=== PATIENT | female | born 1935 | race Caucasian/White ===

== ENCOUNTER 2018-06-06 13:38 | Inpatient (IN) | payer MEDICARE, BC ==
[2018-06-06] MEDS ORDERED: SODIUM CHLORIDE 0.9% 1,000 ML IV ONE ×2 (14:42)
--- NOTE | 2018-06-06 14:45 | ED ---
Altered Mental Status HPI - General Chief Complaint: Altered Mental Status Stated Complaint: elevated heart rate, mental status changes Time Seen by Provider: 06/06/18 14:42 Source: patient, RN notes reviewed, old records reviewed Mode of arrival: ambulatory Limitations: no limitations - History of Present Illness Initial Comments: This is a 80-year-old female the ER for evaluation. Patient presents today for evaluation regarding the family believes is altered mental status. Patient herself states that her mental status is normal she was reassessed family states the patient thinks that she is in the. Patient's daughter who is understood noticed that the patient had an elevated heart rate which was irregular. Patient has no history of this prior. No recent change in medications no significant sick contacts no travel history. Patient without complaint currently no headache chest pain or shortness of breath MD Complaint: confusion -: hour(s) Severity: moderate Consistency of Symptoms: waxing and waning Associated Symptoms: weakness - Related Data Home Medications Medication Instructions Recorded Confirmed Ascorbic Acid [Vitamin C] 500 mg PO DAILY 11/02/13 06/06/18 Calcium Citrate/Vitamin D3 1 tab PO DAILY 11/02/13 06/06/18 [Calcium Citrate - Vit D3 Tab] Ezetimibe [Zetia] 10 mg PO DAILY 11/02/13 06/06/18 Folic Acid/Mv,Fe,Min [Centrum 1 tab PO DAILY 11/02/13 06/06/18 Multivitamin Tab Chew] Gabapentin [Neurontin] 600 mg PO TID 11/02/13 06/06/18 Levothyroxine Sodium [Synthroid] 50 mcg PO DAILY 11/02/13 06/06/18 Pantoprazole Sodium 40 mg PO DAILY 11/02/13 06/06/18 Vitamin E (Dl,Tocopheryl Acet) 1 tab PO DAILY 11/02/13 06/06/18 [Vitamin E] clonazePAM [KlonoPIN] 1 mg PO HS 11/02/13 06/06/18 traMADol HCl [Ultram] 50 mg PO QID 11/02/13 06/06/18 HYDROcodone/APAP 10-325MG [[place] 0.5 - 1 tab PO Q6H PRN 12/06/13 06/06/18 10-325] DULoxetine HCL [Cymbalta] 60 mg PO DAILY 06/06/18 06/06/18 Allergies Allergy/AdvReac Type Severity Reaction Status Date / Time Sulfa (Sulfonamide Allergy Swelling Verified 06/06/18 15:45 Antibiotics) Review of Systems ROS Statement: Those systems with pertinent positive or pertinent negative responses have been documented in the HPI. ROS Other: All systems not noted in ROS Statement are negative. Past Medical History Past Medical History: Osteoarthritis (OA) History of Any Multi-Drug Resistant Organisms: None Reported Past Surgical History: Cholecystectomy, Hysterectomy Past Anesthesia/Blood Transfusion Reactions: No Reported Reaction Past Psychological History: No Psychological Hx Reported Smoking Status: Current some day smoker Past Alcohol Use History: Rare Past Drug Use History: None Reported General Exam Limitations: no limitations General appearance: alert, in no apparent distress Head exam: Present: atraumatic, normocephalic, normal inspection Eye exam: Present: normal appearance, PERRL, EOMI. Absent: scleral icterus, conjunctival injection, periorbital swelling ENT exam: Present: normal exam, mucous membranes moist Neck exam: Present: normal inspection. Absent: tenderness, meningismus, lymphadenopathy Respiratory exam: Present: normal lung sounds bilaterally. Absent: respiratory distress, wheezes, rales, rhonchi, stridor Cardiovascular Exam: Present: tachycardia, irregular rhythm, normal heart sounds. Absent: systolic murmur, diastolic murmur, rubs, gallop, clicks GI/Abdominal exam: Present: soft, normal bowel sounds. Absent: distended, tenderness, guarding, rebound, rigid Extremities exam: Present: normal inspection, full ROM, normal capillary refill. Absent: tenderness, pedal edema, joint swelling, calf tenderness Back exam: Present: normal inspection Neurological exam: Present: alert, oriented X3, CN II-XII intact Psychiatric exam: Present: normal affect, normal mood Skin exam: Present: warm, dry, intact, normal color. Absent: rash Course Vital Signs 06/06/18 13:47 Temperature 98.2 F Pulse Rate 117 H Respiratory 16 Rate Blood Pressure 126/78 O2 Sat by Pulse 95 Oximetry - Reevaluation(s) Reevaluation #1: 06/06/18 18:02 Medical records reviewed Reevaluation #2: 06/06/18 18:02 Patient showing normal mental status currently with improvement heart rate control Medical Decision Making - Medical Decision Making 82 female the ER for evaluation presented for evaluation regarding altered mental status found to be new onset A. fib with RVR. Patient will be admitted for evaluation of H of fibrillation with RVR, patient is nonfocal neurological exam with normal lab work normal vital signs. - Lab Data Result diagrams: 06/06/18 15:00 06/06/18 15:00 Lab Results 06/06/18 06/06/18 06/06/18 Range/Units 15:00 15:00 15:00 WBC (3.8-10.6) k/uL RBC (3.80-5.40) m/uL Hgb (11.4-16.0) gm/dL Hct (34.0-46.0) % MCV (80.0-100.0) fL MCH (25.0-35.0) pg MCHC (31.0-37.0) g/dL RDW (11.5-15.5) % Plt Count (150-450) k/uL Neutrophils % % Lymphocytes % % Monocytes % % Eosinophils % % Basophils % % Neutrophils # (1.3-7.7) k/uL Lymphocytes # (1.0-4.8) k/uL Monocytes # (0-1.0) k/uL Eosinophils # (0-0.7) k/uL Basophils # (0-0.2) k/uL PT 10.0 (9.0-12.0) sec INR 0.9 (<1.2) APTT 24.9 (22.0-30.0) sec Sodium 138 (137-145) mmol/L Potassium 4.3 (3.5-5.1) mmol/L Chloride 102 (98-107) mmol/L Carbon Dioxide 29 (22-30) mmol/L Anion Gap 7 mmol/L BUN 10 (7-17) mg/dL Creatinine 0.78 (0.52-1.04) mg/dL Est GFR (CKD-EPI)AfAm 82 (>60 ml/min/1.73 sqM) Est GFR (CKD-EPI)NonAf 71 (>60 ml/min/1.73 sqM) Glucose 85 (74-99) mg/dL Calcium 10.0 (8.4-10.2) mg/dL Total Bilirubin 0.6 (0.2-1.3) mg/dL AST 29 (14-36) U/L ALT 43 (9-52) U/L Alkaline Phosphatase 87 (38-126) U/L Ammonia <9 (<30) umol/L Troponin I (0.000-0.034) ng/mL Total Protein 7.2 (6.3-8.2) g/dL Albumin 4.4 (3.5-5.0) g/dL Urine Opiates Screen (NotDetected) Ur Oxycodone Screen (NotDetected) Urine Methadone Screen (NotDetected) Ur Propoxyphene Screen (NotDetected) Ur Barbiturates Screen (NotDetected) U Tricyclic Antidepress (NotDetected) Ur Phencyclidine Scrn (NotDetected) Ur Amphetamines Screen (NotDetected) U Methamphetamines Scrn (NotDetected) U Benzodiazepines Scrn (NotDetected) Urine Cocaine Screen (NotDetected) U Marijuana (THC) Screen (NotDetected) 06/06/18 06/06/18 06/06/18 Range/Units 15:00 15:00 15:00 WBC 10.2 (3.8-10.6) k/uL RBC 5.15 (3.80-5.40) m/uL Hgb 15.6 (11.4-16.0) gm/dL Hct 45.9 (34.0-46.0) % MCV 89.1 (80.0-100.0) fL MCH 30.4 (25.0-35.0) pg MCHC 34.1 (31.0-37.0) g/dL RDW 14.1 (11.5-15.5) % Plt Count 322 (150-450) k/uL Neutrophils % 52 % Lymphocytes % 38 % Monocytes % 4 % Eosinophils % 3 % Basophils % 1 % Neutrophils # 5.3 (1.3-7.7) k/uL Lymphocytes # 3.9 (1.0-4.8) k/uL Monocytes # 0.5 (0-1.0) k/uL Eosinophils # 0.3 (0-0.7) k/uL Basophils # 0.1 (0-0.2) k/uL PT (9.0-12.0) sec INR (<1.2) APTT (22.0-30.0) sec Sodium (137-145) mmol/L Potassium (3.5-5.1) mmol/L Chloride (98-107) mmol/L Carbon Dioxide (22-30) mmol/L Anion Gap mmol/L BUN (7-17) mg/dL Creatinine (0.52-1.04) mg/dL Est GFR (CKD-EPI)AfAm (>60 ml/min/1.73 sqM) Est GFR (CKD-EPI)NonAf (>60 ml/min/1.73 sqM) Glucose (74-99) mg/dL Calcium (8.4-10.2) mg/dL Total Bilirubin (0.2-1.3) mg/dL AST (14-36) U/L ALT (9-52) U/L Alkaline Phosphatase (38-126) U/L Ammonia (<30) umol/L Troponin I <0.012 (0.000-0.034) ng/mL Total Protein (6.3-8.2) g/dL Albumin (3.5-5.0) g/dL Urine Opiates Screen Detected H (NotDetected) Ur Oxycodone Screen Not Detected (NotDetected) Urine Methadone Screen Not Detected (NotDetected) Ur Propoxyphene Screen Not Detected (NotDetected) Ur Barbiturates Screen Not Detected (NotDetected) U Tricyclic Antidepress Not Detected (NotDetected) Ur Phencyclidine Scrn Not Detected (NotDetected) Ur Amphetamines Screen Not Detected (NotDetected) U Methamphetamines Scrn Not Detected (NotDetected) U Benzodiazepines Scrn Not Detected (NotDetected) Urine Cocaine Screen Not Detected (NotDetected) U Marijuana (THC) Screen Not Detected (NotDetected) - EKG Data -: EKG Interpreted by Me (EKG shows A. fib rate of 90, QRS 70, QTc 452) - Radiology Data Radiology results: report reviewed (CT brain chest x-rays negative for acute disease), image reviewed Disposition Clinical Impression: Altered mental status, Atrial fibrillation with RVR, Dehydration Disposition: ADMITTED IP TO THIS HOSP Is patient prescribed a controlled substance at d/c from ED?: No Referrals: Rachel Gallardo MD [Primary Care Provider] - 1-2 days
[2018-06-06 15:29] LABS: Basophils # (A) 0.1 k/uL (0-0.2); Basophils % (A) 1 %; Eosinophils # (A) 0.3 k/uL (0-0.7); Eosinophils % (A) 3 %; HCT 45.9 % (34.0-46.0); HGB 15.6 gm/dL (11.4-16.0); Lymphocytes # (A) 3.9 k/uL (1.0-4.8); Lymphocytes % (A) 38 %; MCH 30.4 pg (25.0-35.0); MCHC 34.1 g/dL (31.0-37.0); MCV 89.1 fL (80.0-100.0); Mean Platelet Volume 7.1; Monocytes # (A) 0.5 k/uL (0-1.0); Monocytes % (A) 4 %; Neutrophils # (A) 5.3 k/uL (1.3-7.7); Neutrophils % (A) 52 %; Platelet Count 322 k/uL (150-450); RBC 5.15 m/uL (3.80-5.40); RDW 14.1 % (11.5-15.5); WBC 10.2 k/uL (3.8-10.6)
[2018-06-06 15:31] LABS: INR 0.9 (<1.2); Partial Thromboplastin Time 24.9 sec (22.0-30.0)
[2018-06-06 15:34] LABS: Albumin 4.4 g/dL (3.5-5.0); Potassium 4.3 mmol/L (3.5-5.1); Total Bilirubin 0.6 mg/dL (0.2-1.3); Total Protein 7.2 g/dL (6.3-8.2)
[2018-06-06 15:50] LABS: Amphetamine Screen,Urine Not Detected (NotDetected); Barbiturate Screen,Urine Not Detected (NotDetected); Benzodiazepines Screen,Urine Not Detected (NotDetected); Cocaine Screen,Urine Not Detected (NotDetected); Methadone Screen, Urine Not Detected (NotDetected); Opiate Screen,Urine Detected (NotDetected); Oxycodone Screen, Urine Not Detected (NotDetected); Phencyclidine Screen,Urine Not Detected (NotDetected); Tricyclic Antidepressant,Urine Not Detected (NotDetected); Urn Cannabinoid Scrn Not Detected (NotDetected)
--- NOTE | 2018-06-06 16:28 | CT ---
EXAMINATION TYPE: CT brain wo con DATE OF EXAM: 06/06/2018 COMPARISON: None HISTORY: Altered mental status CT DLP: 1021.[address] of the brain was performed. The ventricles, basal cisterns and sulci overlying the cerebral convexities demonstrate mild enlargem ent. There is no evidence for intracranial hemorrhage or sulcal effacement. There is decreased attenuation about the periventricular white matter and deep white matter of both c erebral hemispheres, compatible with chronic small vessel ischemia. Differential diagnosis does inclu de demyelination. No mass effects are seen.No midline shift. Osseous calvarium is intact. If symptoms persist consider MRI. IMPRESSION: 1. Age related atrophic and chronic small vessel ischemic change without acute intracranial process s een at this time.
--- NOTE | 2018-06-06 16:43 | XR ---
EXAMINATION TYPE: XR chest 2V DATE OF EXAM: 06/06/2018 COMPARISON: 12/19/2014 HISTORY: Altered mental status TECHNIQUE: Frontal and lateral views of the chest are obtained. FINDINGS: There is no heart failure nor confluent pneumonic infiltrate. Costophrenic angles are amadeo r. There are chest leads. Bony thorax is intact. IMPRESSION: No active cardiopulmonary disease. No change.
[2018-06-06] MEDS ORDERED: SODIUM CHLORIDE 0.9% 1,000 ML IV STA (17:10)
[2018-06-06] MEDS ORDERED: DILTIAZEM 5 MG/ML 5 ML VIAL IVP STA (17:10)
[2018-06-06] MEDS ORDERED: DILTIAZEM DRIP BOLUS FROM BAG 1 MG SOLN IV ONE (17:10)
[2018-06-06] MEDS ORDERED: DILTIAZEM 5 MG/ML 5 ML VIAL IV ONE (17:15)
[2018-06-06] MEDS ORDERED: NITROGLYCERIN SL TABS 0.4 MG TAB SUBLINGUAL PRN (17:59)
[2018-06-06] MEDS ORDERED: HEPARIN SODIUM,PORCINE 5,000 UNIT/ML 1 ML VIAL IV PRN (17:59)
[2018-06-06] MEDS ORDERED: HEPARIN SODIUM,PORCINE 5,000 UNIT/ML 1 ML VIAL IV ONE (17:59)
[2018-06-06] MEDS ORDERED: HEPARIN SOD,PORK IN 0.45% NACL 25,000 UNIT in 0.45% NACL 1 250ML.BAG IV SCH (18:00)
[2018-06-06 18:04] LABS: Appearance,Urine Clear (Clear); Bilirubin,Urine Negative (Negative); Blood,Urine Negative (Negative); Color,Urine Light Yellow; Glucose,Urine (UA) Negative (Negative); Ketones,Urine Negative (Negative); Leukocyte Esterase,Urine Negative (Negative); Nitrite,Urine Negative (Negative); PH, Urine 5.5 (5.0-8.0); Protein,Urine Negative (Negative); Specific Gravity,Urine 1.006 (1.001-1.035); Urobilinogen,Urine <2.0 mg/dL (<2.0)
[2018-06-06] MEDS: DILTIAZEM 125 MG in SODIUM CHLORIDE 0.9% 100 ML IV SCH (19:42)
[2018-06-06] MEDS: METOPROLOL TARTRATE 25 MG TAB PO SCH (23:42)
[2018-06-06] MEDS: clonazePAM 1 MG TAB PO SCH (23:43)
[2018-06-06] MEDS: HYDROcodone/APAP 10-325MG 1 EACH TAB PO PRN (23:43)
[2018-06-06] MEDS: GABAPENTIN 300 MG CAP PO SCH (23:43)
[2018-06-06] MEDS: traMADol 50 MG TAB PO SCH (23:44)
[2018-06-06] MEDS ORDERED: guaiFENesin SYRUP 100MG/5ML 200 MG/10 ML CUP PO PRN (23:57)
[2018-06-07 00:56] VITALS: BMI 23.0
[2018-06-07] MEDS: SODIUM CHLORIDE 0.9% 1,000 ML IV SCH ×3 (02:27→11:32)
[2018-06-07 06:33] LABS: Mean Platelet Volume 6.8; Platelet Count 277 k/uL (150-450)
[2018-06-07 06:42] LABS: Cholesterol 179 mg/dL (<200); HDL Cholesterol 37 mg/dL (40-60); LDL Cholesterol,Calculated 95 mg/dL (0-99); Triglycerides 235 mg/dL (<150)
[2018-06-07] MEDS: APIXABAN 5 MG TAB PO SCH ×2 (08:17→20:31)
[2018-06-07] MEDS: DULoxetine HCL 60 MG CAPSULE.DR PO SCH (08:17)
[2018-06-07] MEDS: ASPIRIN 325 MG TAB PO SCH (08:17)
[2018-06-07] MEDS: GABAPENTIN 300 MG CAP PO SCH ×3 (08:18→23:08)
[2018-06-07] MEDS: LEVOTHYROXINE 50 MCG TAB PO SCH (08:18)
[2018-06-07] MEDS: PANTOPRAZOLE 40 MG TABLET PO SCH (08:18)
[2018-06-07] MEDS: METOPROLOL TARTRATE 25 MG TAB PO SCH ×2 (08:18→20:31)
[2018-06-07] MEDS: traMADol 50 MG TAB PO SCH ×4 (08:18→23:33)
[2018-06-07] MEDS: ATORVASTATIN 80 MG TAB PO SCH (08:18)
[2018-06-07] MEDS: HYDROcodone/APAP 10-325MG 1 EACH TAB PO PRN ×2 (08:19→17:20)
[2018-06-07] MEDS ORDERED: MV FE MIN PO SCH (09:00)
[2018-06-07] MEDS ORDERED: FOLIC ACID PO SCH (09:00)
[2018-06-07] MEDS: ASCORBIC ACID 500 MG TAB PO SCH (11:41)
[2018-06-07] MEDS: VITAMIN E (DL,TOCOPHERYL ACET) 400 UNIT CAP PO SCH (11:41)
[2018-06-07] MEDS: EZETIMIBE 10 MG TAB PO SCH (11:42)
[2018-06-07] MEDS ORDERED: CALCIUM CITRATE PO SCH (12:00)
[2018-06-07] MEDS ORDERED: VITAMIN D3 PO SCH (12:00)
--- NOTE | 2018-06-07 12:01 | P.CRDCN ---
History of Present Illness History of present illness: This is Dr. Silva dictating a consult on this patient The patient was interviewed and examined by me IMPRESSION / ASSESSMENT: Patient admitted with altered mental status Found to be in atrial fibrillation PLAN: Rate controlled and anticoagulation strategy recommended for atrial fibril lation Metoprolol 25 mg twice daily and gradually maximize Check TSH 2-D echo and Doppler study to assess cardiac structure and function impression When cleared from a GI standpoint regarding GI bleeding ELIQUIS should be initiated at 5 mg twice a day or any other NOAC or Coumadin HPI patient admitted with altered mental status. Patient's daughter thought her heart rate was elevated and irregular Initial pulse rate was 117 beats a minute, blood pressure 126/78 mmHg ROS: No fever chills or rigors, no cough, phlegm or expectoration, no nausea, vomiting or diarrhea, no hematuria, dysuria, no musculoskeletal complaints, no strokes or seizures, no skin lesions. EXAMINATION: Heart rate in the 50s and 60s, afebrile 98.5F Blood pressure 131/62 mmHg Heart sounds are irregular no murmurs or gallops Breath sounds are clear no rhonchi no crackles Extremities warm no edema Patient is a poor historian She is also being worked up for GI bleed REVIEW OF LABS, ECG & MEDICAL DATA White count 10.2 thousand, hemoglobin 15.6, sodium 138 potassium 4.3, BUN 10 creatinine 0.78 3 troponins are normal TSH 2.5 LDL 95 Triglycerides 235,000 Twelve-lead ECG shows atrial fibrillation with heart rates in the 90s narrow QRS nonspecific ST-T abnormality Past Medical History Past Medical History: GERD/Reflux, Hyperlipidemia, Memory Impairment, Osteoarthritis (OA) Additional Past Medical History / Comment(s): occassional forgetfullness, degenerative disc disease, chronic pain History of Any Multi-Drug Resistant Organisms: None Reported Past Surgical History: Cholecystectomy, Hysterectomy Past Anesthesia/Blood Transfusion Reactions: No Reported Reaction Smoking Status: Current every day smoker - Past Family History Father Additional Family Medical History / Comment(s): pt. states her father was an alcoholic and at a young age Medications and Allergies Home Medications Medication Instructions Recorded Confirmed Type Ascorbic Acid [Vitamin C] 500 mg PO DAILY 11/02/13 06/06/18 History Calcium Citrate/Vitamin D3 1 tab PO DAILY 11/02/13 06/06/18 History [Calcium Citrate - Vit D3 Tab] Ezetimibe [Zetia] 10 mg PO DAILY 11/02/13 06/06/18 History Folic Acid/Mv,Fe,Min [Centrum 1 tab PO DAILY 11/02/13 06/06/18 History Multivitamin Tab Chew] Gabapentin [Neurontin] 600 mg PO TID 11/02/13 06/06/18 History Levothyroxine Sodium [Synthroid] 50 mcg PO DAILY 11/02/13 06/06/18 History Pantoprazole Sodium 40 mg PO DAILY 11/02/13 06/06/18 History Vitamin E (Dl,Tocopheryl Acet) 1 tab PO DAILY 11/02/13 06/06/18 History [Vitamin E] clonazePAM [KlonoPIN] 1 mg PO HS 11/02/13 06/06/18 History traMADol HCl [Ultram] 50 mg PO QID 11/02/13 06/06/18 History HYDROcodone/APAP 10-325MG [[place] 0.5 - 1 tab PO Q6H PRN 12/06/13 06/06/18 History 10-325] DULoxetine HCL [Cymbalta] 60 mg PO DAILY 06/06/18 06/06/18 History Allergies Allergy/AdvReac Type Severity Reaction Status Date / Time Sulfa (Sulfonamide Allergy Swelling Verified 06/06/18 15:45 Antibiotics) Physical Exam Vitals: Vital Signs Temp Pulse Pulse Resp BP BP Pulse Ox 06/07/18 09:34 97 06/07/18 06:00 98.5 F 51 L 19 131/62 95 06/07/18 02:00 98.3 F 59 L 19 122/58 95 06/07/18 00:25 73 06/06/18 22:15 73 19 06/06/18 22:00 97.5 F L 74 18 169/98 98 06/06/18 20:30 86 17 160/78 06/06/18 20:00 83 22 168/98 95 06/06/18 19:30 142/88 06/06/18 19:00 59 L 11 L 142/88 06/06/18 18:30 102 H 20 141/90 06/06/18 18:00 75 16 147/105 96 06/06/18 17:30 99 16 146/125 97 06/06/18 17:00 92 18 126/114 98 04/08/19 16:30 122/89 06/06/18 16:00 74 14 127/96 93 L 06/06/18 13:47 98.2 F 117 H 16 126/78 95 Intake and Output 06/06/18 06/07/18 06/07/18 22:59 06:59 14:59 Intake Total 51.833 240 Balance 51.833 240 Intake: Intake, IV Titration 51.833 Amount Diltiazem 125 mg In 51.833 Sodium Chloride 0.9% 100 ml @ 5 MG/HR 5 mls/hr IV .Q24H [facility] Rx#:[id number] Oral 240 Other: Voiding Method Toilet Toilet # Voids 1 5 1 # Bowel Movements 2 Weight 69.1 kg Results 06/07/18 06:02 06/06/18 15:00 Cardiac Enzymes 06/06/18 06/06/18 06/06/18 Range/Units 15:00 15:00 21:08 AST 29 (14-36) U/L Troponin I <0.012 <0.012 (0.000-0.034) ng/mL 06/07/18 Range/Units 06:02 AST (14-36) U/L Troponin I <0.012 (0.000-0.034) ng/mL Coagulation 06/06/18 06/07/18 06/07/18 Range/Units 15:00 01:53 06:02 PT 10.0 (9.0-12.0) sec APTT 24.9 29.6 31.8 H (22.0-30.0) sec Lipids 06/07/18 Range/Units 06:02 Triglycerides 235 H (<150) mg/dL Cholesterol 179 (<200) mg/dL HDL Cholesterol 37 L (40-60) mg/dL CBC 06/06/18 06/07/18 Range/Units 15:00 06:02 WBC 10.2 (3.8-10.6) k/uL RBC 5.15 (3.80-5.40) m/uL Hgb 15.6 (11.4-16.0) gm/dL Hct 45.9 (34.0-46.0) % Plt Count 322 277 (150-450) k/uL Comprehensive Metabolic Panel 06/06/18 Range/Units 15:00 Sodium 138 (137-145) mmol/L Potassium 4.3 (3.5-5.1) mmol/L Chloride 102 (98-107) mmol/L Carbon Dioxide 29 (22-30) mmol/L BUN 10 (7-17) mg/dL Creatinine 0.78 (0.52-1.04) mg/dL Glucose 85 (74-99) mg/dL Calcium 10.0 (8.4-10.2) mg/dL AST 29 (14-36) U/L ALT 43 (9-52) U/L Alkaline Phosphatase 87 (38-126) U/L Total Protein 7.2 (6.3-8.2) g/dL Albumin 4.4 (3.5-5.0) g/dL Current Medications Generic Name Dose Route Start Last Admin Trade Name Freq PRN Reason Stop Dose Admin Hydrocodone Bitart/Acetaminophen 0.5 - 1 each 06/06/18 22:22 06/07/18 08:19 [place] 10 PO 1 each Q6H PRN Administration Pain Apixaban 5 mg 06/07/18 09:00 06/07/18 08:17 Eliquis PO 5 mg BID WAY[facility] Administration Ascorbic Acid 500 mg 06/07/18 12:00 06/07/18 11:41 Vitamin C PO 500 mg DAILY WAY[facility] Administration Aspirin 325 mg 06/07/18 09:00 06/07/18 08:17 Aspirin PO 325 mg DAILY [facility] Administration Atorvastatin Calcium 80 mg 06/07/18 09:00 06/07/18 08:18 Lipitor PO 80 mg DAILY WAY[facility] Administration Clonazepam 1 mg 06/06/18 22:23 06/06/18 23:43 Klonopin PO 1 mg HS WAY[facility] Administration Duloxetine HCl 60 mg 06/07/18 09:00 06/07/18 08:17 Cymbalta PO 60 mg DAILY WAY[facility] Administration Ezetimibe 10 mg 06/07/18 12:00 06/07/18 11:42 Zetia PO 10 mg DAILY [facility] Administration Gabapentin 600 mg 06/06/18 22:30 06/07/18 08:18 Neurontin PO 600 mg TID WAY[facility] Administration Guaifenesin 200 mg 06/06/18 23:57 06/07/18 00:32 Robitussin PO 200 mg Q6H PRN Administration Cough Sodium Chloride 1,000 mls @ 100 mls/hr 06/06/18 18:00 06/07/18 11:32 Saline 0.9% IV Not Given .Q10H [facility] Diltiazem HCl 125 mg/ Sodium 125 mls @ 5 mls/hr 06/06/18 19:00 06/07/18 06:04 Chloride IV 0 mg/hr .Q24H [facility] 0 mls/hr Infusion 5 MG/HR Levothyroxine Sodium 50 mcg 06/07/18 06:30 06/07/18 08:18 Synthroid PO 50 mcg DAILY@0630 [facility] Administration Metoprolol Tartrate 25 mg 06/06/18 21:00 06/07/18 08:18 Lopressor PO 25 mg BID [facility] Administration Nitroglycerin 0.4 mg 06/06/18 17:59 Nitrostat SUBLINGUAL Q5M PRN Chest Pain Pantoprazole Sodium 40 mg 06/07/18 09:00 06/07/18 08:18 Protonix PO 40 mg DAILY [facility] Administration Tramadol HCl 50 mg 06/06/18 22:30 06/07/18 08:18 Ultram PO 50 mg QID [facility] Administration Vitamin E 400 unit 06/07/18 09:00 06/07/18 11:41 Vitamin E PO 400 unit DAILY [facility] Administration Intake and Output 06/06/18 06/07/18 06/07/18 22:59 06:59 14:59 Intake Total 51.833 240 Balance 51.833 240 Intake: Intake, IV Titration 51.833 Amount Diltiazem 125 mg In 51.833 Sodium Chloride 0.9% 100 ml @ 5 MG/HR 5 mls/hr IV .Q24H [facility] Rx#:[id number] Oral 240 Other: Voiding Method Toilet Toilet # Voids 1 5 1 # Bowel Movements 2 Weight 69.1 kg 06/07/18 06:02 06/06/18 15:00
--- NOTE | 2018-06-07 12:38 | P.HPIM ---
History of Present Illness H&P Date: 06/07/18 Chief Complaint: Confusion and elevated heart rate This is a 82-year-old female with a known past medical history of hypothyroidism, os arthritis, chronic back pain with known degenerative disc disease of the lumbar spine and spinal stenosis. Patient presents to the emergency room with complaint of mental status changes and elevated heart rate. She was found to be in atrial fibrillation with rapid ventricular response. Started on IV heparin and Cardizem drip in the ER. Patient has been seen evaluated by cardiology she is currently on metoprolol 25 mg twice a day and has been started on Eliquis for anticoagulation. She remains in A. fib heart rate is controlled. Her mentation is improving. She is alert and orientated to her name and place. She had a computed tomography scan of the brain that showed no acute intracranial process. Chest x-rays negative urinalysis negative. Troponins are negative 3 sets drug screen was positive for opiates. Thyroid levels normal. Patient denies any fever or chills or sweats. Denies any chest pain. Denies any nausea or vomiting. She did report a few episodes of diarrhea yesterday. Stool for C. diff will be ordered. Also again complaining of some cough yesterday which has improved she does have some mild wheezing noted on exam and IV fluids will be hep-locked. Review of Systems Please refer to HPI otherwise unremarkable Past Medical History Past Medical History: GERD/Reflux, Hyperlipidemia, Memory Impairment, Osteoarthritis (OA) Additional Past Medical History / Comment(s): occassional forgetfullness, degenerative disc disease, chronic pain History of Any Multi-Drug Resistant Organisms: None Reported Past Surgical History: Cholecystectomy, Hysterectomy Past Anesthesia/Blood Transfusion Reactions: No Reported Reaction Smoking Status: Current every day smoker - Past Family History Father Additional Family Medical History / Comment(s): pt. states her father was an alcoholic and at a young age Medications and Allergies Home Medications Medication Instructions Recorded Confirmed Type Ascorbic Acid [Vitamin C] 500 mg PO DAILY 11/02/13 06/06/18 History Calcium Citrate/Vitamin D3 1 tab PO DAILY 11/02/13 06/06/18 History [Calcium Citrate - Vit D3 Tab] Ezetimibe [Zetia] 10 mg PO DAILY 11/02/13 06/06/18 History Folic Acid/Mv,Fe,Min [Centrum 1 tab PO DAILY 11/02/13 06/06/18 History Multivitamin Tab Chew] Gabapentin [Neurontin] 600 mg PO TID 11/02/13 06/06/18 History Levothyroxine Sodium [Synthroid] 50 mcg PO DAILY 11/02/13 06/06/18 History Pantoprazole Sodium 40 mg PO DAILY 11/02/13 06/06/18 History Vitamin E (Dl,Tocopheryl Acet) 1 tab PO DAILY 11/02/13 06/06/18 History [Vitamin E] clonazePAM [KlonoPIN] 1 mg PO HS 11/02/13 06/06/18 History traMADol HCl [Ultram] 50 mg PO QID 11/02/13 06/06/18 History HYDROcodone/APAP 10-325MG [[place] 0.5 - 1 tab PO Q6H PRN 12/06/13 06/06/18 History 10-325] DULoxetine HCL [Cymbalta] 60 mg PO DAILY 06/06/18 06/06/18 History Allergies Allergy/AdvReac Type Severity Reaction Status Date / Time Sulfa (Sulfonamide Allergy Swelling Verified 06/06/18 15:45 Antibiotics) Physical Exam Vitals: Vital Signs Temp Pulse Pulse Resp BP BP Pulse Ox 06/07/18 09:34 97 06/07/18 06:00 98.5 F 51 L 19 131/62 95 06/07/18 02:00 98.3 F 59 L 19 122/58 95 06/07/18 00:25 73 06/06/18 22:15 73 19 06/06/18 22:00 97.5 F L 74 18 169/98 98 06/06/18 20:30 86 17 160/78 06/06/18 20:00 83 22 168/98 95 06/06/18 19:30 142/88 06/06/18 19:00 59 L 11 L 142/88 06/06/18 18:30 102 H 20 141/90 06/06/18 18:00 75 16 147/105 96 06/06/18 17:30 99 16 146/125 97 06/06/18 17:00 92 18 126/114 98 06/06/18 16:30 122/89 06/06/18 16:00 74 14 127/96 93 L 06/06/18 13:47 98.2 F 117 H 16 126/78 95 Intake and Output 06/06/18 06/07/18 06/07/18 22:59 06:59 14:59 Intake Total 51.833 240 Balance 51.833 240 Intake: Intake, IV Titration 51.833 Amount Diltiazem 125 mg In 51.833 Sodium Chloride 0.9% 100 ml @ 5 MG/HR 5 mls/hr IV .Q24H [facility] Rx#:[id number] Oral 240 Other: Voiding Method Toilet Toilet # Voids 1 5 1 # Bowel Movements 2 Weight 69.1 kg Head normocephalic Neck supple Lungs a few faint mild wheezes noted bilaterally Heart regular rate and rhythm S1-S2, no rub or gallop Abdomen is soft nontender nondistended positive bowel sounds no hepatosplenomegaly Extremities no edema Neuro alert and orientated to 2 patient new her name and place Results CBC & Chem 7: 06/07/18 06:02 06/06/18 15:00 Labs: Abnormal Lab Results - Last 24 Hours (Table) 06/06/18 06/07/18 06/07/18 Range/Units 15:00 06:02 06:02 APTT 31.8 H (22.0-30.0) sec Triglycerides 235 H (<150) mg/dL HDL Cholesterol 37 L (40-60) mg/dL Urine Opiates Screen Detected H (NotDetected) Thrombosis Risk Factor Assmnt - Choose All That Apply Any of the Below Risk Factors Present?: No Other Risk Factors: Yes Each Risk Factor Represents 3 Points: Age 75 years or older Thrombosis Risk Factor Assessment Total Risk Factor Score: 3 Thrombosis Risk Factor Assessment Level: Moderate Risk Assessment and Plan Assessment: 1. New onset of atrial fibrillation with rapid ventricular response: Heart rate is better controlled. She is currently off of the Cardizem drip and IV heparin. Cardiology is placed her on Eliquis for anticoagulation and metoprolol 25 mg twice a day for rate control. 2-D echo is pending. Thyroid level is normal. 2. Altered mental status changes: Computed tomography scan of brain shows no acute intracranial process. No evidence of infection noted on chest x-ray or urinalysis. 3. Nicotine dependence: Discussed smoking cessation for greater than 3 minutes. Add nicotine patch 4. Degenerative disc disease of the lumbar spine and spinal stenosis: On [place] as needed for pain control 5. Diarrhea check stool for C. diff. Patient reports last stool was yesterday morning Hep-Lock IV fluids DVT prophylaxis Eliquis and GI prophylaxis Pepcid Time with Patient: Greater than 30 (Greater than 50% of the total time spent in counseling and coordination of care.I performed an examination of the patient and discussed their management with the physician Parts Cataloguer. I have reviewed the Physician Parts Cataloguer's notes and agree with the documented findings and plan of care)
[2018-06-07] MEDS: DILTIAZEM 125 MG in SODIUM CHLORIDE 0.9% 100 ML IV SCH (15:10)
[2018-06-07] MEDS: clonazePAM 1 MG TAB PO SCH (20:31)
[2018-06-08] MEDS: HYDROcodone/APAP 10-325MG 1 EACH TAB PO PRN (01:42)
[2018-06-08 07:00] LABS: Basophils # (A) 0.1 k/uL (0-0.2); Basophils % (A) 1 %; Eosinophils # (A) 0.5 k/uL (0-0.7); Eosinophils % (A) 5 %; HGB 15.1 gm/dL (11.4-16.0); Lymphocytes # (A) 4.3 k/uL (1.0-4.8); Lymphocytes % (A) 36 %; MCH 30.4 pg (25.0-35.0); MCHC 32.8 g/dL (31.0-37.0); MCV 92.6 fL (80.0-100.0); Mean Platelet Volume 6.7; Monocytes # (A) 0.5 k/uL (0-1.0); Monocytes % (A) 4 %; Neutrophils # (A) 6.3 k/uL (1.3-7.7); Neutrophils % (A) 53 %; Platelet Count 270 k/uL (150-450); RBC 4.97 m/uL (3.80-5.40); RDW 13.5 % (11.5-15.5); WBC 11.8 k/uL (3.8-10.6)
[2018-06-08 07:14] LABS: ALT 56 U/L (9-52); AST 38 U/L (14-36); Albumin 4.3 g/dL (3.5-5.0); Alkaline Phosphatase 62 U/L (38-126); Anion Gap 5 mmol/L; Blood Urea Nitrogen 11 mg/dL (7-17); Calcium 9.3 mg/dL (8.4-10.2); Carbon Dioxide 28 mmol/L (22-30); Chloride 107 mmol/L (98-107); Glucose 99 mg/dL (74-99); Potassium 4.2 mmol/L (3.5-5.1); Sodium 140 mmol/L (137-145); Total Bilirubin 0.8 mg/dL (0.2-1.3); Total Protein 6.9 g/dL (6.3-8.2)
[2018-06-08] MEDS: LEVOTHYROXINE 50 MCG TAB PO SCH (09:51)
[2018-06-08] MEDS: ASCORBIC ACID 500 MG TAB PO SCH (09:51)
[2018-06-08] MEDS: EZETIMIBE 10 MG TAB PO SCH (09:51)
[2018-06-08] MEDS: PANTOPRAZOLE 40 MG TABLET PO SCH (09:51)
[2018-06-08] MEDS: VITAMIN E (DL,TOCOPHERYL ACET) 400 UNIT CAP PO SCH (09:51)
[2018-06-08] MEDS: traMADol 50 MG TAB PO SCH ×4 (09:51→23:53)
[2018-06-08] MEDS: GABAPENTIN 300 MG CAP PO SCH ×3 (09:51→20:27)
[2018-06-08] MEDS: ATORVASTATIN 80 MG TAB PO SCH (09:53)
[2018-06-08] MEDS: DULoxetine HCL 60 MG CAPSULE.DR PO SCH (09:53)
[2018-06-08] MEDS: APIXABAN 5 MG TAB PO SCH ×2 (09:53→20:27)
[2018-06-08] MEDS: METOPROLOL TARTRATE 25 MG TAB PO SCH ×2 (09:53→20:27)
[2018-06-08] MEDS: ASPIRIN 325 MG TAB PO SCH (09:53)
--- NOTE | 2018-06-08 12:11 | P.PN ---
Subjective Progress Note Date: 06/08/18 This is a 82-year-old female with a known past medical history of hypothyroidism, os arthritis, chronic back pain with known degenerative disc disease of the lumbar spine and spinal stenosis. Patient presents to the emergency room with complaint of mental status changes and elevated heart rate. She was found to be in atrial fibrillation with rapid ventricular response. Started on IV heparin and Cardizem drip in the ER. Patient has been seen evaluated by cardiology she is currently on metoprolol 25 mg twice a day and has been started on Eliquis for anticoagulation. She remains in A. fib heart rate is controlled. Her mentation is improving. She is alert and orientated to her name and place. She had a computed tomography scan of the brain that showed no acute intracranial process. Chest x-rays negative urinalysis negative. Troponins are negative 3 sets drug screen was positive for opiates. Thyroid levels normal. Patient denies any fever or chills or sweats. Denies any chest pain. Denies any nausea or vomiting. She did report a few episodes of diarrhea yesterday. Stool for C. diff will be ordered. Also again complaining of some cough yesterday which has improved she does have some mild wheezing noted on exam and IV fluids will be hep-locked. On 06/08/2018 patient is alert and oriented. Patient has been started on eliquis and Metroprolol for A. fib. At this time patient denies chest pain or shortness breath. Patient denies nausea vomiting or diarrhea. Patient denies any urinary burning or frequency. Some mild wheezing still noted on exam. White blood count slightly elevated 11.8 will order chest x-ray at this time UA negative Objective - Vital Signs Vital signs: Vital Signs Temp 97.5 F L 06/08/18 07:30 Pulse 69 06/08/18 07:30 Resp 20 06/08/18 07:30 BP 161/81 06/08/18 07:30 Pulse Ox 95 06/08/18 08:20 Intake & Output 06/07/18 06/08/18 06/08/18 18:59 06:59 18:59 Intake Total 720 400 480 Balance 720 400 480 Weight 62 kg Intake: Oral 720 400 480 Other: Voiding Method Toilet Toilet # Voids 2 1 - Exam Head normocephalic Neck supple Lungs a few faint mild wheezes noted bilaterally Heart regular rate and rhythm S1-S2, no rub or gallop Abdomen is soft nontender nondistended positive bowel sounds no hepatosplenomegaly Extremities no edema Neuro alert and orientated to 2 patient new her name and place - Labs CBC & Chem 7: 06/08/18 06:24 06/08/18 06:24 Labs: Abnormal Lab Results - Last 24 Hours (Table) 06/08/18 06/08/18 Range/Units 06:24 06:24 WBC 11.8 H (3.8-10.6) k/uL AST 38 H (14-36) U/L ALT 56 H (9-52) U/L Assessment and Plan Assessment: 1. New onset of atrial fibrillation with rapid ventricular response: Heart rate is better controlled. She is currently off of the Cardizem drip and IV heparin. Cardiology is placed her on Eliquis for anticoagulation and metoprolol 25 mg twice a day for rate control. 2-D echo is pending. Thyroid level is normal. 2. Altered mental status changes: Computed tomography scan of brain shows no acute intracranial process. No evidence of infection noted on chest x-ray or urinalysis. 3. Nicotine dependence: Discussed smoking cessation for greater than 3 minutes. Add nicotine patch 4. Degenerative disc disease of the lumbar spine and spinal stenosis: On [place] as needed for pain control 5. Diarrhea check stool for C. diff. Patient reports last stool was yesterday morning 6. Leukocytosis. White blood cell count slightly elevated at 11.8. Will order chest x-ray at this time. C. diff sample ordered. UA negative DVT prophylaxis Eliquis and GI prophylaxis Pepcid I performed an examination of the patient and discussed their management with the Nurse Practitioner. I have reviewed the Nurse Practitioner's notes and agree with the documented findings and plan of care
--- NOTE | 2018-06-08 13:59 | XR ---
EXAMINATION TYPE: XR chest 2V DATE OF EXAM: 06/08/2018 COMPARISON: Chest x-ray from 2 days ago. HISTORY: Altered mental status, atrial fibrillation, cough rule out pneumonia. TECHNIQUE: Frontal and lateral views of the chest are obtained. FINDINGS: Overlying EKG leads are redemonstrated. There is chronic parenchymal change without suspic ious new focal air space opacity, pleural effusion, or pneumothorax seen. The cardiac silhouette siz e is stable and upper limits of normal with atherosclerotic aorta. The osseous structures are intac t. IMPRESSION: Chronic emphysematous change without acute pulmonary process.
[2018-06-08] MEDS: LOSARTAN 50 MG TAB PO SCH (15:43)
[2018-06-08] MEDS: clonazePAM 1 MG TAB PO SCH (20:27)
[2018-06-08] MEDS: DILTIAZEM 125 MG in SODIUM CHLORIDE 0.9% 100 ML IV SCH (21:31)
[2018-06-09] MEDS: LEVOTHYROXINE 50 MCG TAB PO SCH (06:04)
[2018-06-09 07:36] LABS: Basophils # (A) 0.1 k/uL (0-0.2); Basophils % (A) 1 %; Eosinophils # (A) 0.3 k/uL (0-0.7); Eosinophils % (A) 2 %; HCT 51.6 % (34.0-46.0); HGB 16.2 gm/dL (11.4-16.0); Lymphocytes # (A) 4.5 k/uL (1.0-4.8); Lymphocytes % (A) 35 %; MCH 30.3 pg (25.0-35.0); MCHC 31.3 g/dL (31.0-37.0); MCV 96.6 fL (80.0-100.0); Mean Platelet Volume 6.6; Monocytes # (A) 0.6 k/uL (0-1.0); Monocytes % (A) 4 %; Neutrophils # (A) 7.2 k/uL (1.3-7.7); Neutrophils % (A) 56 %; Platelet Count 333 k/uL (150-450); RBC 5.34 m/uL (3.80-5.40); RDW 13.4 % (11.5-15.5); WBC 12.9 k/uL (3.8-10.6)
[2018-06-09 07:48] LABS: Albumin 4.5 g/dL (3.5-5.0); Calcium 9.5 mg/dL (8.4-10.2); Potassium 4.1 mmol/L (3.5-5.1); Total Bilirubin 0.8 mg/dL (0.2-1.3); Total Protein 7.1 g/dL (6.3-8.2)
[2018-06-09] MEDS: PANTOPRAZOLE 40 MG TABLET PO SCH (08:47)
[2018-06-09] MEDS: EZETIMIBE 10 MG TAB PO SCH (08:47)
[2018-06-09] MEDS: APIXABAN 5 MG TAB PO SCH (08:47)
[2018-06-09] MEDS: DULoxetine HCL 60 MG CAPSULE.DR PO SCH (08:47)
[2018-06-09] MEDS: ASCORBIC ACID 500 MG TAB PO SCH (08:47)
[2018-06-09] MEDS: GABAPENTIN 300 MG CAP PO SCH (08:47)
[2018-06-09] MEDS: ATORVASTATIN 80 MG TAB PO SCH (08:48)
[2018-06-09] MEDS: traMADol 50 MG TAB PO SCH (08:48)
[2018-06-09] MEDS: ASPIRIN 325 MG TAB PO SCH (08:48)
[2018-06-09] MEDS: LOSARTAN 50 MG TAB PO SCH (08:49)
[2018-06-09] MEDS: METOPROLOL TARTRATE 25 MG TAB PO SCH (08:49)
[2018-06-09] MEDS: VITAMIN E (DL,TOCOPHERYL ACET) 400 UNIT CAP PO SCH (08:49)
[2018-06-09 13:30] VITALS: RESP 18
[2018-06-09 13:33] VITALS: BP 141/86; PULSE 76; TEMP 97.7
--- NOTE | 2018-06-09 13:49 | P.DS ---
Providers Date of admission: 06/06/18 17:59 Expected date of discharge: 06/09/18 Attending physician: Rachel Gallardo Consults: 06/06/18 17:59 Consult Physician Urgent Consulting Provider: Quyen Griffin Consult Reason/Comments: afib Do you want consulting provider notified?: Yes Primary care physician: Rachel Paulina [facility] Course: Discharge diagnosis 1. New onset of atrial fibrillation with rapid ventricular response: Heart rate is better controlled. She is currently off of the Cardizem drip and IV heparin. Cardiology is placed her on Eliquis for anticoagulation and metoprolol 25 mg twice a day for rate control. Thyroid level is normal. 2. Altered mental status changes: Possibly secondary to a TIA from throwing a clot from the new onset of atrial fibrillation with rapid ventricular response. Mentation has improved and returned to baseline. Computed tomography scan of brain shows no acute intracranial process. No evidence of infection noted on chest x-ray or urinalysis. Will have patient continue Lipitor. And she'll be on Eliquis for blood thinner 3. Nicotine dependence: Discussed smoking cessation for greater than 3 minutes. 4. Degenerative disc disease of the lumbar spine and spinal stenosis: On [place] as needed for pain control 5. Diarrhea resolved 6. Leukocytosis likely secondary to an acute bronchitis. Urinalysis negative. Chest x-ray negative for pneumonia. Influenza screening negative. Diarrhea did resolve. 7. Acute tracheobronchitis: Continue Augmentin 500/125 twice a day for 7 days Hospital course This is a 82-year-old female with a known past medical history of hypothyroidism, os arthritis, chronic back pain with known degenerative disc disease of the lumbar spine and spinal stenosis. [facility] [place] [place] with complaint of mental status changes and elevated heart rate. She was found to be in atrial fibrillation with rapid ventricular response. Started on IV heparin and Cardizem drip in the ER. Patient has been seen evaluated by cardiology she is currently on metoprolol 25 mg twice a day and has been started on Eliquis for anticoagulation. She remains in A. fib heart rate is controlled. Her mentation is improving. She is alert and orientated to her name and place. She had a computed tomography scan of the brain that showed no acute intracranial process. Chest x-rays negative urinalysis negative. Troponins are negative 3 sets drug screen was positive for opiates. Thyroid levels normal. Patient denies any fever or chills or sweats. Denies any chest pain. Denies any nausea or vomiting. She did report a few episodes of diarrhea yesterday. Stool for C. diff will be ordered. Also again complaining of some cough yesterday which has improved she does have some mild wheezing noted on exam and IV fluids will be hep-locked. On 06/08/2018 patient is alert and oriented. Patient has been started on eliquis and Metroprolol for A. fib. At this time patient denies chest pain or shortness breath. Patient denies nausea vomiting or diarrhea. Patient denies any urinary burning or frequency. Some mild wheezing still noted on exam. White blood count slightly elevated 11.8 will order chest x-ray at this time UA negative 06/09/2018 patient is medically stable for discharge. She has been cleared by cardiology for discharge. She remains in atrial fibrillation but heart rate is controlled. She'll be on Eliquis for anticoagulation. And metoprolol for rate control. Patient's altered mental status did improve. It possibly was related to a TIA. Patient was started on Lipitor and aspirin during this admission. Since she will continue on Eliquis will discontinue the aspirin after discussing with cardiology nurse practitioner. Cozaar was also added to help with blood pressure control. Patient's mentation has improved back to baseline. She did have an elevated white count with cough likely related to bronchitis. And will continue Augmentin for 7 more days. Patient will follow-up with cardiology in 1-[address] Gallardo in 1 week. I performed an examination of the patient and discussed their management with the physician Senior Qa Analyst. I have reviewed the Physician Senior Qa Analyst's notes and agree with the documented findings and plan of care Patient Condition at Discharge: Stable Plan - Discharge Summary Discharge Rx Participant: No New Discharge Prescriptions: New Amoxicillin/Potassium Clav [Augmentin 500-125 Tablet] 1 tab PO Q12HR #14 tab Losartan [Cozaar] 50 mg PO DAILY #30 tab Apixaban [Eliquis] 5 mg PO BID #60 tab Atorvastatin [Lipitor] 80 mg PO DAILY #30 tab Metoprolol Tartrate [Lopressor] 25 mg PO BID #60 tab Continue Folic Acid/Mv,Fe,Min [Centrum Multivitamin Tab Chew] 1 tab PO DAILY Ascorbic Acid [Vitamin C] 500 mg PO DAILY Calcium Citrate/Vitamin D3 [Calcium Citrate - Vit D3 Tab] 1 tab PO DAILY Vitamin E (Dl,Tocopheryl Acet) [Vitamin E] 1 tab PO DAILY Levothyroxine Sodium [Synthroid] 50 mcg PO DAILY Ezetimibe [Zetia] 10 mg PO DAILY Gabapentin [Neurontin] 600 mg PO TID traMADol HCl [Ultram] 50 mg PO QID clonazePAM [KlonoPIN] 1 mg PO HS Pantoprazole Sodium 40 mg PO DAILY HYDROcodone/APAP 10-325MG [[place] 10-325] 0.5 - 1 tab PO Q6H PRN PRN Reason: Pain DULoxetine HCL [Cymbalta] 60 mg PO DAILY Discharge Medication List Ascorbic Acid [Vitamin C] 500 mg PO DAILY 11/02/13 [History] Calcium Citrate/Vitamin D3 [Calcium Citrate - Vit D3 Tab] 1 tab PO DAILY 11/02/13 [History] Ezetimibe [Zetia] 10 mg PO DAILY 11/02/13 [History] Folic Acid/Mv,Fe,Min [Centrum Multivitamin Tab Chew] 1 tab PO DAILY 11/02/13 [History] Gabapentin [Neurontin] 600 mg PO TID 11/02/13 [History] Levothyroxine Sodium [Synthroid] 50 mcg PO DAILY 11/02/13 [History] Pantoprazole Sodium 40 mg PO DAILY 11/02/13 [History] Vitamin E (Dl,Tocopheryl Acet) [Vitamin E] 1 tab PO DAILY 11/02/13 [History] clonazePAM [KlonoPIN] 1 mg PO HS 11/02/13 [History] traMADol HCl [Ultram] 50 mg PO QID 11/02/13 [History] HYDROcodone/APAP 10-325MG [[place] 10-325] 0.5 - 1 tab PO Q6H PRN 12/06/13 [History] DULoxetine HCL [Cymbalta] 60 mg PO DAILY 06/06/18 [History] Amoxicillin/Potassium Clav [Augmentin 500-125 Tablet] 1 tab PO Q12HR #14 tab 06/09/18 [Rx] Apixaban [Eliquis] 5 mg PO BID #60 tab 06/09/18 [Rx] Atorvastatin [Lipitor] 80 mg PO DAILY #30 tab 06/09/18 [Rx] Losartan [Cozaar] 50 mg PO DAILY #30 tab 06/09/18 [Rx] Metoprolol Tartrate [Lopressor] 25 mg PO BID #60 tab 06/09/18 [Rx] Follow up Appointment(s)/Referral(s): Irineo Silva MD [STAFF PHYSICIAN] - 07/01/18 2:15 pm Rachel Gallardo MD [Primary Care Provider] - 06/15/18 2:30 pm (Wednesday) Patient Instructions/Handouts: A-fib (Atrial Fibrillation) (DC), Fall Prevention for Older Adults (DC), Safe Use of Anticoagulants (DC) Activity/Diet/Wound Care/Special Instructions: [employer] has a $30 copay. Free month coupon given to pt's diet: cardiac Activity: as tolerated Discharge Disposition: HOME SELF-CARE
--- NOTE | 2018-06-10 13:11 | CDI ---
Documentation Clarification Form Date: 06/10/18 From: Edwige Moreno Phone: If you have a question regarding this query, please contact Lyn Parry at [phone] between 8am and 5pm. Admit Date: 06/06/2018 5:59:00 PM Patient Name: Jeannette Tran Visit Number: [id number] Discharge Date: 06/09/2018 3:01:00 PM ATTENTION: The Clinical Documentation Specialists (CDI) and [facility] Coding Staff appreciate your assistance in clarifying documentation. Please respond to the clarification below the line at the bottom and electronically sign. The CDI & [facility] Coding staff will review the response and follow-up if needed. Please note: Queries are made part of the Legal Health Record. If you have any questions, please contact the author of this message via ITS. Amber Connelly PA-C/Dr. Rachel Gallardo New onset atrial fibrillation is documented throughout the chart. Patient also had a possible TIA from throwing a clot from new onset of atrial fib. History/Risk Factors: Patient has a history of hypothyroidism, hyperlipidemia and is a smoker. Clinical Indicators: Elevated heart rate. EKG/telemetry: Shows a.fib rate of 90 QRS 70, OTc 452. Treatment: IV Cardizem, IV heparin and PO Eliquis. Consults: No diagnosis documented by cardiology. In your professional opinion, can you please clarify the type of Atrial Fibrillation, if known? Chronic/Permanent Paroxysmal Persistent Other, please specify Unable to determine unable to determine MTDD
== END 2018-06-09 15:01 | disposition home or self-care (01) | DRG 309 ==
LOC: EC 13:38 → 3SCARD 17:59
PROVIDERS: ADMIT Internal Medicine; ATTEND Internal Medicine
DX: I48.91 Unspecified atrial fibrillation (principal); G45.9 Transient cerebral ischemic attack, unspecified; E86.0 Dehydration; J20.9 Acute bronchitis, unspecified; E03.9 Hypothyroidism, unspecified; E78.5 Hyperlipidemia, unspecified; F17.200 Nicotine dependence, unspecified, uncomplicated; K21.9 Gastro-esophageal reflux disease without esophagitis; M51.36 Other intervertebral disc degeneration, lumbar region; G89.29 Other chronic pain; M19.90 Unspecified osteoarthritis, unspecified site; R19.7 Diarrhea, unspecified; M48.061 Spinal stenosis, lumbar region without neurogenic claudication; R41.3 Other amnesia; Z79.890 Hormone replacement therapy; Z79.899 Other long term (current) drug therapy; Z88.2 Allergy status to sulfonamides; Z90.49 Acquired absence of other specified parts of digestive tract; Z90.710 Acquired absence of both cervix and uterus; Z81.1 Family history of alcohol abuse and dependence
CPT/HCPCS: 36415; 70450; 71046; 80053; 80061; 80306; 81003; 82140; 84443; 84484; 85025; 85049; 85610; 85730; 87502; 93005; 94760; 96361; 96365; 96366; 99285

== ENCOUNTER 2019-01-05 12:06 | Emergency (ER) | payer MEDICARE, BC ==
[2019-01-05 12:14] VITALS: BP 123/67; PULSE 85; RESP 20; TEMP 99.4
[2019-01-05] MEDS ORDERED: DIPH,PERTUS(ACELL)TETVAC-LF 0.5 ML VIAL IM ONE (13:04)
--- NOTE | 2019-01-05 13:30 | ED ---
Fall HPI - General Chief Complaint: Fall Stated Complaint: leg pain Time Seen by Provider: 01/05/19 12:43 Source: patient Mode of arrival: ambulatory - History of Present Illness Initial Comments: 83-year-old female with history of hypertension presents emergency department for evaluation of left leg laceration and pain. Patient states that she walked into a coffee table which caused her to fall approximately 7-10 days ago. Patient states that she did not hit her head hurt injury to the neck and back right lower extremities or upper extremity. Patient states that she did not want to have sutures performed at that time. Patient is unsure of her last tetanus. Patient states the wound has been healing her she continues to have pain at the site of laceration. Patient denies any fever or flulike or surrounding redness. Remaining review systems negative. Patient felt due to the continued pain and history of osteoporosis she should have her leg evaluated presents emergency department for evaluation - Related Data Home Medications Medication Instructions Recorded Confirmed Ezetimibe [Zetia] 10 mg PO DAILY 11/02/13 01/05/19 Folic Acid/Mv,Fe,Min [Centrum 1 tab PO DAILY 11/02/13 01/05/19 Multivitamin Tab Chew] Gabapentin [Neurontin] 600 mg PO TID 11/02/13 01/05/19 Levothyroxine Sodium [Synthroid] 50 mcg PO DAILY 11/02/13 01/05/19 Pantoprazole Sodium 40 mg PO DAILY 11/02/13 01/05/19 clonazePAM [KlonoPIN] 1 mg PO HS PRN 11/02/13 01/05/19 HYDROcodone/APAP 10-325MG [[place] 1 tab PO Q6H PRN 12/06/13 01/05/19 10-325] DULoxetine HCL [Cymbalta] 60 mg PO DAILY 06/06/18 01/05/19 Ascorbic Acid [Vitamin C] 1,000 mg PO DAILY 01/05/19 01/05/19 Cholecalciferol [Vitamin D3 (25 5,000 unit PO DAILY 01/05/19 01/05/19 Mcg = 1000 Iu)] Vitamin E Acetate [Vitamin E] 200 unit PO DAILY 01/05/19 01/05/19 clonazePAM 0.5 mg PO HS PRN 01/05/19 01/05/19 Previous Rx's Medication Instructions Recorded Apixaban [Eliquis] 5 mg PO BID #60 tab 06/09/18 Atorvastatin [Lipitor] 80 mg PO DAILY #30 tab 06/09/18 Losartan [Cozaar] 50 mg PO DAILY #30 tab 06/09/18 Metoprolol Tartrate [Lopressor] 25 mg PO BID #60 tab 06/09/18 Cephalexin [Keflex] 500 mg PO Q6HR 5 Days #20 cap 01/05/19 Allergies Allergy/AdvReac Type Severity Reaction Status Date / Time codeine Allergy Unknown Verified 01/05/19 13:47 erythromycin base Allergy Unknown Verified 01/05/19 13:47 fenofibrate [From Tricor] Allergy Unknown Verified 01/05/19 13:47 niacin Allergy Unknown Verified 01/05/19 13:47 sertraline [From Zoloft] Allergy Unknown Verified 01/05/19 13:47 Sulfa (Sulfonamide Allergy Swelling Verified 01/05/19 12:14 Antibiotics) Review of Systems ROS Statement: Those systems with pertinent positive or pertinent negative responses have been documented in the HPI. ROS Other: All systems not noted in ROS Statement are negative. Past Medical History Past Medical History: GERD/Reflux, Hyperlipidemia, Memory Impairment, Osteoarthritis (OA) Additional Past Medical History / Comment(s): occassional forgetfullness, degenerative disc disease, chronic pain History of Any Multi-Drug Resistant Organisms: None Reported Past Surgical History: Cholecystectomy, Hysterectomy Past Anesthesia/Blood Transfusion Reactions: No Reported Reaction Past Psychological History: Anxiety Smoking Status: Current every day smoker Past Alcohol Use History: None Reported Past Drug Use History: None Reported - Past Family History Father Additional Family Medical History / Comment(s): pt. states her father was an alcoholic and at a young age General Exam - General Exam Comments Initial Comments: General: The patient is awake and alert, in no distress, and does not appear acutely ill. Eye: +3 mm pupils are equal, round and reactive to light, extra-ocular movements are intact. No nystagmus. There is normal conjunctiva bilaterally. No signs of icterus. Ears, nose, mouth and throat: There are moist mucous membranes and no oral lesions. No raccoon or Alfred sign no scalp hematomas. Neck: The neck is supple, there is no tenderness or JVD. Cardiovascular: There is a regular rate and rhythm. No murmur, rub or gallop is appreciated. Respiratory: Lungs are clear to auscultation, respirations are non-labored, breath sounds are equal. No wheezes, stridor, rales, or rhonchi. Musculoskeletal: Normal ROM, no tenderness. Strength 5/5. Sensation intact. Radial and DP pulses equal bilaterally 2+. Small contusions surrounding a V- shaped skin tear that appears to be healing with no surrounding redness or areas of fluctuance or abscess. No warmth to palpation. Neurological: A&O x 3. CN II-XII intact grossly, There are no obvious motor or sensory deficits. Coordination appears grossly intact. Speech is normal. Skin: Skin is warm and dry and no rashes or lesions are noted. Psychiatric: Cooperative, appropriate mood & affect, normal judgment. Limitations: no limitations Course Vital Signs 01/05/19 12:11 Temperature 99.4 F Pulse Rate 85 Respiratory 20 Rate Blood Pressure 123/67 O2 Sat by Pulse 98 Oximetry Medical Decision Making - Medical Decision Making 83-year-old female presenting to emergency for evaluation of leg pain. Imaging studies negative for osseous process. Patient neurovascularly intact. Denies pain at the ankle joint knee joint or hip joint. Ambulatory. No signs of secondary infection at this time. Obvious healing skin tear-questionable delayed healing. Tetanus updated. Area cleansed and bacitracin applied as well as bandage. Patient denies any other injuries and was agreeable to discharge with outpatient f/u. Case discussed with attending and discharged appearing well. Disposition Clinical Impression: Skin tear, Left leg pain, Fall, Contusion Disposition: HOME SELF-CARE Condition: Good Instructions (If sedation given, give patient instructions): Skin Tear (ED) Additional Instructions: Please use medication as discussed. Please follow-up with family doctor in the next 2 days. Please return to emergency room if the symptoms increase or worsen or for any other concerns. Prescriptions: Cephalexin [Keflex] 500 mg PO Q6HR 5 Days #20 cap Is patient prescribed a controlled substance at d/c from ED?: No Referrals: Rachel Gallardo MD [Primary Care Provider] - 1-2 days Time of Disposition: 13:30
--- NOTE | 2019-01-05 13:33 | XR ---
EXAMINATION TYPE: XR tibia fibula LT DATE OF EXAM: 01/05/2019 CLINICAL HISTORY: Pain after falling injury one week ago with laceration. TECHNIQUE: Two views of the left leg are obtained. COMPARISON: None. FINDINGS: There is no acute fracture or dislocation seen in the left tibia or fibula. The knee and ankle joints appear within normal limits. The overlying soft tissue appears unremarkable. IMPRESSION: There is no acute fracture or dislocation seen in the left tibia or fibula.
== END 2019-01-05 13:46 | disposition home or self-care (01) ==
LOC: EC 12:06
DX: S81.812A Laceration without foreign body, left lower leg, initial encounter (principal); I10 Essential (primary) hypertension; M81.0 Age-related osteoporosis without current pathological fracture; F41.9 Anxiety disorder, unspecified; K21.9 Gastro-esophageal reflux disease without esophagitis; E78.5 Hyperlipidemia, unspecified; M19.90 Unspecified osteoarthritis, unspecified site; R41.3 Other amnesia; G89.29 Other chronic pain; F17.200 Nicotine dependence, unspecified, uncomplicated; Z79.890 Hormone replacement therapy; Z79.899 Other long term (current) drug therapy; Z23 Encounter for immunization; Z88.5 Allergy status to narcotic agent; Z88.1 Allergy status to other antibiotic agents; Z88.8 Allergy status to other drugs, medicaments and biological substances; Z88.2 Allergy status to sulfonamides; W17.89XA Other fall from one level to another, initial encounter; W22.03XA Walked into furniture, initial encounter; Y93.01 Activity, walking, marching and hiking; Y92.009 Unspecified place in unspecified non-institutional (private) residence as the place of occurrence of the external cause
CPT/HCPCS: 90471; 90715; 99283

== ENCOUNTER → 2019-03-10 | Outpatient (CLI) | payer MEDICARE, BC ==
--- NOTE | 2019-03-10 12:25 | XR ---
EXAMINATION TYPE: XR chest 2V DATE OF EXAM: 03/10/2019 COMPARISON: Chest x-ray June 08, 2018 HISTORY: Productive cough for weeks. TECHNIQUE: Frontal and lateral views of the chest are obtained. FINDINGS: There is chronic parenchymal changes without suspicious focal air space opacity, pleural effusion, or pneumothorax seen. Diminished inspiration on current st udy. Suspect coronary stent on lateral view. The cardiac silhouette size remains enlarged. The osse ous structures remain demineralized. IMPRESSION: Cardiomegaly and chronic parenchymal changes without new suspicious acute pulmonary proc ess.
== END | disposition home or self-care (01) ==
LOC: RADXRMAIN 11:25
PROVIDERS: ATTEND Internal Medicine
DX: R91.8 Other nonspecific abnormal finding of lung field (principal); I51.7 Cardiomegaly
CPT/HCPCS: 71046

== ENCOUNTER → 2019-09-04 | Outpatient (CLI) | payer MEDICARE, BC ==
--- NOTE | 2019-09-04 12:38 | XR ---
EXAMINATION TYPE: XR chest 2V DATE OF EXAM: 09/04/2019 COMPARISON: 03/10/19 HISTORY: Shortness of breath TECHNIQUE: Frontal and lateral views of the chest are obtained. FINDINGS: Scattered senescent parenchymal changes noted. Hyperinflation compatible with COPD. No evidence for infiltrate. No evidence for atelectasis. Heart size is stable. Mediastinal structures are stable and grossly unremarkable. No evidence for hilar prominence. Degenerative changes dorsal spine. IMPRESSION: 1. No evidence for acute pulmonary disease.
== END | disposition home or self-care (01) ==
LOC: RADXRMAIN 12:19
PROVIDERS: ATTEND Internal Medicine
DX: R05 Cough (principal)
CPT/HCPCS: 71046

== ENCOUNTER 2019-10-10 16:35 | Emergency (ER) | payer MEDICARE, BC ==
[2019-10-10 16:39] VITALS: BP 115/77; PULSE 85; RESP 18; TEMP 98.7
[2019-10-10] MEDS ORDERED: KETOROLAC 15 MG/ML 1 ML VIAL IVP STA (17:02)
[2019-10-10] MEDS ORDERED: SODIUM CHLORIDE 0.9% 500 ML 500 ML IV STA (17:02)
[2019-10-10] MEDS ORDERED: MORPHINE SULFATE 4 MG/ML SYRINGE IVP STA (17:02)
--- NOTE | 2019-10-10 17:02 | ED ---
Back Pain HPI - General Chief Complaint: Back Pain/Injury Stated Complaint: back pain Time Seen by Provider: 10/10/19 16:36 Source: patient, RN notes reviewed, old records reviewed Limitations: no limitations - History of Present Illness Initial Comments: This is an 83-year-old female DF for evaluation of back pain she complains of pain in her lower back repair buttocks radiating to her left flank. No trauma no prior history of similar complaint no dysuria no diarrhea no fevers. No other complaints MD Complaint: back pain, back injury -: hour(s) Similar Symptoms Previously: Yes Severity: mild Severity scale (1-10): 3 Quality: dull Consistency: constant Improves With: none Worsens With: movement, walking Context: turning/twisting - Related Data Home Medications Medication Instructions Recorded Confirmed Ezetimibe [Zetia] 10 mg PO DAILY 11/02/13 01/05/19 Folic Acid/Mv,Fe,Min [Centrum 1 tab PO DAILY 11/02/13 01/05/19 Multivitamin Tab Chew] Gabapentin [Neurontin] 600 mg PO TID 11/02/13 01/05/19 Levothyroxine Sodium [Synthroid] 50 mcg PO DAILY 11/02/13 01/05/19 Pantoprazole Sodium 40 mg PO DAILY 11/02/13 01/05/19 clonazePAM [KlonoPIN] 1 mg PO HS PRN 11/02/13 01/05/19 HYDROcodone/APAP 10-325MG [[place] 1 tab PO Q6H PRN 12/06/13 01/05/19 10-325] DULoxetine HCL [Cymbalta] 60 mg PO DAILY 06/06/18 01/05/19 Ascorbic Acid [Vitamin C] 1,000 mg PO DAILY 01/05/19 01/05/19 Cholecalciferol [Vitamin D3 (25 5,000 unit PO DAILY 01/05/19 01/05/19 Mcg = 1000 Iu)] Vitamin E Acetate [Vitamin E] 200 unit PO DAILY 01/05/19 01/05/19 clonazePAM 0.5 mg PO HS PRN 01/05/19 01/05/19 Previous Rx's Medication Instructions Recorded Apixaban [Eliquis] 5 mg PO BID #60 tab 06/09/18 Atorvastatin [Lipitor] 80 mg PO DAILY #30 tab 04/11/19 Losartan [Cozaar] 50 mg PO DAILY #30 tab 06/09/18 Metoprolol Tartrate [Lopressor] 25 mg PO BID #60 tab 06/09/18 Cephalexin [Keflex] 500 mg PO Q6HR 5 Days #20 cap 01/05/19 Allergies Allergy/AdvReac Type Severity Reaction Status Date / Time codeine Allergy Unknown Verified 10/10/19 16:39 erythromycin base Allergy Unknown Verified 10/10/19 16:39 fenofibrate [From Tricor] Allergy Unknown Verified 10/10/19 16:39 niacin Allergy Unknown Verified 10/10/19 16:39 sertraline [From Zoloft] Allergy Unknown Verified 10/10/19 16:39 Sulfa (Sulfonamide Allergy Swelling Verified 10/10/19 16:39 Antibiotics) Review of Systems ROS Statement: Those systems with pertinent positive or pertinent negative responses have been documented in the HPI. ROS Other: All systems not noted in ROS Statement are negative. Past Medical History Past Medical History: GERD/Reflux, Hyperlipidemia, Memory Impairment, Osteoarthritis (OA) Additional Past Medical History / Comment(s): occassional forgetfullness, degenerative disc disease, chronic pain History of Any Multi-Drug Resistant Organisms: None Reported Past Surgical History: Cholecystectomy, Hysterectomy Past Anesthesia/Blood Transfusion Reactions: No Reported Reaction Past Psychological History: Anxiety Past Alcohol Use History: None Reported Past Drug Use History: None Reported - Past Family History Father Additional Family Medical History / Comment(s): pt. states her father was an alcoholic and at a young age General Exam - General Exam Comments Initial Comments: Tenderness to left flank Limitations: no limitations General appearance: alert, in no apparent distress Head exam: Present: atraumatic, normocephalic, normal inspection Eye exam: Present: normal appearance, PERRL, EOMI. Absent: scleral icterus, conjunctival injection, periorbital swelling ENT exam: Present: normal exam, mucous membranes moist Neck exam: Present: normal inspection. Absent: tenderness, meningismus, lymphadenopathy Respiratory exam: Present: normal lung sounds bilaterally. Absent: respiratory distress, wheezes, rales, rhonchi, stridor Cardiovascular Exam: Present: regular rate, normal rhythm, normal heart sounds. Absent: systolic murmur, diastolic murmur, rubs, gallop, clicks GI/Abdominal exam: Present: soft, normal bowel sounds. Absent: distended, tenderness, guarding, rebound, rigid Extremities exam: Present: normal inspection, full ROM, normal capillary refill. Absent: tenderness, pedal edema, joint swelling, calf tenderness Back exam: Present: normal inspection Neurological exam: Present: alert, oriented X3, CN II-XII intact Psychiatric exam: Present: normal affect, normal mood Skin exam: Present: warm, dry, intact, normal color. Absent: rash Course Vital Signs 10/10/19 16:36 Temperature 98.7 F Pulse Rate 85 Respiratory 18 Rate Blood Pressure 115/77 O2 Sat by Pulse 98 Oximetry - Reevaluation(s) Reevaluation #1: 10/10/19 17:02 Medical records reviewed Reevaluation #2: 10/10/19 18:58 Patient has pain control Reevaluation #3: 10/10/19 18:58 Patient informed results okay for discharge home Medical Decision Making - Medical Decision Making 83 female DF for evaluation she does have left inguinal hernia continue to pain but is nonincarcerated, patient having bowel movements pain is improved here in the ER patient can be discharged home - Lab Data Result diagrams: 10/10/19 17:05 10/10/19 17:05 Lab Results 10/10/19 10/10/19 10/10/19 Range/Units 17:05 17:05 17:05 WBC 12.5 H (3.8-10.6) k/uL RBC 4.86 (3.80-5.40) m/uL Hgb 14.9 (11.4-16.0) gm/dL Hct 45.9 (34.0-46.0) % MCV 94.3 (80.0-100.0) fL MCH 30.7 (25.0-35.0) pg MCHC 32.5 (31.0-37.0) g/dL RDW 13.0 (11.5-15.5) % Plt Count 251 (150-450) k/uL Neutrophils % 61 % Lymphocytes % 32 % Monocytes % 4 % Eosinophils % 2 % Basophils % 1 % Neutrophils # 7.7 (1.3-7.7) k/uL Lymphocytes # 4.0 (1.0-4.8) k/uL Monocytes # 0.5 (0-1.0) k/uL Eosinophils # 0.2 (0-0.7) k/uL Basophils # 0.1 (0-0.2) k/uL Sodium 128 L (137-145) mmol/L Potassium 4.5 (3.5-5.1) mmol/L Chloride 95 L (98-107) mmol/L Carbon Dioxide 24 (22-30) mmol/L Anion Gap 9 mmol/L BUN 8 (7-17) mg/dL Creatinine 0.71 (0.52-1.04) mg/dL Est GFR (CKD-EPI)AfAm >90 (>60 ml/min/1.73 sqM) Est GFR (CKD-EPI)NonAf 79 (>60 ml/min/1.73 sqM) Glucose 124 H (74-99) mg/dL Plasma Lactic Acid Vladimir (0.7-2.0) mmol/L Calcium 8.8 (8.4-10.2) mg/dL Total Bilirubin 0.8 (0.2-1.3) mg/dL AST 37 H (14-36) U/L ALT 23 (4-34) U/L Alkaline Phosphatase 59 (38-126) U/L Total Protein 6.4 (6.3-8.2) g/dL Albumin 4.2 (3.5-5.0) g/dL Amylase 50 (30-110) U/L Lipase 47 (23-300) U/L Urine Color Yellow Urine Appearance Cloudy H (Clear) Urine pH 5.5 (5.0-8.0) Ur Specific [place] 1.021 (1.001-1.035) Urine Protein Negative (Negative) Urine Glucose (UA) Negative (Negative) Urine Ketones Negative (Negative) Urine Blood Negative (Negative) Urine Nitrite Negative (Negative) Urine Bilirubin Negative (Negative) Urine Urobilinogen <2.0 (<2.0) mg/dL Ur Leukocyte Esterase Negative (Negative) Urine RBC 1 (0-5) /hpf Urine WBC <1 (0-5) /hpf Urine WBC Clumps Rare H (None) /hpf Ur Squamous Epith Cells <1 (0-4) /hpf Urine Bacteria Rare H (None) /hpf Hyaline Casts 18 H (0-2) /lpf Urine Mucus Rare H (None) /hpf 10/10/19 Range/Units 17:05 WBC (3.8-10.6) k/uL RBC (3.80-5.40) m/uL Hgb (11.4-16.0) gm/dL Hct (34.0-46.0) % MCV (80.0-100.0) fL MCH (25.0-35.0) pg MCHC (31.0-37.0) g/dL RDW (11.5-15.5) % Plt Count (150-450) k/uL Neutrophils % % Lymphocytes % % Monocytes % % Eosinophils % % Basophils % % Neutrophils # (1.3-7.7) k/uL Lymphocytes # (1.0-4.8) k/uL Monocytes # (0-1.0) k/uL Eosinophils # (0-0.7) k/uL Basophils # (0-0.2) k/uL Sodium (137-145) mmol/L Potassium (3.5-5.1) mmol/L Chloride (98-107) mmol/L Carbon Dioxide (22-30) mmol/L Anion Gap mmol/L BUN (7-17) mg/dL Creatinine (0.52-1.04) mg/dL Est GFR (CKD-EPI)AfAm (>60 ml/min/1.73 sqM) Est GFR (CKD-EPI)NonAf (>60 ml/min/1.73 sqM) Glucose (74-99) mg/dL Plasma Lactic Acid Vladimir 1.4 (0.7-2.0) mmol/L Calcium (8.4-10.2) mg/dL Total Bilirubin (0.2-1.3) mg/dL AST (14-36) U/L ALT (4-34) U/L Alkaline Phosphatase (38-126) U/L Total Protein (6.3-8.2) g/dL Albumin (3.5-5.0) g/dL Amylase (30-110) U/L Lipase (23-300) U/L Urine Color Urine Appearance (Clear) Urine pH (5.0-8.0) Ur Specific [place] (1.001-1.035) Urine Protein (Negative) Urine Glucose (UA) (Negative) Urine Ketones (Negative) Urine Blood (Negative) Urine Nitrite (Negative) Urine Bilirubin (Negative) Urine Urobilinogen (<2.0) mg/dL Ur Leukocyte Esterase (Negative) Urine RBC (0-5) /hpf Urine WBC (0-5) /hpf Urine WBC Clumps (None) /hpf Ur Squamous Epith Cells (0-4) /hpf Urine Bacteria (None) /hpf Hyaline Casts (0-2) /lpf Urine Mucus (None) /hpf - Radiology Data Radiology results: report reviewed (CT head and pelvis does show inguinal hernia), image reviewed Disposition Clinical Impression: Left inguinal hernia Disposition: HOME SELF-CARE Condition: Good Instructions (If sedation given, give patient instructions): Inguinal Hernia (ED) Is patient prescribed a controlled substance at d/c from ED?: No Referrals: Rachel Gallardo MD [Primary Care Provider] - 1-2 days Isaiah Najera MD [STAFF PHYSICIAN] - 1-2 days
[2019-10-10 17:19] LABS: Basophils # (A) 0.1 k/uL (0-0.2); Basophils % (A) 1 %; Eosinophils # (A) 0.2 k/uL (0-0.7); Eosinophils % (A) 2 %; HCT 45.9 % (34.0-46.0); HGB 14.9 gm/dL (11.4-16.0); Lymphocytes % (A) 32 %; MCH 30.7 pg (25.0-35.0); MCHC 32.5 g/dL (31.0-37.0); MCV 94.3 fL (80.0-100.0); Monocytes # (A) 0.5 k/uL (0-1.0); Monocytes % (A) 4 %; Neutrophils # (A) 7.7 k/uL (1.3-7.7); Neutrophils % (A) 61 %; Platelet Count 251 k/uL (150-450); RBC 4.86 m/uL (3.80-5.40); WBC 12.5 k/uL (3.8-10.6)
[2019-10-10 17:25] LABS: Appearance,Urine Cloudy (Clear); Bacteria,Urine Rare /hpf; Bilirubin,Urine Negative (Negative); Blood,Urine Negative (Negative); Color,Urine Yellow; Glucose,Urine (UA) Negative (Negative); Hyaline Casts,Urine 18 /lpf (0-2); Ketones,Urine Negative (Negative); Leukocyte Esterase,Urine Negative (Negative); Mucus,Urine Rare /hpf; Nitrite,Urine Negative (Negative); PH, Urine 5.5 (5.0-8.0); Protein,Urine Negative (Negative); RBC,Urine 1 /hpf (0-5); Specific Gravity,Urine 1.021 (1.001-1.035); Squamous Epithelial Cell,Urine <1 /hpf (0-4); Urobilinogen,Urine <2.0 mg/dL (<2.0); WBC,Urine <1 /hpf (0-5)
[2019-10-10 17:40] LABS: ALT 23 U/L (4-34); AST 37 U/L (14-36); African American GFR (CKD) >90 (>60 ml/min/1.73 sqM); Albumin 4.2 g/dL (3.5-5.0); Alkaline Phosphatase 59 U/L (38-126); Amylase 50 U/L (30-110); Anion Gap 9 mmol/L; Blood Urea Nitrogen 8 mg/dL (7-17); Calcium 8.8 mg/dL (8.4-10.2); Carbon Dioxide 24 mmol/L (22-30); Chloride 95 mmol/L (98-107); Glucose 124 mg/dL (74-99); Non-African American GFR(CKD) 79 (>60 ml/min/1.73 sqM); Sodium 128 mmol/L (137-145); Total Bilirubin 0.8 mg/dL (0.2-1.3); Total Protein 6.4 g/dL (6.3-8.2)
--- NOTE | 2019-10-10 17:43 | CT ---
EXAMINATION TYPE: CT abdomen pelvis wo con DATE OF EXAM: 10/10/2019 COMPARISON: None HISTORY: Left sided flank and lumbar back pain. CT DLP: 405 mGycm Automated exposure control for dose reduction was used. TECHNIQUE: Helical acquisition of images from the lung bases through the pelvis. FINDINGS: Posterior diaphragmatic hernia contains fat bilaterally. Lack of intravenous contrast could compromise sensitivity of the exam. There are coronary artery calcifications present. LUNG BASES: No significant abnormality is appreciated. AORTA: No significant abnormality is appreciataed. LIVER/GB: Gallbladder is absent, dilation of the biliary system, common bile duct likely due to postc holecystectomy change PANCREAS: No significant abnormality is seen. SPLEEN: No significant abnormality is seen. ADRENALS: No significant abnormality is seen. KIDNEYS: Probable cortical cyst present at the midpole the left kidney measuring 16 mm. At the midpol e there is also a focus of low attenuation with rim calcification which is indeterminate, possible co rtical cyst present at the mid to lower pole right kidney adjacent to the liver. No hydronephrosis or nephrolithiasis, no evident ureteral calculus. REPRODUCTIVE ORGANS: Not seen URINARY BLADDER: No significant abnormality is seen. BOWEL: Extensive diverticular change associated with the colon. Left inguinal hernia containing some small bowel loops without evident obstruction FREE AIR: No Free Air is visible. ASCITES: None visible. PELVIC ADENOPATHY: None visualized. RETROPERITONEAL ADENOPATHY: No Retroperitoneal Adenopathy visible. OSSEOUS STRUCTURES: Degenerative disc changes are present in the lumbar spine, there is anterolisthe sis grade 1 L4-5 with associated foraminal encroachment, vacuum disc as L5-S1, facet arthropathy davis ges are present. IMPRESSION: DEGENERATIVE DISC DISEASE, FACET ARTHROPATHY, SPINAL LISTHESIS AND FORAMINAL ENCROACHMENT. LEFT INGUI NAL HERNIA CONTAINS BOWEL LOOPS. THERE IS EXTENSIVE DIVERTICULOSIS. POSTOP CHANGES. NONCONTRAST EXAM. INDETERMINATE RENAL CYSTS SUSPECTED, ONE OF WHICH IS NOT SIMPLE ON THE LEFT, FOLLOW-UP RECOMMENDED.
[2019-10-10 17:48] LABS: Potassium 4.5 mmol/L (3.5-5.1)
== END 2019-10-10 19:00 | disposition home or self-care (01) ==
LOC: EC 16:35
DX: K40.90 Unilateral inguinal hernia, without obstruction or gangrene, not specified as recurrent (principal); K21.9 Gastro-esophageal reflux disease without esophagitis; E78.5 Hyperlipidemia, unspecified; F41.9 Anxiety disorder, unspecified; Z79.890 Hormone replacement therapy; Z79.899 Other long term (current) drug therapy; Z88.5 Allergy status to narcotic agent; Z88.1 Allergy status to other antibiotic agents; Z88.2 Allergy status to sulfonamides; Z88.8 Allergy status to other drugs, medicaments and biological substances
CPT/HCPCS: 36415; 74176; 80053; 81001; 82150; 83605; 83690; 85025; 99284

== ENCOUNTER → 2020-01-30 | Outpatient (CLI) | payer MEDICARE ==
--- NOTE | 2020-01-30 15:39 | CT ---
EXAMINATION TYPE: CT abdomen pelvis wo/w con DATE OF EXAM: 01/30/2020 HISTORY: Abdominal pain bloating and nausea. CT DLP: 1378mGycm Automated Exposure Control for Dose Reduction was Utilized. CONTRAST: CT scan of the abdomen and pelvis is performed with oral and without and with IV Contrast, patient in jected with 100 mL of Isovue 300. COMPARISON: CT abdomen and pelvis October 10, 2019 FINDINGS: LUNG BASES: Coronary artery calcification RCA distribution redemonstrated. LIVER/GB: Gallbladder redemonstrated is surgically absent. Mild to moderate extrahepatic biliary dila tation up to 15 mm unchanged from prior greater than expected for cholecystectomy, there is some grad ual tapering towards the ampulla. Mild central intrahepatic biliary dilatation noted. PANCREAS: Mild to moderate generalized fat replaced atrophy. SPLEEN: No significant abnormality is seen. ADRENALS: No significant abnormality is seen. KIDNEYS: No renal stones on noncontrast CT. Symmetric cortical medullary uptake and excretion with a few scattered simple-appearing thin-walled cysts throughout both kidneys. No hydronephrosis noted rigoberto aterally. BOWEL: Slightly redundant sigmoid colon. No suspicious small or large bowel dilatation. Oral contrast extends to rectum. Some scattered diverticula in the left and sigmoid colon. UTERUS/ADNEXA: Uterus surgically absent or markedly atrophic. LYMPH NODES: No greater than 1cm abdominal or pelvic lymph nodes are appreciated. OSSEOUS STRUCTURES: Moderate to severe narrowing in both hip joints. Grade 1 anterolisthesis L4 on L5 . Mild to moderate disc space narrowing at this level. [id number] disc space narrowing with v acuum disc phenomenon at L5-S1 level OTHER: Moderate to severe mixed plaque in abdominal aorta extending into branch vessels. Small fat-co ntaining left inguinal hernia current study axial image 60 does not contain small bowel loop on curre nt study. IMPRESSION: No bowel obstruction. Air-fluid level in the rectum could reflect diarrhea and/or mild un complicated acute colitis. Correlate clinically. Interval resolution of bowel containing left inguina l hernia. Mild to moderate biliary dilatation similar to prior study. Need to followed by ERCP or [facility] P evaluation should be based on clinical and lab correlation.
== END | disposition home or self-care (01) ==
LOC: RADCTMAIN 12:53
PROVIDERS: ATTEND Internal Medicine
DX: K83.8 Other specified diseases of biliary tract (principal)
CPT/HCPCS: 82565; 84520; 74178; 36415; Q9967

== ENCOUNTER → 2020-05-21 | Outpatient (CLI) | payer MEDICARE ==
--- NOTE | 2020-05-21 14:53 | XR ---
EXAMINATION TYPE: XR chest 2V DATE OF EXAM: 05/21/2020 COMPARISON: Chest x-ray 09/04/2019 HISTORY: Cough, R05 TECHNIQUE: Frontal and lateral views of the chest are obtained. FINDINGS: There is no focal air space opacity, pleural effusion, or pneumothorax seen. The cardiac silhouette size is stable accounting for rotation which may accentuate the appearance. Aorta is dens e. There are prominent lung volumes suggesting possible underlying COPD. There are coronary artery ca lcifications. The osseous structures are intact. IMPRESSION: No acute cardiopulmonary process.
== END | disposition home or self-care (01) ==
LOC: RADXRMAIN 13:56
PROVIDERS: ATTEND Internal Medicine
DX: R05 Cough (principal)
CPT/HCPCS: 71046

== ENCOUNTER 2020-12-07 14:11 | Inpatient (IN) | payer MEDICARE ==
[2020-12-07] MEDS ORDERED: OLANZapine 10 MG VIAL IM STA ×3 (15:02→19:28)
--- NOTE | 2020-12-07 15:06 | ED ---
Altered Mental Status HPI - General Chief Complaint: Altered Mental Status Stated Complaint: AMS/Fall Source: patient, EMS Mode of arrival: EMS - History of Present Illness Initial Comments: 85-year-old female past medical history of dementia, hyperlipidemia who presents to the emergency department with increased falls and altered mental status. is at bedside and helps further history however he is a poor historian himself. States the has had altered mental status for several months. States that she's had increasing falls over the past 2 weeks. She has also been agitated. Patient is on Eliquis. denies that the patient has had any head trauma or loss of consciousness. She has had a decrease in her appetite. States that she has been taking her medications as appropriate since he doses them. No fevers. states that he can no longer take care of her. The remainder of the HPI is limited as the patient cannot provide any history - Related Data Home Medications Medication Instructions Recorded Confirmed Ezetimibe [Zetia] 10 mg PO DAILY 11/02/13 12/07/20 Folic Acid/Mv,Fe,Min [Centrum 1 tab PO DAILY 11/02/13 12/07/20 Multivitamin Tab Chew] Gabapentin [Neurontin] 600 mg PO TID 11/02/13 12/07/20 Pantoprazole Sodium 40 mg PO DAILY 11/02/13 12/07/20 clonazePAM [KlonoPIN] 1 mg PO HS PRN 11/02/13 12/07/20 HYDROcodone/APAP 10-325MG [[place] 1 tab PO Q6H PRN 12/06/13 12/07/20 10-325] DULoxetine HCL [Cymbalta] 60 mg PO DAILY 06/06/18 12/07/20 Ascorbic Acid [Vitamin C] 1,000 mg PO DAILY 01/05/19 12/07/20 Vitamin E Acetate [Vitamin E] 200 unit PO DAILY 01/05/19 12/07/20 clonazePAM 0.5 mg PO HS PRN 01/05/19 12/07/20 Atorvastatin [Lipitor] 80 mg PO HS 12/07/20 12/07/20 Cholecalciferol (Vitamin D3) 125 mcg PO DAILY 12/07/20 12/07/20 [Vitamin D3 (125 MCG = 5,000 IU)] Donepezil [Aricept] 5 mg PO HS 12/07/20 12/07/20 Levothyroxine Sodium [Synthroid] 75 mcg PO DAILY 12/07/20 12/07/20 Previous Rx's Medication Instructions Recorded Apixaban [Eliquis] 5 mg PO BID #60 tab 06/09/18 Losartan [Cozaar] 50 mg PO DAILY #30 tab 06/09/18 Metoprolol Tartrate [Lopressor] 25 mg PO BID #60 tab 06/09/18 Allergies Allergy/AdvReac Type Severity Reaction Status Date / Time codeine Allergy Unknown Verified 12/07/20 17:41 erythromycin base Allergy Unknown Verified 12/07/20 17:41 fenofibrate [From Tricor] Allergy Unknown Verified 12/07/20 17:41 niacin Allergy Unknown Verified 12/07/20 17:41 sertraline [From Zoloft] Allergy Unknown Verified 12/07/20 17:41 Sulfa (Sulfonamide Allergy Swelling Verified 12/07/20 17:41 Antibiotics) Review of Systems ROS Statement: Those systems with pertinent positive or pertinent negative responses have been documented in the HPI. ROS Other: All systems not noted in ROS Statement are negative. Past Medical History Past Medical History: GERD/Reflux, Hyperlipidemia, Memory Impairment, Osteoarthritis (OA) Additional Past Medical History / Comment(s): occassional forgetfullness, degenerative disc disease, chronic pain History of Any Multi-Drug Resistant Organisms: None Reported Past Surgical History: Cholecystectomy, Hysterectomy Past Anesthesia/Blood Transfusion Reactions: No Reported Reaction Past Psychological History: Anxiety Smoking Status: Unknown if ever smoked Past Alcohol Use History: None Reported Past Drug Use History: None Reported - Past Family History Father Additional Family Medical History / Comment(s): pt. states her father was an alcoholic and at a young age Course Vital Signs 12/07/20 12/07/20 12/07/20 14:20 19:53 21:00 Temperature 97.5 F L Pulse Rate 60 72 72 Respiratory 18 22 18 Rate Blood Pressure 129/85 176/130 105/65 O2 Sat by Pulse 95 97 97 Oximetry - Reevaluation(s) Reevaluation #1: Spoke with Dr. Lerma 12/07/20 17:[address] Gallardo 12/07/20 18:25 Reevaluation #2: 12/07/20 18:[address] Valdez - agrees to ICU admission Medical Decision Making - Medical Decision Making Upon arrival patient is placed in room 3. 5 mg of IM Zyprexa is ordered as the patient is extremely agitated. IV is established and laboratory studies are conducted. Laboratory studies did demonstrate a white count of 15.6. Sodium 108. Chloride 79. Osmolality 228. Urinalysis demonstrates 2+ ketones moderate leukocyte esterase and rare mucous. UDS positive for opiates. She does go over for a CT of her head and cervical spine which demonstrates no acute intracranial abnormality. Chest x-ray demonstrates no active cardio pulmonary disease with mild cardiomegaly. Pelvic x-ray demonstrates no acute abnormality of the pelvis. Patient has no identifiable source for infection. Hemoglobin is 7.9 likely due to the multiple contusions all over the patient's body. At this time we will hold her A[place]. I spoke with Dr. Lerma. She is given a liter bolus of normal saline followed by 20 mL per hour of 3% NaCl. The pain will be performed every 4 hours and results will be called to Dr. Lerma. Cbc will be trended every [address] Gallardo who accepted the admission. I also spoke with Dr. Valdez who accepted the patient into the ICU. She is currently awaiting a bed on the floor. - Lab Data Result diagrams: 12/07/20 16:17 12/07/20 16:17 Lab Results 12/07/20 12/07/20 12/07/20 Range/Units 16:17 16:17 16:17 WBC 15.6 H (3.8-10.6) k/uL RBC 2.45 L (3.80-5.40) m/uL Hgb 7.9 L (11.4-16.0) gm/dL Hct 22.3 L (34.0-46.0) % MCV 91.0 (80.0-100.0) fL MCH 32.3 (25.0-35.0) pg MCHC 35.5 (31.0-37.0) g/dL RDW 13.8 (11.5-15.5) % Plt Count 325 (150-450) k/uL MPV 6.9 Neutrophils % Not Reportable Neutrophils % (Manual) 80 % Lymphocytes % Not Reportable Lymphocytes % (Manual) 11 % Monocytes % Not Reportable Monocytes % (Manual) 9 % Eosinophils % Not Reportable Basophils % Not Reportable Neutrophils # Not Reportable Neutrophils # (Manual) 12.48 H (1.3-7.7) k/uL Lymphocytes # Not Reportable Lymphocytes # (Manual) 1.72 (1.0-4.8) k/uL Monocytes # Not Reportable Monocytes # (Manual) 1.40 H (0-1.0) k/uL Eosinophils # Not Reportable Basophils # Not Reportable Nucleated RBCs 0 (0-0) /100 WBC Manual Slide Review Performed PT 10.9 (9.0-12.0) sec INR 1.0 (<1.2) APTT 26.5 (22.0-30.0) sec Sodium (137-145) mmol/L Potassium (3.5-5.1) mmol/L Chloride (98-107) mmol/L Carbon Dioxide (22-30) mmol/L Anion Gap mmol/L BUN (7-17) mg/dL Creatinine (0.52-1.04) mg/dL Est GFR (CKD-EPI)AfAm (>60 ml/min/1.73 sqM) Est GFR (CKD-EPI)NonAf (>60 ml/min/1.73 sqM) Glucose (74-99) mg/dL Osmolality (280-301) mosm/kg Calcium (8.4-10.2) mg/dL Total Bilirubin (0.2-1.3) mg/dL AST (14-36) U/L ALT (4-34) U/L Alkaline Phosphatase (38-126) U/L Creatine Kinase (30-135) U/L Troponin I (0.000-0.034) ng/mL Total Protein (6.3-8.2) g/dL Albumin (3.5-5.0) g/dL Urine Color Yellow Urine Appearance Clear (Clear) Urine pH 5.5 (5.0-8.0) Ur Specific [place] 1.018 (1.001-1.035) Urine Protein Trace H (Negative) Urine Glucose (UA) Negative (Negative) Urine Ketones 2+ H (Negative) Urine Blood Trace H (Negative) Urine Nitrite Negative (Negative) Urine Bilirubin Negative (Negative) Urine Urobilinogen <2.0 (<2.0) mg/dL Ur Leukocyte Esterase Moderate H (Negative) Urine RBC 1 (0-5) /hpf Urine WBC 8 H (0-5) /hpf Ur Squamous Epith Cells <1 (0-4) /hpf Urine Mucus Rare H (None) /hpf Urine Osmolality (50-1400) mosm/kg Urine Opiates Screen Detected H (NotDetected) Ur Oxycodone Screen Not Detected (NotDetected) Urine Methadone Screen Not Detected (NotDetected) Ur Propoxyphene Screen Not Detected (NotDetected) Ur Barbiturates Screen Not Detected (NotDetected) U Tricyclic Antidepress Not Detected (NotDetected) Ur Phencyclidine Scrn Not Detected (NotDetected) Ur Amphetamines Screen Not Detected (NotDetected) U Methamphetamines Scrn Not Detected (NotDetected) U Benzodiazepines Scrn Not Detected (NotDetected) Urine Cocaine Screen Not Detected (NotDetected) U Marijuana (THC) Screen Not Detected (NotDetected) 12/07/20 12/07/20 12/07/20 Range/Units 16:17 16:17 16:17 WBC (3.8-10.6) k/uL RBC (3.80-5.40) m/uL Hgb (11.4-16.0) gm/dL Hct (34.0-46.0) % MCV (80.0-100.0) fL MCH (25.0-35.0) pg MCHC (31.0-37.0) g/dL RDW (11.5-15.5) % Plt Count (150-450) k/uL MPV Neutrophils % Neutrophils % (Manual) % Lymphocytes % Lymphocytes % (Manual) % Monocytes % Monocytes % (Manual) % Eosinophils % Basophils % Neutrophils # Neutrophils # (Manual) (1.3-7.7) k/uL Lymphocytes # Lymphocytes # (Manual) (1.0-4.8) k/uL Monocytes # Monocytes # (Manual) (0-1.0) k/uL Eosinophils # Basophils # Nucleated RBCs (0-0) /100 WBC Manual Slide Review PT (9.0-12.0) sec INR (<1.2) APTT (22.0-30.0) sec Sodium 108 L* (137-145) mmol/L Potassium 3.9 (3.5-5.1) mmol/L Chloride 79 L (98-107) mmol/L Carbon Dioxide 18 L (22-30) mmol/L Anion Gap 11 mmol/L BUN 12 (7-17) mg/dL Creatinine 0.59 (0.52-1.04) mg/dL Est GFR (CKD-EPI)AfAm >90 (>60 ml/min/1.73 sqM) Est GFR (CKD-EPI)NonAf 84 (>60 ml/min/1.73 sqM) Glucose 101 H (74-99) mg/dL Osmolality (280-301) mosm/kg Calcium 8.2 L (8.4-10.2) mg/dL Total Bilirubin 1.6 H (0.2-1.3) mg/dL AST 45 H (14-36) U/L ALT 26 (4-34) U/L Alkaline Phosphatase 64 (38-126) U/L Creatine Kinase 376 H (30-135) U/L Troponin I <0.012 (0.000-0.034) ng/mL Total Protein 5.4 L (6.3-8.2) g/dL Albumin 3.3 L (3.5-5.0) g/dL Urine Color Urine Appearance (Clear) Urine pH (5.0-8.0) Ur Specific [place] (1.001-1.035) Urine Protein (Negative) Urine Glucose (UA) (Negative) Urine Ketones (Negative) Urine Blood (Negative) Urine Nitrite (Negative) Urine Bilirubin (Negative) Urine Urobilinogen (<2.0) mg/dL Ur Leukocyte Esterase (Negative) Urine RBC (0-5) /hpf Urine WBC (0-5) /hpf Ur Squamous Epith Cells (0-4) /hpf Urine Mucus (None) /hpf Urine Osmolality 377 (50-1400) mosm/kg Urine Opiates Screen (NotDetected) Ur Oxycodone Screen (NotDetected) Urine Methadone Screen (NotDetected) Ur Propoxyphene Screen (NotDetected) Ur Barbiturates Screen (NotDetected) U Tricyclic Antidepress (NotDetected) Ur Phencyclidine Scrn (NotDetected) Ur Amphetamines Screen (NotDetected) U Methamphetamines Scrn (NotDetected) U Benzodiazepines Scrn (NotDetected) Urine Cocaine Screen (NotDetected) U Marijuana (THC) Screen (NotDetected) 12/07/20 Range/Units 16:17 WBC (3.8-10.6) k/uL RBC (3.80-5.40) m/uL Hgb (11.4-16.0) gm/dL Hct (34.0-46.0) % MCV (80.0-100.0) fL MCH (25.0-35.0) pg MCHC (31.0-37.0) g/dL RDW (11.5-15.5) % Plt Count (150-450) k/uL MPV Neutrophils % Neutrophils % (Manual) % Lymphocytes % Lymphocytes % (Manual) % Monocytes % Monocytes % (Manual) % Eosinophils % Basophils % Neutrophils # Neutrophils # (Manual) (1.3-7.7) k/uL Lymphocytes # Lymphocytes # (Manual) (1.0-4.8) k/uL Monocytes # Monocytes # (Manual) (0-1.0) k/uL Eosinophils # Basophils # Nucleated RBCs (0-0) /100 WBC Manual Slide Review PT (9.0-12.0) sec INR (<1.2) APTT (22.0-30.0) sec Sodium (137-145) mmol/L Potassium (3.5-5.1) mmol/L Chloride (98-107) mmol/L Carbon Dioxide (22-30) mmol/L Anion Gap mmol/L BUN (7-17) mg/dL Creatinine (0.52-1.04) mg/dL Est GFR (CKD-EPI)AfAm (>60 ml/min/1.73 sqM) Est GFR (CKD-EPI)NonAf (>60 ml/min/1.73 sqM) Glucose (74-99) mg/dL Osmolality 228 L* (280-301) mosm/kg Calcium (8.4-10.2) mg/dL Total Bilirubin (0.2-1.3) mg/dL AST (14-36) U/L ALT (4-34) U/L Alkaline Phosphatase (38-126) U/L Creatine Kinase (30-135) U/L Troponin I (0.000-0.034) ng/mL Total Protein (6.3-8.2) g/dL Albumin (3.5-5.0) g/dL Urine Color Urine Appearance (Clear) Urine pH (5.0-8.0) Ur Specific [place] (1.001-1.035) Urine Protein (Negative) Urine Glucose (UA) (Negative) Urine Ketones (Negative) Urine Blood (Negative) Urine Nitrite (Negative) Urine Bilirubin (Negative) Urine Urobilinogen (<2.0) mg/dL Ur Leukocyte Esterase (Negative) Urine RBC (0-5) /hpf Urine WBC (0-5) /hpf Ur Squamous Epith Cells (0-4) /hpf Urine Mucus (None) /hpf Urine Osmolality (50-1400) mosm/kg Urine Opiates Screen (NotDetected) Ur Oxycodone Screen (NotDetected) Urine Methadone Screen (NotDetected) Ur Propoxyphene Screen (NotDetected) Ur Barbiturates Screen (NotDetected) U Tricyclic Antidepress (NotDetected) Ur Phencyclidine Scrn (NotDetected) Ur Amphetamines Screen (NotDetected) U Methamphetamines Scrn (NotDetected) U Benzodiazepines Scrn (NotDetected) Urine Cocaine Screen (NotDetected) U Marijuana (THC) Screen (NotDetected) - EKG Data EKG Comments: EKG demonstrates A. fib with a rate of 78. QRS 78. QTC of 419. Significant baseline artifact. No acute ST segment elevations Disposition Clinical Impression: Altered mental status, Dehydration, Hyponatremia, Anemia, Subcutaneous hematoma, Anticoagulant long-term use, Afib Disposition[facility] Condition: Serious Is patient prescribed a controlled substance at d/c from ED?: No Decision to Admit Reason: Admit from EC Decision Date: 12/07/20 Decision Time: 18:27
[2020-12-07 16:33] LABS: HCT 22.3 % (34.0-46.0); HGB 7.9 gm/dL (11.4-16.0); MCH 32.3 pg (25.0-35.0); MCHC 35.5 g/dL (31.0-37.0); Mean Platelet Volume 6.9; Platelet Count 325 k/uL (150-450); RBC 2.45 m/uL (3.80-5.40); RDW 13.8 % (11.5-15.5); WBC 15.6 k/uL (3.8-10.6)
[2020-12-07 16:35] LABS: ALT 26 U/L (4-34); AST 45 U/L (14-36); African American GFR (CKD) >90 (>60 ml/min/1.73 sqM); Albumin 3.3 g/dL (3.5-5.0); Alkaline Phosphatase 64 U/L (38-126); Anion Gap 11 mmol/L; Blood Urea Nitrogen 12 mg/dL (7-17); Calcium 8.2 mg/dL (8.4-10.2); Carbon Dioxide 18 mmol/L (22-30); Chloride 79 mmol/L (98-107); Creatine Kinase 376 U/L (30-135); Glucose 101 mg/dL (74-99); Non-African American GFR(CKD) 84 (>60 ml/min/1.73 sqM); Potassium 3.9 mmol/L (3.5-5.1); Total Bilirubin 1.6 mg/dL (0.2-1.3); Total Protein 5.4 g/dL (6.3-8.2)
[2020-12-07 16:37] LABS: Appearance,Urine Clear (Clear); Bilirubin,Urine Negative (Negative); Blood,Urine Trace (Negative); Color,Urine Yellow; Glucose,Urine (UA) Negative (Negative); Ketones,Urine 2+ (Negative); Leukocyte Esterase,Urine Moderate (Negative); Mucus,Urine Rare /hpf; Nitrite,Urine Negative (Negative); PH, Urine 5.5 (5.0-8.0); Protein,Urine Trace (Negative); RBC,Urine 1 /hpf (0-5); Specific Gravity,Urine 1.018 (1.001-1.035); Squamous Epithelial Cell,Urine <1 /hpf (0-4); Urobilinogen,Urine <2.0 mg/dL (<2.0); WBC,Urine 8 /hpf (0-5)
[2020-12-07 16:38] LABS: Amphetamine Screen,Urine Not Detected (NotDetected); Barbiturate Screen,Urine Not Detected (NotDetected); Benzodiazepines Screen,Urine Not Detected (NotDetected); Cocaine Screen,Urine Not Detected (NotDetected); Methadone Screen, Urine Not Detected (NotDetected); Opiate Screen,Urine Detected (NotDetected); Oxycodone Screen, Urine Not Detected (NotDetected); Phencyclidine Screen,Urine Not Detected (NotDetected); Tricyclic Antidepressant,Urine Not Detected (NotDetected); Urn Cannabinoid Scrn Not Detected (NotDetected)
[2020-12-07 16:40] LABS: Partial Thromboplastin Time 26.5 sec (22.0-30.0); Prothrombin Time 10.9 sec (9.0-12.0)
[2020-12-07 16:50] LABS: Sodium 108 mmol/L (137-145)
[2020-12-07 17:16] LABS: Lymphocytes # (M) 1.72 k/uL (1.0-4.8); Neutrophils # (M) 12.48 k/uL (1.3-7.7); Neutrophils % (M) 80 %; Nucleated Red Blood Cells 0 /100 WBC (0-0); Total Cells Counted 100
[2020-12-07] MEDS ORDERED: SODIUM CHLORIDE 0.9% 1,000 ML IV ONE (17:24)
--- NOTE | 2020-12-07 18:16 | CT ---
EXAMINATION TYPE: CT brain marin[place] wo con DATE OF EXAM: 12/07/2020 COMPARISON: 06/06/2018 HISTORY: Fall on eliquis. CT DLP: 1253 mGycm Automated exposure control for dose reduction was used. There is cerebral cortical atrophy. There is no mass effect nor midline shift. There is some motion a rtifact over the frontal lobe convexities. I see no evidence of intracranial hemorrhage. The calvariu m is intact. Skull base is intact. There is normal aeration of the mastoid sinuses. IMPRESSION: Cerebral atrophy. No acute intracranial abnormality. No change.
--- NOTE | 2020-12-07 18:18 | XR ---
EXAMINATION TYPE: XR chest 1V DATE OF EXAM: 12/07/2020 COMPARISON: NONE HISTORY: 05/21/2020 TECHNIQUE: 2 views FINDINGS: Heart is enlarged. There is no heart failure. Costophrenic angles are clear. There are no h ilar masses. Bony thorax is intact. IMPRESSION: No active cardiopulmonary disease. Mild cardiomegaly. Heart appears increased slightly co mpared to old exam.
--- NOTE | 2020-12-07 18:19 | XR ---
EXAMINATION TYPE: XR pelvis AP view DATE OF EXAM: 12/07/2020 COMPARISON: NONE HISTORY: Pain and bruising TECHNIQUE: Single view FINDINGS: Pelvic ring appears intact. Proximal femurs and hip joints are intact. Sacroiliac joints ar e intact. There are some distended gas-filled small bowel loops in the mid abdomen. IMPRESSION: No acute abnormality of the pelvis. No fracture. There is evidence for some small bowel ileus.
[2020-12-07] MEDS ORDERED: NALOXONE 0.4 MG/ML 1 ML VIAL IV PRN (18:29)
[2020-12-07] MEDS ORDERED: SODIUM CHLORIDE 3%(HYPERTONIC) 500 ML IV SCH (18:30)
[2020-12-07] MEDS ORDERED: cefTRIAXone IN SWFI 1,000 MG/10 ML SYRINGE IVP STA (18:32)
[2020-12-07] MEDS ORDERED: ONDANSETRON 4 MG/2 ML VIAL IVP STA (20:09)
[2020-12-07] MEDS ORDERED: HYDROmorphone 1 MG/ML 1 ML SYRINGE IVP STA (20:10)
[2020-12-07] MEDS ORDERED: clonazePAM 0.5 MG TAB PO PRN (21:15)
[2020-12-07] MEDS: METOPROLOL TARTRATE 25 MG TAB PO SCH (21:45)
[2020-12-07] MEDS ORDERED: HYDROmorphone 1 MG/ML 1 ML SYRINGE IVP PRN (21:47)
[2020-12-07] MEDS: ATORVASTATIN 80 MG TAB PO SCH (21:49)
[2020-12-07] MEDS: DONEPEZIL 5 MG TAB PO SCH (21:49)
[2020-12-07] MEDS: clonazePAM 1 MG TAB PO PRN (23:25)
[2020-12-08] MEDS: GABAPENTIN 300 MG CAP PO SCH ×3 (00:55→15:17)
[2020-12-08] MEDS: LORazepam 2 MG/ML INJ IV PRN ×2 (01:23→08:25)
[2020-12-08 05:40] LABS: HCT 23.7 % (34.0-46.0); HGB 8.1 gm/dL (11.4-16.0); MCH 32.8 pg (25.0-35.0); MCHC 34.2 g/dL (31.0-37.0); Mean Platelet Volume 8.6; Platelet Count 315 k/uL (150-450); RBC 2.46 m/uL (3.80-5.40); RDW 13.5 % (11.5-15.5); WBC 16.6 k/uL (3.8-10.6)
[2020-12-08 06:09] LABS: MCV 96.1 fL (80.0-100.0)
[2020-12-08] MEDS ORDERED: DEXTROSE 5% IN WATER 1,000 ML IV ONE (06:42)
[2020-12-08 07:01] LABS: Basophils % (A) 0 %; Eosinophils # (A) 0.1 k/uL (0-0.7); Eosinophils % (A) 0 %; HGB 8.4 gm/dL (11.4-16.0); Lymphocytes # (A) 1.9 k/uL (1.0-4.8); Lymphocytes % (A) 12 %; MCH 32.9 pg (25.0-35.0); Mean Platelet Volume 7.2; Monocytes # (A) 0.6 k/uL (0-1.0); Monocytes % (A) 4 %; Neutrophils # (A) 12.7 k/uL (1.3-7.7); Neutrophils % (A) 82 %; Platelet Count 337 k/uL (150-450); RBC 2.56 m/uL (3.80-5.40); RDW 13.6 % (11.5-15.5); WBC 15.4 k/uL (3.8-10.6)
[2020-12-08 07:11] LABS: ALT 32 U/L (4-34); AST 66 U/L (14-36); African American GFR (CKD) >90 (>60 ml/min/1.73 sqM); Albumin 3.4 g/dL (3.5-5.0); Alkaline Phosphatase 64 U/L (38-126); Anion Gap 8 mmol/L; Blood Urea Nitrogen 7 mg/dL (7-17); Calcium 8.5 mg/dL (8.4-10.2); Carbon Dioxide 22 mmol/L (22-30); Chloride 92 mmol/L (98-107); Glucose 99 mg/dL (74-99); Non-African American GFR(CKD) 89 (>60 ml/min/1.73 sqM); Potassium 3.4 mmol/L (3.5-5.1); Sodium 122 mmol/L (137-145); Total Bilirubin 1.8 mg/dL (0.2-1.3); Total Protein 5.7 g/dL (6.3-8.2)
[2020-12-08] MEDS ORDERED: POTASSIUM CHLORIDE ER 20 MEQ TAB.ER PO STA (07:23)
[2020-12-08] MEDS ORDERED: DESMOPRESSIN ACETATE 4 MCG/ML VIAL (MDV) IV ONE (08:00)
[2020-12-08] MEDS: CHOLECALCIFEROL 25 MCG (1000 IU) TABLET PO SCH ×2 (08:20→08:22)
[2020-12-08] MEDS: VITAMIN E (DL,TOCOPHERYL ACET) 400 UNIT (180 MG) CAP PO SCH (08:21)
[2020-12-08] MEDS: PANTOPRAZOLE 40 MG TABLET PO SCH (08:21)
[2020-12-08] MEDS: LOSARTAN 50 MG TAB PO SCH (08:21)
[2020-12-08] MEDS: LEVOTHYROXINE 75 MCG TAB PO SCH (08:22)
[2020-12-08] MEDS: MULTIVITAMINS, THERA 1 EACH TAB PO SCH (08:23)
[2020-12-08] MEDS: DULoxetine HCL 60 MG CAPSULE.DR PO SCH (08:24)
[2020-12-08] MEDS: ASCORBIC ACID 500 MG TAB PO SCH (08:24)
[2020-12-08] MEDS: METOPROLOL TARTRATE 25 MG TAB PO SCH (08:30)
--- NOTE | 2020-12-08 10:18 | P.NPCON ---
History of Present Illness - Reason for Consult hyponatremia - History of Present Illness Reason for consultation: Hyponatremia History of present illness: Patient is a 85-year-old female seen in renal consultation for hyponatremia. Patient's sodium level on admission on December 07 at 4 PM was 108. She received 1 L of normal saline bolus and was then started on 3% saline for a few hours. 3% saline was stopped in the middle of the night. Sodium level this morning was up to 122. Urine output overnight was about 3 L. She did receive a dose of IV DDAVP this morning is also maintained on D5 W at 75 mL an hour. GFR is at baseline. Patient has history of dementia and is not a reliable historian. She was brought to the hospital due to increased falls. Her oral intake had been poor for the past several days. I don't kidney thiazide diuretics and her home medication list. Blood pressure stable. No fever or chills. Urine osmolality 377. Vital signs are stable. HEENT: Head exam is unremarkable. LUNGS: Breath sounds decreased. HEART: Rate and Rhythm are regular. ABDOMEN: Soft, no distention. EXTREMITITES: No edema. Generalized bruising noted. Past Medical History Past Medical History: GERD/Reflux, Hyperlipidemia, Memory Impairment, Osteoarthr itis (OA) Additional Past Medical History / Comment(s): occassional forgetfullness, degenerative disc disease, chronic pain History of Any Multi-Drug Resistant Organisms: None Reported Past Surgical History: Cholecystectomy, Hysterectomy Past Anesthesia/Blood Transfusion Reactions: No Reported Reaction Past Psychological History: Anxiety Smoking Status: Unknown if ever smoked Past Alcohol Use History: None Reported Past Drug Use History: None Reported - Past Family History Father Additional Family Medical History / Comment(s): pt. states her father was an alcoholic and at a young age Medications and Allergies Home Medications Medication Instructions Recorded Confirmed Type Ezetimibe [Zetia] 10 mg PO DAILY 11/02/13 12/07/20 History Folic Acid/Mv,Fe,Min [Centrum 1 tab PO DAILY 11/02/13 12/07/20 History Multivitamin Tab Chew] Gabapentin [Neurontin] 600 mg PO TID 11/02/13 12/07/20 History Pantoprazole Sodium 40 mg PO DAILY 11/02/13 12/07/20 History clonazePAM [KlonoPIN] 1 mg PO HS PRN 11/02/13 12/07/20 History HYDROcodone/APAP 10-325MG [[place] 1 tab PO Q6H PRN 12/06/13 12/07/20 History 10-325] DULoxetine HCL [Cymbalta] 60 mg PO DAILY 06/06/18 12/07/20 History Apixaban [Eliquis] 5 mg PO BID #60 tab 06/09/18 12/07/20 Rx Losartan [Cozaar] 50 mg PO DAILY #30 tab 06/09/18 12/07/20 Rx Metoprolol Tartrate [Lopressor] 25 mg PO BID #60 tab 06/09/18 12/07/20 Rx Ascorbic Acid [Vitamin C] 1,000 mg PO DAILY 01/05/19 12/07/20 History Vitamin E Acetate [Vitamin E] 200 unit PO DAILY 01/05/19 12/07/20 History clonazePAM 0.5 mg PO HS PRN 01/05/19 12/07/20 History Atorvastatin [Lipitor] 80 mg PO HS 12/07/20 12/07/20 History Cholecalciferol (Vitamin D3) 125 mcg PO DAILY 12/07/20 12/07/20 History [Vitamin D3 (125 MCG = 5,000 IU)] Donepezil [Aricept] 5 mg PO HS 12/07/20 12/07/20 History Levothyroxine Sodium [Synthroid] 75 mcg PO DAILY 12/07/20 12/07/20 History Allergies Allergy/AdvReac Type Severity Reaction Status Date / Time codeine Allergy Unknown Verified 12/07/20 17:41 erythromycin base Allergy Unknown Verified 12/07/20 17:41 fenofibrate [From Tricor] Allergy Unknown Verified 12/07/20 17:41 niacin Allergy Unknown Verified 12/07/20 17:41 sertraline [From Zoloft] Allergy Unknown Verified 12/07/20 17:41 Sulfa (Sulfonamide Allergy Swelling Verified 12/07/20 17:41 Antibiotics) Physical Exam Vitals: Vital Signs Temp Pulse Resp BP Pulse Ox 12/08/20 08:38 84 20 167/79 95 12/08/20 06:00 85 18 149/81 96 12/08/20 05:00 78 16 136/93 95 12/08/20 04:00 75 18 120/98 12/08/20 02:00 80 16 158/80 96 12/08/20 01:00 87 18 136/64 97 12/07/20 22:00 78 20 134/64 97 12/07/20 21:00 72 18 105/65 97 12/07/20 19:53 72 22 176/130 97 12/07/20 14:20 97.5 F L 60 18 129/85 95 Intake and Output 12/07/20 12/08/20 12/08/20 22:59 06:59 14:59 Output Total 400 2200 Balance -400 -2200 Output: Urine 400 2200 Results - Lab Results Most recent lab results Calcium 8.5 mg/dL (8.4-10.2) 12/08/20 06:30 12/08/20 06:30 12/08/20 06:30 Assessment and Plan Plan: Assessment: 1. Hypovolemic hyponatremia improved with IV hydration. Status post short duration of 3% saline on admission. Sodium level was 108 on admission yesterday afternoon is 122 this morning. Urine osmolality 377. 2. Benign hypertension. Stable. 3. Dementia. 4. Hypokalemia from poor intake. Replaced. Rule out magnesium deficiency. Plan: Patient received IV DDAVP this morning. Maintain D5W at 75 mL an hour. Check sodium level at 10:30 a.m. today. Goal rate of correction 68 mEq per 24 hours. Check TSH. Potassium was replaced. Check magnesium level. Urine sodium pending. Thank you for the consultation. I will continue to follow patient with you during her hospital stay.
[2020-12-08 11:55] LABS: Magnesium 1.7 mg/dL (1.6-2.3)
--- NOTE | 2020-12-08 14:06 | P.CNPUL ---
History of Present Illness Consult date: 12/08/20 Requesting physician: Amy Barros Reason for consult: other Chief complaint: Hyponatremia History of present illness: This is a 85-year-old white female patient with past history of dementia, h yperlipidemia, osteoarthritis, chronic pain syndrome, degenerative disc disease, who was brought into the emergency department on 12/07/2020 for evaluation of altered mental status, and falls at home. Patient resides at home with her , she is extremely poor historian, her states that his 's mental status has been altered for several months. However in the last 2 weeks she has had increased number of falls, in addition she has been somewhat agitated. Patient is on Eliquis for her history of atrial fibrillation. CT of the head in the emergency department was completed showing no acute intracranial abnormality. Chest x-ray showed no active cardiopulmonary disease. EKG showed atrial fibrillation with a controlled rate of 78 BPM, and nonspecific T-wave abnormality. Patient's blood work revealed serum sodium of 108, chloride 79, CO2 of 18, BUN 12, and creatinine of 0.59, glucose level was 101, serum osmolality was 228, calcium was 8.2, AST was 45, ALT and alkaline phosphatase were within normal limits, CK was 376, troponin was less than 0.012, urinalysis showed moderately obese, 2+ ketones, trace blood, 8 leukocytes, and random urine sodium of less than 20. Urine drug screen showed positive opiates, COVID- 19 PCR was negative. Patient is breathing comfortably, she is on room air with a pulse ox of 96%. She has been afebrile. Patient was given a liter bolus in the emergency department. Pelvic x-ray demonstrates no acute abnormality of the pelvis, patient had no identifiable source of infection, hemoglobin is 7.9, patient had multiple contusions all over her body related to recent history of multiple falls. After initial fluid resuscitation with 1 L of 0.9 normal saline patient was placed on 3% hypertonic saline, per nephrology recommendations. ICU admission was requested. Patient had been kept overnight in the emergency department awaiting a bed in the ICU. During our evaluation this morning she is resting comfortably on the gurney in the emergency department, breathing comfortably, she is awake and alert, she is answering basic questions, she is confused, she is not a reliable historian, but does not appear to be in any acute distress. Hypertonic saline has been discontinued, overnight patient's serum sodium had been checked frequently, and is currently up to 122, and patient has been switched to D5W at 75 ML per hour, nephrology is following and managing. No seizures. Patient is voiding. Review of Systems All systems: negative Constitutional: Reports weakness, Denies chills, Denies fever Eyes: denies blurred vision, denies pain Ears, nose, mouth and throat: Denies headache, Denies sore throat Cardiovascular: Denies chest pain, Denies shortness of breath Respiratory: Denies cough Gastrointestinal: Denies abdominal pain, Denies diarrhea, Denies nausea, Denies vomiting Genitourinary: Denies dysuria, Denies hematuria Musculoskeletal: Denies myalgias Integumentary: Denies pruritus, Denies rash Neurological: Reports as per HPI, Reports balance difficulties, Reports change in mentation, Reports gait dysfunction, Reports weakness, Denies numbness Psychiatric: Denies anxiety, Denies depression Endocrine: Denies fatigue, Denies weight change Past Medical History Past Medical History: Atrial Fibrillation, GERD/Reflux, Hyperlipidemia, Memory Impairment, Osteoarthritis (OA) Additional Past Medical History / Comment(s): occassional forgetfullness, degenerative disc disease, chronic pain History of Any Multi-Drug Resistant Organisms: None Reported Past Surgical History: Cholecystectomy, Hysterectomy Past Anesthesia/Blood Transfusion Reactions: No Reported Reaction Past Psychological History: Anxiety Smoking Status: Unknown if ever smoked Past Alcohol Use History: None Reported Past Drug Use History: None Reported - Past Family History Father Additional Family Medical History / Comment(s): pt. states her father was an alcoholic and at a young age Medications and Allergies Home Medications Medication Instructions Recorded Confirmed Type Ezetimibe [Zetia] 10 mg PO DAILY 11/02/13 12/07/20 History Folic Acid/Mv,Fe,Min [Centrum 1 tab PO DAILY 11/02/13 12/07/20 History Multivitamin Tab Chew] Gabapentin [Neurontin] 600 mg PO TID 11/02/13 12/07/20 History Pantoprazole Sodium 40 mg PO DAILY 11/02/13 12/07/20 History clonazePAM [KlonoPIN] 1 mg PO HS PRN 11/02/13 12/07/20 History HYDROcodone/APAP 10-325MG [[place] 1 tab PO Q6H PRN 12/06/13 12/07/20 History 10-325] DULoxetine HCL [Cymbalta] 60 mg PO DAILY 06/06/18 12/07/20 History Apixaban [Eliquis] 5 mg PO BID #60 tab 06/09/18 12/07/20 Rx Losartan [Cozaar] 50 mg PO DAILY #30 tab 06/09/18 12/07/20 Rx Metoprolol Tartrate [Lopressor] 25 mg PO BID #60 tab 06/09/18 12/07/20 Rx Ascorbic Acid [Vitamin C] 1,000 mg PO DAILY 01/05/19 12/07/20 History Vitamin E Acetate [Vitamin E] 200 unit PO DAILY 01/05/19 12/07/20 History clonazePAM 0.5 mg PO HS PRN 01/05/19 12/07/20 History Atorvastatin [Lipitor] 80 mg PO HS 12/07/20 12/07/20 History Cholecalciferol (Vitamin D3) 125 mcg PO DAILY 12/07/20 12/07/20 History [Vitamin D3 (125 MCG = 5,000 IU)] Donepezil [Aricept] 5 mg PO HS 12/07/20 12/07/20 History Levothyroxine Sodium [Synthroid] 75 mcg PO DAILY 12/07/20 12/07/20 History Allergies Allergy/AdvReac Type Severity Reaction Status Date / Time codeine Allergy Unknown Verified 12/07/20 17:41 erythromycin base Allergy Unknown Verified 12/07/20 17:41 fenofibrate [From Tricor] Allergy Unknown Verified 12/07/20 17:41 niacin Allergy Unknown Verified 12/07/20 17:41 sertraline [From Zoloft] Allergy Unknown Verified 12/07/20 17:41 Sulfa (Sulfonamide Allergy Swelling Verified 12/07/20 17:41 Antibiotics) Physical Exam Vitals: Vital Signs Temp Pulse Resp BP Pulse Ox 12/08/20 08:38 84 20 167/79 95 12/08/20 06:00 85 18 149/81 96 12/08/20 05:00 78 16 136/93 95 12/08/20 04:00 75 18 120/98 12/08/20 02:00 80 16 158/80 96 12/08/20 01:00 87 18 136/64 97 12/07/20 22:00 78 20 134/64 97 12/07/20 21:00 72 18 105/65 97 12/07/20 19:53 72 22 176/130 97 12/07/20 14:20 97.5 F L 60 18 129/85 95 Intake and Output 12/07/20 12/08/20 12/08/20 22:59 06:59 14:59 Output Total 400 2200 Balance -400 -2200 Output: Urine 400 2200 GENERAL EXAM: Alert, confused, thin built 85-year-old white female, resting on the gurney, bleeding currently, on room air, with a pulse ox of 96%, comfortable in no apparent distress. HEAD: Normocephalic/atraumatic. EYES: Normal reaction of pupils, equal size. Conjunctiva pink, sclera white. NOSE: Clear with pink turbinates. THROAT: No erythema or exudates. NECK: No masses, no JVD, no thyroid enlargement, no adenopathy. CHEST: No chest wall deformity. Symmetrical expansion. LUNGS: Equal air entry with no crackles, wheeze, rhonchi or dullness. CVS: irregular rate and rhythm, normal S1 and S2, no gallops, no murmurs, no rubs ABDOMEN: Soft, nontender. No hepatosplenomegaly, normal bowel sounds, no guarding or rigidity. EXTREMITIES: No clubbing, no edema, no cyanosis, 2+ pulses and upper and lower extremities. MUSCULOSKELETAL: Muscle strength and tone normal. SPINE: No scoliosis or deformity SKIN: No rashes, patient has multiple bruises all over her body from recent history of falls CENTRAL NERVOUS SYSTEM: Alert and oriented -1. No focal deficits, tone is norm al in all 4 extremities. PSYCHIATRIC: Alert and oriented -1. Results - Laboratory Findings CBC and BMP: 12/08/20 06:30 12/08/20 10:57 PT/INR, D-dimer PT 10.9 sec (9.0-12.0) 12/07/20 16:17 INR 1.0 (<1.2) 12/07/20 16:17 Abnormal lab findings: Abnormal Labs 12/07/20 12/07/20 12/07/20 16:17 16:17 16:17 WBC 15.6 H RBC 2.45 L Hgb 7.9 L Hct 22.3 L Neutrophils # Neutrophils # (Manual) 12.48 H Monocytes # (Manual) 1.40 H Sodium 108 L* Potassium Chloride 79 L Carbon Dioxide 18 L Creatinine Glucose 101 H Osmolality Calcium 8.2 L Total Bilirubin 1.6 H AST 45 H Creatine Kinase 376 H Total Protein 5.4 L Albumin 3.3 L Urine Protein Trace H Urine Ketones 2+ H Urine Blood Trace H Ur Leukocyte Esterase Moderate H Urine WBC 8 H Urine Mucus Rare H Urine Opiates Screen Detected H 12/07/20 12/07/20 12/07/20 16:17 21:25 22:31 WBC RBC Hgb Hct Neutrophils # Neutrophils # (Manual) Monocytes # (Manual) Sodium 113 L* 114 L* Potassium Chloride Carbon Dioxide Creatinine Glucose Osmolality 228 L* Calcium Total Bilirubin AST Creatine Kinase Total Protein Albumin Urine Protein Urine Ketones Urine Blood Ur Leukocyte Esterase Urine WBC Urine Mucus Urine Opiates Screen 12/08/20 12/08/20 12/08/20 01:45 02:12 06:30 WBC 16.6 H 15.4 H RBC 2.46 L 2.56 L Hgb 8.1 L 8.4 L Hct 23.7 L 24.0 L Neutrophils # 12.7 H Neutrophils # (Manual) Monocytes # (Manual) Sodium 117 L* Potassium Chloride Carbon Dioxide Creatinine Glucose Osmolality Calcium Total Bilirubin AST Creatine Kinase Total Protein Albumin Urine Protein Urine Ketones Urine Blood Ur Leukocyte Esterase Urine WBC Urine Mucus Urine Opiates Screen 12/08/20 12/08/20 06:30 10:57 WBC RBC Hgb Hct Neutrophils # Neutrophils # (Manual) Monocytes # (Manual) Sodium 122 L 122 L Potassium 3.4 L Chloride 92 L Carbon Dioxide Creatinine 0.50 L Glucose Osmolality Calcium Total Bilirubin 1.8 H AST 66 H Creatine Kinase Total Protein 5.7 L Albumin 3.4 L Urine Protein Urine Ketones Urine Blood Ur Leukocyte Esterase Urine WBC Urine Mucus Urine Opiates Screen - Diagnostic Findings Chest x-ray: report reviewed, image reviewed Additional studies: Results of the head and cervical spine CT, EKG and results of the pelvis x-ray reviewed Assessment and Plan Plan: Assessment: #1. Acute hyponatremia, hypovolemic, improved with IV hydration, is status post fluid resuscitation with 0.9 normal saline a total of 1 L bolus was given in the emergency department and patient was started on hypertonic saline. Admission serum sodium was 108, improved to 122 this morning, nephrology is following and managing, currently off hypertonic saline and patient is on D5W at a rate of 75 ML per hour #2. Multiple falls at home, generalized weakness. Pelvis x-ray shows no evidence of acute abnormality of the pelvis, no fractures there is evidence for some small bowel ileus #3. Dementia, baseline mentation is not known to us at this time #4. History of chronic atrial fibrillation on Eliquis #5. Acute Anemia, patient has had multiple falls, she is on Eliquis, she has multiple bruises, no active bleeding has been identified #6. Hyperlipidemia #7. Anxiety #8. GERD/reflux #9. Osteoarthritis #10. Degenerative disc disease, chronic pain syndrome Plan: Today's labs have been noted, patient was seen and evaluated in the emergency department Currently off hypertonic saline, She is awake and alert, answering basic questions, no seizures Serum sodium is being closely followed, nephrology recommendations Hemodynamically stable Stable to downgrade to 3 S. Does not need to come to the ICU Would address CODE STATUS Maintain fall precautions Eliquis is on hold I performed a history & physical examination of the patient and discussed their management with my nurse practitioner, Billie Storm. I reviewed the nurse practitioner's note and agree with the documented findings and plan of care. Lung sounds are positive for clear breath sounds throughout the lung salazar. The findings and the impression was discussed with the patient. I attest to the documentation by the nurse practitioner. Time with Patient: Greater than 30
[2020-12-08] MEDS: EZETIMIBE 10 MG TAB PO SCH (15:16)
[2020-12-08 18:45] LABS: Sodium 119 mmol/L (137-145)
--- NOTE | 2020-12-08 18:59 | XR ---
EXAMINATION TYPE: XR abdomen 1V DATE OF EXAM: 12/08/2020 COMPARISON: NONE HISTORY: Possible ileus. Pain. TECHNIQUE: 2 views FINDINGS: 2 views supine show no sign of intestinal obstruction or pneumoperitoneum. Fecal pattern is normal. There is no evidence of a mass. IMPRESSION: Nonacute abdomen.
[2020-12-08 20:53] LABS: Glucose,Whole Blood 140 mg/dL (75-99)
[2020-12-09] MEDS: ATORVASTATIN 80 MG TAB PO SCH ×2 (00:25→20:04)
[2020-12-09] MEDS: DONEPEZIL 5 MG TAB PO SCH ×2 (00:25→20:04)
[2020-12-09] MEDS: GABAPENTIN 300 MG CAP PO SCH ×4 (00:26→20:04)
[2020-12-09] MEDS: METOPROLOL TARTRATE 25 MG TAB PO SCH ×3 (00:26→20:04)
[2020-12-09] MEDS: LEVOTHYROXINE 75 MCG TAB PO SCH (06:29)
[2020-12-09] MEDS: PANTOPRAZOLE 40 MG TABLET PO SCH (06:34)
[2020-12-09 08:57] LABS: Basophils % (A) 0 %; Eosinophils # (A) 0.1 k/uL (0-0.7); Eosinophils % (A) 0 %; HCT 24.7 % (34.0-46.0); HGB 8.4 gm/dL (11.4-16.0); Lymphocytes # (A) 2.1 k/uL (1.0-4.8); Lymphocytes % (A) 15 %; MCH 32.7 pg (25.0-35.0); MCHC 34.2 g/dL (31.0-37.0); MCV 95.7 fL (80.0-100.0); Mean Platelet Volume 7.2; Monocytes # (A) 0.7 k/uL (0-1.0); Monocytes % (A) 5 %; Neutrophils # (A) 11.5 k/uL (1.3-7.7); Neutrophils % (A) 80 %; Platelet Count 341 k/uL (150-450); RBC 2.58 m/uL (3.80-5.40); RDW 14.2 % (11.5-15.5); WBC 14.4 k/uL (3.8-10.6)
--- NOTE | 2020-12-09 08:57 | P.PN ---
Subjective Patient is seen in follow-up for symptomatic hyponatremia. Sodium level corrected rapidly with 3% saline initially and she received DDAVP as well as D5W infusion yesterday. Sodium level was down to 118 as of last night. Morning labs are pending. She is currently being fed breakfast. Good urine output. Vital signs are stable. HEENT: Head exam is unremarkable. LUNGS: Breath sounds decreased. HEART: Rate and Rhythm are regular. ABDOMEN: Soft, no distention. EXTREMITITES: No edema. Objective - Vital Signs Vital signs: Vital Signs Temp 97.8 F 12/08/20 23:15 Pulse 73 12/09/20 03:42 Resp 18 12/09/20 03:42 BP 157/82 12/09/20 03:42 Pulse Ox 97 12/09/20 08:19 Intake & Output 12/08/20 12/09/20 12/09/20 18:59 06:59 18:59 Output Total 900 Balance -900 Weight 59.5 kg Output: Urine 900 Other: Voiding Method Indwelling Catheter - Labs CBC & Chem 7: 12/08/20 06:30 12/08/20 21:46 Labs: Abnormal Lab Results - Last 24 Hours (Table) 12/07/20 12/08/20 12/08/20 Range/Units 16:17 10:57 14:33 Sodium 122 L 121 L (137-145) mmol/L POC Glucose (mg/dL) (75-99) mg/dL Ur Random Sodium <20 L (40-220) mmol/L 12/08/20 12/08/20 12/08/20 Range/Units 18:00 20:27 21:46 Sodium 119 L* 118 L* (137-145) mmol/L POC Glucose (mg/dL) 140 H (75-99) mg/dL Ur Random Sodium (40-220) mmol/L Microbiology - Last 24 Hours (Table) 12/07/20 19:45 Blood Culture - Preliminary Blood No Growth after 24 hours Assessment and Plan Plan: Assessment: 1. Symptomatic hypovolemic hyponatremia improved with IV hydration. Status post short duration of 3% saline on admission. She then received IV DDAVP and D5W infusion to reverse the rapid correction. Sodium level 118 as of last night. Urine osmolality 377. Urine sodium less than 20. Cortisol level 23. 2. Benign hypertension. Stable. 3. Dementia. 4. Hypokalemia from poor intake. Replaced. Plan: Currently off IV fluids. Encouraged oral intake. Follow-up morning labs. Goal rate of correction 6-8 mEq per 24 hours. Follow-up TSH.
[2020-12-09 09:15] LABS: African American GFR (CKD) >90 (>60 ml/min/1.73 sqM); Albumin 2.8 g/dL (3.5-5.0); Anion Gap 7 mmol/L; Carbon Dioxide 25 mmol/L (22-30); Chloride 89 mmol/L (98-107); Glucose 114 mg/dL (74-99); Non-African American GFR(CKD) >90 (>60 ml/min/1.73 sqM); Potassium 3.3 mmol/L (3.5-5.1); Sodium 121 mmol/L (137-145); Total Protein 5.1 g/dL (6.3-8.2)
[2020-12-09 09:16] LABS: ALT 24 U/L (4-34); AST 37 U/L (14-36); Alkaline Phosphatase 64 U/L (38-126); Blood Urea Nitrogen 3 mg/dL (7-17); Calcium 8.2 mg/dL (8.4-10.2); Magnesium 1.6 mg/dL (1.6-2.3); Total Bilirubin 1.3 mg/dL (0.2-1.3)
[2020-12-09] MEDS ORDERED: POTASSIUM CHLORIDE ER 20 MEQ TAB.ER PO STA (09:42)
[2020-12-09] MEDS: ASCORBIC ACID 500 MG TAB PO SCH (11:09)
[2020-12-09] MEDS: LOSARTAN 50 MG TAB PO SCH (11:09)
[2020-12-09] MEDS: DULoxetine HCL 60 MG CAPSULE.DR PO SCH (11:09)
[2020-12-09] MEDS: MAGNESIUM SULFATE-D5W PMX 1 GM in DEXTROSE/WATER 1 100ML.BAG IVPB SCH ×2 (11:10→16:03)
[2020-12-09] MEDS: MULTIVITAMINS, THERA 1 EACH TAB PO SCH (11:10)
[2020-12-09] MEDS: EZETIMIBE 10 MG TAB PO SCH (11:16)
[2020-12-09] MEDS: VITAMIN E (DL,TOCOPHERYL ACET) 400 UNIT (180 MG) CAP PO SCH (11:16)
[2020-12-09 12:05] LABS: T4, Free (Free Thyroxine) 1.73 ng/dL (0.78-2.19)
--- NOTE | 2020-12-09 12:19 | P.HPIM ---
History of Present Illness H&P Date: 12/08/20 Jeannette Tran, is an 85-year-old female who presented to [facility] emergency room due to mental status changes and falls at home, patient is a very poor historian, her stated that she had worsening mental status for several months however in the last 2 weeks her condition has worsened, she had multiple falls and her mental status has deteriorated and she was occasionally agitated. She was evaluated in the emergency room vital examination on presentation revealed a temperature of 97.5 pulse 60 respiration 18 blood pressure 129/85 pulse ox 95% on room air Laboratory data revealed a white blood count of 15.6 hemoglobin 7.9 platelet count 325 sodium 114 potassium 3.9 chloride 79 BUN 12 creatinine 0.59 CO2 18 AST 45 ALT 26 alkaline phosphatase 64 creatinine kinase 376 urine analysis revealed moderate leukocyte esterase 8 white blood cells and the random urine sodium was less than 20 urine toxicology screen was positive for opiates patient is maintained on Hammond for pain management coronavirus PCR was negative Testing in the emergency room revealed computed tomography scan of the brain and cervical spine done in the emergency room revealed cerebral atrophy no acute intracranial abnormality, chest x-ray revealed no active cardiopulmonary disease Patient was admitted to medical floor for further evaluation and treatment Past Medical History Past Medical History: GERD/Reflux, Hyperlipidemia, Memory Impairment, Osteoa rthritis (OA) Additional Past Medical History / Comment(s): occassional forgetfullness, degenerative disc disease, chronic pain History of Any Multi-Drug Resistant Organisms: None Reported Past Surgical History: Cholecystectomy, Hysterectomy Past Anesthesia/Blood Transfusion Reactions: No Reported Reaction Past Psychological History: Anxiety Smoking Status: Unknown if ever smoked Past Alcohol Use History: None Reported Past Drug Use History: None Reported - Past Family History Father Additional Family Medical History / Comment(s): pt. states her father was an alcoholic and at a young age Medications and Allergies Home Medications Medication Instructions Recorded Confirmed Type Ezetimibe [Zetia] 10 mg PO DAILY 11/02/13 12/07/20 History Folic Acid/Mv,Fe,Min [Centrum 1 tab PO DAILY 11/02/13 12/07/20 History Multivitamin Tab Chew] Gabapentin [Neurontin] 600 mg PO TID 11/02/13 12/07/20 History Pantoprazole Sodium 40 mg PO DAILY 11/02/13 12/07/20 History clonazePAM [KlonoPIN] 1 mg PO HS PRN 11/02/13 12/07/20 History HYDROcodone/APAP 10-325MG [[place] 1 tab PO Q6H PRN 12/06/13 12/07/20 History 10-325] DULoxetine HCL [Cymbalta] 60 mg PO DAILY 06/06/18 12/07/20 History Apixaban [Eliquis] 5 mg PO BID #60 tab 06/09/18 12/07/20 Rx Losartan [Cozaar] 50 mg PO DAILY #30 tab 06/09/18 12/07/20 Rx Metoprolol Tartrate [Lopressor] 25 mg PO BID #60 tab 06/09/18 12/07/20 Rx Ascorbic Acid [Vitamin C] 1,000 mg PO DAILY 01/05/19 12/07/20 History Vitamin E Acetate [Vitamin E] 200 unit PO DAILY 01/05/19 12/07/20 History clonazePAM 0.5 mg PO HS PRN 01/05/19 12/07/20 History Atorvastatin [Lipitor] 80 mg PO HS 12/07/20 12/07/20 History Cholecalciferol (Vitamin D3) 125 mcg PO DAILY 12/07/20 12/07/20 History [Vitamin D3 (125 MCG = 5,000 IU)] Donepezil [Aricept] 5 mg PO HS 12/07/20 12/07/20 History Levothyroxine Sodium [Synthroid] 75 mcg PO DAILY 12/07/20 12/07/20 History Allergies Allergy/AdvReac Type Severity Reaction Status Date / Time codeine Allergy Unknown Verified 12/07/20 17:41 erythromycin base Allergy Unknown Verified 12/07/20 17:41 fenofibrate [From Tricor] Allergy Unknown Verified 12/07/20 17:41 niacin Allergy Unknown Verified 12/07/20 17:41 sertraline [From Zoloft] Allergy Unknown Verified 12/07/20 17:41 Sulfa (Sulfonamide Allergy Swelling Verified 12/07/20 17:41 Antibiotics) Physical Exam Vitals: Vital Signs Temp Pulse Resp BP Pulse Ox 12/08/20 06:00 85 18 149/81 96 12/08/20 05:00 78 16 136/93 95 12/08/20 04:00 75 18 120/98 12/08/20 02:00 80 16 158/80 96 12/08/20 01:00 87 18 136/64 97 12/07/20 22:00 78 20 134/64 97 12/07/20 21:00 72 18 105/65 97 12/07/20 19:53 72 22 176/130 97 12/07/20 14:20 97.5 F L 60 18 129/85 95 Intake and Output 12/07/20 12/08/20 12/08/20 22:59 06:59 14:59 Output Total 400 2200 Balance -400 -2200 Output: Urine 400 2200 In general patient is somnolent , arousable , confused in no apparent distress HEENT head normocephalic and atraumatic Neck is supple no JVD no goiter no lymphadenopathy no carotid bruit Chest examination is clear to auscultation no crackles no wheezing Cardiac exam reveals regular heart sounds S1 and S2 no gallops no murmurs Abdomen is soft nontender no organomegaly with normal bowel sounds Extremity exam reveals no edema no cyanosis or clubbing Neurological examination reveals somnolence and confusion otherwise no gross focal deficits Results CBC & Chem 7: 12/08/20 06:30 12/08/20 14:33 Labs: Abnormal Lab Results - Last 24 Hours (Table) 12/07/20 12/07/20 12/07/20 Range/Units 16:17 16:17 16:17 WBC 15.6 H (3.8-10.6) k/uL RBC 2.45 L (3.80-5.40) m/uL Hgb 7.9 L (11.4-16.0) gm/dL Hct 22.3 L (34.0-46.0) % Neutrophils # (1.3-7.7) k/uL Neutrophils # (Manual) 12.48 H (1.3-7.7) k/uL Monocytes # (Manual) 1.40 H (0-1.0) k/uL Sodium 108 L* (137-145) mmol/L Potassium (3.5-5.1) mmol/L Chloride 79 L (98-107) mmol/L Carbon Dioxide 18 L (22-30) mmol/L Creatinine (0.52-1.04) mg/dL Glucose 101 H (74-99) mg/dL Osmolality (280-301) mosm/kg Calcium 8.2 L (8.4-10.2) mg/dL Total Bilirubin 1.6 H (0.2-1.3) mg/dL AST 45 H (14-36) U/L Creatine Kinase 376 H (30-135) U/L Total Protein 5.4 L (6.3-8.2) g/dL Albumin 3.3 L (3.5-5.0) g/dL Urine Protein Trace H (Negative) Urine Ketones 2+ H (Negative) Urine Blood Trace H (Negative) Ur Leukocyte Esterase Moderate H (Negative) Urine WBC 8 H (0-5) /hpf Urine Mucus Rare H (None) /hpf Urine Opiates Screen Detected H (NotDetected) 12/07/20 12/07/20 12/07/20 Range/Units 16:17 21:25 22:31 WBC (3.8-10.6) k/uL RBC (3.80-5.40) m/uL Hgb (11.4-16.0) gm/dL Hct (34.0-46.0) % Neutrophils # (1.3-7.7) k/uL Neutrophils # (Manual) (1.3-7.7) k/uL Monocytes # (Manual) (0-1.0) k/uL Sodium 113 L* 114 L* (137-145) mmol/L Potassium (3.5-5.1) mmol/L Chloride (98-107) mmol/L Carbon Dioxide (22-30) mmol/L Creatinine (0.52-1.04) mg/dL Glucose (74-99) mg/dL Osmolality 228 L* (280-301) mosm/kg Calcium (8.4-10.2) mg/dL Total Bilirubin (0.2-1.3) mg/dL AST (14-36) U/L Creatine Kinase (30-135) U/L Total Protein (6.3-8.2) g/dL Albumin (3.5-5.0) g/dL Urine Protein (Negative) Urine Ketones (Negative) Urine Blood (Negative) Ur Leukocyte Esterase (Negative) Urine WBC (0-5) /hpf Urine Mucus (None) /hpf Urine Opiates Screen (NotDetected) 12/08/20 12/08/20 12/08/20 Range/Units 01:45 02:12 06:30 WBC 16.6 H 15.4 H (3.8-10.6) k/uL RBC 2.46 L 2.56 L (3.80-5.40) m/uL Hgb 8.1 L 8.4 L (11.4-16.0) gm/dL Hct 23.7 L 24.0 L (34.0-46.0) % Neutrophils # 12.7 H (1.3-7.7) k/uL Neutrophils # (Manual) (1.3-7.7) k/uL Monocytes # (Manual) (0-1.0) k/uL Sodium 117 L* (137-145) mmol/L Potassium (3.5-5.1) mmol/L Chloride (98-107) mmol/L Carbon Dioxide (22-30) mmol/L Creatinine (0.52-1.04) mg/dL Glucose (74-99) mg/dL Osmolality (280-301) mosm/kg Calcium (8.4-10.2) mg/dL Total Bilirubin (0.2-1.3) mg/dL AST (14-36) U/L Creatine Kinase (30-135) U/L Total Protein (6.3-8.2) g/dL Albumin (3.5-5.0) g/dL Urine Protein (Negative) Urine Ketones (Negative) Urine Blood (Negative) Ur Leukocyte Esterase (Negative) Urine WBC (0-5) /hpf Urine Mucus (None) /hpf Urine Opiates Screen (NotDetected) 12/08/20 Range/Units 06:30 WBC (3.8-10.6) k/uL RBC (3.80-5.40) m/uL Hgb (11.4-16.0) gm/dL Hct (34.0-46.0) % Neutrophils # (1.3-7.7) k/uL Neutrophils # (Manual) (1.3-7.7) k/uL Monocytes # (Manual) (0-1.0) k/uL Sodium 122 L (137-145) mmol/L Potassium 3.4 L (3.5-5.1) mmol/L Chloride 92 L (98-107) mmol/L Carbon Dioxide (22-30) mmol/L Creatinine 0.50 L (0.52-1.04) mg/dL Glucose (74-99) mg/dL Osmolality (280-301) mosm/kg Calcium (8.4-10.2) mg/dL Total Bilirubin 1.8 H (0.2-1.3) mg/dL AST 66 H (14-36) U/L Creatine Kinase (30-135) U/L Total Protein 5.7 L (6.3-8.2) g/dL Albumin 3.4 L (3.5-5.0) g/dL Urine Protein (Negative) Urine Ketones (Negative) Urine Blood (Negative) Ur Leukocyte Esterase (Negative) Urine WBC (0-5) /hpf Urine Mucus (None) /hpf Urine Opiates Screen (NotDetected) Assessment and Plan Plan: Acute mental status changes Multiple falls at home with generalized weakness, and multiple bruises Severe hyponatremia, sodium 114 on presentation Evidence of anemia on presentation Evidence of urinary tract infection, patient was started on IV Rocephin in the emergency room, will continue with same antibiotic at this time will obtain urine culture Underlying history of dementia Underlying history of chronic atrial fibrillation maintained on Eliquis Underlying history of hyperlipidemia Underlying history of osteoarthritis and degenerative disc disease with chronic pain syndrome maintained on Hammond at home Underlying history of gastroesophageal reflux disease Underlying history of anxiety disorder Pelvic x-ray reveals evidence of small bowel ileus, will obtain an abdominal x- ray to assess At this time patient was started on IV normal saline in the emergency room Admission to ICU Pulmonary critical care and nephrology consultation requested Will hold Eliquis, will assess need for rehab prior to discharge
--- NOTE | 2020-12-09 16:53 | P.PN ---
Subjective Progress Note Date: 12/09/20 Jeannette Tran, is an 85-year-old female who presented to [facility] emergency room due to mental status changes and falls at home, patient is a very poor historian, her stated that she had worsening mental status for several months however in the last 2 weeks her condition has wo rsened, she had multiple falls and her mental status has deteriorated and she was occasionally agitated. She was evaluated in the emergency room vital examination on presentation revealed a temperature of 97.5 pulse 60 respiration 18 blood pressure 129/85 pulse ox 95% on room air Laboratory data revealed a white blood count of 15.6 hemoglobin 7.9 platelet count 325 sodium 114 potassium 3.9 chloride 79 BUN 12 creatinine 0.59 CO2 18 AST 45 ALT 26 alkaline phosphatase 64 creatinine kinase 376 urine analysis revealed moderate leukocyte esterase 8 white blood cells and the random urine sodium was less than 20 urine toxicology screen was positive for opiates patient is maintained on [place] for pain management coronavirus PCR was negative Testing in the emergency room revealed computed tomography scan of the brain and cervical spine done in the emergency room revealed cerebral atrophy no acute i ntracranial abnormality, chest x-ray revealed no active cardiopulmonary disease Patient was admitted to medical floor for further evaluation and treatment. On 12/09/2020 patient was seen and examined on the telemetry floor she is more alert and oriented today she is still having some confusion, she denies any complaints otherwise there is no fever or chills no headache or dizziness no chest pain no shortness of breath no cough no nausea or vomiting no abdominal pain no diarrhea no blood in the stools no burning with urination no frequency or urgency and no hematuria. Sodium is 120 critical care and pulmonary are following closely Objective - Vital Signs Vital signs: Vital Signs Temp 97.8 F 12/08/20 23:15 Pulse 73 12/09/20 03:42 Resp 18 12/09/20 03:42 BP 157/82 12/09/20 03:42 Pulse Ox 97 12/09/20 08:19 Intake & Output 12/08/20 12/09/20 12/09/20 18:59 06:59 18:59 Intake Total 240 Output Total 900 750 Balance -900 -510 Weight 59.5 kg Intake: Oral 240 Output: Urine 900 750 Other: Voiding Method Indwelling Catheter - Exam In general patient is alert but still confused in no apparent distress HEENT head normocephalic and atraumatic Neck is supple no JVD no goiter no lymphadenopathy no carotid bruit Chest examination is clear to auscultation no crackles no wheezing Cardiac exam reveals regular heart sounds S1 and S2 no gallops no murmurs Abdomen is soft nontender no organomegaly with normal bowel sounds Extremity exam reveals no edema no cyanosis or clubbing Neurological examination reveals somnolence and confusion otherwise no gross focal deficits - Labs CBC & Chem 7: 12/09/20 07:45 12/09/20 15:58 Labs: Abnormal Lab Results - Last 24 Hours (Table) 12/07/20 12/08/20 12/08/20 Range/Units 16:17 14:33 18:00 WBC (3.8-10.6) k/uL RBC (3.80-5.40) m/uL Hgb (11.4-16.0) gm/dL Hct (34.0-46.0) % Neutrophils # (1.3-7.7) k/uL Sodium 121 L 119 L* (137-145) mmol/L Potassium (3.5-5.1) mmol/L Chloride (98-107) mmol/L BUN (7-17) mg/dL Creatinine (0.52-1.04) mg/dL Glucose (74-99) mg/dL POC Glucose (mg/dL) (75-99) mg/dL Calcium (8.4-10.2) mg/dL AST (14-36) U/L Total Protein (6.3-8.2) g/dL Albumin (3.5-5.0) g/dL TSH (0.465-4.680) mIU/L Ur Random Sodium <20 L (40-220) mmol/L 12/08/20 12/08/20 12/09/20 Range/Units 20:27 21:46 07:45 WBC (3.8-10.6) k/uL RBC (3.80-5.40) m/uL Hgb (11.4-16.0) gm/dL Hct (34.0-46.0) % Neutrophils # (1.3-7.7) k/uL Sodium 118 L* 121 L (137-145) mmol/L Potassium 3.3 L (3.5-5.1) mmol/L Chloride 89 L (98-107) mmol/L BUN 3 L (7-17) mg/dL Creatinine 0.40 L (0.52-1.04) mg/dL Glucose 114 H (74-99) mg/dL POC Glucose (mg/dL) 140 H (75-99) mg/dL Calcium 8.2 L (8.4-10.2) mg/dL AST 37 H (14-36) U/L Total Protein 5.1 L (6.3-8.2) g/dL Albumin 2.8 L (3.5-5.0) g/dL TSH 0.220 L (0.465-4.680) mIU/L Ur Random Sodium (40-220) mmol/L 12/09/20 Range/Units 07:45 WBC 14.4 H (3.8-10.6) k/uL RBC 2.58 L (3.80-5.40) m/uL Hgb 8.4 L (11.4-16.0) gm/dL Hct 24.7 L (34.0-46.0) % Neutrophils # 11.5 H (1.3-7.7) k/uL Sodium (137-145) mmol/L Potassium (3.5-5.1) mmol/L Chloride (98-107) mmol/L BUN (7-17) mg/dL Creatinine (0.52-1.04) mg/dL Glucose (74-99) mg/dL POC Glucose (mg/dL) (75-99) mg/dL Calcium (8.4-10.2) mg/dL AST (14-36) U/L Total Protein (6.3-8.2) g/dL Albumin (3.5-5.0) g/dL TSH (0.465-4.680) mIU/L Ur Random Sodium (40-220) mmol/L Microbiology - Last 24 Hours (Table) 12/07/20 19:45 Blood Culture - Preliminary Blood No Growth after 24 hours Assessment and Plan Plan: Acute mental status changes Multiple falls at home with generalized weakness, and multiple bruises Severe hyponatremia, sodium 114 on presentation Evidence of anemia on presentation Evidence of urinary tract infection, patient was started on IV Rocephin in the emergency room, will continue with same antibiotic at this time will obtain urine culture Underlying history of dementia Underlying history of chronic atrial fibrillation maintained on Eliquis Underlying history of hyperlipidemia Underlying history of osteoarthritis and degenerative disc disease with chronic pain syndrome maintained on [place] at home Underlying history of gastroesophageal reflux disease Underlying history of anxiety disorder Pelvic x-ray reveals evidence of small bowel ileus, will obtain an abdominal x- ray to assess At this time patient was started on IV normal saline in the emergency room Admission to ICU Pulmonary critical care and nephrology consultation requested Will hold Eliquis, will assess need for rehab prior to discharge
[2020-12-09] MEDS: clonazePAM 1 MG TAB PO PRN (17:50)
[2020-12-10] MEDS: LEVOTHYROXINE 75 MCG TAB PO SCH (06:42)
[2020-12-10] MEDS: METOPROLOL TARTRATE 25 MG TAB PO SCH ×2 (08:47→20:47)
[2020-12-10] MEDS: DULoxetine HCL 60 MG CAPSULE.DR PO SCH (08:47)
[2020-12-10] MEDS: EZETIMIBE 10 MG TAB PO SCH (08:47)
[2020-12-10] MEDS: VITAMIN E (DL,TOCOPHERYL ACET) 400 UNIT (180 MG) CAP PO SCH (08:47)
[2020-12-10] MEDS: MULTIVITAMINS, THERA 1 EACH TAB PO SCH (08:47)
[2020-12-10] MEDS: LOSARTAN 50 MG TAB PO SCH (08:47)
[2020-12-10] MEDS: ASCORBIC ACID 500 MG TAB PO SCH (08:48)
[2020-12-10] MEDS: GABAPENTIN 300 MG CAP PO SCH ×3 (08:48→20:47)
[2020-12-10] MEDS: CHOLECALCIFEROL 25 MCG (1000 IU) TABLET PO SCH (08:48)
--- NOTE | 2020-12-10 09:02 | CDI ---
Documentation Clarification Form Date: 12/10/2020 08:20:27 AM From: Bronwyn Ortiz Admit Date: 12/07/2020 06:31:00 PM Patient Name: Jeannette Tran Visit Number: [id number] Discharge Date: ATTENTION: The Clinical Documentation Specialists (CDI) and [facility] Coding Staff appreciate your assistance in clarifying documentation. Please respond to the clarification below the line at the bottom and electronically sign. The CDI & [facility] Coding staff will review the response and follow-up if needed. Please note: Queries are made part of the Legal Health Record. If you have any questions, please contact the author of this message via ITS. Dr. Rachel Gallardo Your patient has the documented symptom of Altered Mental Status 12/08, H&P. Additional clarification regarding the etiology/cause of this symptom is requested. History/Risk Factors: 85-year-old female presents to the ED for mental status changes and falls at home. Medical History: Memory impairment, HLD, DDD and chronic pain. Clinical Indicators: Labs: 12/07 Na 108, 114; 12/08 117, 122, 122. 12/07 Wbc 15.6 12/07 UA Leukocyte esterase: Moderate, Wbc: 8, UR random sodium: <20, Protein: trace. 12/07 Toxicology: Urine opiates detected. CT Brain: Cerebral atrophy. No acute intracranial abnormality. Treatment: 12/07 Rocephin 1,000 mg IVP x1, 12/08 current Ceftriaxone Sodium 1gm IVPB Q24H, Ddavp 1mcg IV x 1, 12/07 0.9NS 1L bolus x 1, 12/07 d/c 12/07 Sodium Chloride Saline 3% Hypertonic 500mls @ 20mls/hr IV Q24H, 12/09 Magnesium Sulfate 1gm IVPB Q1H x 2. Nephrology consult: 12/08 Hypovolemic hyponatremia improved with IV hydration. Please clarify the etiology of the symptom of Altered Mental Status: [ ] Metabolic Encephalopathy due to Hyponatremia and UTI [ ] Dementia (if know, specify Type and if with/without Behavioral Disturbance) [ ] Other condition (please specify) [ ] Unable to determine (Template Last Revised: April 2020) Metabolic encephalopathy due to hyponatremia and UTi plus underlining dementia MTDD
--- NOTE | 2020-12-10 09:10 | P.PN ---
Subjective Patient is seen in follow-up for symptomatic hyponatremia. Sodium level stable at 121 as of yesterday afternoon. Morning labs are pending. Oral intake fair. Nonoliguric. GFR at baseline. Vital signs are stable. HEENT: Head exam is unremarkable. LUNGS: Breath sounds decreased. HEART: Rate and Rhythm are regular. ABDOMEN: Soft, no distention. EXTREMITITES: No edema. Objective - Vital Signs Vital signs: Vital Signs Temp 98.1 F 12/10/20 04:00 Pulse 76 12/10/20 04:00 Resp 18 12/10/20 04:00 BP 113/61 12/10/20 04:00 Pulse Ox 97 12/10/20 04:00 Intake & Output 12/09/20 12/10/20 12/10/20 18:59 06:59 18:59 Intake Total 240 530 Output Total 2750 1320 Balance -2510 -790 Weight 59.5 kg Intake: Oral 240 530 Output: Urine 2750 1320 Other: Voiding Method Indwelling Catheter Indwelling Catheter - Labs CBC & Chem 7: 12/09/20 07:45 12/09/20 15:58 Labs: Abnormal Lab Results - Last 24 Hours (Table) 12/09/20 12/09/20 Range/Units 07:45 15:58 Sodium 121 L 121 L (137-145) mmol/L Potassium 3.3 L (3.5-5.1) mmol/L Chloride 89 L (98-107) mmol/L BUN 3 L (7-17) mg/dL Creatinine 0.40 L (0.52-1.04) mg/dL Glucose 114 H (74-99) mg/dL Calcium 8.2 L (8.4-10.2) mg/dL AST 37 H (14-36) U/L Total Protein 5.1 L (6.3-8.2) g/dL Albumin 2.8 L (3.5-5.0) g/dL TSH 0.220 L (0.465-4.680) mIU/L Microbiology - Last 24 Hours (Table) 12/07/20 19:45 Blood Culture - Preliminary Blood No Growth after 48 hours Assessment and Plan Plan: Assessment: 1. Symptomatic hypovolemic hyponatremia improved with IV hydration. Sodium level 121 as of yesterday afternoon. Urine osmolality 377. Urine sodium less than 20. Cortisol level 23. TSH low at 0.22. 2. Benign hypertension. Stable. 3. Dementia. 4. Hypokalemia from poor intake. Replaced. Plan: Remains off IV fluids. Encouraged oral intake. Maintain fluid restriction. Follow-up morning labs. DC [place] catheter. Monitor serial postvoid residuals for urinary retention.
[2020-12-10 09:20] LABS: HCT 25.4 % (34.0-46.0); HGB 8.5 gm/dL (11.4-16.0); MCH 32.9 pg (25.0-35.0); MCHC 33.4 g/dL (31.0-37.0); MCV 98.5 fL (80.0-100.0); Macrocytosis Slight; Mean Platelet Volume 6.9; Platelet Count 362 k/uL (150-450); RBC 2.58 m/uL (3.80-5.40); RDW 14.9 % (11.5-15.5); WBC 12.4 k/uL (3.8-10.6)
[2020-12-10 09:37] LABS: African American GFR (CKD) >90 (>60 ml/min/1.73 sqM); Anion Gap 6 mmol/L; Blood Urea Nitrogen 4 mg/dL (7-17); Calcium 8.4 mg/dL (8.4-10.2); Carbon Dioxide 29 mmol/L (22-30); Chloride 91 mmol/L (98-107); Glucose 141 mg/dL (74-99); Non-African American GFR(CKD) >90 (>60 ml/min/1.73 sqM); Potassium 3.3 mmol/L (3.5-5.1); Sodium 126 mmol/L (137-145)
[2020-12-10] MEDS ORDERED: POTASSIUM CHLORIDE ER 20 MEQ TAB.ER PO STA (09:43)
--- NOTE | 2020-12-10 17:31 | P.PN ---
Subjective Progress Note Date: 12/10/20 Jeannette Tran, is an 85-year-old female who presented to [facility] emergency room due to mental status changes and falls at home, patient is a very poor historian, her stated that she had worsening mental status for several months however in the last 2 weeks her condition has wo rsened, she had multiple falls and her mental status has deteriorated and she was occasionally agitated. She was evaluated in the emergency room vital examination on presentation revealed a temperature of 97.5 pulse 60 respiration 18 blood pressure 129/85 pulse ox 95% on room air Laboratory data revealed a white blood count of 15.6 hemoglobin 7.9 platelet count 325 sodium 114 potassium 3.9 chloride 79 BUN 12 creatinine 0.59 CO2 18 AST 45 ALT 26 alkaline phosphatase 64 creatinine kinase 376 urine analysis revealed moderate leukocyte esterase 8 white blood cells and the random urine sodium was less than 20 urine toxicology screen was positive for opiates patient is maintained on [place] for pain management coronavirus PCR was negative Testing in the emergency room revealed computed tomography scan of the brain and cervical spine done in the emergency room revealed cerebral atrophy no acute i ntracranial abnormality, chest x-ray revealed no active cardiopulmonary disease Patient was admitted to medical floor for further evaluation and treatment. On 12/09/2020 patient was seen and examined on the telemetry floor she is more alert and oriented today she is still having some confusion, she denies any complaints otherwise there is no fever or chills no headache or dizziness no chest pain no shortness of breath no cough no nausea or vomiting no abdominal pain no diarrhea no blood in the stools no burning with urination no frequency or urgency and no hematuria. Sodium is 120 critical care and pulmonary are following closely On 12/10/2020 Patient was seen and examined on the medical floor, he is alert, confused in no distress, he denies any complaints there is no fever or chills no headache or dizziness no chest pain no shortness of breath no palpitation no cough no nausea or vomiting no abdominal pain no diarrhea no blood in the stools no burning with urination no frequency or urgency and no hematuria, there is no weakness or numbness in any of the extremities no change in vision speech or gait. Objective - Vital Signs Vital signs: Vital Signs Temp 98.1 F 12/10/20 04:00 Pulse 76 12/10/20 04:00 Resp 18 12/10/20 04:00 BP 113/61 12/10/20 04:00 Pulse Ox 97 12/10/20 04:00 Intake & Output 12/09/20 12/10/20 12/10/20 18:59 06:59 18:59 Intake Total 240 530 180 Output Total 2750 1320 Balance -2510 -790 180 Weight 59.5 kg Intake: Oral 240 530 180 Output: Urine 2750 1320 Other: Voiding Method Indwelling Catheter Indwelling Catheter - Exam In general patient is alert but still confused in no apparent distress HEENT head normocephalic and atraumatic Neck is supple no JVD no goiter no lymphadenopathy no carotid bruit Chest examination is clear to auscultation no crackles no wheezing Cardiac exam reveals regular heart sounds S1 and S2 no gallops no murmurs Abdomen is soft nontender no organomegaly with normal bowel sounds Extremity exam reveals no edema no cyanosis or clubbing Neurological examination reveals somnolence and confusion otherwise no gross focal deficits - Labs CBC & Chem 7: 12/10/20 08:46 12/10/20 08:46 Labs: Abnormal Lab Results - Last 24 Hours (Table) 12/09/20 12/10/20 12/10/20 Range/Units 15:58 08:46 08:46 WBC 12.4 H (3.8-10.6) k/uL RBC 2.58 L (3.80-5.40) m/uL Hgb 8.5 L (11.4-16.0) gm/dL Hct 25.4 L (34.0-46.0) % Sodium 121 L 126 L (137-145) mmol/L Potassium 3.3 L (3.5-5.1) mmol/L Chloride 91 L (98-107) mmol/L BUN 4 L (7-17) mg/dL Creatinine 0.46 L (0.52-1.04) mg/dL Glucose 141 H (74-99) mg/dL Microbiology - Last 24 Hours (Table) 12/07/20 19:45 Blood Culture - Preliminary Blood No Growth after 48 hours Assessment and Plan Plan: Acute mental status changes Multiple falls at home with generalized weakness, and multiple bruises Severe hyponatremia, sodium 114 on presentation Evidence of anemia on presentation Evidence of urinary tract infection, patient was started on IV Rocephin in the emergency room, will continue with same antibiotic at this time will obtain urine culture Underlying history of dementia Underlying history of chronic atrial fibrillation maintained on Eliquis Underlying history of hyperlipidemia Underlying history of osteoarthritis and degenerative disc disease with chronic pain syndrome maintained on [place] at home Underlying history of gastroesophageal reflux disease Underlying history of anxiety disorder Pelvic x-ray reveals evidence of small bowel ileus, will obtain an abdominal x- ray to assess At this time patient was started on IV normal saline in the emergency room Admission to ICU Pulmonary critical care and nephrology consultation requested Will hold Eliquis, will assess need for rehab prior to discharge
[2020-12-10] MEDS: HYDROcodone/APAP 10-325MG 1 EACH TAB PO PRN (18:01)
[2020-12-10] MEDS: ATORVASTATIN 80 MG TAB PO SCH (20:47)
[2020-12-10] MEDS: DONEPEZIL 5 MG TAB PO SCH (20:48)
[2020-12-11] MEDS: LEVOTHYROXINE 75 MCG TAB PO SCH (06:47)
[2020-12-11] MEDS: PANTOPRAZOLE 40 MG TABLET PO SCH (06:47)
[2020-12-11 07:48] LABS: African American GFR (CKD) >90 (>60 ml/min/1.73 sqM); Anion Gap 3 mmol/L; Blood Urea Nitrogen 7 mg/dL (7-17); Calcium 8.4 mg/dL (8.4-10.2); Carbon Dioxide 30 mmol/L (22-30); Chloride 94 mmol/L (98-107); Glucose 102 mg/dL (74-99); Magnesium 1.8 mg/dL (1.6-2.3); Non-African American GFR(CKD) 88 (>60 ml/min/1.73 sqM); Sodium 127 mmol/L (137-145)
[2020-12-11 09:17] LABS: Basophils % (A) 0 %; Eosinophils # (A) 0.3 k/uL (0-0.7); Eosinophils % (A) 3 %; HCT 24.5 % (34.0-46.0); Lymphocytes # (A) 2.8 k/uL (1.0-4.8); Lymphocytes % (A) 28 %; MCH 32.3 pg (25.0-35.0); MCHC 32.5 g/dL (31.0-37.0); MCV 99.5 fL (80.0-100.0); Macrocytosis Slight; Mean Platelet Volume 7.4; Monocytes # (A) 0.5 k/uL (0-1.0); Monocytes % (A) 5 %; Neutrophils # (A) 6.5 k/uL (1.3-7.7); Neutrophils % (A) 63 %; Platelet Count 385 k/uL (150-450); RBC 2.46 m/uL (3.80-5.40); RDW 15.3 % (11.5-15.5); WBC 10.3 k/uL (3.8-10.6)
--- NOTE | 2020-12-11 10:05 | P.PN ---
Subjective Patient is seen in follow-up for symptomatic hyponatremia. Sodium level improving. Oral intake fair. No vomiting or diarrhea. Nonoliguric. GFR at baseline. Vital signs are stable. HEENT: Head exam is unremarkable. LUNGS: Breath sounds decreased. HEART: Rate and Rhythm are regular. ABDOMEN: Soft, no distention. EXTREMITITES: No edema. Objective - Vital Signs Vital signs: Vital Signs Temp 97.9 F 12/10/20 20:00 Pulse 67 12/11/20 04:00 Resp 18 12/11/20 04:00 BP 105/54 12/11/20 04:00 Pulse Ox 97 12/11/20 04:00 Intake & Output 12/10/20 12/11/20 12/11/20 18:59 06:59 18:59 Intake Total 600 600 Output Total 950 388314 099895 Balance -350 -23455 -490483 Weight 60 kg Intake: Oral 600 600 Output: Urine 950 250 400 Post Void Residual [id number] Other: Voiding Method Indwelling Catheter Toilet Diaper # Voids 1 1 # Bowel Movements 0 - Labs CBC & Chem 7: 12/11/20 07:00 12/11/20 07:00 Labs: Abnormal Lab Results - Last 24 Hours (Table) 12/11/20 12/11/20 Range/Units 07:00 07:00 RBC 2.46 L (3.80-5.40) m/uL Hgb 8.0 L (11.4-16.0) gm/dL Hct 24.5 L (34.0-46.0) % Sodium 127 L (137-145) mmol/L Chloride 94 L (98-107) mmol/L Glucose 102 H (74-99) mg/dL Microbiology - Last 24 Hours (Table) 12/07/20 19:45 Blood Culture - Preliminary Blood No Growth after 72 hours Assessment and Plan Plan: Assessment: 1. Symptomatic hypovolemic hyponatremia improved with IV hydration. Sodium level 127 today. Urine osmolality 377. Urine sodium less than 20. Cortisol level 23. TSH low at 0.22. 2. Benign hypertension. Blood pressure on the lower side.. 3. Dementia. 4. Hypokalemia from poor intake. Replaced. better. Plan: Remains off IV fluids. Encouraged oral intake. Maintain 40 oz fluid restriction/day upon d/c. Stop Cozaar as blood pressure is on the lower side. Add sodium chloride tablet 1 g daily. Repeat BMP and magnesium level 2-3 days postdischarge. Follow up outpatient in 1 week.
[2020-12-11] MEDS: ASCORBIC ACID 500 MG TAB PO SCH (11:00)
[2020-12-11] MEDS: DULoxetine HCL 60 MG CAPSULE.DR PO SCH (11:00)
[2020-12-11] MEDS: MULTIVITAMINS, THERA 1 EACH TAB PO SCH (11:00)
[2020-12-11] MEDS: VITAMIN E (DL,TOCOPHERYL ACET) 400 UNIT (180 MG) CAP PO SCH (11:00)
[2020-12-11] MEDS: CHOLECALCIFEROL 25 MCG (1000 IU) TABLET PO SCH (11:00)
[2020-12-11] MEDS: GABAPENTIN 300 MG CAP PO SCH ×2 (11:01→18:36)
[2020-12-11] MEDS: HYDROcodone/APAP 10-325MG 1 EACH TAB PO PRN (11:01)
[2020-12-11] MEDS: EZETIMIBE 10 MG TAB PO SCH (11:01)
[2020-12-11] MEDS: METOPROLOL TARTRATE 25 MG TAB PO SCH ×2 (11:01→21:21)
[2020-12-11] MEDS: LOSARTAN 50 MG TAB PO SCH (11:02)
[2020-12-11] MEDS: SODIUM CHLORIDE TAB 1 GM TAB PO SCH (11:12)
--- NOTE | 2020-12-11 11:37 | P.PN ---
Subjective Progress Note Date: 12/11/20 Jeannette Tran, is an 85-year-old female who presented to [facility] emergency room due to mental status changes and falls at home, patient is a very poor historian, her stated that she had worsening mental status for several months however in the last 2 weeks her condition has wo rsened, she had multiple falls and her mental status has deteriorated and she was occasionally agitated. She was evaluated in the emergency room vital examination on presentation revealed a temperature of 97.5 pulse 60 respiration 18 blood pressure 129/85 pulse ox 95% on room air Laboratory data revealed a white blood count of 15.6 hemoglobin 7.9 platelet count 325 sodium 114 potassium 3.9 chloride 79 BUN 12 creatinine 0.59 CO2 18 AST 45 ALT 26 alkaline phosphatase 64 creatinine kinase 376 urine analysis revealed moderate leukocyte esterase 8 white blood cells and the random urine sodium was less than 20 urine toxicology screen was positive for opiates patient is maintained on [place] for pain management coronavirus PCR was negative Testing in the emergency room revealed computed tomography scan of the brain and cervical spine done in the emergency room revealed cerebral atrophy no acute i ntracranial abnormality, chest x-ray revealed no active cardiopulmonary disease Patient was admitted to medical floor for further evaluation and treatment. On 12/09/2020 patient was seen and examined on the telemetry floor she is more alert and oriented today she is still having some confusion, she denies any complaints otherwise there is no fever or chills no headache or dizziness no chest pain no shortness of breath no cough no nausea or vomiting no abdominal pain no diarrhea no blood in the stools no burning with urination no frequency or urgency and no hematuria. Sodium is 120 critical care and pulmonary are following closely On 12/10/2020 Patient was seen and examined on the medical floor, he is alert, confused in no distress, he denies any complaints there is no fever or chills no headache or dizziness no chest pain no shortness of breath no palpitation no cough no nausea or vomiting no abdominal pain no diarrhea no blood in the stools no burning with urination no frequency or urgency and no hematuria, there is no weakness or numbness in any of the extremities no change in vision speech or gait. On 12/11/2020 patient is alert but confused at times. Sodium 127. At this time patient denies chest pain or shortness of breath. Patient denies nausea vomiting or diarrhea. Patient denies any urinary burning or frequency Objective - Vital Signs Vital signs: Vital Signs Temp 97.9 F 12/10/20 20:00 Pulse 67 12/11/20 04:00 Resp 18 12/11/20 04:00 BP 105/54 12/11/20 04:00 Pulse Ox 97 12/11/20 04:00 Intake & Output 12/10/20 12/11/20 12/11/20 18:59 06:59 18:59 Intake Total 600 600 Output Total 950 259817 850136 Balance -350 -15406 -240406 Weight 60 kg Intake: Oral 600 600 Output: Urine 950 250 400 Post Void Residual [id number] Other: Voiding Method Indwelling Catheter Toilet Diaper # Voids 1 1 # Bowel Movements 0 - Exam In general patient is alert but still confused in no apparent distress HEENT head normocephalic and atraumatic Neck is supple no JVD no goiter no lymphadenopathy no carotid bruit Chest examination is clear to auscultation no crackles no wheezing Cardiac exam reveals regular heart sounds S1 and S2 no gallops no murmurs Abdomen is soft nontender no organomegaly with normal bowel sounds Extremity exam reveals no edema no cyanosis or clubbing Neurological examination reveals somnolence and confusion otherwise no gross focal deficits - Labs CBC & Chem 7: 12/11/20 07:00 12/11/20 07:00 Labs: Abnormal Lab Results - Last 24 Hours (Table) 12/11/20 12/11/20 Range/Units 07:00 07:00 RBC 2.46 L (3.80-5.40) m/uL Hgb 8.0 L (11.4-16.0) gm/dL Hct 24.5 L (34.0-46.0) % Sodium 127 L (137-145) mmol/L Chloride 94 L (98-107) mmol/L Glucose 102 H (74-99) mg/dL Microbiology - Last 24 Hours (Table) 12/07/20 19:45 Blood Culture - Preliminary Blood No Growth after 72 hours Assessment and Plan Plan: Acute mental status changes Multiple falls at home with generalized weakness, and multiple bruises Severe hyponatremia, sodium 114 on presentation. Sodium improving to 127 Evidence of anemia on presentation Evidence of urinary tract infection, patient was started on IV Rocephin in the emergency room, will continue with same antibiotic at this time will obtain urin e culture Underlying history of dementia Underlying history of chronic atrial fibrillation maintained on Eliquis Underlying history of hyperlipidemia Underlying history of osteoarthritis and degenerative disc disease with chronic pain syndrome maintained on [place] at home Underlying history of gastroesophageal reflux disease Underlying history of anxiety disorder Pelvic x-ray reveals evidence of small bowel ileus, will obtain an abdominal x- ray to assess. Abdominal x-ray showing nonacute abdomen Pulmonary and nephrology services following Patient remains on IV Rocephin for urinary tract infection Social work consulted [facility] upon discharge Eliquis remains on hold for anemia
[2020-12-11] MEDS: ATORVASTATIN 80 MG TAB PO SCH (21:21)
[2020-12-11] MEDS: DONEPEZIL 5 MG TAB PO SCH (21:21)
[2020-12-11] MEDS: clonazePAM 1 MG TAB PO PRN (21:37)
[2020-12-11 23:36] VITALS: RESP 16; TEMP 97.9
[2020-12-12] MEDS: LORazepam 2 MG/ML INJ IV PRN (00:07)
[2020-12-12] MEDS: GABAPENTIN 300 MG CAP PO SCH ×2 (01:43→11:05)
[2020-12-12 05:18] LABS: % Iron Saturation 20.9 (12.00-45.00)
[2020-12-12] MEDS: PANTOPRAZOLE 40 MG TABLET PO SCH (06:17)
[2020-12-12] MEDS: LEVOTHYROXINE 75 MCG TAB PO SCH (06:17)
[2020-12-12 06:43] LABS: Basophils % (A) 0 %; Eosinophils # (A) 0.4 k/uL (0-0.7); Eosinophils % (A) 4 %; HCT 25.6 % (34.0-46.0); HGB 8.7 gm/dL (11.4-16.0); Lymphocytes # (A) 3.2 k/uL (1.0-4.8); Lymphocytes % (A) 31 %; MCH 33.1 pg (25.0-35.0); MCHC 33.9 g/dL (31.0-37.0); MCV 97.6 fL (80.0-100.0); Macrocytosis Slight; Mean Platelet Volume 6.6; Monocytes # (A) 0.6 k/uL (0-1.0); Monocytes % (A) 6 %; Neutrophils # (A) 5.8 k/uL (1.3-7.7); Neutrophils % (A) 57 %; Platelet Count 450 k/uL (150-450); RBC 2.62 m/uL (3.80-5.40); RDW 15.5 % (11.5-15.5); WBC 10.2 k/uL (3.8-10.6)
[2020-12-12 07:16] LABS: African American GFR (CKD) >90 (>60 ml/min/1.73 sqM); Anion Gap 5 mmol/L; Blood Urea Nitrogen 8 mg/dL (7-17); Calcium 8.6 mg/dL (8.4-10.2); Carbon Dioxide 29 mmol/L (22-30); Chloride 96 mmol/L (98-107); Glucose 101 mg/dL (74-99); Magnesium 1.7 mg/dL (1.6-2.3); Non-African American GFR(CKD) >90 (>60 ml/min/1.73 sqM); Potassium 4.1 mmol/L (3.5-5.1); Sodium 130 mmol/L (137-145)
[2020-12-12] MEDS ORDERED: SODIUM FERRIC GLUCONAT-SUCROSE 125 MG in SODIUM CHLORIDE 0.9% 100 ML IVPB ONE (09:53)
--- NOTE | 2020-12-12 09:54 | P.PN ---
Subjective Patient is seen in follow-up for symptomatic hyponatremia. Sodium level improving. Oral intake fair. No vomiting or diarrhea. Nonoliguric. GFR at baseline. No changes overnight. Vital signs are stable. HEENT: Head exam is unremarkable. LUNGS: Breath sounds decreased. HEART: Rate and Rhythm are regular. ABDOMEN: Soft, no distention. EXTREMITITES: No edema. Objective - Vital Signs Vital signs: Vital Signs Temp 97.9 F 12/12/20 04:00 Pulse 64 12/12/20 04:00 Resp 16 12/12/20 04:00 BP 138/73 12/12/20 04:00 Pulse Ox 96 12/12/20 04:00 Intake & Output 12/11/20 12/12/20 12/12/20 18:59 06:59 18:59 Intake Total 1490 Output Total 347483 Balance -253881 Weight 59.5 kg Intake: IV 70 Invasive Line 3 20 [id number] 1 gm In 50 Sodium Chloride 0.9% 50 ml @ 100 mls/hr IVPB Q24H [facility] Rx#:[id number] Oral 1420 Output: Urine 400 Post Void Residual [id number] Other: Voiding Method Toilet Toilet # Voids 1 1 # Bowel Movements 0 - Labs CBC & Chem 7: 12/12/20 05:53 12/12/20 05:35 Labs: Abnormal Lab Results - Last 24 Hours (Table) 12/11/20 12/12/20 12/12/20 Range/Units 07:00 05:35 05:53 RBC 2.62 L (3.80-5.40) m/uL Hgb 8.7 L (11.4-16.0) gm/dL Hct 25.6 L (34.0-46.0) % Sodium 130 L (137-145) mmol/L Chloride 96 L (98-107) mmol/L Creatinine 0.44 L (0.52-1.04) mg/dL Glucose 101 H (74-99) mg/dL Transferrin 201.0 L (204.0-354.0) mg/dL Microbiology - Last 24 Hours (Table) 12/07/20 19:45 Blood Culture - Preliminary Blood No Growth after 96 hours Assessment and Plan Plan: Assessment: 1. Symptomatic hypovolemic hyponatremia improved with IV hydration. Sodium level 130 today. Urine osmolality 377. Urine sodium less than 20. Cortisol level 23. TSH low at 0.22. 2. Benign hypertension. Stable. 3. Dementia. 4. Hypokalemia from poor intake. Replaced. Better. 5. Anemia with iron deficiency. Plan: Remains off IV fluids. Encouraged oral intake. Maintain 40 oz fluid restriction/day upon d/c. Maintain sodium chloride tablet 1 g daily. IV iron today. Repeat BMP and magnesium level 2-3 days postdischarge. Follow up outpatient in 1 week.
[2020-12-12] MEDS: METOPROLOL TARTRATE 25 MG TAB PO SCH (11:06)
[2020-12-12] MEDS: MULTIVITAMINS, THERA 1 EACH TAB PO SCH (11:06)
[2020-12-12] MEDS: ASCORBIC ACID 500 MG TAB PO SCH (11:06)
[2020-12-12] MEDS: CHOLECALCIFEROL 25 MCG (1000 IU) TABLET PO SCH (11:07)
[2020-12-12] MEDS: SODIUM CHLORIDE TAB 1 GM TAB PO SCH (11:07)
[2020-12-12] MEDS: EZETIMIBE 10 MG TAB PO SCH (11:07)
[2020-12-12] MEDS: DULoxetine HCL 60 MG CAPSULE.DR PO SCH (11:07)
[2020-12-12] MEDS: VITAMIN E (DL,TOCOPHERYL ACET) 400 UNIT (180 MG) CAP PO SCH (11:08)
[2020-12-12 11:19] VITALS: BP 140/81; PULSE 71
[2020-12-12] MEDS: HYDROcodone/APAP 10-325MG 1 EACH TAB PO PRN (14:58)
--- NOTE | 2020-12-12 15:55 | P.CONS ---
History of Present Illness - Reason for Consult Consult date: 12/12/20 anemia Requesting physician: Rachel Gallardo - Chief Complaint Altered mental status, fall - History of Present Illness This an 85-year-old female with multiple comorbidities including dementia, hyperlipidemia, GERD and multiple falls who presented to the emergency department on 12/07/2020 with a recent fall and altered mental status changes. Admission she was found to be hyponatremic and hypokalemic. Patient is a poor historian at this time. She was admitted with acute metabolic encephalopathy. On admission she was noted to have a hemoglobin of 7.9, her repeat hemoglobin today is 8.7. Gastroenterology was consulted for anemia. The patient denies any black tarry stools or blood in her stool. She denies any previous EGD or colonoscopy. Should had iron studies that overall were normal, iron was on the lower end of normal at 59. Ferritin was normal. She has a normocytic normochromic anemia. Patient does have a history of atrial fibrillation and takes Eliquis which has been on hold. She currently denies any abdominal pain, nausea, or vomiting. Again denies any melena, rectal bleeding, coffee-ground emesis or hematemesis. Review of Systems REVIEW OF SYSTEMS: CARDIOPULMONARY: No chest pain or shortness of breath. Gastrointestinal: No abdominal pain. No nausea or vomiting. No hematemesis, coffee-ground emesis. No rectal bleeding, or melena. GENITOURINARY: No dysuria or hematuria. MUSCULOSKELETAL: Reports normal range of motion., Joint pain. SKIN: No rashes. No jaundice. ENDOCRINE: No chills, fevers. No excessive weight gain or loss. No polydipsia or polyuria. PSYCHIATRIC: Unremarkable. NEUROLOGY: Slight confusion. Denies dizziness, headache. ENT: Vision unremarkable. CONSTITUTIONAL: No recent weight loss. No fever, chills, night sweats. Past Medical History Past Medical History: GERD/Reflux, Hyperlipidemia, Memory Impairment, Osteoarthritis (OA) Additional Past Medical History / Comment(s): occassional forgetfullness, degenerative disc disease, chronic pain History of Any Multi-Drug Resistant Organisms: None Reported Past Surgical History: Cholecystectomy, Hysterectomy Past Anesthesia/Blood Transfusion Reactions: No Reported Reaction Past Psychological History: Anxiety Smoking Status: Unknown if ever smoked Past Alcohol Use History: None Reported Additional Past Alcohol Use History / Comment(s): pt. states she smokes around 7-10 cigarettes a day, pt. states she has smoked for many years but also quit on and off over the years Past Drug Use History: None Reported - Past Family History Father Additional Family Medical History / Comment(s): pt. states her father was an alcoholic and at a young age Medications and Allergies Home Medications Medication Instructions Recorded Confirmed Type Ezetimibe [Zetia] 10 mg PO DAILY 11/02/13 12/07/20 History Folic Acid/Mv,Fe,Min [Centrum 1 tab PO DAILY 11/02/13 12/07/20 History Multivitamin Tab Chew] Gabapentin [Neurontin] 600 mg PO TID 11/02/13 12/07/20 History Pantoprazole Sodium 40 mg PO DAILY 11/02/13 12/07/20 History clonazePAM [KlonoPIN] 1 mg PO HS PRN 11/02/13 12/07/20 History HYDROcodone/APAP 10-325MG [[place] 1 tab PO Q6H PRN 12/06/13 12/07/20 History 10-325] DULoxetine HCL [Cymbalta] 60 mg PO DAILY 06/06/18 12/07/20 History Apixaban [Eliquis] 5 mg PO BID #60 tab 06/09/18 12/07/20 Rx Losartan [Cozaar] 50 mg PO DAILY #30 tab 06/09/18 12/07/20 Rx Metoprolol Tartrate [Lopressor] 25 mg PO BID #60 tab 06/09/18 12/07/20 Rx Ascorbic Acid [Vitamin C] 1,000 mg PO DAILY 01/05/19 12/07/20 History Vitamin E Acetate [Vitamin E] 200 unit PO DAILY 01/05/19 12/07/20 History clonazePAM 0.5 mg PO HS PRN 01/05/19 12/07/20 History Atorvastatin [Lipitor] 80 mg PO HS 12/07/20 12/07/20 History Cholecalciferol (Vitamin D3) 125 mcg PO DAILY 12/07/20 12/07/20 History [Vitamin D3 (125 MCG = 5,000 IU)] Donepezil [Aricept] 5 mg PO HS 12/07/20 12/07/20 History Levothyroxine Sodium [Synthroid] 75 mcg PO DAILY 12/07/20 12/07/20 History Cefuroxime Axetil [Ceftin] 500 mg PO BID 7 Days #14 tab 12/12/20 Rx Sodium Chloride Tab 1 gm PO DAILY tab 12/12/20 Rx Allergies Allergy/AdvReac Type Severity Reaction Status Date / Time codeine Allergy Unknown Verified 12/07/20 17:41 erythromycin base Allergy Unknown Verified 12/07/20 17:41 fenofibrate [From Tricor] Allergy Unknown Verified 12/07/20 17:41 niacin Allergy Unknown Verified 12/07/20 17:41 sertraline [From Zoloft] Allergy Unknown Verified 12/07/20 17:41 Sulfa (Sulfonamide Allergy Swelling Verified 12/07/20 17:41 Antibiotics) Physical Exam Vitals: Vital Signs Temp Pulse Resp BP BP Pulse Ox 12/12/20 04:00 97.9 F 64 16 138/73 96 12/11/20 23:35 97.9 F 60 16 122/78 96 12/11/20 20:00 98.2 F 76 18 126/48 97 12/11/20 16:00 99.2 F 73 16 114/59 96 12/11/20 12:00 98.2 F 72 18 111/72 99 Intake and Output 12/11/20 12/12/20 12/12/20 22:59 06:59 14:59 Intake Total 610 Balance 610 Intake: IV 50 cefTRIAXone 1 gm In 50 Sodium Chloride 0.9% 50 ml @ 100 mls/hr IVPB Q24H [facility] Rx#:[id number] Oral 560 Other: Voiding Method Toilet # Voids 1 Weight 59.5 kg General appearance: The patient is alert, oriented, appears in no acute distress. HET: Head is normocephalic and atraumatic. Conjunctiva pink. Sclera anicteric. Neck: Supple without lymphadenopathy. Trachea midline. Heart: S1 S2. Regular rate and rhythm. Lungs: Clear to auscultation. Abdomen: Soft, mild epigastric tenderness, nondistended with bowel sounds. No guarding or rigidity. Skin: No rashes. No jaundice. Extremities: Normal skin color and turgor. No pedal edema. Neurological: No focal deficits. Alert and oriented x1 Results CBC & Chem 7: 12/12/20 05:53 12/12/20 05:35 Labs: Abnormal Lab Results - Last 24 Hours (Table) 12/11/20 12/12/20 12/12/20 Range/Units 07:00 05:35 05:53 RBC 2.62 L (3.80-5.40) m/uL Hgb 8.7 L (11.4-16.0) gm/dL Hct 25.6 L (34.0-46.0) % Sodium 130 L (137-145) mmol/L Chloride 96 L (98-107) mmol/L Creatinine 0.44 L (0.52-1.04) mg/dL Glucose 101 H (74-99) mg/dL Transferrin 201.0 L (204.0-354.0) mg/dL Microbiology - Last 24 Hours (Table) 12/07/20 19:45 Blood Culture - Preliminary Blood No Growth after 96 hours Assessment and Plan (1) Normocytic normochromic anemia Narrative/Plan: This is an 85-year-old female who presented to the emergency department 5 days ago with complaints of altered mental status changes as well as frequent falling. Patient was known to be hypokalemic and hyponatremic on admission. She was also noted to be anemic. She has had no evidence of any GI bleed. Patient denies any previous history of EGD or colonoscopy. She currently does take Eliquis for atrial fibrillation but this has been on hold. Repeat hemoglobin today was 8.7. Likely we are dealing with anemia of chronic disease. No plans on endoscopic evaluation. We'll continue to monitor with CBC. Status: Acute Code(s): D64.9 - ANEMIA, UNSPECIFIED SNOMED Code(s): 27973551 Plan: 1. Diet as tolerated 2. Daily CBC transfuse for hemoglobin less than 7 3. Iron studies reviewed 4. No plans on endoscopic evaluation 5. Agree with IV iron thank you for this consultation, patient is cleared for discharge from gastroenterology. Dr. Robbie White I agree with the dictator's note, documented as a scribe by Geraldine Currie.
[2020-12-13 21:07] LABS: Folate, Serum 14.6 ng/mL (4.40-31.00)
--- NOTE | 2020-12-18 11:33 | P.DS ---
Providers Date of admission: 12/07/20 18:31 Expected date of discharge: 12/12/20 Attending physician: Rachel Gallardo Consults: 12/07/20 18:29 Consult Physician Stat Consulting Provider: Nicolle Valdez Consult Reason/Comments: acute hyponatremia, acute encephalopathy Do you want consulting provider notified?: Already Contacted Consult Physician Urgent Consulting Provider: Jerome Lerma Consult Reason/Comments: acute hyponatremia Do you want consulting provider notified?: Already Contacted 12/11/20 12:06 Consult Physician Routine Consulting Provider: Shannon White Consult Reason/Comments: Anemia Do you want consulting provider notified?: Yes Primary care physician: Stated None Hospital Course: Diagnosis on discharge: Acute mental status changes Multiple falls at home with generalized weakness, and multiple bruises Severe hyponatremia, sodium 114 on presentation. Sodium improving to 130 Evidence of anemia on presentation Evidence of urinary tract infection, patient was started on IV Rocephin in the emergency room, will continue with same antibiotic at this time will obtain urine culture Underlying history of dementia Underlying history of chronic atrial fibrillation maintained on Eliquis Underlying history of hyperlipidemia Underlying history of osteoarthritis and degenerative disc disease with chronic pain syndrome maintained on [place] at home Underlying history of gastroesophageal reflux disease Underlying history of anxiety disorder Pelvic x-ray reveals evidence of small bowel ileus, will obtain an abdominal x- ray to assess. Abdominal x-ray showing nonacute abdomen Hospital course: Jeannette Tran, is an 85-year-old female who presented to [facility] emergency room due to mental status changes and falls at home, patient is a very poor historian, her stated that she had worsening mental status for several months however in the last 2 weeks her condition has worsened, she had multiple falls and her mental status has deteriorated and she was occasionally agitated. She was evaluated in the emergency room vital examination on presentation revealed a temperature of 97.5 pulse 60 respiration 18 blood pressure 129/85 pulse ox 95% on room air Laboratory data revealed a white blood count of 15.6 hemoglobin 7.9 platelet count 325 sodium 114 potassium 3.9 chloride 79 BUN 12 creatinine 0.59 CO2 18 AST 45 ALT 26 alkaline phosphatase 64 creatinine kinase 376 urine analysis revealed moderate leukocyte esterase 8 white blood cells and the random urine sodium was less than 20 urine toxicology screen was positive for opiates patient is maintained on [place] for pain management coronavirus PCR was negative Testing in the emergency room revealed computed tomography scan of the brain and cervical spine done in the emergency room revealed cerebral atrophy no acute intracranial abnormality, chest x-ray revealed no active cardiopulmonary disease Patient was admitted to medical floor for further evaluation and treatment. On 12/09/2020 patient was seen and examined on the telemetry floor she is more alert and oriented today she is still having some confusion, she denies any complaints otherwise there is no fever or chills no headache or dizziness no chest pain no shortness of breath no cough no nausea or vomiting no abdominal pain no diarrhea no blood in the stools no burning with urination no frequency or urgency and no hematuria. Sodium is 120 critical care and pulmonary are following closely On 12/10/2020 Patient was seen and examined on the medical floor, he is alert, confused in no distress, he denies any complaints there is no fever or chills no headache or dizziness no chest pain no shortness of breath no palpitation no cough no nausea or vomiting no abdominal pain no diarrhea no blood in the stools no burning with urination no frequency or urgency and no hematuria, there is no weakness or numbness in any of the extremities no change in vision speech or gait. On 12/11/2020 patient is alert but confused at times. Sodium 127. At this time patient denies chest pain or shortness of breath. Patient denies nausea vomiting or diarrhea. Patient denies any urinary burning or frequency On 12/12/2020 sodium improving to 130 patient was evaluated by GI services no plans endoscopic. Eliquis resumed. Hemoglobin 8.7. Patient denies chest pain or shortness of breath. Patient denies nausea vomiting. Patient denies any urinary burning or frequency Patient Condition at Discharge: Stable Plan - Discharge Summary Discharge Rx Participant: No New Discharge Prescriptions: New Cefuroxime Axetil [Ceftin] 500 mg PO BID 7 Days #14 tab Sodium Chloride Tab 1 gm PO DAILY tab Continue Folic Acid/Mv,Fe,Min [Centrum Multivitamin Tab Chew] 1 tab PO DAILY Ezetimibe [Zetia] 10 mg PO DAILY Gabapentin [Neurontin] 600 mg PO TID clonazePAM [KlonoPIN] 1 mg PO HS PRN PRN Reason: Insomnia Pantoprazole Sodium 40 mg PO DAILY HYDROcodone/APAP 10-325MG [[place] 10-325] 1 tab PO Q6H PRN PRN Reason: Pain DULoxetine HCL [Cymbalta] 60 mg PO DAILY Losartan [Cozaar] 50 mg PO DAILY #30 tab Apixaban [Eliquis] 5 mg PO BID #60 tab Metoprolol Tartrate [Lopressor] 25 mg PO BID #60 tab Ascorbic Acid [Vitamin C] 1,000 mg PO DAILY clonazePAM 0.5 mg PO HS PRN PRN Reason: Insomnia Vitamin E Acetate [Vitamin E] 200 unit PO DAILY Cholecalciferol (Vitamin D3) [Vitamin D3 (125 MCG = 5,000 IU)] 125 mcg PO DAILY Donepezil [Aricept] 5 mg PO HS Levothyroxine Sodium [Synthroid] 75 mcg PO DAILY Atorvastatin [Lipitor] 80 mg PO HS Discharge Medication List Ezetimibe [Zetia] 10 mg PO DAILY 11/02/13 [History] Folic Acid/Mv,Fe,Min [Centrum Multivitamin Tab Chew] 1 tab PO DAILY 11/02/13 [History] Gabapentin [Neurontin] 600 mg PO TID 11/02/13 [History] Pantoprazole Sodium 40 mg PO DAILY 11/02/13 [History] clonazePAM [KlonoPIN] 1 mg PO HS PRN 11/02/13 [History] HYDROcodone/APAP 10-325MG [[place] 10-325] 1 tab PO Q6H PRN 12/06/13 [History] DULoxetine HCL [Cymbalta] 60 mg PO DAILY 06/06/18 [History] Apixaban [Eliquis] 5 mg PO BID #60 tab 06/09/18 [Rx] Losartan [Cozaar] 50 mg PO DAILY #30 tab 06/09/18 [Rx] Metoprolol Tartrate [Lopressor] 25 mg PO BID #60 tab 06/09/18 [Rx] Ascorbic Acid [Vitamin C] 1,000 mg PO DAILY 01/05/19 [History] Vitamin E Acetate [Vitamin E] 200 unit PO DAILY 01/05/19 [History] clonazePAM 0.5 mg PO HS PRN 01/05/19 [History] Atorvastatin [Lipitor] 80 mg PO HS 12/07/20 [History] Cholecalciferol (Vitamin D3) [Vitamin D3 (125 MCG = 5,000 IU)] 125 mcg PO DAILY 12/07/20 [History] Donepezil [Aricept] 5 mg PO HS 12/07/20 [History] Levothyroxine Sodium [Synthroid] 75 mcg PO DAILY 12/07/20 [History] Cefuroxime Axetil [Ceftin] 500 mg PO BID 7 Days #14 tab 12/12/20 [Rx] Sodium Chloride Tab 1 gm PO DAILY tab 12/12/20 [Rx] Follow up Appointment(s)/Referral(s): [facility], [NON-STAFF] - None,Stated [Primary Care Provider] - 1-2 days Discharge Disposition: HOME SELF-CARE
== END 2020-12-12 15:41 | disposition home or self-care (01) | DRG 640 ==
LOC: EC 14:11 → 2SICU 18:31 → 3SCARD 12-08 08:17
PROVIDERS: ADMIT Internal Medicine; ATTEND Internal Medicine
DX: E87.1 Hypo-osmolality and hyponatremia (principal); G93.41 Metabolic encephalopathy; N39.0 Urinary tract infection, site not specified; I48.20 Chronic atrial fibrillation, unspecified; K56.7 Ileus, unspecified; E86.1 Hypovolemia; D50.9 Iron deficiency anemia, unspecified; D63.8 Anemia in other chronic diseases classified elsewhere; E78.5 Hyperlipidemia, unspecified; E86.0 Dehydration; E87.6 Hypokalemia; F03.90 Unspecified dementia, unspecified severity, without behavioral disturbance, psychotic disturbance, mood disturbance, and anxiety; F41.9 Anxiety disorder, unspecified; G89.4 Chronic pain syndrome; I10 Essential (primary) hypertension; K21.9 Gastro-esophageal reflux disease without esophagitis; M19.90 Unspecified osteoarthritis, unspecified site; R29.6 Repeated falls; Z20.822 Contact with and (suspected) exposure to COVID-19; Z79.01 Long term (current) use of anticoagulants; Z79.890 Hormone replacement therapy; Z79.899 Other long term (current) drug therapy; Z81.1 Family history of alcohol abuse and dependence; Z90.710 Acquired absence of both cervix and uterus; Z91.81 History of falling; Z88.5 Allergy status to narcotic agent; Z88.1 Allergy status to other antibiotic agents; Z88.2 Allergy status to sulfonamides; Z88.8 Allergy status to other drugs, medicaments and biological substances
CPT/HCPCS: 36415; 70450; 71045; 72125; 72170; 74018; 80048; 80053; 80306; 81001; 82533; 82550; 82607; 82728; 82746; 83540; 83550; 83735; 83930; 83935; 84295; 84300; 84439; 84443; 84484; 85025; 85027; 85610; 85730; 87040; 87635; 93005; 94760; 96361; 96372; 96374; 96375; 99285

== ENCOUNTER → 2021-03-14 | Outpatient (CLI) | payer MEDICARE ==
--- NOTE | 2021-03-14 15:11 | XR ---
EXAMINATION TYPE: XR chest 2V DATE OF EXAM: 03/14/2021 COMPARISON: 12/07/2020 INDICATION: Cough TECHNIQUE: Single frontal view of the chest is obtained. FINDINGS: The heart size is normal. The pulmonary vasculature is normal. The lungs are clear. IMPRESSION: 1. No acute pulmonary process.
== END | disposition home or self-care (01) ==
LOC: RADXRMAIN 13:51
PROVIDERS: ATTEND Internal Medicine
DX: R05.9 Cough, unspecified (principal)
CPT/HCPCS: 71046

== ENCOUNTER 2021-10-09 10:46 | Inpatient (IN) | payer MEDICARE ==
--- NOTE | 2021-10-09 11:17 | ED ---
General Adult HPI - General Chief complaint: Weakness Stated complaint: Weakness Time Seen by Provider: 10/09/21 11:09 Source: patient, family, EMS, RN notes reviewed Mode of arrival: EMS Limitations: no limitations - History of Present Illness Initial comments: Patient is a pleasant 85-year-old female presenting to the emergency department with frequent falls. Patient has had episodes of syncope. helps provide history and believes most episodes are related to syncope. Patient isn't clear regarding this. Patient reportedly does have a walker however has refused to use it. Patient has had several bruises however denies any specific area of injury. Patient denies headache. Patient does not feel confused. Patient states she just feels weak all over. - Related Data Home Medications Medication Instructions Recorded Confirmed Ezetimibe [Zetia] 10 mg PO DAILY 11/02/13 12/07/20 Folic Acid/Mv,Fe,Min [Centrum 1 tab PO DAILY 11/02/13 12/07/20 Multivitamin Tab Chew] Gabapentin [Neurontin] 600 mg PO TID 11/02/13 12/07/20 Pantoprazole Sodium 40 mg PO DAILY 11/02/13 12/07/20 clonazePAM [KlonoPIN] 1 mg PO HS PRN 11/02/13 12/07/20 HYDROcodone/APAP 10-325MG [[place] 1 tab PO Q6H PRN 12/06/13 12/07/20 10-325] DULoxetine HCL [Cymbalta] 60 mg PO DAILY 06/06/18 12/07/20 Ascorbic Acid [Vitamin C] 1,000 mg PO DAILY 01/05/19 12/07/20 Vitamin E (Dl,Tocopheryl Acet) 200 unit PO DAILY 01/05/19 12/07/20 [Vitamin E] clonazePAM 0.5 mg PO HS PRN 01/05/19 12/07/20 Atorvastatin [Lipitor] 80 mg PO HS 12/07/20 12/07/20 Cholecalciferol (Vitamin D3) 125 mcg PO DAILY 12/07/20 12/07/20 [Vitamin D3 (125 MCG = 5,000 IU)] Donepezil [Aricept] 5 mg PO HS 12/07/20 12/07/20 Levothyroxine Sodium [Synthroid] 75 mcg PO DAILY 12/07/20 12/07/20 Previous Rx's Medication Instructions Recorded Apixaban [Eliquis] 5 mg PO BID #60 tab 06/09/18 Losartan [Cozaar] 50 mg PO DAILY #30 tab 06/09/18 Metoprolol Tartrate [Lopressor] 25 mg PO BID #60 tab 06/09/18 Sodium Chloride Tab 1 gm PO DAILY tab 12/12/20 cefUROXime axetiL [Ceftin] 500 mg PO BID 7 Days #14 tab 12/12/20 Allergies Allergy/AdvReac Type Severity Reaction Status Date / Time No Known Allergies Allergy Verified 10/09/21 11:30 Review of Systems ROS Statement: Those systems with pertinent positive or pertinent negative responses have been documented in the HPI. ROS Other: All systems not noted in ROS Statement are negative. Constitutional: Denies: fever Eyes: Denies: eye pain ENT: Denies: ear pain Respiratory: Denies: cough Cardiovascular: Denies: chest pain Endocrine: Reports: fatigue Gastrointestinal: Denies: abdominal pain Genitourinary: Denies: dysuria Musculoskeletal: Denies: back pain Skin: Denies: rash Neurological: Reports: as per HPI. Denies: headache Past Medical History Past Medical History: GERD/Reflux, Hyperlipidemia, Memory Impairment, O steoarthritis (OA) Additional Past Medical History / Comment(s): occassional forgetfullness, degenerative disc disease, chronic pain History of Any Multi-Drug Resistant Organisms: None Reported Past Surgical History: Cholecystectomy, Hysterectomy Past Anesthesia/Blood Transfusion Reactions: No Reported Reaction Past Psychological History: Anxiety Smoking Status: Unknown if ever smoked Past Alcohol Use History: None Reported Past Drug Use History: None Reported - Past Family History Father Additional Family Medical History / Comment(s): pt. states her father was an alcoholic and at a young age General Exam Limitations: no limitations General appearance: alert, in no apparent distress Head exam: Present: normocephalic Eye exam: Present: normal appearance, PERRL, EOMI ENT exam: Present: normal oropharynx Neck exam: Present: normal inspection. Absent: tenderness Respiratory exam: Present: normal lung sounds bilaterally Cardiovascular Exam: Present: regular rate, irregular rhythm GI/Abdominal exam: Present: soft. Absent: tenderness Back exam: Present: normal inspection, full ROM. Absent: tenderness Neurological exam: Present: alert, CN II-XII intact. Absent: motor sensory deficit Expanded Neurological exam: Present: protecting the airway Patient oriented to: Present: person, place. Absent: time Speech: Present: fluid speech Motor strength exam: RUE: 5, LUE: 5, RLE: 5, LLE: 5 Eye Response: (4) open spontaneously Motor Response: (6) obeys commands Verbal Response: (4) confused conversation Psychiatric exam: Present: normal affect, normal mood Skin exam: Present: normal color Course Vital Signs 10/09/21 10/09/21 10/09/21 11:07 12:20 13:00 Temperature 97 F L Pulse Rate 86 73 92 Respiratory 19 16 19 Rate Blood Pressure 107/67 94/67 113/56 O2 Sat by Pulse 98 99 98 Oximetry EKG Findings - EKG Comments: EKG Findings:: A. fib with rate of 81. QRS 85. QT 407. QTC 445. Right axis. Possible right ventricular hypertrophy. Nonspecific ST-T. Medical Decision Making - Medical Decision Making Patient reevaluated. Patient and family updated. Case was discussed with Dr. Gallardo, who will admit his patient. - Lab Data Result diagrams: 10/09/21 11:40 10/09/21 11:40 Lab Results 10/09/21 10/09/21 10/09/21 Range/Units 11:40 11:40 11:40 WBC 12.5 H (3.8-10.6) k/uL RBC 3.95 (3.80-5.40) m/uL Hgb 12.5 (11.4-16.0) gm/dL Hct 36.8 (34.0-46.0) % MCV 93.3 (80.0-100.0) fL MCH 31.7 (25.0-35.0) pg MCHC 34.0 (31.0-37.0) g/dL RDW 12.5 (11.5-15.5) % Plt Count 234 (150-450) k/uL MPV 7.3 Neutrophils % 81 % Lymphocytes % 13 % Monocytes % 5 % Eosinophils % 1 % Basophils % 0 % Neutrophils # 10.1 H (1.3-7.7) k/uL Lymphocytes # 1.6 (1.0-4.8) k/uL Monocytes # 0.6 (0-1.0) k/uL Eosinophils # 0.1 (0-0.7) k/uL Basophils # 0.0 (0-0.2) k/uL PT 11.8 (9.0-12.0) sec INR 1.1 (<1.2) APTT 25.0 (22.0-30.0) sec Sodium 124 L (137-145) mmol/L Potassium 4.3 (3.5-5.1) mmol/L Chloride 92 L (98-107) mmol/L Carbon Dioxide 23 (22-30) mmol/L Anion Gap 9 mmol/L BUN 10 (7-17) mg/dL Creatinine 0.61 (0.52-1.04) mg/dL Est GFR (CKD-EPI)AfAm >90 (>60 ml/min/1.73 sqM) Est GFR (CKD-EPI)NonAf 83 (>60 ml/min/1.73 sqM) Glucose 101 H (74-99) mg/dL Calcium 8.0 L (8.4-10.2) mg/dL Magnesium 1.5 L (1.6-2.3) mg/dL Total Bilirubin 0.9 (0.2-1.3) mg/dL AST 20 (14-36) U/L ALT 18 (4-34) U/L Alkaline Phosphatase 64 (38-126) U/L Troponin I (0.000-0.034) ng/mL Total Protein 5.2 L (6.3-8.2) g/dL Albumin 3.2 L (3.5-5.0) g/dL 10/09/21 Range/Units 11:40 WBC (3.8-10.6) k/uL RBC (3.80-5.40) m/uL Hgb (11.4-16.0) gm/dL Hct (34.0-46.0) % MCV (80.0-100.0) fL MCH (25.0-35.0) pg MCHC (31.0-37.0) g/dL RDW (11.5-15.5) % Plt Count (150-450) k/uL MPV Neutrophils % % Lymphocytes % % Monocytes % % Eosinophils % % Basophils % % Neutrophils # (1.3-7.7) k/uL Lymphocytes # (1.0-4.8) k/uL Monocytes # (0-1.0) k/uL Eosinophils # (0-0.7) k/uL Basophils # (0-0.2) k/uL PT (9.0-12.0) sec INR (<1.2) APTT (22.0-30.0) sec Sodium (137-145) mmol/L Potassium (3.5-5.1) mmol/L Chloride (98-107) mmol/L Carbon Dioxide (22-30) mmol/L Anion Gap mmol/L BUN (7-17) mg/dL Creatinine (0.52-1.04) mg/dL Est GFR (CKD-EPI)AfAm (>60 ml/min/1.73 sqM) Est GFR (CKD-EPI)NonAf (>60 ml/min/1.73 sqM) Glucose (74-99) mg/dL Calcium (8.4-10.2) mg/dL Magnesium (1.6-2.3) mg/dL Total Bilirubin (0.2-1.3) mg/dL AST (14-36) U/L ALT (4-34) U/L Alkaline Phosphatase (38-126) U/L Troponin I <0.012 (0.000-0.034) ng/mL Total Protein (6.3-8.2) g/dL Albumin (3.5-5.0) g/dL - Radiology Data Radiology results: report reviewed (CT brain and C-spine reveal no acute thoracic injury.), image reviewed (X-ray left hip and pelvis and chest x-ray show no acute process. Lumbar x-ray shows facet arthropathy. Anterolisthesis. Multilevel degenerative disc disease.*Disease. No compression collapsed) Disposition Clinical Impression: Syncope, Hyponatremia Disposition: ADMITTED IP TO THIS HOSP Is patient prescribed a controlled substance at d/c from ED?: No Referrals: Rachel Gallardo MD [Primary Care Provider] - 1-2 days Time of Disposition: 13:36
[2021-10-09 11:54] LABS: Basophils % (A) 0 %; Eosinophils # (A) 0.1 k/uL (0-0.7); Eosinophils % (A) 1 %; HCT 36.8 % (34.0-46.0); HGB 12.5 gm/dL (11.4-16.0); Lymphocytes # (A) 1.6 k/uL (1.0-4.8); Lymphocytes % (A) 13 %; MCH 31.7 pg (25.0-35.0); MCV 93.3 fL (80.0-100.0); Mean Platelet Volume 7.3; Monocytes # (A) 0.6 k/uL (0-1.0); Monocytes % (A) 5 %; Neutrophils # (A) 10.1 k/uL (1.3-7.7); Neutrophils % (A) 81 %; Platelet Count 234 k/uL (150-450); RBC 3.95 m/uL (3.80-5.40); RDW 12.5 % (11.5-15.5); WBC 12.5 k/uL (3.8-10.6)
[2021-10-09 11:58] LABS: ALT 18 U/L (4-34); AST 20 U/L (14-36); African American GFR (CKD) >90 (>60 ml/min/1.73 sqM); Albumin 3.2 g/dL (3.5-5.0); Alkaline Phosphatase 64 U/L (38-126); Anion Gap 9 mmol/L; Blood Urea Nitrogen 10 mg/dL (7-17); Carbon Dioxide 23 mmol/L (22-30); Chloride 92 mmol/L (98-107); Glucose 101 mg/dL (74-99); Magnesium 1.5 mg/dL (1.6-2.3); Non-African American GFR(CKD) 83 (>60 ml/min/1.73 sqM); Potassium 4.3 mmol/L (3.5-5.1); Sodium 124 mmol/L (137-145); Total Bilirubin 0.9 mg/dL (0.2-1.3); Total Protein 5.2 g/dL (6.3-8.2)
[2021-10-09 12:00] LABS: INR 1.1 (<1.2); Prothrombin Time 11.8 sec (9.0-12.0)
--- NOTE | 2021-10-09 12:09 | XR ---
EXAMINATION TYPE: XR chest 2V DATE OF EXAM: 10/09/2021 COMPARISON: 03/14/2021 TECHNIQUE: PA and lateral views submitted. HISTORY: Syncope FINDINGS: The lungs are clear and there is no pneumothorax, pleural effusion, or focal pneumonia. Hyperinflat ion compatible with COPD. Chronic compression deformity mid thoracic spine stable from prior exam. No overt failure. Diffuse osteopenia. IMPRESSION: 1. No acute process. Correlate for COPD.
--- NOTE | 2021-10-09 12:22 | CT ---
EXAMINATION TYPE: CT brain cspine wo con CT DLP: 1345.2 mGycm, Automated exposure control for dose reduction was used. DATE OF EXAM: 10/09/2021 12:08 PM COMPARISON: None.. CLINICAL INDICATION:Female, 85 years old with history of syncope; Syncope/fall TECHNIQUE: Brain: Multiple axial CT images of the brain were obtained without IV contrast. Cspine: Axial CT images from the skull base to the inferior aspect of T2 we obtained without intraven ous contrast. Coronal and sagittal reformatted images were also reviewed. FINDINGS: Brain: Extra-axial spaces: No abnormal extra-axial fluid collections. Ventricular system: Within normal limits Cerebral parenchyma: No acute intraparenchymal hemorrhage or mass effect. The brumfield-white junction is well differentiated. Cerebellum: Unremarkable. Mass effect: No evidence of midline shift. Intracranial vasculature: Atherosclerotic calcifications of the intracranial vessels. There is a high riding right jugular bulb. Soft tissues: Right posterior scalp subcutaneous edema. Calvarium/osseous structures: No depressed skull fracture. Paranasal sinuses and mastoid air cells: Clear. Visualized orbits: Bilateral aphakia Cervical spine: Fracture: None. Osseous structures: Multilevel degenerative disc disease changes with endplate spurring and disc oste ophyte complex's. Vertebral alignment: Within normal limits. Spinal canal/Neural Foramina: Disc osteophyte complexes at C5-C6 with at least mild spinal canal sten osis. Facet joint uncovertebral joint arthropathy scattered throughout the cervical spine with varyin g degrees of neural foraminal stenosis. Neck soft tissues: Prevertebral soft tissues are within normal limits. Other: The airway is patent. The lung apices are clear. IMPRESSION: 1. No acute intracranial process. 2. No evidence of cervical spine fracture. 3. Mild multilevel degenerative disc disease. 4. Right posterior scalp edema.
--- NOTE | 2021-10-09 13:03 | XR ---
EXAMINATION TYPE: XR lumbar spine 3 views DATE OF EXAM: 10/09/2021 Comparison: 12/09/2012 Clinical History: 85-year-old female weight low back pain after fall Findings: 5 lumbar type vertebral bodies. Osteopenia. Dense atherosclerotic calcifications throughout the abdom inal aorta. Hypertrophic facet arthropathy throughout the lumbar spine. 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 There is grade 1 anterolisthesis at L4-L5. Mild degenerative disc disease throughout, more moderately advanced at L5-S1. Impression: 1. Severe hypertrophic facet arthropathy mid to lower lumbar spine with degenerative grade 1 anteroli sthesis at L4-L5 which has progressed from 2013. 2. Mild multilevel degenerative disc disease, more moderate to advanced at L5-S1. 3. Baastrup's disease. 4. No vertebral compression collapse.
--- NOTE | 2021-10-09 13:05 | XR ---
EXAMINATION TYPE: AP view pelvis and 2 views left hip DATE OF EXAM: 10/09/2021 Comparison: 12/07/2020 Clinical History: 85-year-old female left hip pain and contusion after fall Findings: SI joints appear symmetric and intact. Small delineation to the arcuate lines of the sacrum. Both hip s appear symmetric and intact as does the pubic symphysis. Mild degenerative spurring at the hips. No acute fracture identified. Impression: Mild degenerative spurring of both hips. No acute osseous abnormality seen.
[2021-10-09] MEDS ORDERED: NALOXONE 0.4 MG/ML 1 ML VIAL IV PRN (13:36)
[2021-10-09 13:46] LABS: Appearance,Urine Clear (Clear); Bilirubin,Urine Negative (Negative); Blood,Urine Negative (Negative); Color,Urine Yellow; Glucose,Urine (UA) Negative (Negative); Ketones,Urine 1+ (Negative); Leukocyte Esterase,Urine Negative (Negative); Nitrite,Urine Negative (Negative); Protein,Urine Negative (Negative); Specific Gravity,Urine 1.009 (1.001-1.035); Urobilinogen,Urine <2.0 mg/dL (<2.0)
--- NOTE | 2021-10-09 14:18 | P.CRDCN ---
History of Present Illness Consult date: 10/09/21 History of present illness: HISTORY OF PRESENT ILLNESS: This is a 85-year-old female with a past medical history significant for persistent atrial fibrillation, COPD, hypertension, hyperlipidemia, and dementia. Patient follows in the office with Dr. Silva. We have been asked to see the patient in consultation for syncope. Patient examined at the bedside. Patient is somewhat confused at the time of examination. Her is at the bedside and providing the majority of the HPI. He reports that the patient has been falling 15-20 times over the past 4 days. He reports the patient is weak and debilitated. He states the patient does not lose consciousness during these episodes. The patient currently denies chest pain or pressure. She denies shortness of breath. Denies dizziness or lightheadedness. * EKG reveals atrial fibrillation with controlled ventricular rate * Chest xray negative for acute process. Correlate for COPD. * Laboratory data: WBC 12.5. Hemoglobin 12.5. Platelet count 234. Sodium 124. Potassium 4.3. BUN 10. Creatinine 0.61. Magnesium 1.5. Troponin negative 1. * Current home cardiac medications include metoprolol tartrate 25 mg twice a day, losartan 50 mg daily, Lipitor 80 mg daily, and Eliquis 5 mg twice a day * Most recent echocardiogram obtained in 2019 revealed ejection fraction 55%, [id number] mitral regurgitation, mild tricuspid regurgitation. REVIEW OF SYSTEMS: At the time of my exam: CONSTITUTIONAL: Denies fever or chills. HEENT: Denies blurred vision, vision changes, or eye pain. Denies hemoptysis CARDIOVASCULAR: Denies chest pain. Denies orthopnea. Denies PND. Denies palpitations RESPIRATORY: Denies shortness of breath. GASTROINTESTINAL: Denies abdominal pain. Denies nausea or vomiting. HEMATOLOGIC: Denies bleeding disorders. GENITOURINARY: Denies any blood in urine. SKIN: Denies pruitis. Denies rash. PHYSICAL EXAM: VITAL SIGNS: Reviewed. GENERAL: Well-developed in no acute distress. HEENT: Head is normocephalic. Pupils are equal, round. Sclerae anicteric. Mucous membranes of the mouth are moist. Neck supple. No JVD or thyromegaly LUNGS: Respirations even and unlabored. Lungs essentially clear to auscultation bilaterally. HEART: Irregular rate and rhythm. S1 and S2 heard. ABDOMEN: Soft. Nondistended. Nontender. EXTREMITIES: Normal range of motion. No clubbing or cyanosis. Peripheral pulses intact. No lower extremity edema NEUROLOGIC: Awake and alert. Oriented x 1-2. ASSESSMENT: Status post multiple falls, appear to be mechanical in nature without evidence of syncopal Hyponatremia Persistent atrial fibrillation COPD Hypertension Hyperlipidemia Dementia PLAN: Obtain 2D echo to assess cardiac structure and function Resume home cardiac medications Continue telemetry monitoring to assess for any significant pericardial or arrhythmias Continue Eliquis. Ongoing discussion regarding risks versus benefit of anticoagulation secondary to patient's multiple falls recently. Further recommendations pending patient's course Nurse practitioner note has been reviewed by physician. Signing provider agrees with the documented findings, assessment, and plan of care. Past Medical History Past Medical History: GERD/Reflux, Hyperlipidemia, Memory Impairment, Osteoarthritis (OA) Additional Past Medical History / Comment(s): occassional forgetfullness, degenerative disc disease, chronic pain History of Any Multi-Drug Resistant Organisms: None Reported Past Surgical History: Cholecystectomy, Hysterectomy Past Anesthesia/Blood Transfusion Reactions: No Reported Reaction Past Psychological History: Anxiety Smoking Status: Unknown if ever smoked Past Alcohol Use History: None Reported Past Drug Use History: None Reported - Past Family History Father Additional Family Medical History / Comment(s): pt. states her father was an al coholic and at a young age Medications and Allergies Home Medications Medication Instructions Recorded Confirmed Type Ezetimibe [Zetia] 10 mg PO DAILY 11/02/13 12/07/20 History Folic Acid/Mv,Fe,Min [Cent[place] 1 tab PO DAILY 11/02/13 12/07/20 History Multivitamin Tab Chew] Gabapentin [Neurontin] 600 mg PO TID 11/02/13 12/07/20 History Pantoprazole Sodium 40 mg PO DAILY 11/02/13 12/07/20 History clonazePAM [KlonoPIN] 1 mg PO HS PRN 11/02/13 12/07/20 History HYDROcodone/APAP 10-325MG [[place] 1 tab PO Q6H PRN 12/06/13 12/07/20 History 10-325] DULoxetine HCL [Cymbalta] 60 mg PO DAILY 06/06/18 12/07/20 History Apixaban [Eliquis] 5 mg PO BID #60 tab 06/09/18 12/07/20 Rx Losartan [Cozaar] 50 mg PO DAILY #30 tab 06/09/18 12/07/20 Rx Metoprolol Tartrate [Lopressor] 25 mg PO BID #60 tab 06/09/18 12/07/20 Rx Ascorbic Acid [Vitamin C] 1,000 mg PO DAILY 01/05/19 12/07/20 History Vitamin E (Dl,Tocopheryl Acet) 200 unit PO DAILY 01/05/19 12/07/20 History [Vitamin E] clonazePAM 0.5 mg PO HS PRN 01/05/19 12/07/20 History Atorvastatin [Lipitor] 80 mg PO HS 12/07/20 12/07/20 History Cholecalciferol (Vitamin D3) 125 mcg PO DAILY 12/07/20 12/07/20 History [Vitamin D3 (125 MCG = 5,000 IU)] Donepezil [Aricept] 5 mg PO HS 12/07/20 12/07/20 History Levothyroxine Sodium [Synthroid] 75 mcg PO DAILY 12/07/20 12/07/20 History Sodium Chloride Tab 1 gm PO DAILY tab 12/12/20 Rx cefUROXime axetiL [Ceftin] 500 mg PO BID 7 Days #14 tab 12/12/20 Rx Allergies Allergy/AdvReac Type Severity Reaction Status Date / Time No Known Allergies Allergy Verified 10/09/21 11:30 Physical Exam Vitals: Vital Signs Temp Pulse Resp BP Pulse Ox 10/09/21 13:00 92 19 113/56 98 10/09/21 12:20 73 16 94/67 99 10/09/21 11:07 97 F L 86 19 107/67 98 Intake and Output 10/08/21 10/09/21 10/09/21 22:59 06:59 14:59 Other: Weight 54.431 kg Results 10/09/21 11:40 10/09/21 11:40 Cardiac Enzymes 10/09/21 10/09/21 Range/Units 11:40 11:40 AST 20 (14-36) U/L Troponin I <0.012 (0.000-0.034) ng/mL Coagulation 10/09/21 Range/Units 11:40 PT 11.8 (9.0-12.0) sec APTT 25.0 (22.0-30.0) sec CBC 10/09/21 Range/Units 11:40 WBC 12.5 H (3.8-10.6) k/uL RBC 3.95 (3.80-5.40) m/uL Hgb 12.5 (11.4-16.0) gm/dL Hct 36.8 (34.0-46.0) % Plt Count 234 (150-450) k/uL Comprehensive Metabolic Panel 10/09/21 Range/Units 11:40 Sodium 124 L (137-145) mmol/L Potassium 4.3 (3.5-5.1) mmol/L Chloride 92 L (98-107) mmol/L Carbon Dioxide 23 (22-30) mmol/L BUN 10 (7-17) mg/dL Creatinine 0.61 (0.52-1.04) mg/dL Glucose 101 H (74-99) mg/dL Calcium 8.0 L (8.4-10.2) mg/dL AST 20 (14-36) U/L ALT 18 (4-34) U/L Alkaline Phosphatase 64 (38-126) U/L Total Protein 5.2 L (6.3-8.2) g/dL Albumin 3.2 L (3.5-5.0) g/dL Current Medications Generic Name Dose Route Start Last Admin Trade Name Freq PRN Reason Stop Dose Admin Sodium Chloride 1,000 mls @ 75 mls/hr 10/09/21 13:45 Saline 0.9% IV .[id number] WAYNE Naloxone HCl 0.2 mg 10/09/21 13:36 Naloxone 0.4 Mg/Ml 1 Ml Vial IV Q2M PRN Opioid Reversal Intake and Output 10/08/21 10/09/21 10/09/21 22:59 06:59 14:59 Other: Weight 54.431 kg Patient Weight 10/10/21 06:59 Weight 54.431 kg 10/09/21 11:40 10/09/21 11:40
[2021-10-09] MEDS: SODIUM CHLORIDE 0.9% 1,000 ML IV SCH (17:00)
[2021-10-09] MEDS ORDERED: Magnesium Replacement Protocol 1 EACH MISC MISCELLANE PRN (17:35)
[2021-10-09] MEDS: MAGNESIUM SULFATE-D5W PMX 1 GM in DEXTROSE/WATER 1 100ML.BAG IVPB SCH ×2 (17:45→18:55)
--- NOTE | 2021-10-09 17:56 | P.HPIM ---
History of Present Illness H&P Date: 10/09/21 Jeannette Tran, is an 85-year-old female who presented to [facility] emergency room with the chief complaints of multiple falls, with at least 1 syncopal episode She was evaluated in the emergency room vital examination on presentation revealed a temperature of 97 pulse 86 respiration 19 blood pressure 107/67 pulse ox 98% on room air Laboratory data reveals a white blood count of 12.5 hemoglobin 12.5 platelet count 234 sodium 124 potassium 4.3 chloride 92 BUN 10 creatinine 0.6 Testing in the emergency room revealed EKG revealed evidence of atrial fibrillation with controlled ventricular response, chest x-ray revealed no acute process possible COPD, pelvic x-ray did not reveal any evidence of fracture, computed tomography scan of the brain and neck did not reveal any evidence of osseous abnormality, no evidence of intracranial bleeding Patient was admitted to medical floor for further evaluation and treatment Past Medical History Past Medical History: Atrial Fibrillation, Asthma, Dementia, GERD/Reflux, Hyperlipidemia, Hypertension, Memory Impairment, Osteoarthritis (OA), Thyroid Disorder Additional Past Medical History / Comment(s): FALLS, vertigo, hyponatremia, anemia, chronic back pain, DDD, past small bowel ileus, hemorrhoids, seasonal allergies, hypothyroid History of Any Multi-Drug Resistant Organisms: None Reported Past Surgical History: Cholecystectomy, Ear Surgery, Hysterectomy Additional Past Surgical History / Comment(s): D&C, colonoscopy, EGD, pain clinic procedures, L ear myringotomy/tube, R nasolabial fold excision of lesion/reconstruction/flap. Past Anesthesia/Blood Transfusion Reactions: No Reported Reaction Smoking Status: Current every day smoker - Past Family History Father Additional Family Medical History / Comment(s): pt. states her father was an alcoholic and at a young age Mother Family Medical History: CVA/TIA Additional Family Medical History / Comment(s): Mother of a CVA in her 80s Medications and Allergies Home Medications Medication Instructions Recorded Confirmed Type Ezetimibe [Zetia] 10 mg PO DAILY 11/02/13 10/09/21 History Gabapentin [Neurontin] 600 mg PO TID 11/02/13 10/09/21 History clonazePAM [KlonoPIN] 1 mg PO HS 11/02/13 10/09/21 History HYDROcodone/APAP 10-325MG [[place] 1 tab PO QID 12/06/13 10/09/21 History 10-325] DULoxetine HCL [Cymbalta] 60 mg PO DAILY 06/06/18 10/09/21 History Apixaban [Eliquis] 5 mg PO BID #60 tab 06/09/18 10/09/21 Rx Losartan [Cozaar] 50 mg PO DAILY #30 tab 06/09/18 10/09/21 Rx Metoprolol Tartrate [Lopressor] 25 mg PO BID #60 tab 06/09/18 10/09/21 Rx clonazePAM 0.5 mg PO HS 01/05/19 10/09/21 History Atorvastatin [Lipitor] 80 mg PO DAILY 12/07/20 10/09/21 History Cholecalciferol (Vitamin D3) 125 mcg PO DAILY 12/07/20 10/09/21 History [Vitamin D3 (125 MCG = 5,000 IU)] Donepezil [Aricept] 5 mg PO DAILY 12/07/20 10/09/21 History Levothyroxine Sodium [Synthroid] 75 mcg PO DAILY 12/07/20 10/09/21 History Mirabegron [Myrbetriq] 50 mg PO DAILY 10/09/21 10/09/21 History Vitamin E (Dl,Tocopheryl Acet) 400 unit PO DAILY 10/09/21 10/09/21 History [Vitamin E (400 Iu = 180 mg)] Allergies Allergy/AdvReac Type Severity Reaction Status Date / Time No Known Allergies Allergy Verified 10/09/21 14:15 Physical Exam Vitals: Vital Signs Temp Pulse Resp BP Pulse Ox 10/09/21 15:48 96 18 112/59 99 10/09/21 13:00 92 19 113/56 98 10/09/21 12:20 73 16 94/67 99 10/09/21 11:07 97 F L 86 19 107/67 98 Intake and Output 10/09/21 10/09/21 10/09/21 06:59 14:59 22:59 Other: Weight 54.431 kg In general patient is alert and oriented x 3 in no distress HEENT head normocephalic and atraumatic Neck is supple no JVD no goiter no lymphadenopathy no carotid bruit Chest examination is clear to auscultation no crackles no wheezing Cardiac exam reveals regular heart sounds S1 and S2 no gallops no murmurs Abdomen is soft nontender no organomegaly with normal bowel sounds Extremity exam reveals no edema no cyanosis or clubbing Neurological examination reveals no gross focal deficits Results CBC & Chem 7: 10/09/21 11:40 10/09/21 11:40 Labs: Abnormal Lab Results - Last 24 Hours (Table) 10/09/21 10/09/21 10/09/21 Range/Units 11:40 11:40 11:40 WBC 12.5 H (3.8-10.6) k/uL Neutrophils # 10.1 H (1.3-7.7) k/uL Sodium 124 L (137-145) mmol/L Chloride 92 L (98-107) mmol/L Glucose 101 H (74-99) mg/dL Osmolality 258 L (280-301) mosm/kg Calcium 8.0 L (8.4-10.2) mg/dL Magnesium 1.5 L (1.6-2.3) mg/dL Total Protein 5.2 L (6.3-8.2) g/dL Albumin 3.2 L (3.5-5.0) g/dL Urine Ketones (Negative) 10/09/21 Range/Units 13:36 WBC (3.8-10.6) k/uL Neutrophils # (1.3-7.7) k/uL Sodium (137-145) mmol/L Chloride (98-107) mmol/L Glucose (74-99) mg/dL Osmolality (280-301) mosm/kg Calcium (8.4-10.2) mg/dL Magnesium (1.6-2.3) mg/dL Total Protein (6.3-8.2) g/dL Albumin (3.5-5.0) g/dL Urine Ketones 1+ H (Negative) Thrombosis Risk Factor Assmnt - Choose All That Apply Any of the Below Risk Factors Present?: Yes Other Risk Factors: Yes Each Risk Factor Represents 3 Points: Age 75 years or older Other congenital or acquired thrombophilia - If yes, enter type in comment: No Thrombosis Risk Factor Assessment Total Risk Factor Score: 3 Thrombosis Risk Factor Assessment Level: Moderate Risk Assessment and Plan Plan: Syncope with collapse Severe hyponatremia Underlying history of paroxysmal atrial fibrillation Underlying history of Alzheimer disease with advanced dementia Underlying history of hypertension Underlying history of hyperlipidemia Underlying history of depression with anxiety disorder Underlying history of peripheral neuropathy Continued tobacco use At this time patient is admitted to telemetry floor She was started on IV fluid and electrolyte correcting protocol Echocardiogram and carotid Doppler were ordered Home medications reviewed and the with Consultation for cardiology and nephrology was initiated Will follow in a.m.
[2021-10-09] MEDS: HYDROcodone/APAP 10-325MG 1 EACH TAB PO SCH ×2 (18:30→20:36)
--- NOTE | 2021-10-09 19:17 | US ---
EXAMINATION TYPE: US carotid duplex BILAT DATE OF EXAM: 10/09/2021 COMPARISON: NONE CLINICAL HISTORY: Syncope. Syncope TECHNIQUE: Carotid duplex ultrasound examination. Indirect Doppler criteria was utilized. FINDINGS: EXAM MEASUREMENTS: RIGHT: Peak Systolic Velocity (PSV) cm/sec ----- Right CCA: 52.8 ----- Right ICA: 86.6 ----- Right ECA: 159.5 ICA/CCA ratio: 1.6 RIGHT: End Diastole cm/sec ----- Right CCA: 0.0 ----- Right ICA: 16.7 ----- Right ECA: 7.7 LEFT: Peak Systolic Velocity (PSV) cm/sec ----- Left CCA: 59.2 ----- Left ICA: 56.6 ----- Left ECA: 106.0 ICA/CCA ratio: 1.0 LEFT: End Diastole cm/sec ----- Left CCA: 18.2 ----- Left ICA: 11.3 ----- Left ECA: 6.3 VERTEBRALS (direction of flow): Right Vertebral: Antegrade Left Vertebral: Antegrade Rhythm: Arrhythmia Plaque seen in bilateral bulbs. IMPRESSION: No hemodynamically significant stenosis of the bilateral ICAs. Criteria for Assigning % of Stenosis / Diameter reduction (Estimation based on the indirect measurements of the internal carotid artery velocities (ICA PSV). 1. Normal (no stenosis)=ICA PSV < 125 cm/s: ratio < 2.0: ICA EDV<40 cm/s. 2. Less than 50% stenosis=ICA PSV < 125 cm/s: ratio < 2.0: ICA EDV<40 cm/s. 3. 50 to 69% stenosis=ICA PSV of 125 to 230 cm/s: ration 2.0 ? 4.0: ICA EDV 40-100 cm/s. 4. Greater than 70% stenosis to near occlusion= ICA PSV > 230 cm/s: ratio > 4.0: ICA EDV > 100 cm/s. 5. Near occlusion= ICA PSV velocities may be low or undetectable: variable ratio and ICA EDV. 6. Total occlusion=unable to detect flow.
[2021-10-09] MEDS: clonazePAM 1 MG TAB PO SCH (20:36)
[2021-10-09] MEDS: clonazePAM 0.5 MG TAB PO SCH (20:36)
[2021-10-09] MEDS: METOPROLOL TARTRATE 25 MG TAB PO SCH (20:36)
[2021-10-09] MEDS: GABAPENTIN 300 MG CAP PO SCH (20:36)
[2021-10-09] MEDS: NICOTINE 14MG/24HR PATCH TRANSDERM SCH (20:37)
[2021-10-09] MEDS ORDERED: APIXABAN 5 MG TAB PO SCH (21:00)
[2021-10-09 22:25] LABS: Glucose,Whole Blood 135 mg/dL (70-110)
[2021-10-09] MEDS ORDERED: SODIUM CHLORIDE 0.9% 500 ML 500 ML IV ONE (23:12)
--- NOTE | 2021-10-09 23:43 | CT ---
EXAMINATION TYPE: CT brain wo con DATE OF EXAM: 10/09/2021 COMPARISON: Today HISTORY: Patient fall, hit head CT DLP: 1184.4 mGycm Automated exposure control for dose reduction was used. Images of the brain obtained without contrast. There is moderate cerebral cortical atrophy. There is no mass effect or midline shift or intracranial hemorrhage. The calvarium is intact. The skull base is intact. IMPRESSION: Negative unenhanced head CT scan. Cerebral atrophy. No change compared to old exam.
[2021-10-10] MEDS: LEVOTHYROXINE 75 MCG TAB PO SCH (05:52)
[2021-10-10 08:06] LABS: Basophils % (A) 0 %; Eosinophils # (A) 0.1 k/uL (0-0.7); Eosinophils % (A) 1 %; HCT 30.1 % (34.0-46.0); Lymphocytes % (A) 25 %; MCH 31.6 pg (25.0-35.0); MCHC 33.2 g/dL (31.0-37.0); MCV 95.2 fL (80.0-100.0); Mean Platelet Volume 7.3; Monocytes # (A) 0.6 k/uL (0-1.0); Monocytes % (A) 5 %; Neutrophils # (A) 8.3 k/uL (1.3-7.7); Neutrophils % (A) 68 %; Platelet Count 230 k/uL (150-450); RBC 3.17 m/uL (3.80-5.40); RDW 12.7 % (11.5-15.5); WBC 12.2 k/uL (3.8-10.6)
[2021-10-10 08:17] LABS: ALT 17 U/L (4-34); AST 22 U/L (14-36); African American GFR (CKD) >90 (>60 ml/min/1.73 sqM); Albumin 3.4 g/dL (3.5-5.0); Alkaline Phosphatase 69 U/L (38-126); Anion Gap 8 mmol/L; Blood Urea Nitrogen 7 mg/dL (7-17); Calcium 7.9 mg/dL (8.4-10.2); Carbon Dioxide 24 mmol/L (22-30); Chloride 98 mmol/L (98-107); Glucose 93 mg/dL (74-99); Magnesium 1.9 mg/dL (1.6-2.3); Non-African American GFR(CKD) 86 (>60 ml/min/1.73 sqM); Sodium 130 mmol/L (137-145); Total Bilirubin 0.7 mg/dL (0.2-1.3); Total Protein 5.3 g/dL (6.3-8.2)
[2021-10-10] MEDS ORDERED: LOSARTAN 50 MG TAB PO SCH (09:00)
[2021-10-10] MEDS: NICOTINE 14MG/24HR PATCH TRANSDERM SCH (09:04)
[2021-10-10] MEDS: HYDROcodone/APAP 10-325MG 1 EACH TAB PO SCH ×4 (09:04→21:18)
[2021-10-10] MEDS: DULoxetine HCL 60 MG CAPSULE.DR PO SCH (09:04)
[2021-10-10] MEDS: CHOLECALCIFEROL 125 MCG (5000 IU) TABLET PO SCH (09:04)
[2021-10-10] MEDS: EZETIMIBE 10 MG TAB PO SCH (09:04)
[2021-10-10] MEDS: DONEPEZIL 5 MG TAB PO SCH (09:05)
[2021-10-10] MEDS: SODIUM CHLORIDE 0.9% 1,000 ML IV SCH ×2 (09:05→15:47)
[2021-10-10] MEDS: ATORVASTATIN 80 MG TAB PO SCH (09:05)
[2021-10-10] MEDS: VITAMIN E (DL,TOCOPHERYL ACET) 400 UNIT (180 MG) CAP PO SCH (09:05)
[2021-10-10] MEDS: NON FORMULARY DRUG (Mirabegron [Myrbetriq] 50 MG Tab.Er.24h) PO SCH (09:05)
[2021-10-10] MEDS: METOPROLOL TARTRATE 25 MG TAB PO SCH ×2 (09:05→21:21)
[2021-10-10] MEDS: GABAPENTIN 300 MG CAP PO SCH ×3 (09:05→21:18)
--- NOTE | 2021-10-10 09:22 | CA ---
Transthoracic Echo Report Name: Jeannette Tran Age: 85 Gender: F : 1935 Exam Date: 10/10/2021 07:55 Exam Location: [place] [facility] Ht (in): 63 Wt (lb): 120 Ordering Physician: Lynda Parks Attending/Referring Phys: [id number], Kasey Finisher Hand Mariam Coffman, MARLEN Procedure CPT: Indications: LV function Cardiac Hx: Technical Quality: Good Contrast 1: Total Dose (mL): Contrast 2: Total Dose (mL): MEASUREMENTS (Male / Female) Normal Values 2D ECHO LV Diastolic Diameter PLAX 4.2 cm 4.2 - 5.9 / 3.9 - 5.3 cm LV Systolic Diameter PLAX 2.6 cm IVS Diastolic Thickness 1.1 cm 0.6 - 1.0 / 0.6 - 0.9 cm LVPW Diastolic Thickness 1.2 cm 0.6 - 1.0 / 0.6 - 0.9 cm LV Relative Wall Thickness 0.6 RV Internal Dim ED PLAX 3.1 cm LA Systolic Diameter LX 3.8 cm 3.0 - 4.0 / 2.7 - 3.8 cm LA Volume 50.9 cm??? 18 - 58 / 22 - 52 cm??? M-MODE Aortic Root Diameter MM 2.9 cm MV E Point Septal Separation 0.6 cm AV Cusp Separation MM 1.9 cm DOPPLER AV Peak Velocity 156.8 cm/s AV Peak Gradient 9.8 mmHg AV Mean Velocity 76.2 cm/s AV Mean Gradient 5.2 mmHg AV Velocity Time Integral 20.9 cm AI Peak Velocity 398.7 cm/s AI Peak Gradient 63.6 mmHg AI Pressure Half Time 587.0 ms MV Area PHT 3.7 cm??? MV Deceleration Time 249.4 ms TR Peak Velocity 280.5 cm/s TR Peak Gradient 31.5 mmHg Right Ventricular Systolic Press 35.3 mmHg FINDINGS Left Ventricle Left ventricular ejection fraction is estimated at 60-65 %. Left ventricular cavity size normal. Borderline left ventricular hypertrophy. Right Ventricle Normal right ventricular size and function. Mild pulmonary hypertension. Right Atrium Normal right atrial size. Left Atrium Normal left atrial size. No evidence for an atrial septal defect. Mitral Valve Structurally normal mitral valve. Trace mitral regurgitation. Aortic Valve Trileaflet aortic valve. No aortic stenosis. [id number] aortic regurgitation. Tricuspid Valve Mild tricuspid regurgitation. Pulmonic Valve Trace pulmonic regurgitation. Pericardium Normal pericardium. No pericardial effusion. Aorta Normal size aortic root and proximal ascending aorta. CONCLUSIONS Left ventricular systolic function is normal Mild left atrial enlargement Mild to moderate aortic regurgitation Previewed by: Dr. Ray White MD (Electronically Signed) Final Date: 10 October 2021 09:21
--- NOTE | 2021-10-10 12:39 | P.PN ---
Subjective Progress Note Date: 10/10/21 HISTORY OF PRESENT ILLNESS: This is a 85-year-old female with a past medical history significant for persistent atrial fibrillation, COPD, hypertension, hyperlipidemia, and dementia. Patient follows in the office with Dr. Silva. We have been asked to see the patient in consultation for syncope. Patient examined at the bedside. Patient is somewhat confused at the time of examination. Her is at the bedside and providing the majority of the HPI. He reports that the patient has been falling 15-20 times over the past 4 days. He reports the patient is weak and debilitated. He states the patient does not lose consciousness during these episodes. The patient currently denies chest pain or pressure. She denies shortness of breath. Denies dizziness or lightheadedness. * EKG reveals atrial fibrillation with controlled ventricular rate * Chest xray negative for acute process. Correlate for COPD. * Laboratory data: WBC 12.5. Hemoglobin 12.5. Platelet count 234. Sodium 124. Potassium 4.3. BUN 10. Creatinine 0.61. Magnesium 1.5. Troponin negative 1. * Current home cardiac medications include metoprolol tartrate 25 mg twice a day, losartan 50 mg daily, Lipitor 80 mg daily, and Eliquis 5 mg twice a day * Most recent echocardiogram obtained in 2019 revealed ejection fraction 55%, [id number] mitral regurgitation, mild tricuspid regurgitation. 10/10/2021 Patient examined this morning at the bedside. Patient denies chest pain or pressure. She denies shortness of breath. Patient remains confused. Patient fell last night eating out of bed. Her Eliquis has been placed on hold. Telemetry reveals atrial fibrillation with controlled ventricular rate. Blood pressures are on the lower side. Echocardiogram obtained reveals ejection fraction 60-65%, [id number] aortic regurgitation, trace mitral regurgitation, mild pulmonary hypertension. PHYSICAL EXAM: VITAL SIGNS: Reviewed. GENERAL: Well-developed in no acute distress. HEENT: Head is normocephalic. Pupils are equal, round. Sclerae anicteric. Mucous membranes of the mouth are moist. Neck supple. No JVD or thyromegaly LUNGS: Respirations even and unlabored. Lungs essentially clear to auscultation bilaterally. HEART: Irregular rate and rhythm. S1 and S2 heard. ABDOMEN: Soft. Nondistended. Nontender. EXTREMITIES: Normal range of motion. No clubbing or cyanosis. Peripheral pulses intact. No lower extremity edema NEUROLOGIC: Awake and alert. Oriented x 1-2. ASSESSMENT: Status post multiple falls, appear to be mechanical in nature without evidence of syncopal Hyponatremia Persistent atrial fibrillation COPD Hypertension Hyperlipidemia Dementia PLAN: Decrease losartan to 25 mg Eliquis has been placed on hold secondary to frequent falls Further recommendations pending patient's course Nurse practitioner note has been reviewed by physician. Signing provider agrees with the documented findings, assessment, and plan of care. Objective - Vital Signs Vital signs: Vital Signs Temp 98.8 F 10/10/21 09:02 Pulse 65 10/10/21 11:33 Resp 16 10/10/21 11:33 BP 96/64 10/10/21 11:33 Pulse Ox 97 10/10/21 11:33 FiO2 Intake & Output 10/09/21 10/10/21 10/10/21 18:59 06:59 18:59 Intake Total 270 10 180 Balance 270 10 180 Weight 54.431 kg Intake: IV 10 10 Invasive Line 1 10 10 Oral 260 180 Other: Voiding Method Toilet Diaper Toilet Diaper Incontinent Diaper Incontinent Incontinent # Voids 1 2 # Bowel Movements 1 - Labs CBC & Chem 7: 10/10/21 07:16 10/10/21 07:16 Labs: Abnormal Lab Results - Last 24 Hours (Table) 10/09/21 10/09/21 10/09/21 Range/Units 11:40 13:36 13:36 WBC (3.8-10.6) k/uL RBC (3.80-5.40) m/uL Hgb (11.4-16.0) gm/dL Hct (34.0-46.0) % Neutrophils # (1.3-7.7) k/uL Sodium (137-145) mmol/L POC Glucose (mg/dL) (70-110) mg/dL Osmolality 258 L (280-301) mosm/kg Calcium (8.4-10.2) mg/dL Total Protein (6.3-8.2) g/dL Albumin (3.5-5.0) g/dL Urine Ketones 1+ H (Negative) Ur Random Sodium <20 L (40-220) mmol/L 10/09/21 10/10/21 10/10/21 Range/Units 22:24 07:16 07:16 WBC 12.2 H (3.8-10.6) k/uL RBC 3.17 L (3.80-5.40) m/uL Hgb 10.0 L D (11.4-16.0) gm/dL Hct 30.1 L (34.0-46.0) % Neutrophils # 8.3 H (1.3-7.7) k/uL Sodium 130 L (137-145) mmol/L POC Glucose (mg/dL) 135 H (70-110) mg/dL Osmolality (280-301) mosm/kg Calcium 7.9 L (8.4-10.2) mg/dL Total Protein 5.3 L (6.3-8.2) g/dL Albumin 3.4 L (3.5-5.0) g/dL Urine Ketones (Negative) Ur Random Sodium (40-220) mmol/L
--- NOTE | 2021-10-10 14:46 | P.NPCON ---
History of Present Illness - Reason for Consult Consult date: 10/10/21 hyponatremia - Chief Complaint Fall - History of Present Illness Admitted with falls. History of chronic hyponatremia, admitted with a sodium of 124. Denies nausea vomiting diarrhea. Low normal blood pressures. She takes Cozaar at home. Not on diuretics, no antipsychotics or antidepressant use. Denies history of malignancy. Admission serum sodium was 124 improved to 1:30 with IV fluids. Review of Systems Constitutional: Reports as per HPI Past Medical History Past Medical History: Atrial Fibrillation, Asthma, Dementia, GERD/Reflux, Hyperlipidemia, Hypertension, Memory Impairment, Osteoarthritis (OA), Thyroid Disorder Additional Past Medical History / Comment(s): FALLS, vertigo, hyponatremia, anemia, chronic back pain, DDD, past small bowel ileus, hemorrhoids, seasonal allergies, hypothyroid History of Any Multi-Drug Resistant Organisms: None Reported Past Surgical History: Cholecystectomy, Ear Surgery, Hysterectomy Additional Past Surgical History / Comment(s): D&C, colonoscopy, EGD, pain clinic procedures, L ear myringotomy/tube, R nasolabial fold excision of lesion/reconstruction/flap. Past Anesthesia/Blood Transfusion Reactions: No Reported Reaction Smoking Status: Current every day smoker - Past Family History Father Additional Family Medical History / Comment(s): pt. states her father was an alcoholic and at a young age Mother Family Medical History: CVA/TIA Additional Family Medical History / Comment(s): Mother of a CVA in her 80s Medications and Allergies Home Medications Medication Instructions Recorded Confirmed Type Ezetimibe [Zetia] 10 mg PO DAILY 11/02/13 10/09/21 History Gabapentin [Neurontin] 600 mg PO TID 11/02/13 10/09/21 History clonazePAM [KlonoPIN] 1 mg PO HS 11/02/13 10/09/21 History HYDROcodone/APAP 10-325MG [[place] 1 tab PO QID 12/06/13 10/09/21 History 10-325] DULoxetine HCL [Cymbalta] 60 mg PO DAILY 06/06/18 10/09/21 History Apixaban [Eliquis] 5 mg PO BID #60 tab 06/09/18 10/09/21 Rx Losartan [Cozaar] 50 mg PO DAILY #30 tab 06/09/18 10/09/21 Rx Metoprolol Tartrate [Lopressor] 25 mg PO BID #60 tab 06/09/18 10/09/21 Rx clonazePAM 0.5 mg PO HS 01/05/19 10/09/21 History Atorvastatin [Lipitor] 80 mg PO DAILY 12/07/20 10/09/21 History Cholecalciferol (Vitamin D3) 125 mcg PO DAILY 12/07/20 10/09/21 History [Vitamin D3 (125 MCG = 5,000 IU)] Donepezil [Aricept] 5 mg PO DAILY 12/07/20 10/09/21 History Levothyroxine Sodium [Synthroid] 75 mcg PO DAILY 12/07/20 10/09/21 History Mirabegron [Myrbetriq] 50 mg PO DAILY 10/09/21 10/09/21 History Vitamin E (Dl,Tocopheryl Acet) 400 unit PO DAILY 10/09/21 10/09/21 History [Vitamin E (400 Iu = 180 mg)] Allergies Allergy/AdvReac Type Severity Reaction Status Date / Time No Known Allergies Allergy Verified 10/09/21 14:15 Physical Exam Vitals: Vital Signs Temp Pulse Pulse Resp BP BP Pulse Ox 10/10/21 13:34 65 10/10/21 11:33 65 16 96/64 97 10/10/21 09:02 98.8 F 70 16 105/67 97 10/10/21 03:36 97.9 F 68 17 101/52 100 10/09/21 22:15 98.1 F 77 15 91/54 100 10/09/21 19:41 98.7 F 100 17 93/51 97 10/09/21 17:47 98.7 F 110 H 18 98/58 98 10/09/21 15:48 96 18 112/59 99 Intake and Output 10/09/21 10/10/21 10/10/21 22:59 06:59 14:59 Intake Total 280 510 Output Total 150 Balance 280 360 Intake: IV 20 Invasive Line 1 20 Oral 260 510 Output: Urine 150 Other: Voiding Method Toilet Diaper Toilet Diaper Incontinent Incontinent # Voids 1 2 # Bowel Movements 1 No acute distress S1-S2 heard Lungs clear No edema Results - Lab Results Most recent lab results Calcium 7.9 mg/dL (8.4-10.2) L 10/10/21 07:16 Magnesium 1.9 mg/dL (1.6-2.3) 10/10/21 07:16 10/10/21 07:16 10/10/21 07:16 Assessment and Plan Assessment: #1 acute on chronic hypotonic hyponatremia. 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 #2 recurrent falls multifactorial medications/hyponatremia. #3 hypotensive episodes #4 normal renal function Plan: #1 continue with normal saline at 75 ML's an hour. #2 stop Cozaar #3 daily renal labs
--- NOTE | 2021-10-10 15:26 | P.PN ---
Subjective Progress Note Date: 10/10/21 Jeannette Tran, is an 85-year-old female who presented to [facility] emergency room with the chief complaints of multiple falls, with at least 1 syncopal episode She was evaluated in the emergency room vital examination on presentation revealed a temperature of 97 pulse 86 respiration 19 blood pressure 107/67 pulse ox 98% on room air Laboratory data reveals a white blood count of 12.5 hemoglobin 12.5 platelet count 234 sodium 124 potassium 4.3 chloride 92 BUN 10 creatinine 0.6 Testing in the emergency room revealed EKG revealed evidence of atrial fibrillation with controlled ventricular response, chest x-ray revealed no acute process possible COPD, pelvic x-ray did not reveal any evidence of fracture, computed tomography scan of the brain and neck did not reveal any evidence of osseous abnormality, no evidence of intracranial bleeding Patient was admitted to medical floor for further evaluation and treatment On 10/10/2021 patient was seen and examined on the telemetry floor she is alert and oriented 3 in no apparent distress she stated that she feels better she is less weak and dizzy, sodium is up to 130 hemoglobin is down to 10.0, white blood count is still elevated at 12.2 clinically patient denies any symptoms at this time there is no fever or chills no headache or dizziness no chest pain no shortness of breath no cough no nausea or vomiting no abdominal pain no diarrhea and no urinary symptoms, at this time will check stools for Hemoccult, check iron vitamin B12 and folate level, continue workup for hyponatremia, continue to monitor blood pressure, will follow in a.m. Objective - Vital Signs Vital signs: Vital Signs Temp 98.8 F 10/10/21 09:02 Pulse 70 10/10/21 09:02 Resp 16 10/10/21 09:02 BP 105/67 10/10/21 09:02 Pulse Ox 97 10/10/21 09:02 FiO2 Intake & Output 10/09/21 10/10/21 10/10/21 18:59 06:59 18:59 Intake Total 270 10 180 Balance 270 10 180 Weight 54.431 kg Intake: IV 10 10 Invasive Line 1 10 10 Oral 260 180 Other: Voiding Method Toilet Diaper Toilet Diaper Incontinent Diaper Incontinent Incontinent # Voids 1 - Exam In general patient is alert and oriented x 3 in no distress HEENT head normocephalic and atraumatic Neck is supple no JVD no goiter no lymphadenopathy no carotid bruit Chest examination is clear to auscultation no crackles no wheezing Cardiac exam reveals regular heart sounds S1 and S2 no gallops no murmurs Abdomen is soft nontender no organomegaly with normal bowel sounds Extremity exam reveals no edema no cyanosis or clubbing Neurological examination reveals no gross focal deficits - Labs CBC & Chem 7: 10/10/21 07:16 10/10/21 07:16 Labs: Abnormal Lab Results - Last 24 Hours (Table) 10/09/21 10/09/21 10/09/21 Range/Units 11:40 11:40 11:40 WBC 12.5 H (3.8-10.6) k/uL RBC (3.80-5.40) m/uL Hgb (11.4-16.0) gm/dL Hct (34.0-46.0) % Neutrophils # 10.1 H (1.3-7.7) k/uL Sodium 124 L (137-145) mmol/L Chloride 92 L (98-107) mmol/L Glucose 101 H (74-99) mg/dL POC Glucose (mg/dL) (70-110) mg/dL Osmolality 258 L (280-301) mosm/kg Calcium 8.0 L (8.4-10.2) mg/dL Magnesium 1.5 L (1.6-2.3) mg/dL Total Protein 5.2 L (6.3-8.2) g/dL Albumin 3.2 L (3.5-5.0) g/dL Urine Ketones (Negative) Ur Random Sodium (40-220) mmol/L 10/09/21 10/09/21 10/09/21 Range/Units 13:36 13:36 22:24 WBC (3.8-10.6) k/uL RBC (3.80-5.40) m/uL Hgb (11.4-16.0) gm/dL Hct (34.0-46.0) % Neutrophils # (1.3-7.7) k/uL Sodium (137-145) mmol/L Chloride (98-107) mmol/L Glucose (74-99) mg/dL POC Glucose (mg/dL) 135 H (70-110) mg/dL Osmolality (280-301) mosm/kg Calcium (8.4-10.2) mg/dL Magnesium (1.6-2.3) mg/dL Total Protein (6.3-8.2) g/dL Albumin (3.5-5.0) g/dL Urine Ketones 1+ H (Negative) Ur Random Sodium <20 L (40-220) mmol/L 10/10/21 10/10/21 Range/Units 07:16 07:16 WBC 12.2 H (3.8-10.6) k/uL RBC 3.17 L (3.80-5.40) m/uL Hgb 10.0 L D (11.4-16.0) gm/dL Hct 30.1 L (34.0-46.0) % Neutrophils # 8.3 H (1.3-7.7) k/uL Sodium 130 L (137-145) mmol/L Chloride (98-107) mmol/L Glucose (74-99) mg/dL POC Glucose (mg/dL) (70-110) mg/dL Osmolality (280-301) mosm/kg Calcium 7.9 L (8.4-10.2) mg/dL Magnesium (1.6-2.3) mg/dL Total Protein 5.3 L (6.3-8.2) g/dL Albumin 3.4 L (3.5-5.0) g/dL Urine Ketones (Negative) Ur Random Sodium (40-220) mmol/L Assessment and Plan Plan: Syncope with collapse Severe hyponatremia Underlying history of paroxysmal atrial fibrillation Underlying history of Alzheimer disease with advanced dementia Underlying history of hypertension Underlying history of hyperlipidemia Underlying history of depression with anxiety disorder Underlying history of peripheral neuropathy Continued tobacco use At this time patient is admitted to telemetry floor She was started on IV fluid and electrolyte correcting protocol Echocardiogram and carotid Doppler were ordered Home medications reviewed and the with Consultation for cardiology and nephrology was initiated Will follow in a.m.
[2021-10-10] MEDS ORDERED: HALOPERIDOL LACTATE 5 MG/ML 1 ML VIAL ONE (16:27)
[2021-10-10] MEDS: HALOPERIDOL LACTATE 5 MG/ML 1 ML VIAL IM PRN ×2 (16:29→22:43)
[2021-10-10 18:30] LABS: % Iron Saturation 12.66 (12.00-45.00)
[2021-10-10] MEDS: clonazePAM 0.5 MG TAB PO SCH (21:18)
[2021-10-10] MEDS: clonazePAM 1 MG TAB PO SCH (21:18)
[2021-10-10 22:36] LABS: Appearance,Urine Clear (Clear); Bilirubin,Urine Negative (Negative); Blood,Urine Negative (Negative); Color,Urine Colorless; Glucose,Urine (UA) Negative (Negative); Ketones,Urine Negative (Negative); Leukocyte Esterase,Urine Negative (Negative); Nitrite,Urine Negative (Negative); Protein,Urine Negative (Negative); Specific Gravity,Urine 1.003 (1.001-1.035); Urobilinogen,Urine <2.0 mg/dL (<2.0)
[2021-10-11] MEDS: HALOPERIDOL LACTATE 5 MG/ML 1 ML VIAL IM PRN ×2 (02:29→18:04)
[2021-10-11] MEDS: SODIUM CHLORIDE 0.9% 1,000 ML IV SCH ×2 (02:30→09:19)
[2021-10-11] MEDS: LEVOTHYROXINE 75 MCG TAB PO SCH (06:02)
[2021-10-11] MEDS ORDERED: LOSARTAN 25 MG TAB PO SCH (09:00)
[2021-10-11 09:06] LABS: Basophils % (A) 0 %; Eosinophils # (A) 0.1 k/uL (0-0.7); Eosinophils % (A) 1 %; HGB 8.8 gm/dL (11.4-16.0); Lymphocytes % (A) 32 %; MCH 31.4 pg (25.0-35.0); MCHC 32.6 g/dL (31.0-37.0); MCV 96.4 fL (80.0-100.0); Mean Platelet Volume 7.2; Monocytes # (A) 0.4 k/uL (0-1.0); Monocytes % (A) 3 %; Neutrophils # (A) 7.7 k/uL (1.3-7.7); Neutrophils % (A) 63 %; Platelet Count 218 k/uL (150-450); RBC 2.81 m/uL (3.80-5.40); RDW 13.1 % (11.5-15.5); WBC 12.3 k/uL (3.8-10.6)
[2021-10-11] MEDS: NON FORMULARY DRUG (Mirabegron [Myrbetriq] 50 MG Tab.Er.24h) PO SCH (09:13)
[2021-10-11] MEDS: CHOLECALCIFEROL 125 MCG (5000 IU) TABLET PO SCH (09:18)
[2021-10-11] MEDS: METOPROLOL TARTRATE 25 MG TAB PO SCH ×2 (09:18→21:12)
[2021-10-11] MEDS: EZETIMIBE 10 MG TAB PO SCH (09:18)
[2021-10-11] MEDS: GABAPENTIN 300 MG CAP PO SCH ×3 (09:18→21:12)
[2021-10-11] MEDS: HYDROcodone/APAP 10-325MG 1 EACH TAB PO SCH ×4 (09:18→21:11)
[2021-10-11] MEDS: VITAMIN E (DL,TOCOPHERYL ACET) 400 UNIT (180 MG) CAP PO SCH (09:18)
[2021-10-11] MEDS: DULoxetine HCL 60 MG CAPSULE.DR PO SCH (09:18)
[2021-10-11] MEDS: ATORVASTATIN 80 MG TAB PO SCH (09:19)
[2021-10-11] MEDS: NICOTINE 14MG/24HR PATCH TRANSDERM SCH (09:19)
[2021-10-11 09:33] LABS: ALT 19 U/L (4-34); AST 31 U/L (14-36); African American GFR (CKD) >90 (>60 ml/min/1.73 sqM); Albumin 3.4 g/dL (3.5-5.0); Alkaline Phosphatase 77 U/L (38-126); Anion Gap 7 mmol/L; Blood Urea Nitrogen 3 mg/dL (7-17); Carbon Dioxide 24 mmol/L (22-30); Chloride 101 mmol/L (98-107); Glucose 102 mg/dL (74-99); Non-African American GFR(CKD) 89 (>60 ml/min/1.73 sqM); Potassium 3.7 mmol/L (3.5-5.1); Sodium 132 mmol/L (137-145); Total Bilirubin 0.8 mg/dL (0.2-1.3); Total Protein 5.5 g/dL (6.3-8.2); Uric Acid 2.6 mg/dL (3.7-7.4)
[2021-10-11] MEDS: DONEPEZIL 5 MG TAB PO SCH (10:55)
--- NOTE | 2021-10-11 13:39 | P.PN ---
Subjective Progress Note Date: 10/11/21 Jeannette Tran, is an 85-year-old female who presented to [facility] emergency room with the chief complaints of multiple falls, with at least 1 syncopal episode She was evaluated in the emergency room vital examination on presentation revealed a temperature of 97 pulse 86 respiration 19 blood pressure 107/67 pulse ox 98% on room air Laboratory data reveals a white blood count of 12.5 hemoglobin 12.5 platelet count 234 sodium 124 potassium 4.3 chloride 92 BUN 10 creatinine 0.6 Testing in the emergency room revealed EKG revealed evidence of atrial fibrillation with controlled ventricular response, chest x-ray revealed no acute process possible COPD, pelvic x-ray did not reveal any evidence of fracture, computed tomography scan of the brain and neck did not reveal any evidence of osseous abnormality, no evidence of intracranial bleeding Patient was admitted to medical floor for further evaluation and treatment On 10/10/2021 patient was seen and examined on the telemetry floor she is alert and oriented 3 in no apparent distress she stated that she feels better she is less weak and dizzy, sodium is up to 130 hemoglobin is down to 10.0, white blood count is still elevated at 12.2 clinically patient denies any symptoms at this time there is no fever or chills no headache or dizziness no chest pain no shortness of breath no cough no nausea or vomiting no abdominal pain no diarrhea and no urinary symptoms, at this time will check stools for Hemoccult, check iron vitamin B12 and folate level, continue workup for hyponatremia, continue to monitor blood pressure, will follow in a.m. On 10/11/2021 patient was seen and examined on the telemetry floor she is alert and oriented 3 in no apparent distress, sodium is up to 132 hemoglobin is down to 10.0, white blood count is still elevated at 12.2 clinically patient denies any symptoms at this time there is no fever or chills no headache or dizziness no chest pain no shortness of breath no cough no nausea or vomiting no abdominal pain no diarrhea and no urinary symptoms, at this time will check stools for Hemoccult, check iron vitamin B12 and folate level, continue workup for hyponatremia, continue to monitor blood pressure, patient had episodes of severe agitation last night she received IM Haldol without improvement she received IV Risperdal consultation for psychiatry and neurology were initiated medications reviewed continue was current regimen will follow in a.m. Objective - Vital Signs Vital signs: Vital Signs Temp 98.2 F 10/11/21 09:09 Pulse 57 L 10/11/21 11:10 Resp 20 10/11/21 11:10 BP 120/67 10/11/21 11:10 Pulse Ox 97 10/11/21 11:10 FiO2 Intake & Output 10/10/21 10/11/21 10/11/21 18:59 06:59 18:59 Intake Total 1110 240 Output Total 150 400 Balance 960 -160 Intake: Oral 1110 240 Output: Urine 150 400 Other: Voiding Method Toilet Toilet Toilet Bedpan # Voids 2 # Bowel Movements 1 - Exam In general patient is alert and oriented x 3 in no distress HEENT head normocephalic and atraumatic Neck is supple no JVD no goiter no lymphadenopathy no carotid bruit Chest examination is clear to auscultation no crackles no wheezing Cardiac exam reveals regular heart sounds S1 and S2 no gallops no murmurs Abdomen is soft nontender no organomegaly with normal bowel sounds Extremity exam reveals no edema no cyanosis or clubbing Neurological examination reveals no gross focal deficits - Labs CBC & Chem 7: 10/11/21 08:50 10/11/21 08:50 Labs: Abnormal Lab Results - Last 24 Hours (Table) 10/10/21 10/11/21 10/11/21 Range/Units 07:16 08:50 08:50 WBC 12.3 H (3.8-10.6) k/uL RBC 2.81 L (3.80-5.40) m/uL Hgb 8.8 L (11.4-16.0) gm/dL Hct 27.0 L (34.0-46.0) % Sodium 132 L (137-145) mmol/L BUN 3 L (7-17) mg/dL Creatinine 0.50 L (0.52-1.04) mg/dL Glucose 102 H (74-99) mg/dL Osmolality 273 L (280-301) mosm/kg Uric Acid 2.6 L (3.7-7.4) mg/dL Calcium 8.0 L (8.4-10.2) mg/dL Iron 36 L (50-170) ug/dL Transferrin 202.0 L (204.0-354.0) mg/dL Total Protein 5.5 L (6.3-8.2) g/dL Albumin 3.4 L (3.5-5.0) g/dL Assessment and Plan Plan: Syncope with collapse Severe hyponatremia Underlying history of paroxysmal atrial fibrillation Underlying history of Alzheimer disease with advanced dementia Underlying history of hypertension Underlying history of hyperlipidemia Underlying history of depression with anxiety disorder Underlying history of peripheral neuropathy Continued tobacco use At this time patient is admitted to telemetry floor She was started on IV fluid and electrolyte correcting protocol Echocardiogram and carotid Doppler were ordered Home medications reviewed and the with Consultation for cardiology and nephrology was initiated Will follow in a.m.
--- NOTE | 2021-10-11 13:41 | P.PN ---
Subjective Progress Note Date: 10/11/21 PROGRESS NOTE The patient is an 85-year-old female with known history of hypertension, hyperlipidemia, atrial fibrillation who has presented with change in mental status falling down and confusion. She continues to be in atrial fibrillation is controlled ventricular response. She denies any dizziness or palpitations. Her echocardiogram showed a preserved systolic function with [id number] aortic regurgitation and mild pulmonary hypertension. There is no evidence of significant bradycardia or tachycardia. Her blood pressure has been under good control. Medications: Metoprolol 25 mg twice a day, gabapentin, clonazepam, Lipitor 80 mg daily, Aricept, Zetia PHYSICAL EXAMINATION: Blood pressure 120/60 heart rate 60 LUNGS: Clear to auscultation HEART: Irregular rate and rhythm, S1, S2. No S3. systolic ejection murmur ABDOMEN: Soft, nontender, no organomegaly EXTREMETIES: No edema LAB: BUN 3, creatinine 0.5, hemoglobin 8.8 IMPRESSION: 1. Recurrent falls with no syncope 2. Chronic persistent atrial fibrillation, rate controlled, anticoagulation on hold because of the falls 3. Change in mental status was element of dementia 4. Anemia PLAN: 1. Continue present therapy 2. Physical therapy 3. Continue to hold anticoagulation 4. We will see her on as-needed basis, please feel free to call us for any questions. Objective - Vital Signs Vital signs: Vital Signs Temp 98.2 F 10/11/21 09:09 Pulse 57 L 10/11/21 13:28 Resp 20 10/11/21 11:10 BP 120/67 10/11/21 11:10 Pulse Ox 97 10/11/21 11:10 FiO2 Intake & Output 10/10/21 10/11/21 10/11/21 18:59 06:59 18:59 Intake Total 1110 240 Output Total 150 400 Balance 960 -160 Intake: Oral 1110 240 Output: Urine 150 400 Other: Voiding Method Toilet Toilet Toilet Bedpan # Voids 2 # Bowel Movements 1 - Labs CBC & Chem 7: 10/11/21 08:50 10/11/21 08:50 Labs: Abnormal Lab Results - Last 24 Hours (Table) 10/10/21 10/11/21 10/11/21 Range/Units 07:16 08:50 08:50 WBC 12.3 H (3.8-10.6) k/uL RBC 2.81 L (3.80-5.40) m/uL Hgb 8.8 L (11.4-16.0) gm/dL Hct 27.0 L (34.0-46.0) % Sodium 132 L (137-145) mmol/L BUN 3 L (7-17) mg/dL Creatinine 0.50 L (0.52-1.04) mg/dL Glucose 102 H (74-99) mg/dL Osmolality 273 L (280-301) mosm/kg Uric Acid 2.6 L (3.7-7.4) mg/dL Calcium 8.0 L (8.4-10.2) mg/dL Iron 36 L (50-170) ug/dL Transferrin 202.0 L (204.0-354.0) mg/dL Total Protein 5.5 L (6.3-8.2) g/dL Albumin 3.4 L (3.5-5.0) g/dL
--- NOTE | 2021-10-11 13:50 | P.PN ---
Subjective Progress Note Date: 10/11/21 Follow-up for hyponatremia. Family at bedside. Eating lunch. No nausea vomiting diarrhea. Objective - Vital Signs Vital signs: Vital Signs Temp 98.2 F 10/11/21 09:09 Pulse 57 L 10/11/21 13:28 Resp 20 10/11/21 11:10 BP 120/67 10/11/21 11:10 Pulse Ox 97 10/11/21 11:10 FiO2 Intake & Output 10/10/21 10/11/21 10/11/21 18:59 06:59 18:59 Intake Total 1110 240 Output Total 150 400 Balance 960 -160 Intake: Oral 1110 240 Output: Urine 150 400 Other: Voiding Method Toilet Toilet Toilet Bedpan # Voids 2 # Bowel Movements 1 - Exam No acute distress S1-S2 heard Lungs clear No edema - Labs CBC & Chem 7: 10/11/21 08:50 10/11/21 08:50 Labs: Abnormal Lab Results - Last 24 Hours (Table) 10/10/21 10/11/21 10/11/21 Range/Units 07:16 08:50 08:50 WBC 12.3 H (3.8-10.6) k/uL RBC 2.81 L (3.80-5.40) m/uL Hgb 8.8 L (11.4-16.0) gm/dL Hct 27.0 L (34.0-46.0) % Sodium 132 L (137-145) mmol/L BUN 3 L (7-17) mg/dL Creatinine 0.50 L (0.52-1.04) mg/dL Glucose 102 H (74-99) mg/dL Osmolality 273 L (280-301) mosm/kg Uric Acid 2.6 L (3.7-7.4) mg/dL Calcium 8.0 L (8.4-10.2) mg/dL Iron 36 L (50-170) ug/dL Transferrin 202.0 L (204.0-354.0) mg/dL Total Protein 5.5 L (6.3-8.2) g/dL Albumin 3.4 L (3.5-5.0) g/dL Assessment and Plan Assessment: #1 acute on chronic hypotonic hyponatremia. 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 #2 recurrent falls multifactorial medications/hyponatremia. #3 hypotensive episodes #4 normal renal function Plan: #1 stop IV fluids. Start salt tablets 1 g twice a day #2 renal function stable, sodium better. #3 continue to hold her Cozaar now and at discharge #4 stable from nephrology for discharge
[2021-10-11] MEDS: SODIUM CHLORIDE TAB 1 GM TAB PO SCH ×2 (14:52→21:12)
[2021-10-11] MEDS ORDERED: QUEtiapine 25 MG TAB PO SCH (16:00)
--- NOTE | 2021-10-11 17:52 | P.CN ---
Psychiatric Consult - . Consult date: 10/11/21 Consult:: IDENTIFYING DATA: This patient is an 85 year old female with history of dementia who was admitted due to hyponatremia and syncope. REASON FOR REFERRAL: Psychiatry was consulted for "suicidal, combative, uncooper ative" HISTORY OF PRESENT ILLNESS: The patient presented to the hospital "with the chief complaints of multiple falls, with at least 1 syncopal episode." She was found to have severe hyponatremia and was admitted to the medical floor. I evaluated patient this afternoon, and she was found asleep in bed in the dark with sitter and at bedside. Her daughter also joined. Jeannette is currently calm and attempts to cooperate. She was reported to be agitated, uncooperative and made suicidal statements last night, however today is has been calm, attempting to cooperate and denies SI. Family reports patient has not been agitated at home. Patient states her mood is "not too good" due to feeling weak and having pain from her recent fall. She is oriented to person and can identify that she is at a hospital although believes that she is in [place], [place]. She is oriented to month and year but incorrectly states the date is Wednesday. She denies suicidal or homicidal ideation. She denies auditory or visual hallucinations. She does not express paranoid delusions. He eventually gets off to sleep again. at bedside reports patient has been falling repeatedly at home. He reports her sleep-wake cycle is inverted and she is often asleep during the day and awake at night. She will stumble and fall when she gets up in the middle of the night to use the restroom. Daughter and also report concern for patient patient regularly having visual and auditory hallucinations at home for the past several months or more, believes people are trying to get into the house at night. They also agree patient has been displaying a pattern of sundowning at home. I reviewed the medication list in detail with and daughter. Their questions were answered. Nurse reports patient was agitated yesterday evening, and did not sleep most of the night. She was placed on the sitter and continues to be on a sitter at this time. So far today patient has not been agitated. I have reviewed her labs and all available head imaging. Her sodium level on admission was very low at 124, and her sodium has improved to [address] done on admission shows no acute intracranial process. Vitamin B12 and folate levels are within normal limits. WBC count remains elevated at around 12. PAST PSYCHIATRIC HISTORY: Patient has a a history of dementia, depression, and anxiety. Patient's home psychiatric medications include clonazepam 1.5 mg at bedtime, Cymbalta 60 mg daily, Neurontin 600 mg 3 times daily and Aricept 5 mg daily. No known suicide attempts. PAST MEDICAL HISTORY: Past Medical History: Atrial Fibrillation, Asthma, Dementia, GERD/Reflux, Hyperlipidemia, Hypertension, Memory Impairment, Osteoarthritis (OA), Thyroid Disorder Additional Past Medical History / Comment(s): FALLS, vertigo, hyponatremia, anemia, chronic back pain, DDD, past small bowel ileus, hemorrhoids, seasonal allergies, hypothyroid History of Any Multi-Drug Resistant Organisms: None Reported Past Surgical History: Cholecystectomy, Ear Surgery, Hysterectomy Additional Past Surgical History / Comment(s): D&C, colonoscopy, EGD, pain clinic procedures, L ear myringotomy/tube, R nasolabial fold excision of lesion/reconstruction/flap. Past Anesthesia/Blood Transfusion Reactions: No Reported Reaction Smoking Status: Current every day smoker ALLERGIES: as per EMR. CHEMICAL DEPENDENCY HISTORY: No known history of drug or alcohol abuse. Patient is a smoker per chart. FAMILY PSYCHIATRIC/SUBSTANCE USE HISTORY: Per chart father was an alcoholic and when she was young. SOCIAL HISTORY: She is and has a daughter. Lives with her . MENTAL STATUS EXAM: General Appearance: Patient appears to be stated age, is asleep and awakens briefly before returning to sleep. Adequate hygiene. Behavior: Patient is calmly lying in bed without any agitated behavior. Speech: Patient's speech is fluent and nonpressured. Mood/Affect: Patient reports their mood is "not too good", affect is congruent. Suicidality/Homicidality: Patient denies having any suicidal or homicidal ideation intent or plan. Perceptions: Patient denies any visual hallucinations and denies any auditory hallucinations; however family reports concern for hallucinations when at home. Though content/process: There is no evidence of any delusional thought content and thought process is linear. Memory and concentration: Drowsy, oriented to person, hospital, month and year, but not oriented to city or day. 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 -Patient DOES NOT have decision making capacity at this time and is unable to reason through and communicate/appreciate the risks, benefits and alternatives to treatment. -Delirium precautions recommended with patient including - avoiding use of narcotics and [employer] sedatives, limit anticholinergic medications when possible, frequent re-orientation, minimize use of restraints, open window shades during the day and close them at night. Discussed with family and nurse to keep lights on and shades up during the day and to engage patient to promote wakefulness during the day, and sleep at night. -Would recommend the following medication changes/additions: Decrease Klonopin from 1.5 mg QHS to 1 mg QHS for tonight with plan to continue tapering and discontinue as tolerated due to risk of falls and confusion. Decrease Cymbalta from 60 mg daily to 30 mg daily due to concern for SIADH. Will consider discontinuing Cymbalta and replacing with Remeron for depression and sleep. Start Seroquel 12.5 mg BID (before dinner and at bedtime) for psychosis and agitation related to dementia and sundowning. Avoid benzodiazepines for agitation. May use low dose Haldol 0.5 mg Q4H PRN for agitation. -Communicated plan to patient's nurse -Will continue to follow along. -Please contact with any questions. 10/11/21 15:46 10/11/21 17:18
[2021-10-11] MEDS: QUEtiapine 25 MG TAB PO SCH ×2 (17:57→21:12)
[2021-10-11] MEDS: clonazePAM 1 MG TAB PO SCH (21:12)
[2021-10-12 05:18] LABS: Basophils % (A) 0 %; Eosinophils # (A) 0.4 k/uL (0-0.7); Eosinophils % (A) 4 %; HCT 26.3 % (34.0-46.0); HGB 8.6 gm/dL (11.4-16.0); Lymphocytes # (A) 3.8 k/uL (1.0-4.8); Lymphocytes % (A) 42 %; MCH 31.8 pg (25.0-35.0); MCHC 32.8 g/dL (31.0-37.0); Mean Platelet Volume 7.9; Monocytes # (A) 0.4 k/uL (0-1.0); Monocytes % (A) 4 %; Neutrophils # (A) 4.3 k/uL (1.3-7.7); Neutrophils % (A) 48 %; Platelet Count 210 k/uL (150-450); RBC 2.72 m/uL (3.80-5.40); RDW 13.4 % (11.5-15.5)
[2021-10-12 05:59] LABS: ALT 15 U/L (4-34); AST 24 U/L (14-36); African American GFR (CKD) >90 (>60 ml/min/1.73 sqM); Albumin 2.8 g/dL (3.5-5.0); Alkaline Phosphatase 60 U/L (38-126); Anion Gap 5 mmol/L; Blood Urea Nitrogen 4 mg/dL (7-17); Calcium 7.8 mg/dL (8.4-10.2); Carbon Dioxide 24 mmol/L (22-30); Chloride 103 mmol/L (98-107); Glucose 92 mg/dL (74-99); Non-African American GFR(CKD) 85 (>60 ml/min/1.73 sqM); Sodium 132 mmol/L (137-145); Total Bilirubin 0.7 mg/dL (0.2-1.3); Total Protein 4.8 g/dL (6.3-8.2)
[2021-10-12] MEDS: LEVOTHYROXINE 75 MCG TAB PO SCH (06:31)
[2021-10-12] MEDS: NON FORMULARY DRUG (Mirabegron [Myrbetriq] 50 MG Tab.Er.24h) PO SCH (08:11)
[2021-10-12] MEDS: NICOTINE 14MG/24HR PATCH TRANSDERM SCH (08:36)
[2021-10-12] MEDS: DONEPEZIL 5 MG TAB PO SCH (08:37)
[2021-10-12] MEDS: SODIUM CHLORIDE TAB 1 GM TAB PO SCH ×2 (08:37→20:32)
[2021-10-12] MEDS: HYDROcodone/APAP 10-325MG 1 EACH TAB PO SCH ×4 (08:37→21:50)
[2021-10-12] MEDS: CHOLECALCIFEROL 125 MCG (5000 IU) TABLET PO SCH (08:37)
[2021-10-12] MEDS: VITAMIN E (DL,TOCOPHERYL ACET) 400 UNIT (180 MG) CAP PO SCH (08:37)
[2021-10-12] MEDS: ATORVASTATIN 80 MG TAB PO SCH (08:37)
[2021-10-12] MEDS: EZETIMIBE 10 MG TAB PO SCH (08:38)
[2021-10-12] MEDS: METOPROLOL TARTRATE 25 MG TAB PO SCH ×2 (08:38→20:31)
[2021-10-12] MEDS: GABAPENTIN 300 MG CAP PO SCH ×3 (08:38→20:32)
[2021-10-12] MEDS ORDERED: DULoxetine HCL 60 MG CAPSULE.DR PO SCH (09:00)
--- NOTE | 2021-10-12 10:49 | P.PN ---
Subjective Progress Note Date: 10/12/21 Jeannette Tran, is an 85-year-old female who presented to [facility] emergency room with the chief complaints of multiple falls, with at least 1 syncopal episode She was evaluated in the emergency room vital examination on presentation revealed a temperature of 97 pulse 86 respiration 19 blood pressure 107/67 pulse ox 98% on room air Laboratory data reveals a white blood count of 12.5 hemoglobin 12.5 platelet count 234 sodium 124 potassium 4.3 chloride 92 BUN 10 creatinine 0.6 Testing in the emergency room revealed EKG revealed evidence of atrial fibrillation with controlled ventricular response, chest x-ray revealed no acute process possible COPD, pelvic x-ray did not reveal any evidence of fracture, computed tomography scan of the brain and neck did not reveal any evidence of osseous abnormality, no evidence of intracranial bleeding Patient was admitted to medical floor for further evaluation and treatment On 10/10/2021 patient was seen and examined on the telemetry floor she is alert and oriented 3 in no apparent distress she stated that she feels better she is less weak and dizzy, sodium is up to 130 hemoglobin is down to 10.0, white blood count is still elevated at 12.2 clinically patient denies any symptoms at this time there is no fever or chills no headache or dizziness no chest pain no shortness of breath no cough no nausea or vomiting no abdominal pain no diarrhea and no urinary symptoms, at this time will check stools for Hemoccult, check iron vitamin B12 and folate level, continue workup for hyponatremia, continue to monitor blood pressure, will follow in a.m. On 10/11/2021 patient was seen and examined on the telemetry floor she is alert and oriented 3 in no apparent distress, sodium is up to 132 hemoglobin is down to 10.0, white blood count is still elevated at 12.2 clinically patient denies any symptoms at this time there is no fever or chills no headache or dizziness no chest pain no shortness of breath no cough no nausea or vomiting no abdominal pain no diarrhea and no urinary symptoms, at this time will check stools for Hemoccult, check iron vitamin B12 and folate level, continue workup for hyponatremia, continue to monitor blood pressure, patient had episodes of severe agitation last night she received IM Haldol without improvement she received IV Risperdal consultation for psychiatry and neurology were initiated medications reviewed continue was current regimen will follow in a.m. On 10/12/2021 patient was seen and examined on the telemetry floor she is alert and oriented 3, sodium is up to 132 hemoglobin is down to 8.6, white blood count is still elevated at 12.2 clinically patient denies any symptoms at this time there is no fever or chills no headache or dizziness no chest pain no shortness of breath no cough no nausea or vomiting no abdominal pain no diarrhea and no urinary symptoms, at this time will check stools for Hemoccult, check iron vitamin B12 and folate level, continue workup for hyponatremia, continue to monitor blood pressure, patient was seen by psychiatry, Seroquel was added to her medication regimen, there was no episodes of agitation last night. Patient has evidence of iron deficiency. She will be given a dose of IV iron today. Objective - Vital Signs Vital signs: Vital Signs Temp 97.3 F L 10/12/21 03:45 Pulse 57 L 10/12/21 03:45 Resp 14 10/12/21 03:45 BP 128/76 10/12/21 03:45 Pulse Ox 98 10/12/21 03:45 FiO2 Intake & Output 10/11/21 10/12/21 10/12/21 18:59 06:59 18:59 Intake Total 358 Output Total 1100 Balance -742 Intake: Oral 358 Output: Urine 1100 Other: Voiding Method Toilet Toilet Bedpan Bedpan - Exam In general patient is alert and oriented x 3 in no distress HEENT head normocephalic and atraumatic Neck is supple no JVD no goiter no lymphadenopathy no carotid bruit Chest examination is clear to auscultation no crackles no wheezing Cardiac exam reveals regular heart sounds S1 and S2 no gallops no murmurs Abdomen is soft nontender no organomegaly with normal bowel sounds Extremity exam reveals no edema no cyanosis or clubbing Neurological examination reveals no gross focal deficits - Labs CBC & Chem 7: 10/12/21 04:46 10/12/21 04:46 Labs: Abnormal Lab Results - Last 24 Hours (Table) 10/10/21 10/11/21 10/11/21 Range/Units 19:28 08:50 08:50 WBC 12.3 H (3.8-10.6) k/uL RBC 2.81 L (3.80-5.40) m/uL Hgb 8.8 L (11.4-16.0) gm/dL Hct 27.0 L (34.0-46.0) % Sodium 132 L (137-145) mmol/L BUN 3 L (7-17) mg/dL Creatinine 0.50 L (0.52-1.04) mg/dL Glucose 102 H (74-99) mg/dL Osmolality 273 L (280-301) mosm/kg Uric Acid 2.6 L (3.7-7.4) mg/dL Calcium 8.0 L (8.4-10.2) mg/dL Total Protein 5.5 L (6.3-8.2) g/dL Albumin 3.4 L (3.5-5.0) g/dL Ur Random Sodium <20 L (40-220) mmol/L 10/12/21 10/12/21 Range/Units 04:46 04:46 WBC (3.8-10.6) k/uL RBC 2.72 L (3.80-5.40) m/uL Hgb 8.6 L (11.4-16.0) gm/dL Hct 26.3 L (34.0-46.0) % Sodium 132 L (137-145) mmol/L BUN 4 L (7-17) mg/dL Creatinine (0.52-1.04) mg/dL Glucose (74-99) mg/dL Osmolality (280-301) mosm/kg Uric Acid (3.7-7.4) mg/dL Calcium 7.8 L (8.4-10.2) mg/dL Total Protein 4.8 L (6.3-8.2) g/dL Albumin 2.8 L (3.5-5.0) g/dL Ur Random Sodium (40-220) mmol/L Assessment and Plan Plan: Syncope with collapse Severe hyponatremia Underlying history of paroxysmal atrial fibrillation Underlying history of Alzheimer disease with advanced dementia Underlying history of hypertension Underlying history of hyperlipidemia Underlying history of depression with anxiety disorder Underlying history of peripheral neuropathy Anemia hemoglobin is down to 8.6 with evidence of iron deficiency patient will be given 1 dose of IV iron today Will monitor Continued tobacco use At this time patient is admitted to telemetry floor She was started on IV fluid and electrolyte correcting protocol Echocardiogram and carotid Doppler were ordered Home medications reviewed and the with Consultation for cardiology and nephrology was initiated Will follow in a.m.
[2021-10-12] MEDS ORDERED: SODIUM FERRIC GLUCONAT-SUCROSE 125 MG in SODIUM CHLORIDE 0.9% 100 ML IVPB ONE (12:00)
--- NOTE | 2021-10-12 12:16 | P.CNNES ---
History of Present Illness Consult date: 10/12/21 Reason for Consult: agitation and confusion History of Present Illness: The patient is 85-year-old female who is seen in neurolog[facility] on October 12, 2021, via teleneurology. History is obtained from the nurse and the chart. There are no family members at the bedside at the time of my evaluation. The patient was reportedly brought into the emergency department because of multiple falls and syncope. Per review of the notes, the patient has a past medical history of dementia, Alzheimer's type. She apparently has been falling more frequently. She has been confused, delusional and hallucinating for the past several months. CT scan of the brain was performed in the emergency department. The radiology report, there is a moderate degree of cortical atrophy. Upon my review of imaging, I agree with cortical atrophy and also feel that there is cerebellar atrophy. The patient reportedly has a history of chronic hyponatremia. This morning, the patient is unable to report why she is in the hospital. She does state that she has "terrible bone problems, weakness and shaking". The patient reports an aching pain in her right arm. Review of Systems Unable to obtain secondary to mental status the patient Past Medical History Past Medical History: Atrial Fibrillation, Asthma, Dementia, GERD/Reflux, Hyperlipidemia, Hypertension, Memory Impairment, Osteoarthritis (OA), Thyroid Disorder Additional Past Medical History / Comment(s): FALLS, vertigo, hyponatremia, anemia, chronic back pain, DDD, past small bowel ileus, hemorrhoids, seasonal allergies, hypothyroid History of Any Multi-Drug Resistant Organisms: None Reported Past Surgical History: Cholecystectomy, Ear Surgery, Hysterectomy Additional Past Surgical History / Comment(s): D&C, colonoscopy, EGD, pain clinic procedures, L ear myringotomy/tube, R nasolabial fold excision of lesion/reconstruction/flap. Past Anesthesia/Blood Transfusion Reactions: No Reported Reaction Smoking Status: Current every day smoker - Past Family History Father Additional Family Medical History / Comment(s): pt. states her father was an alcoholic and at a young age Mother Family Medical History: CVA/TIA Additional Family Medical History / Comment(s): Mother of a CVA in her 80s Medications and Allergies Home Medications Medication Instructions Recorded Confirmed Type Ezetimibe [Zetia] 10 mg PO DAILY 11/02/13 10/09/21 History Gabapentin [Neurontin] 600 mg PO TID 11/02/13 10/09/21 History clonazePAM [KlonoPIN] 1 mg PO HS 11/02/13 10/09/21 History HYDROcodone/APAP 10-325MG [[place] 1 tab PO QID 12/06/13 10/09/21 History 10-325] DULoxetine HCL [Cymbalta] 60 mg PO DAILY 06/06/18 10/09/21 History Apixaban [Eliquis] 5 mg PO BID #60 tab 06/09/18 10/09/21 Rx Losartan [Cozaar] 50 mg PO DAILY #30 tab 06/09/18 10/09/21 Rx Metoprolol Tartrate [Lopressor] 25 mg PO BID #60 tab 06/09/18 10/09/21 Rx clonazePAM 0.5 mg PO HS 01/05/19 10/09/21 History Atorvastatin [Lipitor] 80 mg PO DAILY 12/07/20 10/09/21 History Cholecalciferol (Vitamin D3) 125 mcg PO DAILY 12/07/20 10/09/21 History [Vitamin D3 (125 MCG = 5,000 IU)] Donepezil [Aricept] 5 mg PO DAILY 12/07/20 10/09/21 History Levothyroxine Sodium [Synthroid] 75 mcg PO DAILY 12/07/20 10/09/21 History Mirabegron [Myrbetriq] 50 mg PO DAILY 10/09/21 10/09/21 History Vitamin E (Dl,Tocopheryl Acet) 400 unit PO DAILY 10/09/21 10/09/21 History [Vitamin E (400 Iu = 180 mg)] Allergies Allergy/AdvReac Type Severity Reaction Status Date / Time No Known Allergies Allergy Verified 10/09/21 14:15 Physical Examination - Vital Signs Vital Signs: Vital Signs Temp Pulse Resp BP Pulse Ox 10/12/21 03:45 97.3 F L 57 L 14 128/76 98 10/11/21 23:57 97.8 F 60 15 115/68 98 10/11/21 20:00 98.5 F 59 L 14 106/63 95 10/11/21 15:38 98.5 F 67 20 103/51 94 L 10/11/21 13:28 57 L 10/11/21 11:10 57 L 20 120/67 97 10/11/21 09:09 98.2 F 84 16 156/64 96 Intake and Output 10/11/21 10/12/21 10/12/21 22:59 06:59 14:59 Output Total 500 Balance -500 Output: Urine 500 Other: Voiding Method Toilet Toilet Bedpan Bedpan Gen.: The patient is reclining in the bed. She is well-nourished, well- developed and in no acute distress. HEENT: Head is atraumatic, normocephalic. Fundus not visualized. There is no scleral icterus. Mucous membranes are moist. Neck: Supple Heart: Regular rate and rhythm Extremities: There is a great deal of ecchymosis involving all 4 extremities. There is no edema of the lower extremities. Neurologic examination Mental status: The patient is awake and alert. She is oriented to her name and date of . She is oriented to "the [facility] in [place]", the current year, month and president. Is not oriented to her age. The patient's speech is clear. Cranial nerves: Pupils are equal at 2 mm and reactive. Visual salazar are full to confrontation. Extraocular movements are intact. There is no nystagmus. There is no facial asymmetry. Hearing is grossly intact. Uvula and palate are midline. Shoulder shrug is symmetric. Tongue protrudes midline. Motor: Bilateral upper extremity strength is 4/5. Bilateral hip flexors 4-5/5. Bilateral ankle plantar and dorsiflexors 5/5. Sensation: Grossly intact to light touch throughout. Coordination: Finger to nose testing is intact. Rapid alternating movements are intact. Deep tendon reflexes: 2+/4+ in the upper extremities. Lower extremity reflexes are absent. Gait: Not assessed Results - Laboratory Findings CBC and BMP: 10/12/21 04:46 10/12/21 04:46 Abnormal Lab Findings: Abnormal Labs 10/09/21 10/09/21 10/09/21 11:40 11:40 11:40 WBC 12.5 H RBC Hgb Hct Neutrophils # 10.1 H Sodium 124 L Chloride 92 L BUN Creatinine Glucose 101 H POC Glucose (mg/dL) Osmolality 258 L Uric Acid Calcium 8.0 L Magnesium 1.5 L Iron Transferrin Total Protein 5.2 L Albumin 3.2 L Urine Ketones Ur Random Sodium 10/09/21 10/09/2122 13:36 13:36 22:24 WBC RBC Hgb Hct Neutrophils # Sodium Chloride BUN Creatinine Glucose POC Glucose (mg/dL) 135 H Osmolality Uric Acid Calcium Magnesium Iron Transferrin Total Protein Albumin Urine Ketones 1+ H Ur Random Sodium <20 L 10/10/21 10/10/21 10/10/21 07:16 07:16 07:16 WBC 12.2 H RBC 3.17 L Hgb 10.0 L D Hct 30.1 L Neutrophils # 8.3 H Sodium 130 L Chloride BUN Creatinine Glucose POC Glucose (mg/dL) Osmolality Uric Acid Calcium 7.9 L Magnesium Iron 36 L Transferrin 202.0 L Total Protein 5.3 L Albumin 3.4 L Urine Ketones Ur Random Sodium 10/10/21 10/11/21 10/11/21 19:28 08:50 08:50 WBC 12.3 H RBC 2.81 L Hgb 8.8 L Hct 27.0 L Neutrophils # Sodium 132 L Chloride BUN 3 L Creatinine 0.50 L Glucose 102 H POC Glucose (mg/dL) Osmolality 273 L Uric Acid 2.6 L Calcium 8.0 L Magnesium Iron Transferrin Total Protein 5.5 L Albumin 3.4 L Urine Ketones Ur Random Sodium <20 L 10/12/21 10/12/21 04:46 04:46 WBC RBC 2.72 L Hgb 8.6 L Hct 26.3 L Neutrophils # Sodium 132 L Chloride BUN 4 L Creatinine Glucose POC Glucose (mg/dL) Osmolality Uric Acid Calcium 7.8 L Magnesium Iron Transferrin Total Protein 4.8 L Albumin 2.8 L Urine Ketones Ur Random Sodium Assessment and Plan Assessment: 1. Reported agitation, hallucinations and confusion in a patient with a history of dementia, reportedly Alzheimer's type. Current symptoms are likely secondary to delirium, related to metabolic etiology as well as being in the hospital. The patient's hallucinations may be consistent with Lewy body dementia. 2. CT scan of the brain reveals cerebellar atrophy in addition to the cortical atrophy. This may contribute to the patient's frequent falling. 3. Reported chronic hyponatremia 4. Reported history of atrial fibrillation on Eliquis Plan: 1. Limit narcotics and sedating medications 2. Work treatment of metabolic disorders 3. Would recommend follow-up with the patient's neurologist for further evaluation of hallucinations, as well as possible increase in the dose of patient's Aricept. Thank you for allowing us to participate in the care of this patient. There is no further inpatient neurologic intervention needed at this time. Neurology will sign off at this time. Please call with questions or concerns. Time with Patient: Greater than 30 (Spent 40 minutes with patient via telemedicine)
--- NOTE | 2021-10-12 13:43 | P.PN ---
Subjective Progress Note Date: 10/12/21 Follow-up for hyponatremia. Family at bedside. Eating lunch. No nausea vomiting diarrhea. Objective - Vital Signs Vital signs: Vital Signs Temp 98.3 F 10/12/21 08:10 Pulse 66 10/12/21 13:09 Resp 16 10/12/21 11:53 BP 128/72 10/12/21 11:53 Pulse Ox 97 10/12/21 11:53 FiO2 Intake & Output 10/11/21 10/12/21 10/12/21 18:59 06:59 18:59 Intake Total 358 358 Output Total 1100 Balance -742 358 Intake: Oral 358 358 Output: Urine 1100 Other: Voiding Method Toilet Toilet Toilet Bedpan Bedpan - Exam No acute distress S1-S2 heard Lungs clear No edema - Labs CBC & Chem 7: 10/12/21 04:46 10/12/21 04:46 Labs: Abnormal Lab Results - Last 24 Hours (Table) 10/10/21 10/12/21 10/12/21 Range/Units 19:28 04:46 04:46 RBC 2.72 L (3.80-5.40) m/uL Hgb 8.6 L (11.4-16.0) gm/dL Hct 26.3 L (34.0-46.0) % Sodium 132 L (137-145) mmol/L BUN 4 L (7-17) mg/dL Calcium 7.8 L (8.4-10.2) mg/dL Total Protein 4.8 L (6.3-8.2) g/dL Albumin 2.8 L (3.5-5.0) g/dL Ur Random Sodium <20 L (40-220) mmol/L Assessment and Plan Assessment: #1 acute on chronic hypotonic hyponatremia. 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 #2 recurrent falls multifactorial medications/hyponatremia. #3 hypotensive episodes #4 normal renal function Plan: #1 sodium stable, continue with salt tablets 1 g twice a day #2 renal function stable. #3 continue to hold her Cozaar now and at discharge #4 stable from nephrology for discharge
[2021-10-12] MEDS ORDERED: clonazePAM 0.5 MG TAB PO SCH (15:43)
--- NOTE | 2021-10-12 16:03 | P.PN ---
Progress Note - Text Progress Note Date: 10/12/21 Psychiatry consult follow-up note: Interval History: I evaluated patient this afternoon and she was found calmly laying in her bed with sitter and at bedside. She is alert and oriented to person, place and time. Nurse reports patient slept all through the night without any agitation. Patient again reports her mood is "not too good", and complains of bone pain. She denies depressed mood, denies anxiety. She denies auditory or visual hallucinations. at bedside reports she is "100% better today than she was yesterday". Nurse and denied patient has appeared to be attending to internal stimuli today. At this time, patient denies any suicidal or homicidal ideations, intent or plan. Patient denies any side effects from the medications and has been compliant with meds. We discussed there is a chance her Cymbalta may have contributed to her hyponatremia and we can consider a trial of discontinuing Cymbalta and trying Remeron for depression, sleep, and appetite. and patient expressed agreement. Mental Status Exam: General Appearance: Patient appears to be stated age, adequate hygiene. Behavior: Patient is calmly lying in bed without any agitated behavior. Speech: Patient's speech is fluent and nonpressured. Mood/Affect: Patient reports their mood is "not too good" due to bone pain, affect is congruent. Suicidality/Homicidality: Patient denies having any suicidal or homicidal ideation, intent or plan. Perceptions: Patient denies any visual hallucinations and denies any auditory hallucinations; does not appear to be attending to internal stimuli at this time. Though content/process: There is no evidence of any delusional thought content and thought process is linear. Memory and concentration: She maintains wakefulness, is alert and oriented to person, place, time. Judgment and insight: Fair Assessment Delirium, multifactorial (hyponatremia, elevated WBC, underlying dementia, polypharmacy) with perceptual disturbances - resolving Dementia (Alzheimer's by history) with behavioral disturbances Unspecified depressive disorder, by history Unspecified anxiety disorder, by history Plan: -At this time patient DOES NOT meet criteria for inpatient psychiatric admission. -Patient DOES NOT have decision making capacity at this time and is unable to reason through and communicate/appreciate the risks, benefits and alternatives to treatment. -Delirium precautions recommended with patient including - avoiding use of n arcotics and PATIENT SAFETY TECH sedatives, limit anticholinergic medications when possible, frequent re-orientation, minimize use of restraints, open window shades during the day and close them at night. Discussed with family and nurse to keep lights on and shades up during the day and to engage patient to promote wakefulness during the day, and sleep at night. -Would recommend the following medication changes/additions: Decrease Klonopin from 1 mg QHS to 0.5 mg QHS for anxiety. Due to risk of falls and memory impairment with intermediate designer benzodiazepine use, recommend this continue to be gradually tapered and discontinued on an outpatient basis. Discontinue Cymbalta due to concern for SIADH. Start Remeron 7.5 mg QHS for depression, sleep, appetite. Continue Seroquel 12.5 mg BID (before dinner and at bedtime) for psychosis and agitation related to dementia and sundowning. Avoid benzodiazepines for agitation. May use low dose Haldol 0.5 mg Q4H PRN for agitation. -Communicated plan to patient's nurse -Will continue to follow along. -Please contact with any questions.
[2021-10-12] MEDS: QUEtiapine 25 MG TAB PO SCH ×2 (17:11→20:33)
[2021-10-12] MEDS: MIRTAZAPINE 15 MG TAB PO SCH (20:31)
--- NOTE | 2021-10-12 22:11 | P.CONS ---
History of Present Illness - Reason for Consult Consult date: 10/12/21 Leukocytosis Requesting physician: Rachel Gallardo - Chief Complaint Weakness and fall x few days - History of Present Illness Patient is 85-year-old female presenting to the hospital 3 days ago after apparently the patient did have a fall apparently seem to be improving with recurrent falls over the last few days and did have a syncopal episode. Not sure what happened patient did have a bruises on presentation to the hospital but denies any specific injury no headache no urinary symptoms no chest pain or shortness of breath occasional cough no nausea no vomiting no abdominal pain or any diarrhea patient was afebrile on presentation hospital and no fever have been recorded throughout her hospital stay patient was not hypoxic or need for supplemental oxygen patient did have a white count of 12.5 with a left shift that has prompted this infectious disease consultation patient did have a normal kidney function sodium was slightly low liver enzymes are normal urine has been negative patient did have a chest x-ray no acute cardiopulmonary process did have multiple x-rays of the head and neck and spine which did not show any acute fracture CT of the brain was negative for any bleed patient did not have any cultures done and did not receive an antibiotic during this hospital stay, patient did have an evaluation on 10/12/2021 denies having any fever or any chills patient is currently breathing comfortably on room air denies any chest pain or shortness of breath or cough no abdominal pain no diarrhea no burning or frequency of urine no joint swelling Review of Systems Positive point has been mentioned in the HPI rest of the systems are negative Past Medical History Past Medical History: Atrial Fibrillation, Asthma, Dementia, GERD/Reflux, Hyperlipidemia, Hypertension, Memory Impairment, Osteoarthritis (OA), Thyroid Disorder Additional Past Medical History / Comment(s): FALLS, vertigo, hyponatremia, anemia, chronic back pain, DDD, past small bowel ileus, hemorrhoids, seasonal allergies, hypothyroid History of Any Multi-Drug Resistant Organisms: None Reported Past Surgical History: Cholecystectomy, Ear Surgery, Hysterectomy Additional Past Surgical History / Comment(s): D&C, colonoscopy, EGD, pain clinic procedures, L ear myringotomy/tube, R nasolabial fold excision of lesion/reconstruction/flap. Past Anesthesia/Blood Transfusion Reactions: No Reported Reaction Smoking Status: Current every day smoker - Past Family History Father Additional Family Medical History / Comment(s): pt. states her father was an alcoholic and at a young age Mother Family Medical History: CVA/TIA Additional Family Medical History / Comment(s): Mother of a CVA in her 80s Medications and Allergies Home Medications Medication Instructions Recorded Confirmed Type Ezetimibe [Zetia] 10 mg PO DAILY 11/02/13 10/09/21 History Gabapentin [Neurontin] 600 mg PO TID 11/02/13 10/09/21 History Metoprolol Tartrate [Lopressor] 25 mg PO BID #60 tab 06/09/18 10/09/21 Rx Atorvastatin [Lipitor] 80 mg PO DAILY 12/07/20 10/09/21 History Cholecalciferol (Vitamin D3) 125 mcg PO DAILY 12/07/20 10/09/21 History [Vitamin D3 (125 MCG = 5,000 IU)] Donepezil [Aricept] 5 mg PO DAILY 12/07/20 10/09/21 History Levothyroxine Sodium [Synthroid] 75 mcg PO DAILY 12/07/20 10/09/21 History Mirabegron [Myrbetriq] 50 mg PO DAILY 10/09/21 10/09/21 History Vitamin E (Dl,Tocopheryl Acet) 400 unit PO DAILY 10/09/21 10/09/21 History [Vitamin E (400 Iu = 180 mg)] Calcium Carbonate [Tums] 500 mg PO TID PRN tab 10/14/21 Rx Ferrous Sulfate [Feosol] 325 mg PO DAILY 30 Days #30 tab 10/14/21 Rx HYDROcodone/APAP 10-325MG [Dennison 1 each PO QID tab 10/14/21 Rx 10-325] Melatonin 3 mg PO HS PRN tab 10/14/21 Rx Mirtazapine [Remeron] 7.5 mg PO HS tab 10/14/21 Rx Nicotine 14Mg/24Hr Patch [Habitrol] 1 patch TRANSDERM DAILY patch 10/14/21 Rx QUEtiapine [SEROquel] 25 mg PO HS tab 10/14/21 Rx clonazePAM [KlonoPIN] 0.25 mg PO HS tab 10/14/21 Rx QUEtiapine [SEROquel] 12.5 mg PO AC-SUPPER tab 10/15/21 Rx Allergies Allergy/AdvReac Type Severity Reaction Status Date / Time No Known Allergies Allergy Verified 10/09/21 14:15 Physical Exam Vitals: Vital Signs Temp Pulse Resp BP Pulse Ox 10/12/21 13:09 66 10/12/21 11:53 66 16 128/72 97 10/12/21 08:10 98.3 F 68 16 112/73 98 10/12/21 03:45 97.3 F L 57 L 14 128/76 98 10/11/21 23:57 97.8 F 60 15 115/68 98 10/11/21 20:00 98.5 F 59 L 14 106/63 95 10/11/21 15:38 98.5 F 67 20 103/51 94 L Intake and Output 10/11/21 10/12/21 10/12/21 22:59 06:59 14:59 Intake Total 476 Output Total 500 Balance -500 476 Intake: Oral 476 Output: Urine 500 Other: Voiding Method Toilet Toilet Toilet Bedpan Bedpan GENERAL DESCRIPTION: Elderly female lying in bed, no distress. No tachypnea or accessory muscle of respiration use. HEENT: Shows Pallor , no scleral icterus. Oral mucous membrane is dry. No pharyngeal erythema or thrush NECK: Trachea central, no thyromegaly. LUNGS: Unlabored breathing. Clear to auscultation anteriorly. No wheeze or crackle. HEART: S1, S2, regular rate and rhythm. No loud murmur ABDOMEN: Soft, no tenderness , guarding or rigidity, no organomegaly EXTREMITIES: No edema of feet. SKIN: No rash, no masses palpable. NEUROLOGICAL: The patient is awake, alert, oriented x3, mood and affect normal. Results CBC & Chem 7: 10/14/21 06:27 10/14/21 06:27 Labs: Abnormal Lab Results - Last 24 Hours (Table) 10/10/21 10/12/21 10/12/21 Range/Units 19:28 04:46 04:46 RBC 2.72 L (3.80-5.40) m/uL Hgb 8.6 L (11.4-16.0) gm/dL Hct 26.3 L (34.0-46.0) % Sodium 132 L (137-145) mmol/L BUN 4 L (7-17) mg/dL Calcium 7.8 L (8.4-10.2) mg/dL Total Protein 4.8 L (6.3-8.2) g/dL Albumin 2.8 L (3.5-5.0) g/dL Ur Random Sodium <20 L (40-220) mmol/L Assessment and Plan (1) Leukocytosis Status: Acute Code(s): D72.829 - ELEVATED WHITE BLOOD CELL COUNT, UNSPECIFIED SNOMED Code(s): 665060971 Plan: 1patient with mildly leukocytosis in this patient presented to hospital with multiple falls syncopal episode however no fever patient currently do not have any obvious focus of infection chest x-ray was negative urine is negative abdominal soft rectal examination no evidence of any cellulitis or joint s welling could be reactive. 2no need for any systemic antibiotic therapy as no obvious focus of infection and the patient white count has normalized. 3if the patient spike any fever or any worsening of the white count to obtain appropriate cultures before starting the patient on antibiotics. We will follow on clinical condition and cultures to further adjust medication if needed Thank you for this consultation will follow this patient along with you Time with Patient: Greater than 30
[2021-10-13] MEDS: LEVOTHYROXINE 75 MCG TAB PO SCH (06:04)
[2021-10-13 07:05] LABS: Basophils % (A) 0 %; Eosinophils # (A) 0.4 k/uL (0-0.7); Eosinophils % (A) 5 %; HCT 28.3 % (34.0-46.0); HGB 9.4 gm/dL (11.4-16.0); Lymphocytes # (A) 3.3 k/uL (1.0-4.8); Lymphocytes % (A) 37 %; MCH 32.9 pg (25.0-35.0); MCHC 33.3 g/dL (31.0-37.0); MCV 98.8 fL (80.0-100.0); Mean Platelet Volume 7.6; Monocytes # (A) 0.4 k/uL (0-1.0); Monocytes % (A) 5 %; Neutrophils # (A) 4.8 k/uL (1.3-7.7); Neutrophils % (A) 52 %; Platelet Count 236 k/uL (150-450); RBC 2.87 m/uL (3.80-5.40); WBC 9.2 k/uL (3.8-10.6)
[2021-10-13 07:24] LABS: ALT 16 U/L (4-34); AST 24 U/L (14-36); African American GFR (CKD) >90 (>60 ml/min/1.73 sqM); Alkaline Phosphatase 72 U/L (38-126); Anion Gap 6 mmol/L; Blood Urea Nitrogen 5 mg/dL (7-17); Calcium 8.1 mg/dL (8.4-10.2); Carbon Dioxide 25 mmol/L (22-30); Chloride 102 mmol/L (98-107); Glucose 86 mg/dL (74-99); Non-African American GFR(CKD) 84 (>60 ml/min/1.73 sqM); Potassium 4.2 mmol/L (3.5-5.1); Sodium 133 mmol/L (137-145); Total Bilirubin 0.9 mg/dL (0.2-1.3); Total Protein 5.1 g/dL (6.3-8.2)
[2021-10-13] MEDS: HYDROcodone/APAP 10-325MG 1 EACH TAB PO SCH ×4 (09:05→22:30)
[2021-10-13] MEDS: NICOTINE 14MG/24HR PATCH TRANSDERM SCH (09:13)
[2021-10-13] MEDS: NON FORMULARY DRUG (Mirabegron [Myrbetriq] 50 MG Tab.Er.24h) PO SCH (09:14)
[2021-10-13] MEDS: ATORVASTATIN 80 MG TAB PO SCH (09:14)
[2021-10-13] MEDS: VITAMIN E (DL,TOCOPHERYL ACET) 400 UNIT (180 MG) CAP PO SCH (09:14)
[2021-10-13] MEDS: CHOLECALCIFEROL 125 MCG (5000 IU) TABLET PO SCH (09:14)
[2021-10-13] MEDS: METOPROLOL TARTRATE 25 MG TAB PO SCH ×2 (09:14→20:14)
[2021-10-13] MEDS: EZETIMIBE 10 MG TAB PO SCH (09:14)
[2021-10-13] MEDS: DONEPEZIL 5 MG TAB PO SCH (09:14)
[2021-10-13] MEDS: SODIUM CHLORIDE TAB 1 GM TAB PO SCH ×2 (09:14→20:15)
[2021-10-13] MEDS: GABAPENTIN 300 MG CAP PO SCH ×3 (09:14→20:13)
[2021-10-13] MEDS: CALCIUM CARBONATE 500 MG CHEWABLE PO PRN (10:28)
--- NOTE | 2021-10-13 11:49 | P.PN ---
Subjective Patient is seen for follow-up for hyponatremia. Sitter reports patient has been eating fairly okay. She has been voiding. She has walked to the bathroom Currently maintained on sodium chloride tabs and sodium is 133 today. Objective - Vital Signs Vital signs: Vital Signs Temp 98.9 F 10/13/21 09:00 Pulse 63 10/13/21 09:00 Resp 16 10/13/21 09:00 BP 166/77 10/13/21 09:00 Pulse Ox 95 10/13/21 09:00 FiO2 Intake & Output 10/12/21 10/13/21 10/13/21 18:59 06:59 18:59 Intake Total 594 Output Total 800 Balance -206 Intake: Oral 594 Output: Urine 800 Other: Voiding Method Toilet Toilet Toilet # Voids 2 1 - Exam Awake, comfortable, not in any acute distress Examination of the heart S1 and S2 Examination of the lungs bilateral breath sounds are heard Abdomen is soft nontender Examination lower extremities shows no significant edema - Labs CBC & Chem 7: 10/13/21 06:26 10/13/21 06:26 Labs: Abnormal Lab Results - Last 24 Hours (Table) 10/13/21 10/13/21 Range/Units 06:26 06:26 RBC 2.87 L (3.80-5.40) m/uL Hgb 9.4 L (11.4-16.0) gm/dL Hct 28.3 L (34.0-46.0) % Sodium 133 L (137-145) mmol/L BUN 5 L (7-17) mg/dL Calcium 8.1 L (8.4-10.2) mg/dL Total Protein 5.1 L (6.3-8.2) g/dL Albumin 3.0 L (3.5-5.0) g/dL Assessment and Plan Assessment: 1. Hyponatremia hypovolemic currently corrected. 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 Currently maintained on sodium chloride tabs and improved 2. History of recurrent falls 3. Episodes of hypotension, serum cortisol at 14 4. Iron deficiency maintained on IV iron Plan: Continue with sodium chloride tabs Continue to encourage increase oral intake particularly protein Repeat labs in a.m.
[2021-10-13] MEDS ORDERED: SODIUM FERRIC GLUCONAT-SUCROSE 125 MG in SODIUM CHLORIDE 0.9% 100 ML IVPB ONE (13:30)
[2021-10-13] MEDS ORDERED: MELATONIN 3 MG TABLET PO PRN (14:03)
--- NOTE | 2021-10-13 14:08 | P.PN ---
Progress Note - Text Progress Note Date: 10/13/21 Interval History: Patient was seen today for psychiatric follow-up. Patient was being seen for delirium and dementia. Patient's mother states the patient has been doing fairly well and not having any suicidal thoughts. Patient was laying in bed and agreeable to speak a keno writer/runner. She was attending to cooperate at having to answer questions as appropriately as she could. She is denying any depression or anxiety at this time. She knew that she was in "[facility]" however did not know it was a hospital. She only knew today's year and did not know the full date. She knew her full name however believe that she was "55 years old". She was denying any overnight complaints he says she is sleeping well and eating well. She was fairly appropriate and had good attention span. not internal stimuli today. At this time, patient denies any suicidal or homicidal ideations, intent or plan. Patient denies any side effects from the medications and has been compliant with meds. Denies any auditory or visual hallucinations. Mental Status Exam: General Appearance: Patient appears to be elderly, stated age, adequate hygiene. Behavior: Patient is calmly lying in bed without any agitated behavior. Appropriate. Speech: Patient's speech is fluent and nonpressured. Mood/Affect: Patient reports their mood is "ok", affect is congruent. Suicidality/Homicidality: Patient denies having any suicidal or homicidal ideation, intent or plan. Perceptions: Patient denies any visual hallucinations and denies any auditory hallucinations; does not appear to be attending to internal stimuli at this time. Though content/process: There is no evidence of any delusional thought content and thought process is linear. Memory and concentration: She maintains wakefulness, is alert and oriented to person, place, however does not know today's date. 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 -Patient DOES NOT have decision making capacity at this time and is unable to reason through and communicate/appreciate the risks, benefits and alternatives to treatment. -Delirium precautions recommended with patient including - avoiding use of narcotics and HOME DEMONSTRATION AGENT sedatives, limit anticholinergic medications when possible, frequent re-orientation, minimize use of restraints, open window shades during the day and close them at night.Keep lights on and shades up during the day and to engage patient to promote wakefulness during the day, and sleep at night. -Would recommend the following medication changes/additions: Decrease Klonopin to 0.25 mg QHS for anxiety for 3 more days then discontinue. Due to risk of falls and memory impairment with equipment operator intermodal yard benzodiazepine use, recommend this continue to be gradually tapered and discontinued on an outpatient basis. Remeron 7.5 mg QHS for depression, sleep, appetite. Continue Seroquel 12.5 mg BID (before dinner and at bedtime) for psychosis and agitation related to dementia and sundowning. Avoid benzodiazepines for agitation. May use low dose Haldol 0.5 mg Q4H PRN for agitation. added melatonin prn for sleep. -Communicated plan to patient's nurse -at this time psychiatry will sign off. -Please contact with any questions.
--- NOTE | 2021-10-13 14:50 | P.PN ---
Subjective Progress Note Date: 10/13/21 Jeannette Tran, is an 85-year-old female who presented to [facility] emergency room with the chief complaints of multiple falls, with at least 1 syncopal episode She was evaluated in the emergency room vital examination on presentation revealed a temperature of 97 pulse 86 respiration 19 blood pressure 107/67 pulse ox 98% on room air Laboratory data reveals a white blood count of 12.5 hemoglobin 12.5 platelet count 234 sodium 124 potassium 4.3 chloride 92 BUN 10 creatinine 0.6 Testing in the emergency room revealed EKG revealed evidence of atrial fibrillation with controlled ventricular response, chest x-ray revealed no acute process possible COPD, pelvic x-ray did not reveal any evidence of fracture, computed tomography scan of the brain and neck did not reveal any evidence of osseous abnormality, no evidence of intracranial bleeding Patient was admitted to medical floor for further evaluation and treatment On 10/10/2021 patient was seen and examined on the telemetry floor she is alert and oriented 3 in no apparent distress she stated that she feels better she is less weak and dizzy, sodium is up to 130 hemoglobin is down to 10.0, white blood count is still elevated at 12.2 clinically patient denies any symptoms at this time there is no fever or chills no headache or dizziness no chest pain no shortness of breath no cough no nausea or vomiting no abdominal pain no diarrhea and no urinary symptoms, at this time will check stools for Hemoccult, check iron vitamin B12 and folate level, continue workup for hyponatremia, continue to monitor blood pressure, will follow in a.m. On 10/11/2021 patient was seen and examined on the telemetry floor she is alert and oriented 3 in no apparent distress, sodium is up to 132 hemoglobin is down to 10.0, white blood count is still elevated at 12.2 clinically patient denies any symptoms at this time there is no fever or chills no headache or dizziness no chest pain no shortness of breath no cough no nausea or vomiting no abdominal pain no diarrhea and no urinary symptoms, at this time will check stools for Hemoccult, check iron vitamin B12 and folate level, continue workup for hyponatremia, continue to monitor blood pressure, patient had episodes of severe agitation last night she received IM Haldol without improvement she received IV Risperdal consultation for psychiatry and neurology were initiated medications reviewed continue was current regimen will follow in a.m. On 10/12/2021 patient was seen and examined on the telemetry floor she is alert and oriented 3, sodium is up to 132 hemoglobin is down to 8.6, white blood count is still elevated at 12.2 clinically patient denies any symptoms at this time there is no fever or chills no headache or dizziness no chest pain no shortness of breath no cough no nausea or vomiting no abdominal pain no diarrhea and no urinary symptoms, at this time will check stools for Hemoccult, check iron vitamin B12 and folate level, continue workup for hyponatremia, continue to monitor blood pressure, patient was seen by psychiatry, Seroquel was added to her medication regimen, there was no episodes of agitation last night. Patient has evidence of iron deficiency. She will be given a dose of IV iron today.. On 10/13/2021 patient was seen and examined on the telemetry floor, she is alert, slightly confused in no apparent distress, there is no fever or chills no headache or dizziness no chest pain no shortness of breath no cough no nausea or vomiting no abdominal pain no diarrhea and no urinary symptoms, recommendation from psychiatry reviewed, recommendation is to decrease Klonopin, discontinue Cymbalta, start Remeron, and start Seroquel, recommendation from nephrology reviewed patient is on sodium chloride tablet, recheck labs in a.m., clinically patient is improving, will give 1 more dose of IV iron today, will recheck labs in a.m. yesterday I spoke with Dr. Fragoso from [facility], and patient was approved for rehab at the care home, however today patient family is telling me that she was approved for 3 days admission to [facility] they are still deciding if they want to proceed with care home placement for rehab or to have patient go directly home. Will recheck labs in a.m. and assess if patient is ready to be discharged tomorrow. Objective - Vital Signs Vital signs: Vital Signs Temp 98.9 F 10/13/21 09:00 Pulse 63 10/13/21 09:00 Resp 16 10/13/21 09:00 BP 166/77 10/13/21 09:00 Pulse Ox 95 10/13/21 09:00 FiO2 Intake & Output 10/12/21 10/13/21 10/13/21 18:59 06:59 18:59 Intake Total 594 Output Total 800 Balance -206 Intake: Oral 594 Output: Urine 800 Other: Voiding Method Toilet Toilet Toilet # Voids 2 1 - Exam In general patient is alert and oriented x 3 in no distress HEENT head normocephalic and atraumatic Neck is supple no JVD no goiter no lymphadenopathy no carotid bruit Chest examination is clear to auscultation no crackles no wheezing Cardiac exam reveals regular heart sounds S1 and S2 no gallops no murmurs Abdomen is soft nontender no organomegaly with normal bowel sounds Extremity exam reveals no edema no cyanosis or clubbing Neurological examination reveals no gross focal deficits - Labs CBC & Chem 7: 10/13/21 06:26 10/13/21 06:26 Labs: Abnormal Lab Results - Last 24 Hours (Table) 10/13/21 10/13/21 Range/Units 06:26 06:26 RBC 2.87 L (3.80-5.40) m/uL Hgb 9.4 L (11.4-16.0) gm/dL Hct 28.3 L (34.0-46.0) % Sodium 133 L (137-145) mmol/L BUN 5 L (7-17) mg/dL Calcium 8.1 L (8.4-10.2) mg/dL Total Protein 5.1 L (6.3-8.2) g/dL Albumin 3.0 L (3.5-5.0) g/dL Assessment and Plan Plan: Syncope with collapse Severe hyponatremia Underlying history of paroxysmal atrial fibrillation Underlying history of Alzheimer disease with advanced dementia Underlying history of hypertension Underlying history of hyperlipidemia Underlying history of depression with anxiety disorder Underlying history of peripheral neuropathy Anemia hemoglobin is down to 8.6 with evidence of iron deficiency patient will be given 1 dose of IV iron today Will monitor Continued tobacco use At this time patient is admitted to telemetry floor She was started on IV fluid and electrolyte correcting protocol Echocardiogram and carotid Doppler were ordered Home medications reviewed and the with Consultation for cardiology and nephrology was initiated Will follow in a.m.
--- NOTE | 2021-10-13 15:37 | CDI ---
Documentation Clarification Form Date: 10/13/2021 02:56:15 PM From: Bronwyn Ortiz RN CCDS Admit Date: 10/09/2021 01:37:00 PM Patient Name: Jeannette Tran Visit Number: [id number] Discharge Date: ATTENTION: The Clinical Documentation Specialists (CDI) and [facility] Coding Staff appreciate your assistance in clarifying documentation. Please respond to the clarification below the line at the bottom and electronically sign. The CDI & [facility] Coding staff will review the response and follow-up if needed. Please note: Queries are made part of the Legal Health Record. If you have any questions, please contact the author of this message via ITS. Dr. Lino Anaya, Your patient has the documented symptom of Delirium 10/13, Psychology progress note . Additional clarification regarding the etiology/cause of this symptom is requested. History/Risk Factors: 85-year-old female presents to [facility] with multiple falls. Medical history: Dementia, Falls, Vertigo and Hyponatremia. Clinical Indicators: Delirium, multifactorial (hyponatremia, elevated WBC, underlying dementia, polypharmacy) with perceptual disturbances resolved. 10/13, Psychology progress note. Labs: 10/09: Na 124; Wbc 12.5; 10/10: Na 130; Wbc 12.2 CT Brain spine without contrast: 10/09 Atherosclerotic calcifications of the intracranial vessels. There is a high right jugular bulb. CT Brain without contrast: 10/09 Moderate cerebral cortical atrophy. Medications [place] 10 1 QID WAYNE; Klonopin PO HS; Aricept PO Daily; Haldol 2mg IM Q6HR PRN; Remeron 7.5mg PO HS WAYNE; Seroquel 12.5mg PO HS Treatment: Remeron 7.5mg QHS depression, sleep, appetite. Continue Seroquel 12.5mg BID before dinner an at bedtime for psychosis and agitation related to sundowning. Avoid benzodiazepines for agitation. Add melatonin for sleep. 10/11 Sodium chloride 1gm PO BID WAYNE Please clarify the etiology of the symptom of Delirium: [ ] Metabolic Encephalopathy due to polypharmacy [ ] Other condition (please specify) [ X] Unable to determine (Template Last Revised: April 2020) MTDD
[2021-10-13] MEDS: QUEtiapine 25 MG TAB PO SCH ×2 (17:53→20:15)
[2021-10-13] MEDS: clonazePAM 0.5 MG TAB PO SCH (20:13)
[2021-10-13] MEDS: MIRTAZAPINE 15 MG TAB PO SCH (20:14)
[2021-10-14] MEDS: LEVOTHYROXINE 75 MCG TAB PO SCH (06:37)
[2021-10-14 07:15] LABS: Basophils % (A) 0 %; Eosinophils # (A) 0.4 k/uL (0-0.7); Eosinophils % (A) 4 %; HCT 28.5 % (34.0-46.0); HGB 9.1 gm/dL (11.4-16.0); Lymphocytes # (A) 2.6 k/uL (1.0-4.8); Lymphocytes % (A) 27 %; MCH 31.4 pg (25.0-35.0); Mean Platelet Volume 7.4; Monocytes # (A) 0.6 k/uL (0-1.0); Monocytes % (A) 6 %; Neutrophils # (A) 5.8 k/uL (1.3-7.7); Neutrophils % (A) 61 %; Platelet Count 308 k/uL (150-450); RBC 2.91 m/uL (3.80-5.40); RDW 13.9 % (11.5-15.5); WBC 9.5 k/uL (3.8-10.6)
[2021-10-14 07:30] LABS: ALT 17 U/L (4-34); AST 27 U/L (14-36); African American GFR (CKD) >90 (>60 ml/min/1.73 sqM); Albumin 3.4 g/dL (3.5-5.0); Alkaline Phosphatase 77 U/L (38-126); Anion Gap 6 mmol/L; Blood Urea Nitrogen 5 mg/dL (7-17); Calcium 8.3 mg/dL (8.4-10.2); Carbon Dioxide 32 mmol/L (22-30); Chloride 98 mmol/L (98-107); Glucose 94 mg/dL (74-99); Non-African American GFR(CKD) 82 (>60 ml/min/1.73 sqM); Potassium 4.5 mmol/L (3.5-5.1); Sodium 136 mmol/L (137-145); Total Bilirubin 1.2 mg/dL (0.2-1.3); Total Protein 5.5 g/dL (6.3-8.2)
--- NOTE | 2021-10-14 07:49 | P.PN ---
Subjective Progress Note Date: 10/13/21 Principal diagnosis: Leukocytosis Patient is 85-year-old female has been brought in the hospital with weakness and multiple falls patient also noticed to have mildly elevated white count with a negative initial workup. On today's evaluation that is 10/13/2021, the patient denies having any fever or any chills, the patient is breathing comfortably on room air, the patient denies having any chest pain or shortness of breath or cough no abdominal pain no diarrhea Objective - Vital Signs Vital signs: Vital Signs Temp 98.9 F 10/13/21 09:00 Pulse 63 10/13/21 09:00 Resp 16 10/13/21 09:00 BP 166/77 10/13/21 09:00 Pulse Ox 95 10/13/21 09:00 FiO2 Intake & Output 10/12/21 10/13/21 10/13/21 18:59 06:59 18:59 Intake Total 594 Output Total 800 Balance -206 Intake: Oral 594 Output: Urine 800 Other: Voiding Method Toilet Toilet Toilet # Voids 2 1 - Exam GENERAL DESCRIPTION: An elderly female lying in bed in no distress RESPIRATORY SYSTEM: Unlabored breathing , decreased breath sounds at bases HEART: S1 S2 regular rate and rhythm , ABDOMEN: Soft , no tenderness EXTREMITIES: No edema feet - Labs CBC & Chem 7: 10/14/21 06:27 10/14/21 06:27 Labs: Abnormal Lab Results - Last 24 Hours (Table) 10/13/21 10/13/21 Range/Units 06:26 06:26 RBC 2.87 L (3.80-5.40) m/uL Hgb 9.4 L (11.4-16.0) gm/dL Hct 28.3 L (34.0-46.0) % Sodium 133 L (137-145) mmol/L BUN 5 L (7-17) mg/dL Calcium 8.1 L (8.4-10.2) mg/dL Total Protein 5.1 L (6.3-8.2) g/dL Albumin 3.0 L (3.5-5.0) g/dL Assessment and Plan (1) Leukocytosis Current Visit: Yes Status: Acute Code(s): D72.829 - ELEVATED WHITE BLOOD CELL COUNT, UNSPECIFIED SNOMED Code(s): 372466146 Plan: 1patient with mildly leukocytosis in this patient presented to hospital with multiple falls syncopal episode however no fever patient currently do not have any obvious focus of infection chest x-ray was negative urine is negative abdominal soft rectal examination no evidence of any cellulitis or joint swelling, the patient leukocytosis was more likely reactive and has resolved without antibiotic therapy. 2no need for any systemic antibiotic therapy as no obvious focus of infection and will monitor the patient closely off antibiotic, family the bedside questions were answered Time with Patient: Less than 30
[2021-10-14] MEDS: EZETIMIBE 10 MG TAB PO SCH (09:56)
[2021-10-14] MEDS: CHOLECALCIFEROL 125 MCG (5000 IU) TABLET PO SCH (09:56)
[2021-10-14] MEDS: ATORVASTATIN 80 MG TAB PO SCH (09:56)
[2021-10-14] MEDS: GABAPENTIN 300 MG CAP PO SCH ×3 (09:56→21:11)
[2021-10-14] MEDS: CALCIUM CARBONATE 500 MG CHEWABLE PO PRN (09:56)
[2021-10-14] MEDS: METOPROLOL TARTRATE 25 MG TAB PO SCH ×2 (09:56→21:11)
[2021-10-14] MEDS: HYDROcodone/APAP 10-325MG 1 EACH TAB PO SCH ×4 (09:57→21:12)
[2021-10-14] MEDS: SODIUM CHLORIDE TAB 1 GM TAB PO SCH ×2 (09:58→21:13)
[2021-10-14] MEDS: NICOTINE 14MG/24HR PATCH TRANSDERM SCH (09:58)
[2021-10-14] MEDS: VITAMIN E (DL,TOCOPHERYL ACET) 400 UNIT (180 MG) CAP PO SCH (09:58)
[2021-10-14] MEDS: DONEPEZIL 5 MG TAB PO SCH (09:58)
[2021-10-14] MEDS: NON FORMULARY DRUG (Mirabegron [Myrbetriq] 50 MG Tab.Er.24h) PO SCH (09:58)
--- NOTE | 2021-10-14 10:15 | P.PN ---
Subjective Patient is seen in follow-up for hyponatremia. Sodium level normal today. Maintained on sodium chloride tabs. Resting in bed. Hemodynamically stable. Sitter present at bedside. Vital signs are stable. General: Awake. No acute distress. HEENT: Head exam is unremarkable. LUNGS: Breath sounds decreased. HEART: Rate and Rhythm are regular. ABDOMEN: Soft, no distention. EXTREMITITES: No edema. Objective - Vital Signs Vital signs: Vital Signs Temp 98.1 F 10/14/21 04:00 Pulse 69 10/14/21 04:00 Resp 14 10/14/21 04:00 BP 112/64 10/14/21 04:00 Pulse Ox 96 10/14/21 04:00 FiO2 Intake & Output 10/13/21 10/14/21 10/14/21 18:59 06:59 18:59 Intake Total 300 Output Total 1800 Balance -1500 Intake: Oral 300 Output: Urine 1800 Other: Voiding Method Toilet Toilet # Voids 2 3 # Bowel Movements 0 - Labs CBC & Chem 7: 10/14/21 06:27 10/14/21 06:27 Labs: Abnormal Lab Results - Last 24 Hours (Table) 10/14/21 10/14/21 Range/Units 06:27 06:27 RBC 2.91 L (3.80-5.40) m/uL Hgb 9.1 L (11.4-16.0) gm/dL Hct 28.5 L (34.0-46.0) % Sodium 136 L (137-145) mmol/L Carbon Dioxide 32 H (22-30) mmol/L BUN 5 L (7-17) mg/dL Calcium 8.3 L (8.4-10.2) mg/dL Total Protein 5.5 L (6.3-8.2) g/dL Albumin 3.4 L (3.5-5.0) g/dL Assessment and Plan Plan: Assessment: 1. Hypovolemic hyponatremia and component of poor solute intake. Improved with sodium chloride tabs. TSH and cortisol level normal. Urine sodium less than 20 and urine osmolality 81. 2. Anemia. Iron deficiency noted. 3. History of falls. Plan: Maintain sodium chloride tabs. 1500 mL fluid restriction. Encourage oral intake, particularly protein. IV iron today and tomorrow.
[2021-10-14] MEDS ORDERED: SODIUM FERRIC GLUCONAT-SUCROSE 125 MG in SODIUM CHLORIDE 0.9% 100 ML IVPB ONE (11:55)
[2021-10-14] MEDS: SODIUM FERRIC GLUCONAT-SUCROSE 125 MG in SODIUM CHLORIDE 0.9% 100 ML IVPB SCH (12:32)
--- NOTE | 2021-10-14 15:20 | P.PN ---
Subjective Progress Note Date: 10/14/21 Jeannette Tran, is an 85-year-old female who presented to [facility] emergency room with the chief complaints of multiple falls, with at least 1 syncopal episode She was evaluated in the emergency room vital examination on presentation revealed a temperature of 97 pulse 86 respiration 19 blood pressure 107/67 pulse ox 98% on room air Laboratory data reveals a white blood count of 12.5 hemoglobin 12.5 platelet count 234 sodium 124 potassium 4.3 chloride 92 BUN 10 creatinine 0.6 Testing in the emergency room revealed EKG revealed evidence of atrial fibrillation with controlled ventricular response, chest x-ray revealed no acute process possible COPD, pelvic x-ray did not reveal any evidence of fracture, computed tomography scan of the brain and neck did not reveal any evidence of osseous abnormality, no evidence of intracranial bleeding Patient was admitted to medical floor for further evaluation and treatment On 10/10/2021 patient was seen and examined on the telemetry floor she is alert and oriented 3 in no apparent distress she stated that she feels better she is less weak and dizzy, sodium is up to 130 hemoglobin is down to 10.0, white blood count is still elevated at 12.2 clinically patient denies any symptoms at this time there is no fever or chills no headache or dizziness no chest pain no shortness of breath no cough no nausea or vomiting no abdominal pain no diarrhea and no urinary symptoms, at this time will check stools for Hemoccult, check iron vitamin B12 and folate level, continue workup for hyponatremia, continue to monitor blood pressure, will follow in a.m. On 10/11/2021 patient was seen and examined on the telemetry floor she is alert and oriented 3 in no apparent distress, sodium is up to 132 hemoglobin is down to 10.0, white blood count is still elevated at 12.2 clinically patient denies any symptoms at this time there is no fever or chills no headache or dizziness no chest pain no shortness of breath no cough no nausea or vomiting no abdominal pain no diarrhea and no urinary symptoms, at this time will check stools for Hemoccult, check iron vitamin B12 and folate level, continue workup for hyponatremia, continue to monitor blood pressure, patient had episodes of severe agitation last night she received IM Haldol without improvement she received IV Risperdal consultation for psychiatry and neurology were initiated medications reviewed continue was current regimen will follow in a.m. On 10/12/2021 patient was seen and examined on the telemetry floor she is alert and oriented 3, sodium is up to 132 hemoglobin is down to 8.6, white blood count is still elevated at 12.2 clinically patient denies any symptoms at this time there is no fever or chills no headache or dizziness no chest pain no shortness of breath no cough no nausea or vomiting no abdominal pain no diarrhea and no urinary symptoms, at this time will check stools for Hemoccult, check iron vitamin B12 and folate level, continue workup for hyponatremia, continue to monitor blood pressure, patient was seen by psychiatry, Seroquel was added to her medication regimen, there was no episodes of agitation last night. Patient has evidence of iron deficiency. She will be given a dose of IV iron today.. On 10/13/2021 patient was seen and examined on the telemetry floor, she is alert, slightly confused in no apparent distress, there is no fever or chills no headache or dizziness no chest pain no shortness of breath no cough no nausea or vomiting no abdominal pain no diarrhea and no urinary symptoms, recommendation from psychiatry reviewed, recommendation is to decrease Klonopin, discontinue Cymbalta, start Remeron, and start Seroquel, recommendation from nephrology reviewed patient is on sodium chloride tablet, recheck labs in a.m., clinically patient is improving, will give 1 more dose of IV iron today, will recheck labs in a.m. yesterday I spoke with Dr. Fragoso from [facility], and patient was approved for rehab at the detention, however today patient family is telling me that she was approved for 3 days admission to [facility] they are still deciding if they want to proceed with detention placement for rehab or to have patient go directly home. Will recheck labs in a.m. and assess if patient is ready to be discharged tomorrow. On 10/14/2021 patient was seen and examined on the telemetry floor, she is alert confused in no apparent distress vital exam reveals a temperature of 98.3 pulse 65 respiration 16 blood pressure 137/73 pulse ox 97% on room air laboratory data reveals a white blood count of 9.5 hemoglobin 9.1 platelet count 308 sodium 136 potassium 4.5 chloride 98 CO2 32 BUN 5 creatinine 0.63, patient did not have any sleep last night she was slightly agitated at this time will increase dose of Seroquel to 25 mg at bedtime and continue was 12.5 mg in the morning, continue with IV iron and sodium chloride tablets per nephrology recommendation possible transfer to rehab tomorrow Objective - Vital Signs Vital signs: Vital Signs Temp 98.3 F 10/14/21 08:00 Pulse 60 10/14/21 14:00 Resp 16 10/14/21 14:00 BP 123/76 10/14/21 12:00 Pulse Ox 96 10/14/21 12:00 FiO2 Intake & Output 10/13/21 10/14/21 10/14/21 18:59 06:59 18:59 Intake Total 300 200 Output Total 1800 Balance -1500 200 Intake: Intake, IV Titration 100 Amount Sodium Ferric Gluconat- 100 Sucrose 125 mg In Sodium Chloride 0.9% 100 ml @ 100 mls/hr IVPB DAILY WAYNE Rx#:[id number] Oral 300 100 Output: Urine 1800 Other: Voiding Method Toilet Toilet Toilet # Voids 2 3 # Bowel Movements 0 - Exam In general patient is alert and oriented x 3 in no distress HEENT head normocephalic and atraumatic Neck is supple no JVD no goiter no lymphadenopathy no carotid bruit Chest examination is clear to auscultation no crackles no wheezing Cardiac exam reveals regular heart sounds S1 and S2 no gallops no murmurs Abdomen is soft nontender no organomegaly with normal bowel sounds Extremity exam reveals no edema no cyanosis or clubbing Neurological examination reveals no gross focal deficits - Labs CBC & Chem 7: 10/14/21 06:27 10/14/21 06:27 Labs: Abnormal Lab Results - Last 24 Hours (Table) 10/14/21 10/14/21 Range/Units 06:27 06:27 RBC 2.91 L (3.80-5.40) m/uL Hgb 9.1 L (11.4-16.0) gm/dL Hct 28.5 L (34.0-46.0) % Sodium 136 L (137-145) mmol/L Carbon Dioxide 32 H (22-30) mmol/L BUN 5 L (7-17) mg/dL Calcium 8.3 L (8.4-10.2) mg/dL Total Protein 5.5 L (6.3-8.2) g/dL Albumin 3.4 L (3.5-5.0) g/dL Assessment and Plan Plan: Syncope with collapse Severe hyponatremia Underlying history of paroxysmal atrial fibrillation Underlying history of Alzheimer disease with advanced dementia Underlying history of hypertension Underlying history of hyperlipidemia Underlying history of depression with anxiety disorder Underlying history of peripheral neuropathy Anemia hemoglobin is down to 8.6 with evidence of iron deficiency patient will be given 1 dose of IV iron today Will monitor Continued tobacco use At this time patient is admitted to telemetry floor She was started on IV fluid and electrolyte correcting protocol Echocardiogram and carotid Doppler were ordered Home medications reviewed and the with Consultation for cardiology and nephrology was initiated Will follow in a.m.
[2021-10-14] MEDS: QUEtiapine 25 MG TAB PO SCH (17:29)
[2021-10-14 20:25] LABS: Potassium,Urine Random 4.5 mmol/L (25.0-125.0)
[2021-10-14] MEDS ORDERED: QUEtiapine 25 MG TAB PO SCH (21:00)
[2021-10-14] MEDS: clonazePAM 0.5 MG TAB PO SCH (21:12)
[2021-10-14] MEDS: MIRTAZAPINE 15 MG TAB PO SCH (21:13)
[2021-10-15 08:12] VITALS: TEMP 98.5
[2021-10-15] MEDS: NON FORMULARY DRUG (Mirabegron [Myrbetriq] 50 MG Tab.Er.24h) PO SCH (08:17)
[2021-10-15] MEDS: NICOTINE 14MG/24HR PATCH TRANSDERM SCH (08:18)
[2021-10-15] MEDS: DONEPEZIL 5 MG TAB PO SCH (08:18)
[2021-10-15] MEDS: EZETIMIBE 10 MG TAB PO SCH (08:18)
[2021-10-15] MEDS: METOPROLOL TARTRATE 25 MG TAB PO SCH (08:18)
[2021-10-15] MEDS: VITAMIN E (DL,TOCOPHERYL ACET) 400 UNIT (180 MG) CAP PO SCH (08:18)
[2021-10-15] MEDS: SODIUM CHLORIDE TAB 1 GM TAB PO SCH (08:19)
[2021-10-15] MEDS: ATORVASTATIN 80 MG TAB PO SCH (08:19)
[2021-10-15] MEDS: CHOLECALCIFEROL 125 MCG (5000 IU) TABLET PO SCH (08:19)
[2021-10-15] MEDS: LEVOTHYROXINE 75 MCG TAB PO SCH (08:19)
[2021-10-15] MEDS: GABAPENTIN 300 MG CAP PO SCH ×2 (08:19→16:46)
[2021-10-15] MEDS: HYDROcodone/APAP 10-325MG 1 EACH TAB PO SCH ×2 (08:19→13:00)
--- NOTE | 2021-10-15 10:11 | P.PN ---
Subjective Patient is seen in follow-up for hyponatremia. Sodium level 136 yesterday. Maintained on sodium chloride tabs. Resting in bed. Awake. Denies vomiting or diarrhea. States she's been eating. Sitter present at bedside. Vital signs are stable. General: Awake. No acute distress. HEENT: Head exam is unremarkable. LUNGS: Breath sounds decreased. HEART: Rate and Rhythm are regular. ABDOMEN: Soft, no distention. EXTREMITITES: No edema. Objective - Vital Signs Vital signs: Vital Signs Temp 98.5 F 10/15/21 08:00 Pulse 51 L 10/15/21 08:00 Resp 17 10/15/21 08:00 BP 173/82 10/15/21 08:00 Pulse Ox 91 L 10/15/21 02:00 FiO2 Intake & Output 10/14/21 10/15/21 10/15/21 18:59 06:59 18:59 Intake Total 200 250 Balance 200 250 Intake: Intake, IV Titration 100 Amount Sodium Ferric Gluconat- 100 Sucrose 125 mg In Sodium Chloride 0.9% 100 ml @ 100 mls/hr IVPB DAILY [facility] Rx#:[id number] Oral 100 250 Other: Voiding Method Toilet Toilet Toilet # Voids 1 # Bowel Movements 1 - Labs CBC & Chem 7: 10/14/21 06:27 10/14/21 06:27 Labs: Abnormal Lab Results - Last 24 Hours (Table) 10/10/21 Range/Units 19:28 Ur Random Potassium 4.5 L (25.0-125.0) mmol/L Assessment and Plan Plan: Assessment: 1. Hypovolemic hyponatremia and component of poor solute intake. Improved with sodium chloride tabs. TSH and cortisol level normal. Urine sodium less than 20 and urine osmolality 81. Sodium level 136 yesterday. 2. Anemia. Iron deficiency noted. 3. History of falls. Plan: Maintain sodium chloride tabs. 1500 mL fluid restriction. Encourage oral intake, particularly protein. Maintain IV iron. Repeat BMP and magnesium level 2-3 days postdischarge. Follow up outpatient in 1-2 weeks.
--- NOTE | 2021-10-15 11:28 | P.PN ---
Subjective Progress Note Date: 10/14/21 Principal diagnosis: Leukocytosis Patient is 85-year-old female has been brought in the hospital with weakness and multiple falls patient also noticed to have mildly elevated white count with a negative initial workup. On today's evaluation that is 10/14/2021, The patient remains to be afebrile, the patient is breathing comfortably room air denies any chest pain shortness of breath or cough no abdominal pain and no diarrhea has been reported Objective - Vital Signs Vital signs: Vital Signs Temp 98.3 F 10/14/21 08:00 Pulse 65 10/14/21 08:00 Resp 16 10/14/21 08:00 BP 137/73 10/14/21 08:00 Pulse Ox 97 10/14/21 08:00 FiO2 Intake & Output 10/13/21 10/14/21 10/14/21 18:59 06:59 18:59 Intake Total 300 Output Total 1800 Balance -1500 Intake: Oral 300 Output: Urine 1800 Other: Voiding Method Toilet Toilet Toilet # Voids 2 3 # Bowel Movements 0 - Exam GENERAL DESCRIPTION: An elderly female lying in bed in no distress RESPIRATORY SYSTEM: Unlabored breathing , decreased breath sounds at bases HEART: S1 S2 regular rate and rhythm , ABDOMEN: Soft , no tenderness EXTREMITIES: No edema feet - Labs CBC & Chem 7: 10/14/21 06:27 10/14/21 06:27 Labs: Abnormal Lab Results - Last 24 Hours (Table) 10/14/21 10/14/21 Range/Units 06:27 06:27 RBC 2.91 L (3.80-5.40) m/uL Hgb 9.1 L (11.4-16.0) gm/dL Hct 28.5 L (34.0-46.0) % Sodium 136 L (137-145) mmol/L Carbon Dioxide 32 H (22-30) mmol/L BUN 5 L (7-17) mg/dL Calcium 8.3 L (8.4-10.2) mg/dL Total Protein 5.5 L (6.3-8.2) g/dL Albumin 3.4 L (3.5-5.0) g/dL Assessment and Plan (1) Leukocytosis Current Visit: Yes Status: Acute Code(s): D72.829 - ELEVATED WHITE BLOOD CELL COUNT, UNSPECIFIED SNOMED Code(s): 688327556 Plan: 1patient with mildly leukocytosis in this patient presented to hospital with multiple falls syncopal episode however no fever patient currently do not have any obvious focus of infection chest x-ray was negative urine is negative abdominal soft rectal examination no evidence of any cellulitis or joint swe lling, the patient leukocytosis was more likely reactive and has resolved without antibiotic therapy. 2as no obvious focus of infection and the patient white count normalized without antibiotic therapy we will monitor the patient closely off antibiotics, family at the bedside question answered Time with Patient: Less than 30
[2021-10-15] MEDS: SODIUM FERRIC GLUCONAT-SUCROSE 125 MG in SODIUM CHLORIDE 0.9% 100 ML IVPB SCH (13:31)
[2021-10-15 14:14] VITALS: BMI 21.2
--- NOTE | 2021-10-15 14:28 | P.DS ---
Providers Date of admission: 10/09/21 13:37 Expected date of discharge: 10/15/21 Attending physician: Rachel Gallardo Consults: 10/09/21 17:03 Consult Physician Routine Consulting Provider: Savana Askew Consult Reason/Comments: Hyponatremia Do you want consulting provider notified?: Yes 10/10/21 16:42 Consult Physician Routine Consulting Provider: Lino Anaya Consult Reason/Comments: Suicidal, combative, uncooperative Do you want consulting provider notified?: Yes 10/11/21 13:01 Consult Physician Routine Consulting Provider: Igor Zamarripa Consult Reason/Comments: confusion, agitation Do you want consulting provider notified?: Yes 10/11/21 13:36 Consult Physician Routine Consulting Provider: Guido Couch Consult Reason/Comments: leukocytosis Do you want consulting provider notified?: Yes [facility]: Diagnosis on discharge: Syncope with collapse Severe hyponatremia Underlying history of paroxysmal atrial fibrillation Underlying history of Alzheimer disease with advanced dementia Underlying history of hypertension Underlying history of hyperlipidemia Underlying history of depression with anxiety disorder Underlying history of peripheral neuropathy Anemia hemoglobin is down to 8.6 with evidence of iron deficiency patient will be given 1 dose of IV iron today Will monitor Continued tobacco use, patient counseled in length during this admission to quit smoking she was given a prescription for NicoDerm 14 g daily Hospital course: Jeannette Tran, is an 85-year-old female who presented to [facility] emergency room with the chief complaints of multiple falls, with at least 1 syncopal episode She was evaluated in the emergency room vital examination on presentation revealed a temperature of 97 pulse 86 respiration 19 blood pressure 107/67 pulse ox 98% on room air Laboratory data reveals a white blood count of 12.5 hemoglobin 12.5 platelet count 234 sodium 124 potassium 4.3 chloride 92 BUN 10 creatinine 0.6 Testing in the emergency room revealed EKG revealed evidence of atrial fibrillation with controlled ventricular response, chest x-ray revealed no acute process possible COPD, pelvic x-ray did not reveal any evidence of fracture, computed tomography scan of the brain and neck did not reveal any evidence of o sseous abnormality, no evidence of intracranial bleeding Patient was admitted to medical floor for further evaluation and treatment On 10/10/2021 patient was seen and examined on the telemetry floor she is alert and oriented 3 in no apparent distress she stated that she feels better she is less weak and dizzy, sodium is up to 130 hemoglobin is down to 10.0, white blood count is still elevated at 12.2 clinically patient denies any symptoms at this time there is no fever or chills no headache or dizziness no chest pain no shortness of breath no cough no nausea or vomiting no abdominal pain no diarrhea and no urinary symptoms, at this time will check stools for Hemoccult, check iron vitamin B12 and folate level, continue workup for hyponatremia, continue to monitor blood pressure, will follow in a.m. On 10/11/2021 patient was seen and examined on the telemetry floor she is alert and oriented 3 in no apparent distress, sodium is up to 132 hemoglobin is down to 10.0, white blood count is still elevated at 12.2 clinically patient denies any symptoms at this time there is no fever or chills no headache or dizziness no chest pain no shortness of breath no cough no nausea or vomiting no abdominal pain no diarrhea and no urinary symptoms, at this time will check stools for Hemoccult, check iron vitamin B12 and folate level, continue workup for hyponatremia, continue to monitor blood pressure, patient had episodes of severe agitation last night she received IM Haldol without improvement she received IV Risperdal consultation for psychiatry and neurology were initiated medications reviewed continue was current regimen will follow in a.m. On 10/12/2021 patient was seen and examined on the telemetry floor she is alert and oriented 3, sodium is up to 132 hemoglobin is down to 8.6, white blood count is still elevated at 12.2 clinically patient denies any symptoms at this time there is no fever or chills no headache or dizziness no chest pain no shortness of breath no cough no nausea or vomiting no abdominal pain no diarrhea and no urinary symptoms, at this time will check stools for Hemoccult, check iron vitamin B12 and folate level, continue workup for hyponatremia, continue to monitor blood pressure, patient was seen by psychiatry, Seroquel was added to her medication regimen, there was no episodes of agitation last night. Patient has evidence of iron deficiency. She will be given a dose of IV iron today.. On 10/13/2021 patient was seen and examined on the telemetry floor, she is alert, slightly confused in no apparent distress, there is no fever or chills no headache or dizziness no chest pain no shortness of breath no cough no nausea or vomiting no abdominal pain no diarrhea and no urinary symptoms, recommendation from psychiatry reviewed, recommendation is to decrease Klonopin, discontinue Cymbalta, start Remeron, and start Seroquel, recommendation from nephrology reviewed patient is on sodium chloride tablet, recheck labs in a.m., clinically patient is improving, will give 1 more dose of IV iron today, will recheck labs in a.m. yesterday I spoke with Dr. Fragoso from [facility], and patient was approved for rehab at the senior living, however today patient family is telling me that she was approved for 3 days admission to [facility] they are still deciding if they want to proceed with senior living placement for rehab or to have patient go directly home. Will recheck labs in a.m. and assess if patient is ready to be discharged tomorrow. On 10/14/2021 patient was seen and examined on the telemetry floor, she is alert confused in no apparent distress vital exam reveals a temperature of 98.3 pulse 65 respiration 16 blood pressure 137/73 pulse ox 97% on room air laboratory data reveals a white blood count of 9.5 hemoglobin 9.1 platelet count 308 sodium 136 potassium 4.5 chloride 98 CO2 32 BUN 5 creatinine 0.63, patient did not have any sleep last night she was slightly agitated at this time will increase dose of Seroquel to 25 mg at bedtime and continue was 12.5 mg in the morning, continue with IV iron and sodium chloride tablets per nephrology recommendation possible transfer to rehab tomorrow On 10/15/2021 patient was seen and examined on the medical floor she is alert and oriented 3 in no apparent distress she is complaining of generalized joint pain otherwise she denies any complaints she slept well last night there was no agitation per sitter at this time patient is ambulating reasonably well patient and her family do not want to go to [facility] for rehab and would rather be discharged home with home care prescriptions were written for her new medications patient will be discharged to home today she will be followed in our office in the next 3-4 days Plan - Discharge Summary Discharge Rx Participant: No New Discharge Prescriptions: New Melatonin 3 mg PO HS PRN tab PRN Reason: Insomnia Calcium Carbonate [Tums] 500 mg PO TID PRN tab PRN Reason: Heartburn Ferrous Sulfate [Feosol] 325 mg PO DAILY 30 Days #30 tab Nicotine 14Mg/24Hr Patch [Habitrol] 1 patch TRANSDERM DAILY patch clonazePAM [KlonoPIN] 0.25 mg PO HS tab HYDROcodone/APAP 10-325MG [[place] 10-325] 1 each PO QID tab Mirtazapine [Remeron] 7.5 mg PO HS tab QUEtiapine [SEROquel] 25 mg PO HS tab QUEtiapine [SEROquel] 12.5 mg PO AC-SUPPER tab Continue Ezetimibe [Zetia] 10 mg PO DAILY Gabapentin [Neurontin] 600 mg PO TID Metoprolol Tartrate [Lopressor] 25 mg PO BID #60 tab Cholecalciferol (Vitamin D3) [Vitamin D3 (125 MCG = 5,000 IU)] 125 mcg PO DAILY Donepezil [Aricept] 5 mg PO DAILY Levothyroxine Sodium [Synthroid] 75 mcg PO DAILY Atorvastatin [Lipitor] 80 mg PO DAILY Vitamin E (Dl,Tocopheryl Acet) [Vitamin E (400 Iu = 180 mg)] 400 unit PO DAILY Mirabegron [Myrbetriq] 50 mg PO DAILY Discontinued clonazePAM [KlonoPIN] 1 mg PO HS HYDROcodone/APAP 10-325MG [[place] 10-325] 1 tab PO QID DULoxetine HCL [Cymbalta] 60 mg PO DAILY Losartan [Cozaar] 50 mg PO DAILY #30 tab Apixaban [Eliquis] 5 mg PO BID #60 tab clonazePAM 0.5 mg PO HS Discharge Medication List Ezetimibe [Zetia] 10 mg PO DAILY 11/02/13 [History] Gabapentin [Neurontin] 600 mg PO TID 11/02/13 [History] Metoprolol Tartrate [Lopressor] 25 mg PO BID #60 tab 06/09/18 [Rx] Atorvastatin [Lipitor] 80 mg PO DAILY 12/07/20 [History] Cholecalciferol (Vitamin D3) [Vitamin D3 (125 MCG = 5,000 IU)] 125 mcg PO DAILY 12/07/20 [History] Donepezil [Aricept] 5 mg PO DAILY 12/07/20 [History] Levothyroxine Sodium [Synthroid] 75 mcg PO DAILY 12/07/20 [History] Mirabegron [Myrbetriq] 50 mg PO DAILY 10/09/21 [History] Vitamin E (Dl,Tocopheryl Acet) [Vitamin E (400 Iu = 180 mg)] 400 unit PO DAILY 10/09/21 [History] Calcium Carbonate [Tums] 500 mg PO TID PRN tab 10/14/21 [Rx] Ferrous Sulfate [Feosol] 325 mg PO DAILY 30 Days #30 tab 10/14/21 [Rx] HYDROcodone/APAP 10-325MG [[place] 10-325] 1 each PO QID tab 10/14/21 [Rx] Melatonin 3 mg PO HS PRN tab 10/14/21 [Rx] Mirtazapine [Remeron] 7.5 mg PO HS tab 10/14/21 [Rx] Nicotine 14Mg/24Hr Patch [Habitrol] 1 patch TRANSDERM DAILY patch 10/14/21 [Rx] QUEtiapine [SEROquel] 25 mg PO HS tab 10/14/21 [Rx] clonazePAM [KlonoPIN] 0.25 mg PO HS tab 10/14/21 [Rx] QUEtiapine [SEROquel] 12.5 mg PO AC-SUPPER tab 10/15/21 [Rx] Follow up Appointment(s)/Referral(s): Rachel Gallardo MD [Primary Care Provider] - 1-2 days [facility] Visiting Nurse, [NON-STAFF] -
[2021-10-15 14:44] VITALS: BP 101/50; PULSE 73; RESP 18
--- NOTE | 2021-10-15 16:33 | P.PN ---
Subjective Progress Note Date: 10/15/21 Principal diagnosis: Leukocytosis Patient is 85-year-old female has been brought in the hospital with weakness and multiple falls patient also noticed to have mildly elevated white count with a negative initial workup. On today's evaluation that is 10/15/2021, The patient denies any fever or any chills, the patient is breathing comfortably room air , the patient denies any chest pain shortness of breath or cough no abdominal pain and no diarrhea has been reported by the nursing staff Objective - Vital Signs Vital signs: Vital Signs Temp 98.5 F 10/15/21 08:00 Pulse 51 L 10/15/21 08:00 Resp 17 10/15/21 08:00 BP 173/82 10/15/21 08:00 Pulse Ox 91 L 10/15/21 02:00 FiO2 Intake & Output 10/14/21 10/15/21 10/15/21 18:59 06:59 18:59 Intake Total 200 250 Balance 200 250 Intake: Intake, IV Titration 100 Amount Sodium Ferric Gluconat- 100 Sucrose 125 mg In Sodium Chloride 0.9% 100 ml @ 100 mls/hr IVPB DAILY [facility] Rx#:[id number] Oral 100 250 Other: Voiding Method Toilet Toilet Toilet # Voids 1 # Bowel Movements 1 - Exam GENERAL DESCRIPTION: An elderly female lying in bed in no distress RESPIRATORY SYSTEM: Unlabored breathing , decreased breath sounds at bases HEART: S1 S2 regular rate and rhythm , ABDOMEN: Soft , no tenderness EXTREMITIES: No edema feet - Labs CBC & Chem 7: 10/14/21 06:27 10/14/21 06:27 Labs: Abnormal Lab Results - Last 24 Hours (Table) 10/10/21 Range/Units 19:28 Ur Random Potassium 4.5 L (25.0-125.0) mmol/L Assessment and Plan (1) Leukocytosis Status: Acute Code(s): D72.829 - ELEVATED WHITE BLOOD CELL COUNT, UNSPECIFIED SNOMED Code(s): 171293306 Plan: 1patient with mildly leukocytosis in this patient presented to hospital with multiple falls syncopal episode however no fever patient currently do not have any obvious focus of infection chest x-ray was negative urine is negative abd ominal soft rectal examination no evidence of any cellulitis or joint swelling, the patient leukocytosis was more likely reactive and has resolved without antibiotic therapy. 2the patient white count normalized without antibiotic therapy and no obvious focus of infection recommend no antibiotic on discharge Time with Patient: Less than 30
--- NOTE | 2021-10-17 09:01 | CDI ---
Documentation Clarification Form Date: 10/17/2021 08:49:40 AM From: Bronwyn Ortiz RN CCDS Admit Date: 10/09/2021 01:37:00 PM Patient Name: Jeannette Tran Visit Number: [id number] Discharge Date: 10/15/2021 04:25:00 PM ATTENTION: The Clinical Documentation Specialists (CDI) and [facility] Coding Staff appreciate your assistance in clarifying documentation. Please respond to the clarification below the line at the bottom and electronically sign. The CDI & [facility] Coding staff will review the response and follow-up if needed. Please note: Queries are made part of the Legal Health Record. If you have any questions, please contact the author of this message via ITS. Dr. Rachel Gallardo Your patient has the documented symptom of Delirium 10/13, Psychology progress note . Additional clarification regarding the etiology/cause of this symptom is requested. History/Risk Factors: 85-year-old female [facility] to [facility] with multiple falls. Medical history: Dementia, Falls, Vertigo and Hyponatremia. Clinical Indicators: Psychology progress note, 10/13 Delirium, multifactorial (hyponatremia, elevated WBC, underlying dementia, polypharmacy) with perceptual disturbances resolved. Neurology progress note, 10/12 Reported agitation, hallucinations and confusion in a patient with a history of dementia, reportedly Alzheimer's type. Current symptoms are likely secondary to delirium, related to metabolic etiology as well as being in the hospital. Labs: 10/09: Na 124; Wbc 12.5; 10/10: Na 130; Wbc 12.2 CT Brain spine without contrast: 10/09 Atherosclerotic calcifications of the intracranial vessels. There is a high right jugular bulb. CT Brain without contrast: 10/09 Moderate cerebral cortical atrophy. Medications [place] 10 1 QID WAYNE; Klonopin PO HS; Aricept PO Daily; Haldol 2mg IM Q6HR PRN; Remeron 7.5mg PO HS WAYNE; Seroquel 12.5mg PO HS Treatment: Remeron 7.5mg QHS depression, sleep, appetite. Continue Seroquel 12.5mg BID before dinner an at bedtime for psychosis and agitation related to sundowning. Avoid benzodiazepines for agitation. Add melatonin for sleep. 10/11 Sodium chloride 1gm PO BID WAYNE Please clarify the etiology of the symptom of Delirium: [ ] Metabolic Encephalopathy due to polypharmacy [ ] Other condition (please specify) [ ] Unable to determine (Template Last Revised: April 2020) MTDD
== END 2021-10-15 16:25 | disposition home health service (06) | DRG 644 ==
LOC: EC 10:46 → 3SCARD 13:37 → 4SSUR 10-14 23:46
PROVIDERS: ADMIT Internal Medicine; ATTEND Internal Medicine
DX: E22.2 Syndrome of inappropriate secretion of antidiuretic hormone (principal); F02.81 Dementia in other diseases classified elsewhere, unspecified severity, with behavioral disturbance; I48.19 Other persistent atrial fibrillation; F05 Delirium due to known physiological condition; I27.20 Pulmonary hypertension, unspecified; G30.9 Alzheimer's disease, unspecified; F02.80 Dementia in other diseases classified elsewhere, unspecified severity, without behavioral disturbance, psychotic disturbance, mood disturbance, and anxiety; D50.9 Iron deficiency anemia, unspecified; F32.A Depression, unspecified; J44.9 Chronic obstructive pulmonary disease, unspecified; I10 Essential (primary) hypertension; E03.9 Hypothyroidism, unspecified; G31.9 Degenerative disease of nervous system, unspecified; I08.3 Combined rheumatic disorders of mitral, aortic and tricuspid valves; I95.9 Hypotension, unspecified; F17.210 Nicotine dependence, cigarettes, uncomplicated; F41.9 Anxiety disorder, unspecified; R55 Syncope and collapse; R29.6 Repeated falls; E78.5 Hyperlipidemia, unspecified; M19.90 Unspecified osteoarthritis, unspecified site; G89.29 Other chronic pain; M47.816 Spondylosis without myelopathy or radiculopathy, lumbar region; K64.9 Unspecified hemorrhoids; E86.1 Hypovolemia; D72.829 Elevated white blood cell count, unspecified; G62.9 Polyneuropathy, unspecified; R53.81 Other malaise; Z91.81 History of falling; Z79.899 Other long term (current) drug therapy; Z79.891 Long term (current) use of opiate analgesic; Z79.890 Hormone replacement therapy; Z79.01 Long term (current) use of anticoagulants; Z90.49 Acquired absence of other specified parts of digestive tract; Z90.710 Acquired absence of both cervix and uterus; Z81.1 Family history of alcohol abuse and dependence; Z98.890 Other specified postprocedural states; Z82.3 Family history of stroke
CPT/HCPCS: 36415; 70450; 71046; 72100; 72125; 73502; 80053; 81003; 82533; 82607; 82746; 83540; 83550; 83735; 83930; 83935; 84133; 84300; 84443; 84484; 84550; 85025; 85610; 85730; 93005; 93306; 93880; 99285

== ENCOUNTER 2022-06-22 12:46 | Emergency (ER) | payer MEDICARE ==
[2022-06-22 13:21] VITALS: TEMP 98.5
[2022-06-22 15:00] LABS: Basophils % (A) 0 %; Eosinophils % (A) 0 %; HCT 45.8 % (34.0-46.0); HGB 15.3 gm/dL (11.4-16.0); Lymphocytes # (A) 1.2 k/uL (1.0-4.8); Lymphocytes % (A) 11 %; MCH 33.5 pg (25.0-35.0); MCHC 33.4 g/dL (31.0-37.0); MCV 100.3 fL (80.0-100.0); Mean Platelet Volume 7.4; Monocytes # (A) 0.5 k/uL (0-1.0); Monocytes % (A) 5 %; Neutrophils # (A) 9.2 k/uL (1.3-7.7); Neutrophils % (A) 84 %; Platelet Count 211 k/uL (150-450); RBC 4.56 m/uL (3.80-5.40); RDW 13.7 % (11.5-15.5)
[2022-06-22 15:03] LABS: Appearance,Urine Clear (Clear); Bilirubin,Urine Negative (Negative); Blood,Urine Negative (Negative); Color,Urine Light Yellow; Glucose,Urine (UA) Negative (Negative); Ketones,Urine 1+ (Negative); Leukocyte Esterase,Urine Negative (Negative); Nitrite,Urine Negative (Negative); PH, Urine 6.5 (5.0-8.0); Protein,Urine Negative (Negative); Specific Gravity,Urine 1.005 (1.001-1.035); Urobilinogen,Urine <2.0 mg/dL (<2.0)
[2022-06-22 15:12] LABS: ALT 18 U/L (4-34); AST 20 U/L (14-36); African American GFR (CKD) >90 (>60 ml/min/1.73 sqM); Albumin 3.6 g/dL (3.5-5.0); Alkaline Phosphatase 57 U/L (38-126); Amylase <30 U/L (30-110); Anion Gap 8 mmol/L; Blood Urea Nitrogen 7 mg/dL (7-17); Calcium 8.5 mg/dL (8.4-10.2); Carbon Dioxide 26 mmol/L (22-30); Chloride 89 mmol/L (98-107); Glucose 113 mg/dL (74-99); Lipase 19 U/L (23-300); Non-African American GFR(CKD) >90 (>60 ml/min/1.73 sqM); Sodium 123 mmol/L (137-145); Total Bilirubin 0.9 mg/dL (0.2-1.3); Total Protein 5.9 g/dL (6.3-8.2)
--- NOTE | 2022-06-22 15:57 | ED ---
Abdominal Pain HPI - General Chief Complaint: Abdominal Pain Stated Complaint: Abd pain Source: patient, family, RN notes reviewed, old records reviewed Mode of arrival: wheelchair Limitations: no limitations - History of Present Illness Initial Comments: This is a 86-year-old female to the emergency department for evaluation. Patient presents with significant complaints today. Generalized and diffuse abdominal pain weakness, patient has had pain episodically for weeks to months. Patient has no travel show sick contacts decreased appetite decreased activity level and does admit to not feeling well here in the ER. MD Complaint: abdominal pain -: week(s) Location: diffuse, periumbilical, epigastric, suprapubic Radiation: epigastric, suprapubic Migration to: epigastric, suprapubic Severity: moderate Severity scale (1-10): 6 Quality: cramping, aching Consistency: intermittent Improves With: nothing Worsens With: eating Associated Symptoms: nausea Treatments Prior to Arrival: other (0) - Related Data Home Medications Medication Instructions Recorded Confirmed Ezetimibe [Zetia] 10 mg PO DAILY 11/02/13 10/09/21 Gabapentin [Neurontin] 600 mg PO TID 11/02/13 10/09/21 Atorvastatin [Lipitor] 80 mg PO DAILY 12/07/20 10/09/21 Cholecalciferol (Vitamin D3) 125 mcg PO DAILY 12/07/20 10/09/21 [Vitamin D3 (125 MCG = 5,000 IU)] Donepezil [Aricept] 5 mg PO DAILY 12/07/20 10/09/21 Levothyroxine Sodium [Synthroid] 75 mcg PO DAILY 12/07/20 10/09/21 Mirabegron [Myrbetriq] 50 mg PO DAILY 10/09/21 10/09/21 Vitamin E (Dl,Tocopheryl Acet) 400 unit PO DAILY 10/09/21 10/09/21 [Vitamin E (400 Iu = 180 mg)] Previous Rx's Medication Instructions Recorded Metoprolol Tartrate [Lopressor] 25 mg PO BID #60 tab 06/09/18 Calcium Carbonate [Tums] 500 mg PO TID PRN tab 10/14/21 Ferrous Sulfate [Feosol] 325 mg PO DAILY 30 Days #30 tab 10/14/21 HYDROcodone/APAP 10-325MG [[place] 1 each PO QID tab 08/16/22 10-325] Melatonin 3 mg PO HS PRN tab 10/14/21 Mirtazapine [Remeron] 7.5 mg PO HS tab 10/14/21 Nicotine 14Mg/24Hr Patch [Habitrol] 1 patch TRANSDERM DAILY patch 10/14/21 QUEtiapine [SEROquel] 25 mg PO HS tab 10/14/21 clonazePAM [KlonoPIN] 0.25 mg PO HS tab 10/14/21 QUEtiapine [SEROquel] 12.5 mg PO AC-SUPPER tab 10/15/21 Allergies Allergy/AdvReac Type Severity Reaction Status Date / Time No Known Allergies Allergy Verified 06/22/22 13:21 Review of Systems ROS Statement: Those systems with pertinent positive or pertinent negative responses have been documented in the HPI. ROS Other: All systems not noted in ROS Statement are negative. Past Medical History Past Medical History: Atrial Fibrillation, Asthma, Dementia, GERD/Reflux, Hyperlipidemia, Hypertension, Memory Impairment, Osteoarthritis (OA), Thyroid Disorder Additional Past Medical History / Comment(s): FALLS, vertigo, hyponatremia, anemia, chronic back pain, DDD, past small bowel ileus, hemorrhoids, seasonal allergies, hypothyroid History of Any Multi-Drug Resistant Organisms: None Reported Past Surgical History: Cholecystectomy, Ear Surgery, Hysterectomy Additional Past Surgical History / Comment(s): D&C, colonoscopy, EGD, pain clinic procedures, L ear myringotomy/tube, R nasolabial fold excision of lesion/reconstruction/flap. Past Anesthesia/Blood Transfusion Reactions: No Reported Reaction Past Psychological History: Anxiety Smoking Status: Current every day smoker Past Alcohol Use History: Daily Past Drug Use History: None Reported - Past Family History Father Additional Family Medical History / Comment(s): pt. states her father was an alcoholic and at a young age Mother Family Medical History: CVA/TIA Additional Family Medical History / Comment(s): Mother of a CVA in her 80s General Exam Limitations: no limitations Course Vital Signs 06/22/22 13:19 Temperature 98.5 F Pulse Rate 75 Respiratory 20 Rate Blood Pressure 146/79 O2 Sat by Pulse 97 Oximetry - Reevaluation(s) Reevaluation #1: 06/22/22 17:06 Medical record is reviewed Reevaluation #2: 06/22/22 17:06 Patient has no change in symptoms here in the ER Reevaluation #3: 06/22/22 17:06 Patient informed results and questions are answered Reevaluation #4: 06/22/22 17:06 Was pt. sent in by a medical professional or institution? @ -no Did you speak to anyone other than the patient for history? @ -no Did you review nursing and triage notes? @ -agree Were old charts reviewed? @ -no Differential Diagnosis? @ -abdominal pain EKG interpreted by me (3pts min.)? @ -no X-rays interpreted by me (1pt min.)? @ -no CT interpreted by me (1pt min.)? @ -no U/S interpreted by me (1pt. min.)? @ -no What testing was considered but not performed? (CT, X-rays, U/S, labs)? Why? @ -no What meds were considered but not given? Why? @ -no Did you discuss the management of the patient with other professionals? @ -no Did you reconcile home meds? @ -yes Was smoking cessation discussed for >3mins.? @ -no Was critical care preformed (if so, how long)? @ -no Were there social determinants of health that impacted care today? How? (Homelessness, low income, unemployed, alcoholism, drug addiction, transportation, low edu. Level, literacy, decrease access to med. care, custodial, rehab)? @ -no Was there de-escalation of care discussed even if they declined? (Discuss DNR or withdrawal of care, Hospice)? @ -no What co-morbidities impacted this encounter? (DM, HTN, Smoking, COPD, CAD, Cancer, CVA, Hep., AIDS, mental health diagnosis, sleep apnea, morbid obesity)? @ -no Was patient admitted / discharged? @ -admit Undiagnosed new problem with uncertain prognosis? @ -no Drug Therapy requiring intensive monitoring for toxicity (Heparin, Nitro, Insulin, Cardizem)? @ -no Were any procedures done? @ -no Diagnosis/symptom? @ -hyponatremiaac Acute, or Chronic, or Acute on Chronic? @ -acute Uncomplicated (without systemic symptoms) or Complicated (systemic symptoms)? @ -uncomplicated Side effects of treatment? @ -no Exacerbation, Progression, or Severe Exacerbation] @ -no Poses a threat to life or bodily function? @ -no Reevaluation #5: 06/22/22 17:08 Differential Abdominal Pain Men: Appendicitis, cholecystitis, diverticulosis, ischemic bowel, pancreatitis, hepatitis, UTI, gastroenteritis, AAA, incarcerated hernia, bowel obstruction, constipation, inflammatory bowel, hepatitis, peptic ulcer disease, splenic infarction, perforated viscus, testicular torsion, this is not meant to be an all-inclusive list - Consultations Consultation #1: [place] with Dr. Branch regarding admission is agreeable Medical Decision Making - Medical Decision Making 86 female DF for evaluation of abdominal pain nonspecific. With nonspecific ascites. Patient does have hyponatremia will admit for hydration malnourishment potassium replacement and patient can be discharged home - Lab Data Result diagrams: 06/22/22 14:22 06/22/22 14:22 Lab Results 06/22/22 06/22/22 06/22/22 Range/Units 14:22 14:22 14:22 WBC 11.0 H (3.8-10.6) k/uL RBC 4.56 (3.80-5.40) m/uL Hgb 15.3 (11.4-16.0) gm/dL Hct 45.8 (34.0-46.0) % MCV 100.3 H (80.0-100.0) fL MCH 33.5 (25.0-35.0) pg MCHC 33.4 (31.0-37.0) g/dL RDW 13.7 (11.5-15.5) % Plt Count 211 (150-450) k/uL MPV 7.4 Neutrophils % 84 % Lymphocytes % 11 % Monocytes % 5 % Eosinophils % 0 % Basophils % 0 % Neutrophils # 9.2 H (1.3-7.7) k/uL Lymphocytes # 1.2 (1.0-4.8) k/uL Monocytes # 0.5 (0-1.0) k/uL Eosinophils # 0.0 (0-0.7) k/uL Basophils # 0.0 (0-0.2) k/uL Sodium 123 L (137-145) mmol/L Potassium 4.0 (3.5-5.1) mmol/L Chloride 89 L (98-107) mmol/L Carbon Dioxide 26 (22-30) mmol/L Anion Gap 8 mmol/L BUN 7 (7-17) mg/dL Creatinine 0.45 L (0.52-1.04) mg/dL Est GFR (CKD-EPI)AfAm >90 (>60 ml/min/1.73 sqM) Est GFR (CKD-EPI)NonAf >90 (>60 ml/min/1.73 sqM) Glucose 113 H (74-99) mg/dL Calcium 8.5 (8.4-10.2) mg/dL Total Bilirubin 0.9 (0.2-1.3) mg/dL AST 20 (14-36) U/L ALT 18 (4-34) U/L Alkaline Phosphatase 57 (38-126) U/L Total Protein 5.9 L (6.3-8.2) g/dL Albumin 3.6 (3.5-5.0) g/dL Amylase <30 L (30-110) U/L Lipase 19 L (23-300) U/L Urine Color Light Yellow Urine Appearance Clear (Clear) Urine pH 6.5 (5.0-8.0) Ur Specific [place] 1.005 (1.001-1.035) Urine Protein Negative (Negative) Urine Glucose (UA) Negative (Negative) Urine Ketones 1+ H (Negative) Urine Blood Negative (Negative) Urine Nitrite Negative (Negative) Urine Bilirubin Negative (Negative) Urine Urobilinogen <2.0 (<2.0) mg/dL Ur Leukocyte Esterase Negative (Negative) - EKG Data -: EKG Interpreted by Me (EKG is A. fib 63 QRS 85 QTc 458) - Radiology Data Radiology results: report reviewed (CT head and pelvis reports nonspecific ascites), image reviewed Disposition Clinical Impression: Abdominal pain, Ascites, Nausea & vomiting, Hyponatremia Disposition: ADMITTED IP TO THIS HOSP Condition: Fair Is patient prescribed a controlled substance at d/c from ED?: No Referrals: Rachel Gallardo MD [Primary Care Provider] - 1-2 days Time of Disposition: 17:00
--- NOTE | 2022-06-22 16:06 | XR ---
EXAMINATION TYPE: XR KUB DATE OF EXAM: 06/22/2022 3:43 PM INDICATION: Patient age:Female; 86 years old; Reason for study: abdominal pain; COMPARISON: 12/08/2020 TECHNIQUE: One radiographic view of the abdomen was obtained. FINDINGS: The bowel gas pattern is nonspecific without dilated loops of small or large bowel. There i s no evidence for organomegaly or pneumoperitoneum. The osseous structures are intact. No abnormal calcifications are present. Fecal material and gas are demonstrated throughout the colon and rectum. Multilevel disc degeneration changes throughout the spine. IMPRESSION: Nonspecific bowel gas pattern without radiographic evidence for acute process.
--- NOTE | 2022-06-22 16:31 | CT ---
EXAMINATION TYPE: CT abdomen pelvis w con DATE OF EXAM: 06/22/2022 HISTORY: upper abdominal pain CT DLP: 574.8mGycm Automated Exposure Control for Dose Reduction was Utilized. CONTRAST: CT scan of the abdomen and pelvis is performed without oral and with IV Contrast, patient injected wi th 100 cc mL of Isovue 300. COMPARISON: CT January 30, 2020 FINDINGS: LUNG BASES: Anterior right lung base linear scarring and/or atelectasis on current study. New small t o tiny pericardial effusion greatest along right aspect. Cardiomegaly with moderate to severe right g reater than left biatrial dilatation on current study. Coronary artery calcification is redemonstrate d. LIVER/GB: Gallbladder is surgically absent. Persistent moderate extrahepatic biliary dilatation with new mild central intrahepatic biliary dilatation. Dilatation to the level of duodenal ampulla coronal image 42 is noted. PANCREAS: Mild to moderate generalized pancreatic atrophy. Mild dilatation of pancreatic duct in the pancreatic head up to 5 mm coronal image 39 SPLEEN: A few adjacent tiny splenule's are present. ADRENALS: No significant abnormality is seen. KIDNEYS: There is 1.0 cm simple-appearing thin-walled cyst left kidney delayed axial image 27. BOWEL: Suboptimal evaluation without enteric contrast. No suspicious small or large bowel dilatation. Fluid-filled right colon is seen. Moderate colonic fecal prominence in the rectum. Sigmoid colonic d iverticula. UTERUS/ADNEXA: Uterus is surgically absent. LYMPH NODES: No greater than 1cm abdominal or pelvic lymph nodes are appreciated. OSSEOUS STRUCTURES: Moderate to severe disc space narrowing lumbosacral junction with vacuum disc phe nomenon. Grade 1 anterolisthesis L4 on L5. OTHER: Small amount of ascites in the right abdomen seen. Moderate calcified plaque of the aorta exte nds into branch vessels IMPRESSION: 1. New small amount of right sided intra-abdominal ascites of uncertain etiology. 2. Persistent moderate extrahepatic biliary dilatation with slightly more prominent mild to moderate central intrahepatic biliary dilatation. There is new mild pancreatic ductal dilatation. No obvious o bstructing mass. Consider ERCP follow-up based on clinical correlation. 3. Suspect mild proximal uncomplicated colitis and/or diarrhea. Correlate clinically. No bowel obstru ction.
[2022-06-22] MEDS ORDERED: MORPHINE SULFATE 4 MG/ML SYRINGE IV PRN (17:10)
[2022-06-22] MEDS ORDERED: ONDANSETRON 4 MG/2 ML VIAL IVP PRN (17:10)
[2022-06-22] MEDS ORDERED: NALOXONE 0.4 MG/ML 1 ML VIAL IV PRN (17:10)
[2022-06-22] MEDS ORDERED: SODIUM CHLORIDE 0.9% 1,000 ML IV SCH (17:15)
[2022-06-22 18:02] VITALS: BP 184/92; PULSE 59; RESP 16
== END 2022-06-22 18:03 | disposition home or self-care (01) ==
LOC: EC 12:46 → 4SSUR 17:10 → UNDOADMIN 17:10 → EC 18:03
DX: R18.8 Other ascites (principal); E87.1 Hypo-osmolality and hyponatremia; I48.91 Unspecified atrial fibrillation; J45.909 Unspecified asthma, uncomplicated; K21.9 Gastro-esophageal reflux disease without esophagitis; E78.5 Hyperlipidemia, unspecified; I10 Essential (primary) hypertension; M19.90 Unspecified osteoarthritis, unspecified site; E07.9 Disorder of thyroid, unspecified; F41.9 Anxiety disorder, unspecified; F17.200 Nicotine dependence, unspecified, uncomplicated; Z79.899 Other long term (current) drug therapy; Z79.890 Hormone replacement therapy
CPT/HCPCS: 36415; 80053; 82150; 83690; 85025; 81003; 74018; 74177; 99284; Q9967; 93005

== ENCOUNTER 2022-06-29 11:52 | Observation (INO) | payer MEDICARE ==
--- NOTE | 2022-06-29 13:46 | CT ---
EXAMINATION TYPE: CT brain cspine wo con CT DLP: 1260.2 mGycm, Automated exposure control for dose reduction was used. DATE OF EXAM: 06/29/2022 1:38 PM COMPARISON: CT brain 1122, CT brain C-spine 1122. CLINICAL INDICATION:Female, 86 years old with history of fall; Fall TECHNIQUE: Brain: Multiple axial CT images of the brain were obtained without IV contrast. Cspine: Axial CT images from the skull base to the inferior aspect of T2 we obtained without intraven ous contrast. Coronal and sagittal reformatted images were also reviewed. FINDINGS: Brain: Extra-axial spaces: No abnormal extra-axial fluid collections. Ventricular system: Dilatation in proportion to cerebral atrophy. Cerebral parenchyma: Cerebral atrophy. No acute intraparenchymal hemorrhage or mass effect. The brumfield -white junction is well differentiated. Scattered hypoattenuating areas are seen within the white mat ter. Cerebellum: Unremarkable. Mass effect: No evidence of midline shift. Intracranial vasculature: Atherosclerotic calcifications of the intracranial vessels. Soft tissues: Normal. Calvarium/osseous structures: No depressed skull fracture. Paranasal sinuses and mastoid air cells: Clear. Visualized orbits: Bilateral aphakia. Bilateral scleral calcifications. Cervical spine: Fracture: None. Osseous structures: Multilevel degenerative disc disease changes with endplate spurring and disc oste ophyte complex's. Multilevel facet arthropathy. Vertebral alignment: Similar mild retrolisthesis of C5-C6 and grade 1 anterolisthesis of C3 on C4. Spinal canal/Neural Foramina: Disc osteophyte complexes at C3-C4, C4-C5, C5-C6 with at least mild spi nal canal stenosis. Facet joint uncovertebral joint arthropathy scattered throughout the cervical spi ne with varying degrees of neural foraminal stenosis. Neck soft tissues: Prevertebral soft tissues are within normal limits. Other: The airway is patent. The lung apices are clear. Mild COPD changes. Left upper lobe calcified granuloma. Atherosclerotic calcification of both carotid bulbs. IMPRESSION: 1. No acute intracranial process. 2. Nonspecific white matter changes, likely secondary to chronic small vessel ischemic disease. 3. No evidence of cervical spine fracture. 4. Mild multilevel degenerative disc disease.
--- NOTE | 2022-06-29 13:51 | XR ---
EXAMINATION TYPE: XR chest 1V DATE OF EXAM: 06/29/2022 COMPARISON: Chest x-ray October 09, 2021. HISTORY: Fall injury with pain TECHNIQUE: Single frontal view of the chest is obtained. FINDINGS: There is no suspicious focal air space opacity, pleural effusion, or pneumothorax seen. T he cardiac silhouette size is more prominent and enlarged. The osseous structures are intact. IMPRESSION: Cardiomegaly without acute pulmonary process.
--- NOTE | 2022-06-29 13:56 | XR ---
EXAMINATION TYPE: XR pelvis AP view DATE OF EXAM: 06/29/2022 CLINICAL HISTORY: Fall injury with pain TECHNIQUE: A single AP view of the pelvis is obtained. COMPARISON: CT abdomen and pelvis June 22, 2022. FINDINGS: There is no acute fracture/dislocation evident in the pelvis. [id number] axial joint space loss in both hips redemonstrated. Sacroiliac joints are maintained. Pubic symphysis is intact. The overlying soft tissue appears unremarkable. IMPRESSION: There is no acute fracture or dislocation in the pelvis.
[2022-06-29] MEDS ORDERED: SODIUM CHLORIDE 0.9% 500 ML 500 ML IV STA (14:43)
--- NOTE | 2022-06-29 14:45 | ED ---
Weakness HPI - General Chief complaint: Fall Stated complaint: fall - head injury Time Seen by Provider: 06/29/22 12:10 Source: patient, EMS, RN notes reviewed, old records reviewed, Caregiver Mode of arrival: EMS Limitations: altered mental status - History of Present Illness Initial comments: This is an 86-year-old female to the emergency department for evaluation. Patient presents by EMS for evaluation regarding multiple recent falls and found down this morning. Per family patient was found down laceration bleeding with a believe is the back of her head patient herself is complaining of headache and weakness. Family is at bedside is a patient has had increasing falls lately seemed to fall at night but most of her to activity is starting to take place at night multiple recent ER visits for falls. Patient does several from dementia unable to find history history patient at bedside. states he cannot take care of the patient she refuses to use her walker he thinks he may just not consider using her walker be forgetful MD Complaint: generalized weakness Location: generalized Severity: moderate Severity scale (1-10): 4 Consistency: constant Improves with: none Worsens with: none Context: history of similar Associated Symptoms: confusion - Related Data Home Medications Medication Instructions Recorded Confirmed Ezetimibe [Zetia] 10 mg PO DAILY 11/02/13 06/29/22 Atorvastatin [Lipitor] 80 mg PO DAILY 12/07/20 06/29/22 Cholecalciferol (Vitamin D3) 125 mcg PO DAILY 12/07/20 06/29/22 [Vitamin D3 (125 MCG = 5,000 IU)] Donepezil [Aricept] 5 mg PO DAILY 12/07/20 06/29/22 Mirabegron [Myrbetriq] 50 mg PO DAILY 10/09/21 06/29/22 Vitamin E (Dl,Tocopheryl Acet) 400 unit PO DAILY 10/09/21 06/29/22 [Vitamin E (400 Iu = 180 mg)] ALPRAZolam [Xanax] 0.25 mg PO TID PRN 06/29/22 06/29/22 Famotidine [Pepcid] 20 mg PO BID 06/29/22 06/29/22 Gabapentin [Neurontin] 400 mg PO TID 06/29/22 06/29/22 HYDROcodone/APAP 7.5-325MG [[place] 1 tab PO Q6H PRN 06/29/22 06/29/22 7.5-325] Levothyroxine Sodium [Synthroid] 50 mcg PO DAILY 06/29/22 06/29/22 Losartan Potassium 50 mg PO DIRECTED 06/29/22 06/29/22 Mirtazapine 7.5 mg PO HS 06/29/22 06/29/22 clonazePAM [Klonopin ODT] 0.25 mg PO HS 06/29/22 06/29/22 Previous Rx's Medication Instructions Recorded Metoprolol Tartrate [Lopressor] 25 mg PO BID #60 tab 06/09/18 Calcium Carbonate [Tums] 500 mg PO TID PRN tab 10/14/21 Ferrous Sulfate [Feosol] 325 mg PO DAILY 30 Days #30 tab 10/14/21 QUEtiapine [SEROquel] 25 mg PO HS tab 10/14/21 Allergies Allergy/AdvReac Type Severity Reaction Status Date / Time No Known Allergies Allergy Verified 06/29/22 17:51 Review of Systems ROS Statement: Those systems with pertinent positive or pertinent negative responses have been documented in the HPI. ROS Other: All systems not noted in ROS Statement are negative. Past Medical History Past Medical History: Atrial Fibrillation, Asthma, Dementia, GERD/Reflux, Hyperlipidemia, Hypertension, Memory Impairment, Osteoarthritis (OA), Thyroid Disorder Additional Past Medical History / Comment(s): FALLS, vertigo, hyponatremia, anemia, chronic back pain, DDD, past small bowel ileus, hemorrhoids, seasonal allergies, hypothyroid History of Any Multi-Drug Resistant Organisms: None Reported Past Surgical History: Cholecystectomy, Ear Surgery, Hysterectomy Additional Past Surgical History / Comment(s): D&C, colonoscopy, EGD, pain clinic procedures, L ear myringotomy/tube, R nasolabial fold excision of lesion/reconstruction/flap. Past Anesthesia/Blood Transfusion Reactions: No Reported Reaction Past Psychological History: Anxiety Smoking Status: Current every day smoker Past Alcohol Use History: Daily Past Drug Use History: None Reported - Past Family History Father Additional Family Medical History / Comment(s): pt. states her father was an alcoholic and at a young age Mother Family Medical History: CVA/TIA Additional Family Medical History / Comment(s): Mother of a CVA in her 80s General Exam Limitations: altered mental status, physical limitation General appearance: alert, lethargic, in distress, cachectic Head exam: Present: normocephalic, normal inspection. Absent: atraumatic (Occipital head laceration 4 cm) Eye exam: Present: normal appearance, PERRL, EOMI. Absent: scleral icterus, conjunctival injection, periorbital swelling ENT exam: Present: normal exam, mucous membranes dry Neck exam: Present: normal inspection. Absent: tenderness, meningismus, lymphadenopathy Respiratory exam: Present: normal lung sounds bilaterally. Absent: respiratory distress, wheezes, rales, rhonchi, stridor Cardiovascular Exam: Present: regular rate, normal rhythm, normal heart sounds. Absent: systolic murmur, diastolic murmur, rubs, gallop, clicks GI/Abdominal exam: Present: soft, normal bowel sounds. Absent: distended, tenderness, guarding, rebound, rigid Extremities exam: Present: normal inspection, full ROM, normal capillary refill. Absent: tenderness, pedal edema, joint swelling, calf tenderness Back exam: Present: normal inspection Neurological exam: Present: alert, oriented X3, CN II-XII intact Psychiatric exam: Present: normal affect, normal mood Skin exam: Present: warm, dry, intact, normal color. Absent: rash Course Vital Signs 06/29/22 06/29/22 06/29/22 11:58 12:30 13:00 Temperature 97.6 F Pulse Rate 65 55 L 51 L Respiratory 16 16 18 Rate Blood Pressure 196/82 194/96 150/93 O2 Sat by Pulse 98 96 97 Oximetry 06/29/22 13:30 Temperature Pulse Rate 56 L Respiratory 16 Rate Blood Pressure 160/89 O2 Sat by Pulse 96 Oximetry - Reevaluation(s) Reevaluation #1: 06/29/22 18:10 Medical record is reviewed. Reevaluation #2: 06/29/22 18:10 Patient has no change in symptoms here in the ER poor strain secondary to dementia Reevaluation #3: 06/29/22 18:10 Spoke with family at length regarding findings, they state they prefer patient admission as there finding her what appears to be night after night on the ground if she walks or as well as her activity at night and is having more more falls Reevaluation #4: 06/29/22 18:11 Was pt. sent in by a medical professional or institution? @ -no Did you speak to anyone other than the patient for history? @ -yes family is at bedside stating patients condition is significantly worsening, more falls, found down each morning Did you review nursing and triage notes? @ -agree Were old charts reviewed? @ -yes prior ED visits Differential Diagnosis? @ -prior EKG interpreted by me (3pts min.)? @ -yes X-rays interpreted by me (1pt min.)? @ -yes CT interpreted by me (1pt min.)? @ -no U/S interpreted by me (1pt. min.)? @ -no What testing was considered but not performed? (CT, X-rays, U/S, labs)? Why? @ -no What meds were considered but not given? Why? @ -no Did you discuss the management of the patient with other professionals? @ -yes admitting provider who agrees to admission Did you reconcile home meds? @ -yes Was smoking cessation discussed for >3mins.? @ -no Was critical care preformed (if so, how long)? @ -no Were there social determinants of health that impacted care today? How? (Homelessness, low income, unemployed, alcoholism, drug addiction, transportation, low edu. Level, literacy, decrease access to med. care, longterm, rehab)? @ -no Was there de-escalation of care discussed even if they declined? (Discuss DNR or withdrawal of care, Hospice)? @ -no What co-morbidities impacted this encounter? (DM, HTN, Smoking, COPD, CAD, Cancer, CVA, Hep., AIDS, mental health diagnosis, sleep apnea, morbid obesity)? @ -yes dementia Was patient admitted / discharged? @ -admit Undiagnosed new problem with uncertain prognosis? @ -no Drug Therapy requiring intensive monitoring for toxicity (Heparin, Nitro, Insulin, Cardizem)? @ no Were any procedures done? @ -no Diagnosis/symptom? @ -weakness, falls Acute, or Chronic, or Acute on Chronic? @ -acute on chronic with recurrence Uncomplicated (without systemic symptoms) or Complicated (systemic symptoms)? @ -uncomplicated Side effects of treatment? @ -no Exacerbation, Progression, or Severe Exacerbation] @ -no Poses a threat to life or bodily function? @ -no Reevaluation #5: 06/29/22 18:11 Differential Weakness: Hypoglycemia, shock, sepsis, hyponatremia, anemia, infection, [place], ETOH, adverse medicine reaction, overdose, stroke, this is not meant to be an all-inclusive list. Procedures - Laceration Laceration #1 Consent Obtained: verbal consent Indication: laceration Site: scalp Size (cm): 4 Description: linear Depth: simple, single layer Pre-repair: wound explored Type of Sutures: other ([place]) Technique: simple, interrupted Medical Decision Making - Medical Decision Making 86 male to the emergency department for evaluation status post fall with multiple falls recently. Patient is getting increasingly that increasing increase in falls. Patient does have a syncopal scalp laceration which is repaired here in the ER and continues remained weak on her feet will be admitted for PTOT and possible further placement. - Lab Data Result diagrams: 06/29/22 15:00 06/29/22 15:27 Lab Results 06/29/22 06/29/22 06/29/22 Range/Units 15:00 15:15 15:27 WBC 8.6 (3.8-10.6) k/uL RBC 4.71 (3.80-5.40) m/uL Hgb 15.5 (11.4-16.0) gm/dL Hct 46.6 H (34.0-46.0) % MCV 98.8 (80.0-100.0) fL MCH 32.8 (25.0-35.0) pg MCHC 33.2 (31.0-37.0) g/dL RDW 13.7 (11.5-15.5) % Plt Count 307 (150-450) k/uL MPV 7.0 Neutrophils % 69 % Lymphocytes % 22 % Monocytes % 5 % Eosinophils % 2 % Basophils % 0 % Neutrophils # 6.0 (1.3-7.7) k/uL Lymphocytes # 1.9 (1.0-4.8) k/uL Monocytes # 0.4 (0-1.0) k/uL Eosinophils # 0.2 (0-0.7) k/uL Basophils # 0.0 (0-0.2) k/uL Sodium 132 L (137-145) mmol/L Potassium 3.8 (3.5-5.1) mmol/L Chloride 94 L (98-107) mmol/L Carbon Dioxide 30 (22-30) mmol/L Anion Gap 8 mmol/L BUN 7 (7-17) mg/dL Creatinine 0.56 (0.52-1.04) mg/dL Est GFR (CKD-EPI)AfAm >90 (>60 ml/min/1.73 sqM) Est GFR (CKD-EPI)NonAf 85 (>60 ml/min/1.73 sqM) Glucose 93 (74-99) mg/dL Plasma Lactic Acid Vladimir 0.8 (0.7-2.0) mmol/L Calcium 8.5 (8.4-10.2) mg/dL Phosphorus 3.9 (2.5-4.5) mg/dL Magnesium 1.9 (1.6-2.3) mg/dL Total Bilirubin 0.5 (0.2-1.3) mg/dL AST 31 (14-36) U/L ALT 29 (4-34) U/L Alkaline Phosphatase 67 (38-126) U/L Troponin I (0.000-0.034) ng/mL NT-Pro-B Natriuret Pep pg/mL Total Protein 5.8 L (6.3-8.2) g/dL Albumin 3.5 (3.5-5.0) g/dL 06/29/22 06/29/22 Range/Units 15:27 15:27 WBC (3.8-10.6) k/uL RBC (3.80-5.40) m/uL Hgb (11.4-16.0) gm/dL Hct (34.0-46.0) % MCV (80.0-100.0) fL MCH (25.0-35.0) pg MCHC (31.0-37.0) g/dL RDW (11.5-15.5) % Plt Count (150-450) k/uL MPV Neutrophils % % Lymphocytes % % Monocytes % % Eosinophils % % Basophils % % Neutrophils # (1.3-7.7) k/uL Lymphocytes # (1.0-4.8) k/uL Monocytes # (0-1.0) k/uL Eosinophils # (0-0.7) k/uL Basophils # (0-0.2) k/uL Sodium (137-145) mmol/L Potassium (3.5-5.1) mmol/L Chloride (98-107) mmol/L Carbon Dioxide (22-30) mmol/L Anion Gap mmol/L BUN (7-17) mg/dL Creatinine (0.52-1.04) mg/dL Est GFR (CKD-EPI)AfAm (>60 ml/min/1.73 sqM) Est GFR (CKD-EPI)NonAf (>60 ml/min/1.73 sqM) Glucose (74-99) mg/dL Plasma Lactic Acid Vladimir (0.7-2.0) mmol/L Calcium (8.4-10.2) mg/dL Phosphorus (2.5-4.5) mg/dL Magnesium (1.6-2.3) mg/dL Total Bilirubin (0.2-1.3) mg/dL AST (14-36) U/L ALT (4-34) U/L Alkaline Phosphatase (38-126) U/L Troponin I <0.012 (0.000-0.034) ng/mL NT-Pro-B Natriuret Pep 902 pg/mL Total Protein (6.3-8.2) g/dL Albumin (3.5-5.0) g/dL - Radiology Data Radiology results: report reviewed (CT brain C-spine chest and pelvis x-ray are negative for traumatic injury), image reviewed Disposition Clinical Impression: Fall, Weakness, Occipital scalp laceration, Nausea & vomiting, Anemia, Dehydration, Altered mental status Disposition: ADMITTED IP TO THIS HOSP Condition: Good Is patient prescribed a controlled substance at d/c from ED?: No Time of Disposition: 16:30
[2022-06-29 15:54] LABS: Basophils % (A) 0 %; Eosinophils # (A) 0.2 k/uL (0-0.7); Eosinophils % (A) 2 %; HCT 46.6 % (34.0-46.0); HGB 15.5 gm/dL (11.4-16.0); Lymphocytes # (A) 1.9 k/uL (1.0-4.8); Lymphocytes % (A) 22 %; MCH 32.8 pg (25.0-35.0); MCHC 33.2 g/dL (31.0-37.0); MCV 98.8 fL (80.0-100.0); Monocytes # (A) 0.4 k/uL (0-1.0); Monocytes % (A) 5 %; Neutrophils % (A) 69 %; Platelet Count 307 k/uL (150-450); RBC 4.71 m/uL (3.80-5.40); RDW 13.7 % (11.5-15.5); WBC 8.6 k/uL (3.8-10.6)
[2022-06-29 16:08] LABS: ALT 29 U/L (4-34); AST 31 U/L (14-36); African American GFR (CKD) >90 (>60 ml/min/1.73 sqM); Albumin 3.5 g/dL (3.5-5.0); Alkaline Phosphatase 67 U/L (38-126); Anion Gap 8 mmol/L; Blood Urea Nitrogen 7 mg/dL (7-17); Calcium 8.5 mg/dL (8.4-10.2); Carbon Dioxide 30 mmol/L (22-30); Chloride 94 mmol/L (98-107); Glucose 93 mg/dL (74-99); Magnesium 1.9 mg/dL (1.6-2.3); Non-African American GFR(CKD) 85 (>60 ml/min/1.73 sqM); Phosphorus 3.9 mg/dL (2.5-4.5); Potassium 3.8 mmol/L (3.5-5.1); Sodium 132 mmol/L (137-145); Total Bilirubin 0.5 mg/dL (0.2-1.3); Total Protein 5.8 g/dL (6.3-8.2)
[2022-06-29] MEDS ORDERED: NALOXONE 0.4 MG/ML 1 ML VIAL IV PRN (17:45)
[2022-06-29] MEDS ORDERED: ONDANSETRON 4 MG/2 ML VIAL IVP PRN (17:45)
[2022-06-29] MEDS ORDERED: MORPHINE SULFATE 4 MG/ML SYRINGE IV PRN (17:45)
[2022-06-29 19:25] LABS: Appearance,Urine Clear (Clear); Bilirubin,Urine Negative (Negative); Blood,Urine Negative (Negative); Color,Urine Light Yellow; Glucose,Urine (UA) Negative (Negative); Ketones,Urine Negative (Negative); Leukocyte Esterase,Urine Negative (Negative); Nitrite,Urine Negative (Negative); PH, Urine 6.5 (5.0-8.0); Protein,Urine Negative (Negative); Specific Gravity,Urine 1.006 (1.001-1.035); Urobilinogen,Urine <2.0 mg/dL (<2.0)
[2022-06-29] MEDS ORDERED: CALCIUM CARBONATE 500 MG CHEWABLE PO PRN (23:59)
[2022-06-30] MEDS: QUEtiapine 25 MG TAB PO SCH ×2 (00:15→20:52)
[2022-06-30] MEDS: clonazePAM 0.5 MG TAB PO SCH ×2 (00:15→20:52)
[2022-06-30] MEDS: ALPRAZolam 0.25 MG TAB PO PRN (00:27)
[2022-06-30] MEDS: HYDROcodone/APAP 7.5-325MG 1 EACH TAB PO PRN ×2 (02:04→10:30)
[2022-06-30] MEDS: LEVOTHYROXINE 50 MCG TAB PO SCH (06:22)
[2022-06-30] MEDS ORDERED: LOSARTAN 50 MG TAB PO SCH (09:30)
[2022-06-30] MEDS: NON FORMULARY DRUG (Mirabegron [Myrbetriq] 50 MG Tab.Er.24h) PO SCH (10:21)
[2022-06-30] MEDS: VITAMIN E (DL,TOCOPHERYL ACET) 400 UNIT (180 MG) CAP PO SCH (10:22)
[2022-06-30] MEDS: FAMOTIDINE 20 MG TAB PO SCH ×2 (10:22→20:52)
[2022-06-30] MEDS: CHOLECALCIFEROL 125 MCG (5000 IU) TABLET PO SCH (10:22)
[2022-06-30] MEDS: EZETIMIBE 10 MG TAB PO SCH (10:22)
[2022-06-30] MEDS: ATORVASTATIN 80 MG TAB PO SCH (10:22)
[2022-06-30] MEDS: DONEPEZIL 5 MG TAB PO SCH (10:23)
[2022-06-30] MEDS: GABAPENTIN 400 MG CAP PO SCH ×3 (10:23→20:52)
[2022-06-30] MEDS: METOPROLOL TARTRATE 25 MG TAB PO SCH ×2 (10:23→20:52)
[2022-06-30] MEDS: FERROUS SULFATE 325 MG TAB PO SCH (10:23)
[2022-06-30 10:46] LABS: Basophils # (A) 0.04 X 10*3/uL (0.00-0.10); Basophils % (A) 0.4 %; Eosinophils # (A) 0.19 X 10*3/uL (0.04-0.35); Eosinophils % (A) 1.8 %; HCT 40.2 % (37.2-46.3); HGB 13.5 g/dL (12.0-15.0); Immature Grans, Automated 0.3 %; Lymphocytes # (A) 3.15 X 10*3/uL (0.90-5.00); Lymphocytes % (A) 30.1 %; MCH 32.9 pg (27.0-32.0); MCHC 33.6 g/dL (32.0-37.0); Mean Platelet Volume 9.1 fL (9.5-12.2); Monocytes # (A) 0.74 X 10*3/uL (0.20-1.00); Monocytes % (A) 7.1 %; NRBC Per 100 WBC 0 /100 WBCS (0.0-0.0); Neutrophils # (A) 6.31 X 10*3/uL (1.80-7.70); Neutrophils % (A) 60.3 %; Platelet Count 299 X 10*3/uL (140-440); RDW 14.6 % (11.5-14.5); WBC 10.46 X 10*3/uL (4.50-10.00)
[2022-06-30 10:58] LABS: Carbon Dioxide 28.5 mmol/L (20.0-27.5); Potassium 3.6 mmol/L (3.5-5.5)
[2022-06-30 10:59] LABS: African American GFR (CKD) 95.7 (60.0-200.0); Albumin 3.5 g/dL (3.8-4.9); Albumin/Globulin Ratio 1.84 (1.60-3.17); Anion Gap 7.5 mmol/L (10.00-18.00); Blood Urea Nitrogen 4.8 mg/dL (9.0-27.0); Calcium 8.7 mg/dL (8.7-10.3); Globulin 1.9 g/dL (1.6-3.3); Non-African American GFR(CKD) 82.5 (60.0-200.0); Total Bilirubin 0.4 mg/dL (0.30-1.20); Total Protein 5.4 g/dL (6.2-8.2)
[2022-06-30] MEDS ORDERED: clonazePAM 0.5 MG TAB PO PRN (14:55)
--- NOTE | 2022-06-30 18:01 | P.HPIM ---
History of Present Illness H&P Date: 06/30/22 Jeannette Tran, is an 86-year-old female who presented to [facility] emergency room with a chief complaint of generalized weakness and multiple falls, patient was found on the floor by her he called EMS and patient was brought into emergency room. Patient had a recent ER visit about 1 week prior to this presentation, at that time patient had severe hyponatremia with a sodium of 123 and had evidence of extrahepatic biliary dilatatian with pancreatic duct and dilatatian with recommendation for ERCP, at that time patient and family opted for her to go home and follow-up with Dr. Shannon White as outpatient as there was no gastroenterology on service at that time. She was evaluated in the emergency room vital examination on presentation revealed a temperature of 97.6 pulse 65 respiration 16 blood pressure 196/82 pulse ox 98% on room air Laboratory data revealed a white blood count of 8.6 hemoglobin 15.5 platelet count 307 sodium 132 potassium 3.8 chloride 94 CO2 30 BUN 7 creatinine 0.56 Testing in the emergency room revealed computed tomography scan of the brain revealed no acute intracranial process with nonspecific white matter changes computed tomography scan of the cervical spine revealed no evidence of cervical spine fracture, chest x-ray revealed cardiomegaly without acute pulmonary process, pelvic x-ray revealed no acute fracture or dislocation in the pelvis. Patient was admitted to medical floor for further evaluation and treatment Past Medical History Past Medical History: Atrial Fibrillation, Asthma, Dementia, GERD/Reflux, Hyperlipidemia, Hypertension, Memory Impairment, Osteoarthritis (OA), Thyroid Disorder Additional Past Medical History / Comment(s): FALLS, vertigo, hyponatremia, anemia, chronic back pain, DDD, past small bowel ileus, hemorrhoids, seasonal allergies, hypothyroid History of Any Multi-Drug Resistant Organisms: None Reported Past Surgical History: Cholecystectomy, Ear Surgery, Hysterectomy Additional Past Surgical History / Comment(s): D&C, colonoscopy, EGD, pain clinic procedures, L ear myringotomy/tube, R nasolabial fold excision of lesion/reconstruction/flap. Past Anesthesia/Blood Transfusion Reactions: No Reported Reaction Past Psychological History: Anxiety Smoking Status: Current every day smoker Past Alcohol Use History: Daily Past Drug Use History: None Reported - Past Family History Father Additional Family Medical History / Comment(s): pt. states her father was an alcoholic and at a young age Mother Family Medical History: CVA/TIA Additional Family Medical History / Comment(s): Mother of a CVA in her 80s Medications and Allergies Home Medications Medication Instructions Recorded Confirmed Type Ezetimibe [Zetia] 10 mg PO DAILY 11/02/13 06/29/22 History Metoprolol Tartrate [Lopressor] 25 mg PO BID #60 tab 06/09/18 06/29/22 Rx Atorvastatin [Lipitor] 80 mg PO DAILY 12/07/20 06/29/22 History Cholecalciferol (Vitamin D3) 125 mcg PO DAILY 12/07/20 06/29/22 History [Vitamin D3 (125 MCG = 5,000 IU)] Donepezil [Aricept] 5 mg PO DAILY 12/07/20 06/29/22 History Mirabegron [Myrbetriq] 50 mg PO DAILY 10/09/21 06/29/22 History Vitamin E (Dl,Tocopheryl Acet) 400 unit PO DAILY 10/09/21 06/29/22 History [Vitamin E (400 Iu = 180 mg)] Calcium Carbonate [Tums] 500 mg PO TID PRN tab 10/14/21 06/29/22 Rx Ferrous Sulfate [Feosol] 325 mg PO DAILY 30 Days #30 tab 10/14/21 06/29/22 Rx QUEtiapine [SEROquel] 25 mg PO HS tab 10/14/21 06/29/22 Rx ALPRAZolam [Xanax] 0.25 mg PO TID PRN 06/29/22 06/29/22 History Famotidine [Pepcid] 20 mg PO BID 06/29/22 06/29/22 History Gabapentin [Neurontin] 400 mg PO TID 06/29/22 06/29/22 History HYDROcodone/APAP 7.5-325MG [[place] 1 tab PO Q6H PRN 06/29/22 06/29/22 History 7.5-325] Levothyroxine Sodium [Synthroid] 50 mcg PO DAILY 06/29/22 06/29/22 History Mirtazapine 7.5 mg PO HS 06/29/22 06/29/22 History clonazePAM [Klonopin ODT] 0.5 mg PO HS 06/29/22 06/30/22 History Allergies Allergy/AdvReac Type Severity Reaction Status Date / Time No Known Allergies Allergy Verified 06/29/22 17:51 Physical Exam Vitals: Vital Signs Temp Pulse Pulse Resp BP BP Pulse Ox 06/30/22 07:00 98.1 F 102 H 18 183/66 96 06/30/22 00:27 98.0 F 63 16 183/81 94 L 06/29/22 23:06 98.0 F 74 16 147/65 100 06/29/22 22:15 62 20 149/84 96 06/29/22 13:30 56 L 16 160/89 96 06/29/22 13:00 51 L 18 150/93 97 06/29/22 12:30 55 L 16 194/96 96 06/29/22 11:58 97.6 F 65 16 196/82 98 Intake and Output 06/29/22 06/30/22 06/30/22 22:59 06:59 14:59 Other: # Voids 2 1 Weight 52.617 kg In general patient is alert and oriented x 3 in no distress HEENT head normocephalic, there is dried blood on the left aspect of the scalp Neck is supple no JVD no goiter no lymphadenopathy no carotid bruit Chest examination is clear to auscultation no crackles no wheezing Cardiac exam reveals regular heart sounds S1 and S2 no gallops no murmurs Abdomen is soft nontender no organomegaly with normal bowel sounds Extremity exam reveals no edema no cyanosis or clubbing Neurological examination reveals no gross focal deficits Results CBC & Chem 7: 06/30/22 06:09 06/30/22 06:09 Labs: Abnormal Lab Results - Last 24 Hours (Table) 06/29/22 06/29/22 Range/Units 15:00 15:27 Hct 46.6 H (34.0-46.0) % Sodium 132 L (137-145) mmol/L Chloride 94 L (98-107) mmol/L Total Protein 5.8 L (6.3-8.2) g/dL Assessment and Plan Plan: Generalized weakness, with multiple falls Fall with head trauma, no evidence of intracranial bleeding Recent presentation with hyponatremia 1 week ago treated as outpatient with water restriction and increased salt intake Recent presentation with abdominal pain 1 week ago, at that time patient had extrahepatic and pancreatic duct dilatation Underlying history of hypertension Underlying history of Alzheimer's disease with dementia Underlying history of anxiety disorder Underlying history of degenerative disc disease with chronic back pain Underlying history of hyperlipidemia Underlying history of hypothyroidism Underlying history of anemia Underlying history of vitamin D deficiency At this time patient is admitted to medical floor Physical therapy and occupational therapy request For DVT prophylaxis subcu Lovenox For GI prophylaxis Protonix Patient will need admission to a rehab due to multiple falls, and inability to continue caring for her at this time.
[2022-06-30] MEDS: MIRTAZAPINE 15 MG TAB PO SCH (20:52)
[2022-07-01] MEDS: LEVOTHYROXINE 50 MCG TAB PO SCH (06:16)
[2022-07-01] MEDS: ATORVASTATIN 80 MG TAB PO SCH (08:28)
[2022-07-01] MEDS: FAMOTIDINE 20 MG TAB PO SCH ×2 (08:28→21:39)
[2022-07-01] MEDS: GABAPENTIN 400 MG CAP PO SCH ×3 (08:28→21:39)
[2022-07-01] MEDS: FERROUS SULFATE 325 MG TAB PO SCH (08:28)
[2022-07-01] MEDS: VITAMIN E (DL,TOCOPHERYL ACET) 400 UNIT (180 MG) CAP PO SCH (08:28)
[2022-07-01] MEDS: METOPROLOL TARTRATE 25 MG TAB PO SCH ×2 (08:29→21:39)
[2022-07-01] MEDS: EZETIMIBE 10 MG TAB PO SCH (08:29)
[2022-07-01] MEDS: NON FORMULARY DRUG (Mirabegron [Myrbetriq] 50 MG Tab.Er.24h) PO SCH (08:29)
[2022-07-01] MEDS: DONEPEZIL 5 MG TAB PO SCH (08:29)
[2022-07-01] MEDS: CHOLECALCIFEROL 125 MCG (5000 IU) TABLET PO SCH (08:29)
--- NOTE | 2022-07-01 10:22 | P.PN ---
Subjective Progress Note Date: 07/01/22 Jeannette Tran, is an 86-year-old female who presented to [facility] emergency room with a chief complaint of generalized weakness and multiple falls, patient was found on the floor by her he called EMS and patient was brought into emergency room. Patient had a recent ER visit about 1 week prior to this presentation, at that time patient had severe hyponatremia with a sodium of 123 and had evidence of extrahepatic biliary dilatatian with pancreatic duct and dilatatian with recommendation for ERCP, at that time patient and family opted for her to go home and follow-up with Dr. Shannon White as outpatient as there was no gastroenterology on service at that time. She was evaluated in the emergency room vital examination on presentation revealed a temperature of 97.6 pulse 65 respiration 16 blood pressure 196/82 pulse ox 98% on room air Laboratory data revealed a white blood count of 8.6 hemoglobin 15.5 platelet count 307 sodium 132 potassium 3.8 chloride 94 CO2 30 BUN 7 creatinine 0.56 Testing in the emergency room revealed computed tomography scan of the brain revealed no acute intracranial process with nonspecific white matter changes computed tomography scan of the cervical spine revealed no evidence of cervical spine fracture, chest x-ray revealed cardiomegaly without acute pulmonary process, pelvic x-ray revealed no acute fracture or dislocation in the pelvis. Patient was admitted to medical floor for further evaluation and treatment On 07/01/2022 patient is alert and oriented resting comfortably in bed. Lab work currently pending. Case management services following for discharge planning. Current vital signs temp 97.9, heart rate 64, straight rate 16, blood pressure 156/75 with a pulse ox of 95% Objective - Vital Signs Vital signs: Vital Signs Temp 97.9 F 07/01/22 07:29 Pulse 64 07/01/22 08:27 Resp 16 07/01/22 08:33 BP 156/75 07/01/22 08:27 Pulse Ox 95 07/01/22 08:27 FiO2 Intake & Output 06/30/22 07/01/22 07/01/22 18:59 06:59 18:59 Intake Total 236 Balance 236 Intake: Oral 236 Other: # Voids 1 0 - Exam In general patient is alert and oriented x 3 in no distress HEENT head normocephalic, there is dried blood on the left aspect of the scalp Neck is supple no JVD no goiter no lymphadenopathy no carotid bruit Chest examination is clear to auscultation no crackles no wheezing Cardiac exam reveals regular heart sounds S1 and S2 no gallops no murmurs Abdomen is soft nontender no organomegaly with normal bowel sounds Extremity exam reveals no edema no cyanosis or clubbing Neurological examination reveals no gross focal deficits - Labs CBC & Chem 7: 06/30/22 06:09 06/30/22 06:09 Labs: Abnormal Lab Results - Last 24 Hours (Table) 06/30/22 06/30/22 Range/Units 06:09 06:09 WBC 10.46 H (4.50-10.00) X 10*3/uL MCV 98.0 H (80.0-97.0) fL MCH 32.9 H (27.0-32.0) pg RDW 14.6 H (11.5-14.5) % MPV 9.1 L (9.5-12.2) fL Carbon Dioxide 28.5 H (20.0-27.5) mmol/L Anion Gap 7.50 L (10.00-18.00) mmol/L BUN 4.8 L (9.0-27.0) mg/dL BUN/Creatinine Ratio 8.00 L (12.00-20.00) Ratio Total Protein 5.4 L (6.2-8.2) g/dL Albumin 3.5 L (3.8-4.9) g/dL Assessment and Plan Assessment: Fall with head trauma, no evidence of intracranial bleeding Recent presentation with hyponatremia 1 week ago treated as outpatient with water restriction and increased salt intake Recent presentation with abdominal pain 1 week ago, at that time patient had extrahepatic and pancreatic duct dilatation Underlying history of hypertension Underlying history of Alzheimer's disease with dementia Underlying history of anxiety disorder Underlying history of degenerative disc disease with chronic back pain Underlying history of hyperlipidemia Underlying history of hypothyroidism Underlying history of anemia Underlying history of vitamin D deficiency At this time patient is admitted to medical floor Physical therapy and occupational therapy request For DVT prophylaxis subcu Lovenox For GI prophylaxis Protonix Patient will need admission to a rehab due to multiple falls, and inability to continue caring for her at this time.
[2022-07-01 10:55] LABS: Basophils # (A) 0.04 X 10*3/uL (0.00-0.10); Basophils % (A) 0.3 %; Eosinophils # (A) 0.27 X 10*3/uL (0.04-0.35); Eosinophils % (A) 2.1 %; HCT 42.8 % (37.2-46.3); HGB 14.4 g/dL (12.0-15.0); Immature Grans, Automated 0.4 %; Lymphocytes % (A) 20.5 %; MCH 33.3 pg (27.0-32.0); MCHC 33.6 g/dL (32.0-37.0); MCV 98.8 fL (80.0-97.0); Mean Platelet Volume 8.9 fL (9.5-12.2); Monocytes # (A) 0.87 X 10*3/uL (0.20-1.00); Monocytes % (A) 6.9 %; NRBC Per 100 WBC 0 /100 WBCS (0.0-0.0); Neutrophils # (A) 8.85 X 10*3/uL (1.80-7.70); Neutrophils % (A) 69.8 %; Platelet Count 343 X 10*3/uL (140-440); RBC 4.33 X 10*6/uL (4.10-5.20); RDW 14.6 % (11.5-14.5); WBC 12.68 X 10*3/uL (4.50-10.00)
[2022-07-01] MEDS: HYDROcodone/APAP 7.5-325MG 1 EACH TAB PO PRN ×2 (11:06→16:45)
[2022-07-01 11:22] LABS: African American GFR (CKD) 92.4 (60.0-200.0); Albumin 3.7 g/dL (3.8-4.9); Albumin/Globulin Ratio 1.86 (1.60-3.17); Anion Gap 7.5 mmol/L (10.00-18.00); BUN/Creat Ratio 9.19 Ratio (12.00-20.00); Blood Urea Nitrogen 6.1 mg/dL (9.0-27.0); Calcium 9.1 mg/dL (8.7-10.3); Carbon Dioxide 28.3 mmol/L (20.0-27.5); Non-African American GFR(CKD) 79.8 (60.0-200.0); Total Bilirubin 0.4 mg/dL (0.30-1.20); Total Protein 5.6 g/dL (6.2-8.2)
--- NOTE | 2022-07-01 16:38 | P.PN ---
Subjective Progress Note Date: 07/01/22 Jeannette Tran, is an 86-year-old female who presented to [facility] emergency room with a chief complaint of generalized weakness and multiple falls, patient was found on the floor by her he called EMS and patient was brought into emergency room. Patient had a recent ER visit about 1 week prior to this presentation, at that time patient had severe hyponatremia with a sodium of 123 and had evidence of extrahepatic biliary dilatatian with pancreatic duct and dilatatian with recommendation for ERCP, at that time patient and family opted for her to go home and follow-up with Dr. Shannon White as outpatient as there was no gastroenterology on service at that time. She was evaluated in the emergency room vital examination on presentation revealed a temperature of 97.6 pulse 65 respiration 16 blood pressure 196/82 pulse ox 98% on room air Laboratory data revealed a white blood count of 8.6 hemoglobin 15.5 platelet count 307 sodium 132 potassium 3.8 chloride 94 CO2 30 BUN 7 creatinine 0.56 Testing in the emergency room revealed computed tomography scan of the brain revealed no acute intracranial process with nonspecific white matter changes computed tomography scan of the cervical spine revealed no evidence of cervical spine fracture, chest x-ray revealed cardiomegaly without acute pulmonary process, pelvic x-ray revealed no acute fracture or dislocation in the pelvis. Patient was admitted to medical floor for further evaluation and treatment On 07/01/2022 patient is alert and oriented resting comfortably in bed. There is no fever or chills no headache or dizziness no chest pain no shortness of breath no cough no nausea or vomiting no abdominal pain no diarrhea and no urinary symptoms Lab work reveals elevated WBC at 12.68. No clear evidence of any infectious process at this time urine analysis and chest x-ray reviewed. No need for antibiotic with continue to monitor closely. Case management services following for discharge planning. Current vital signs temp 97.9, heart rate 64, straight rate 16, blood pressure 156/75 with a pulse ox of 95% Objective - Vital Signs Vital signs: Vital Signs Temp 98.9 F 07/01/22 15:00 Pulse 64 07/01/22 15:00 Resp 16 07/01/22 15:00 BP 124/58 07/01/22 15:00 Pulse Ox 96 07/01/22 15:00 FiO2 Intake & Output 06/30/22 07/01/22 07/01/22 18:59 06:59 18:59 Intake Total 236 118 Balance 236 118 Intake: Oral 236 118 Other: Voiding Method Toilet # Voids 1 0 3 # Bowel Movements 1 - Exam In general patient is alert and oriented x 3 in no distress HEENT head normocephalic, there is dried blood on the left aspect of the scalp Neck is supple no JVD no goiter no lymphadenopathy no carotid bruit Chest examination is clear to auscultation no crackles no wheezing Cardiac exam reveals regular heart sounds S1 and S2 no gallops no murmurs Abdomen is soft nontender no organomegaly with normal bowel sounds Extremity exam reveals no edema no cyanosis or clubbing Neurological examination reveals no gross focal deficits - Labs CBC & Chem 7: 07/01/22 06:28 07/01/22 06:28 Labs: Abnormal Lab Results - Last 24 Hours (Table) 07/01/22 07/01/22 Range/Units 06:28 06:28 WBC 12.68 H (4.50-10.00) X 10*3/uL MCV 98.8 H (80.0-97.0) fL MCH 33.3 H (27.0-32.0) pg RDW 14.6 H (11.5-14.5) % MPV 8.9 L (9.5-12.2) fL Immature Gran # 0.05 H (0.00-0.04) X 10*3/uL Neutrophils # 8.85 H (1.80-7.70) X 10*3/uL Carbon Dioxide 28.3 H (20.0-27.5) mmol/L Anion Gap 7.50 L (10.00-18.00) mmol/L BUN 6.1 L (9.0-27.0) mg/dL BUN/Creatinine Ratio 9.19 L (12.00-20.00) Ratio Total Protein 5.6 L (6.2-8.2) g/dL Albumin 3.7 L (3.8-4.9) g/dL Assessment and Plan Plan: Generalized weakness, with multiple falls Fall with head trauma, no evidence of intracranial bleeding Recent presentation with hyponatremia 1 week ago treated as outpatient with water restriction and increased salt intake Recent presentation with abdominal pain 1 week ago, at that time patient had extrahepatic and pancreatic duct dilatation Underlying history of hypertension Underlying history of Alzheimer's disease with dementia Underlying history of anxiety disorder Underlying history of degenerative disc disease with chronic back pain Underlying history of hyperlipidemia Underlying history of hypothyroidism Underlying history of anemia Underlying history of vitamin D deficiency At this time patient is admitted to medical floor Physical therapy and occupational therapy request For DVT prophylaxis subcu Lovenox For GI prophylaxis Protonix Patient will need admission to a rehab due to multiple falls, and inability to continue caring for her at this time.
[2022-07-01] MEDS: ALPRAZolam 0.25 MG TAB PO PRN (18:23)
[2022-07-01] MEDS: clonazePAM 0.5 MG TAB PO SCH (21:39)
[2022-07-01] MEDS: QUEtiapine 25 MG TAB PO SCH (21:44)
[2022-07-01] MEDS: MIRTAZAPINE 15 MG TAB PO SCH (21:44)
[2022-07-02 03:18] VITALS: RESP 18
[2022-07-02] MEDS: LEVOTHYROXINE 50 MCG TAB PO SCH (06:35)
[2022-07-02] MEDS: DONEPEZIL 5 MG TAB PO SCH (09:33)
[2022-07-02] MEDS: METOPROLOL TARTRATE 25 MG TAB PO SCH (09:33)
[2022-07-02] MEDS: ATORVASTATIN 80 MG TAB PO SCH ×2 (09:33→09:41)
[2022-07-02] MEDS: EZETIMIBE 10 MG TAB PO SCH (09:33)
[2022-07-02] MEDS: GABAPENTIN 400 MG CAP PO SCH (09:33)
[2022-07-02] MEDS: FAMOTIDINE 20 MG TAB PO SCH (09:33)
[2022-07-02] MEDS: FERROUS SULFATE 325 MG TAB PO SCH ×2 (09:33→09:41)
[2022-07-02] MEDS: CHOLECALCIFEROL 125 MCG (5000 IU) TABLET PO SCH (09:33)
[2022-07-02] MEDS: VITAMIN E (DL,TOCOPHERYL ACET) 400 UNIT (180 MG) CAP PO SCH (09:35)
[2022-07-02] MEDS: NON FORMULARY DRUG (Mirabegron [Myrbetriq] 50 MG Tab.Er.24h) PO SCH (10:09)
[2022-07-02 11:02] LABS: Basophils # (A) 0.04 X 10*3/uL (0.00-0.10); Basophils % (A) 0.4 %; Eosinophils # (A) 0.24 X 10*3/uL (0.04-0.35); Eosinophils % (A) 2.4 %; HCT 40.4 % (37.2-46.3); HGB 13.4 g/dL (12.0-15.0); Immature Grans, Automated 0.2 %; Lymphocytes # (A) 3.02 X 10*3/uL (0.90-5.00); Lymphocytes % (A) 30.4 %; MCH 32.8 pg (27.0-32.0); MCHC 33.2 g/dL (32.0-37.0); Monocytes # (A) 0.79 X 10*3/uL (0.20-1.00); Monocytes % (A) 7.9 %; NRBC Per 100 WBC 0 /100 WBCS (0.0-0.0); Neutrophils # (A) 5.84 X 10*3/uL (1.80-7.70); Neutrophils % (A) 58.7 %; Platelet Count 312 X 10*3/uL (140-440); RBC 4.08 X 10*6/uL (4.10-5.20); RDW 14.6 % (11.5-14.5); WBC 9.95 X 10*3/uL (4.50-10.00)
[2022-07-02 11:14] LABS: African American GFR (CKD) 95.7 (60.0-200.0); Albumin 3.5 g/dL (3.8-4.9); Albumin/Globulin Ratio 1.94 (1.60-3.17); Anion Gap 8.4 mmol/L (10.00-18.00); BUN/Creat Ratio 10.67 Ratio (12.00-20.00); Blood Urea Nitrogen 6.4 mg/dL (9.0-27.0); Calcium 8.8 mg/dL (8.7-10.3); Carbon Dioxide 26.6 mmol/L (20.0-27.5); Globulin 1.8 g/dL (1.6-3.3); Non-African American GFR(CKD) 82.5 (60.0-200.0); Potassium 3.8 mmol/L (3.5-5.5); Total Bilirubin 0.3 mg/dL (0.30-1.20); Total Protein 5.3 g/dL (6.2-8.2)
[2022-07-02] MEDS: HYDROcodone/APAP 7.5-325MG 1 EACH TAB PO PRN (11:42)
[2022-07-02 12:26] VITALS: BP 142/94; PULSE 56; TEMP 97.2
[2022-07-02] MEDS: ALPRAZolam 0.25 MG TAB PO PRN (14:37)
--- NOTE | 2022-07-08 09:49 | P.DS ---
Providers Date of admission: 06/29/22 17:45 Expected date of discharge: 07/02/22 Attending physician: Rachel Gallardo Primary care physician: Rachel Gallardo [facility] Course: Diagnosis on discharge: Generalized weakness, with multiple falls Fall with head trauma, no evidence of intracranial bleeding Recent presentation with hyponatremia 1 week ago treated as outpatient with water restriction and increased salt intake Recent presentation with abdominal pain 1 week ago, at that time patient had extrahepatic and pancreatic duct dilatation Underlying history of hypertension Underlying history of Alzheimer's disease with dementia Underlying history of anxiety disorder Underlying history of degenerative disc disease with chronic back pain Underlying history of hyperlipidemia Underlying history of hypothyroidism Underlying history of anemia Underlying history of vitamin D deficiency Hospital course: Jeannette Tran, is an 86-year-old female who presented to [facility] emergency room with a chief complaint of generalized weakness and multiple falls, patient was found on the floor by her he called EMS and patient was brought into emergency room. Patient had a recent ER visit about 1 week prior to this presentation, at that time patient had severe hyponatremia with a sodium of 123 and had evidence of extrahepatic biliary dilatatian with p ancreatic duct and dilatatian with recommendation for ERCP, at that time patient and family opted for her to go home and follow-up with Dr. Shannon White as outpatient as there was no gastroenterology on service at that time. She was evaluated in the emergency room vital examination on presentation revealed a temperature of 97.6 pulse 65 respiration 16 blood pressure 196/82 pulse ox 98% on room air Laboratory data revealed a white blood count of 8.6 hemoglobin 15.5 platelet count 307 sodium 132 potassium 3.8 chloride 94 CO2 30 BUN 7 creatinine 0.56 Testing in the emergency room revealed computed tomography scan of the brain revealed no acute intracranial process with nonspecific white matter changes computed tomography scan of the cervical spine revealed no evidence of cervical spine fracture, chest x-ray revealed cardiomegaly without acute pulmonary process, pelvic x-ray revealed no acute fracture or dislocation in the pelvis. Patient was admitted to medical floor for further evaluation and treatment On 07/01/2022 patient is alert and oriented resting comfortably in bed. There is no fever or chills no headache or dizziness no chest pain no shortness of breath no cough no nausea or vomiting no abdominal pain no diarrhea and no urinary symptoms Lab work reveals elevated WBC at 12.68. No clear evidence of any infectious process at this time urine analysis and chest x-ray reviewed. No need for antibiotic with continue to monitor closely. Case management services following for discharge planning. Current vital signs temp 97.9, heart rate 64, straight rate 16, blood pressure 156/75 with a pulse ox of 95% On 07/01/2022 patient has been cleared for discharge. Patient to follow-up with PCP P for further management Patient Condition at Discharge: Good Plan - Discharge Summary New Discharge Prescriptions: Continue Ezetimibe [Zetia] 10 mg PO DAILY Metoprolol Tartrate [Lopressor] 25 mg PO BID #60 tab Cholecalciferol (Vitamin D3) [Vitamin D3 (125 MCG = 5,000 IU)] 125 mcg PO DAILY Donepezil [Aricept] 5 mg PO DAILY Calcium Carbonate [Tums] 500 mg PO TID PRN tab PRN Reason: Heartburn ALPRAZolam [Xanax] 0.25 mg PO TID PRN PRN Reason: Anxiety Famotidine [Pepcid] 20 mg PO BID HYDROcodone/APAP 7.5-325MG [[place] 7.5-325] 1 tab PO Q6H PRN PRN Reason: Pain Levothyroxine Sodium [Synthroid] 50 mcg PO DAILY Atorvastatin [Lipitor] 80 mg PO DAILY Vitamin E (Dl,Tocopheryl Acet) [Vitamin E (400 Iu = 180 mg)] 400 unit PO DAILY Mirabegron [Myrbetriq] 50 mg PO DAILY Ferrous Sulfate [Feosol] 325 mg PO DAILY 30 Days #30 tab QUEtiapine [SEROquel] 25 mg PO HS tab clonazePAM [Klonopin ODT] 0.5 mg PO HS Gabapentin [Neurontin] 400 mg PO TID Mirtazapine 7.5 mg PO HS Discharge Medication List Ezetimibe [Zetia] 10 mg PO DAILY 11/02/13 [History] Metoprolol Tartrate [Lopressor] 25 mg PO BID #60 tab 06/09/18 [Rx] Atorvastatin [Lipitor] 80 mg PO DAILY 12/07/20 [History] Cholecalciferol (Vitamin D3) [Vitamin D3 (125 MCG = 5,000 IU)] 125 mcg PO DAILY 12/07/20 [History] Donepezil [Aricept] 5 mg PO DAILY 12/07/20 [History] Mirabegron [Myrbetriq] 50 mg PO DAILY 10/09/21 [History] Vitamin E (Dl,Tocopheryl Acet) [Vitamin E (400 Iu = 180 mg)] 400 unit PO DAILY 10/09/21 [History] Calcium Carbonate [Tums] 500 mg PO TID PRN tab 10/14/21 [Rx] Ferrous Sulfate [Feosol] 325 mg PO DAILY 30 Days #30 tab 10/14/21 [Rx] QUEtiapine [SEROquel] 25 mg PO HS tab 10/14/21 [Rx] ALPRAZolam [Xanax] 0.25 mg PO TID PRN 06/29/22 [History] Famotidine [Pepcid] 20 mg PO BID 06/29/22 [History] Gabapentin [Neurontin] 400 mg PO TID 06/29/22 [History] HYDROcodone/APAP 7.5-325MG [[place] 7.5-325] 1 tab PO Q6H PRN 06/29/22 [History] Levothyroxine Sodium [Synthroid] 50 mcg PO DAILY 06/29/22 [History] Mirtazapine 7.5 mg PO HS 06/29/22 [History] clonazePAM [Klonopin ODT] 0.5 mg PO HS 06/29/22 [History] Follow [facility]Ref[facility] Rachel Gallardo MD [Primary Care Provider] - 07/06/22 11:15 am Patient Instructions/Handouts: Laceration (ED), Fall Prevention for Older Adults (ED) Discharge Disposition: HOME WITH HOME HEALTH SERVICES
== END 2022-07-02 15:21 | disposition home health service (06) ==
LOC: EC 11:52 → 6NMEDSUR 17:45 → 5NMEDONC 07-01 22:15
PROVIDERS: ADMIT Internal Medicine; ATTEND Internal Medicine
DX: R53.1 Weakness (principal); W19.XXXA Unspecified fall, initial encounter; S01.01XA Laceration without foreign body of scalp, initial encounter; D64.9 Anemia, unspecified; E86.0 Dehydration; Z91.81 History of falling; I48.91 Unspecified atrial fibrillation; J45.909 Unspecified asthma, uncomplicated; F03.90 Unspecified dementia, unspecified severity, without behavioral disturbance, psychotic disturbance, mood disturbance, and anxiety; F41.9 Anxiety disorder, unspecified; K21.9 Gastro-esophageal reflux disease without esophagitis; E78.5 Hyperlipidemia, unspecified; I10 Essential (primary) hypertension; M19.90 Unspecified osteoarthritis, unspecified site; E03.9 Hypothyroidism, unspecified; Z98.890 Other specified postprocedural states; G89.29 Other chronic pain; M54.9 Dorsalgia, unspecified; J30.2 Other seasonal allergic rhinitis; Z79.890 Hormone replacement therapy; Z79.899 Other long term (current) drug therapy
CPT/HCPCS: 96360; 96374; 99285; 36415; 97162; 97167; 83880; 80053 ×4; 83605; 83735; 84100; 84484; 85025 ×4; 81003; 72170; 71045; 72125; 70450; G0378 ×5; J2270; 96375

== ENCOUNTER → 2022-07-11 | Outpatient (CLI) | payer MEDICARE ==
--- NOTE | 2022-07-12 11:31 | MR ---
EXAMINATION TYPE: MR MRCP DATE OF EXAM: 07/11/2022 11:13 AM CLINICAL INDICATION:Female, 86 years old with history of K83.8 biliary tract disease; Upper abdominal pain. COMPARISON: 06/22/[address]s dating back to 01/30/2020. TECHNIQUE: Multi planar, T2-weighted imaging with and without fat saturation and chemical shift imag ing was performed of the abdomen. Then, heavily T2 weighted imaging (half-Fourier acquisition single- shot turbo spin-echo) was utilized in order to study the biliary system. Maximum intensity projectio n images were reconstructed from the original data of the biliary tree. 3D images were created on a [employer] work station. No Gadolinium given. FINDINGS: MRCP: The intrahepatic ducts are mildly dilated. The common bile duct at the level of the pancreatic head measures 10 mm in size. The common hepatic duct measures 16 mm in size. The pancreatic duct is prominent measuring up to 5 mm in the pancreatic head. There is smooth tapering of the dilated commo n bile duct towards the papilla. The gallbladder appears surgically absent with cystic duct remnant which is dilated measuring up to 5 mm series 701 image 25. Abdomen: Liver: Signal loss on in phase phase chemical shift imaging. Gallbladder and Bile ducts: Unremarkable. Pancreas: Unremarkable. Spleen: Signal loss on in phase phase chemical shift imaging. Adrenal glands: Unremarkable. Kidneys: Bilateral high T2 signal cysts measuring up to 18 mm on the right and 20 mm on the left. No hydronephrosis. Extrarenal pelves bilaterally. Stomach and Bowel: Unremarkable as visualized. Peritoneum: No evidence of pneumoperitoneum, free fluid, or adenopathy. Vasculature: Unremarkable. No aortic aneurysm. Abdominal wall: Unremarkable. Musculoskeletal: The osseous structures appear intact. IMPRESSION: 1. Dilated common bile duct intrahepatic ducts and a prominent main pancreatic duct which are felt t o be present dating back to 2019. If the patient has had pain since this time consider ERCP. Dilation of the biliary system can be seen in post cholecystectomy physiology. 2. No evidence to suggest ductal stricture, choledocholithiasis. 3. Iron deposition within the spleen and liver.
== END | disposition home or self-care (01) ==
LOC: RADMRIMAIN 10:12
PROVIDERS: ATTEND Internal Medicine Gastroenterology
DX: K83.8 Other specified diseases of biliary tract (principal); K80.80 Other cholelithiasis without obstruction; E83.10 Disorder of iron metabolism, unspecified
CPT/HCPCS: 74181

== ENCOUNTER 2022-07-31 07:38 | Day surgery (SDC) | payer MEDICARE ==
[2022-07-30 11:35] VITALS: BMI 19.5
[~2022-07-31 07:38] MED LIST: LACTATED RINGERS 1,000 ML IV SCH
[2022-07-31] MEDS ORDERED: LACTATED RINGERS 1,000 ML IV ONE (08:08)
[2022-07-31 08:26] VITALS: TEMP 98
[2022-07-31] MEDS ORDERED: LIDOCAINE 2% INJ 20 MG/ML (2 ML VIAL) ONE (08:35)
[2022-07-31] MEDS ORDERED: PROPOFOL 10 MG/ML 20 ML VIAL IV ONE (08:35)
--- NOTE | 2022-07-31 08:56 | P.PCN ---
Date of Procedure: 07/31/22 Procedure(s) Performed: Brief history: Patient is a pleasant 86-year-old white female scheduled for an elective upper endoscopy as well as colonoscopy as a part of evaluation of abdominal pain, alternating diarrhea constipation for the last several months duration. Procedure performed: Esophagogastroduodenoscopy with biopsy Colonoscopy with biopsy and snare polypectomy Preoperative diagnosis: Chronic abdominal pain Alternating diarrhea and constipation of several months duration Anesthesia: MAC Procedure: After informed consent was obtained from the patient was brought into the endoscopy unit and IV sedation was administered by anesthesia under continuous monitoring. Initially upper endoscopy was done. The Olympus GF 160 video endoscope was inserted inserted into the mouth and esophagus intubated without any difficulty and was gradually advanced into the stomach and duodenum and carefully examined. The second part of the duodenum appeared normal. Along the duodenal bulb and the apex there was a 1 cm ulceration identified which was biopsied. The scope was then withdrawn into the stomach adequately insufflated with air and upon careful examination the antrum and body, had diffuse gastritis and biopsies were done from this area. Mucosa of the cardia and fundus appeared normal. The scope was then withdrawn into the esophagus. The GE junction was located at 40 cm to the incisors. Small hiatal hernia. It appeared regular with no erythema erosions or ulcerations. Rest of the esophagus appeared normal. Patient tolerated the procedure well. At this time the patient continued to remain sedation. Initial digital rectal examination was normal. Olympus CF 160 video colonoscope was then inserted into the rectum and gradually advanced to the cecum without any difficulty. Careful examination was performed as the scope was gradually being withdrawn. The prep was excellent. The cecum, ascending colon, appeared normal. In the transverse colon there was a 6 mm polyp removed by snare polypectomy. Rest of the transverse colon, descending colon, sigmoid colon and rectum appeared normal. Scattered left-sided diverticulosis seen. Random biopsies were done from ascending and descending colon to rule out microscopic/collagenous colitis. Retroflexion was performed in the rectum and no lesions were noted. Patient tolerated the procedure well. Impression: 1. Upper endoscopy revealed 1 cm duodenal ulcer in the apex of the duodenal bulb, mild antral gastritis small hiatal hernia 2. Colonoscopy revealed 5-6 mm sessile transverse colon polyp status post polypectomy and scattered sigmoid diverticulosis Recommendations: Findings of this examination were discussed with the patient as well as her family. She was advised to follow with the biopsy results. She'll be seen in office in 2 weeks.
[2022-07-31 09:23] VITALS: BP 172/70; PULSE 54; RESP 16
== END 2022-07-31 10:02 | disposition home or self-care (01) ==
LOC: ORWHC2ENDO 07:38
PROVIDERS: ATTEND Internal Medicine Gastroenterology
DX: K63.5 Polyp of colon (principal); K31.89 Other diseases of stomach and duodenum; K57.30 Diverticulosis of large intestine without perforation or abscess without bleeding; G89.29 Other chronic pain; K29.50 Unspecified chronic gastritis without bleeding; K44.9 Diaphragmatic hernia without obstruction or gangrene; I10 Essential (primary) hypertension; E78.5 Hyperlipidemia, unspecified; I48.91 Unspecified atrial fibrillation; E07.9 Disorder of thyroid, unspecified; M19.90 Unspecified osteoarthritis, unspecified site; K59.00 Constipation, unspecified; Z79.890 Hormone replacement therapy; Z79.899 Other long term (current) drug therapy
CPT/HCPCS: 45380; 45385; 43239; J2704; J2001; 88305

== ENCOUNTER → 2022-09-02 | Outpatient (CLI) | payer MEDICARE ==
--- NOTE | 2022-09-02 15:48 | US ---
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 Indirect Doppler criteria was utilized. FINDINGS: EXAM MEASUREMENTS: RIGHT: Peak Systolic Velocity (PSV) cm/sec ----- Right CCA: 81.2 ----- Right ICA: 74.7 ----- Right ECA: 90.2 ICA/CCA ratio: 0.9 RIGHT: End Diastole cm/sec ----- Right CCA: 8.45 ----- Right ICA: 15.6 ----- Right ECA: 0 LEFT: Peak Systolic Velocity (PSV) cm/sec ----- Left CCA: 50.8 ----- Left ICA: 68.9 ----- Left ECA: 67.2 ICA/CCA ratio: 1.3 LEFT: End Diastole cm/sec ----- Left CCA: 0 ----- Left ICA: 14.8 ----- Left ECA: 0 VERTEBRALS (direction of flow): Right Vertebral: Antegrade Left Vertebral: Antegrade Rhythm: Normal [employer]G [employer]OD [employer]DER OPERATOR NOTES: No significant stenosis seen IMPRESSION: No evidence for hemodynamically significant stenosis. Criteria for Assigning % of Stenosis / Diameter reduction (Estimation based on the indirect measurements of the internal carotid artery velocities (ICA PSV). 1. Normal (no stenosis)=ICA PSV < 125 cm/s: ratio < 2.0: ICA EDV<40 cm/s. 2. Less than 50% stenosis=ICA PSV < 125 cm/s: ratio < 2.0: ICA EDV<40 cm/s. 3. 50 to 69% stenosis=ICA PSV of 125 to 230 cm/s: ration 2.0 ? 4.0: ICA EDV 40-100 cm/s. 4. Greater than 70% stenosis to near occlusion= ICA PSV > 230 cm/s: ratio > 4.0: ICA EDV > 100 cm/s. 5. Near occlusion= ICA PSV velocities may be low or undetectable: variable ratio and ICA EDV. 6. Total occlusion=unable to detect flow.
--- NOTE | 2022-09-03 12:59 | CA ---
Transthoracic Echo Report Name: Jeannette Tran Age: 86 Gender: F : 1935 Exam Date: 09/02/2022 13:54 Exam Location: [facility] Ht (in): 63 Wt (lb): 114 Ordering Physician: Rachel Gallardo MD Attending/Referring Phys: Video Editing Intern Gladis Schafer [facility] Procedure CPT: Indications: R06.02, I65.2 Cardiac Hx: Technical Quality: Fair Contrast 1: Total Dose (mL): Contrast 2: Total Dose (mL): MEASUREMENTS (Male / Female) Normal Values 2D ECHO LV Diastolic Diameter PLAX 4.5 cm 4.2 - 5.9 / 3.9 - 5.3 cm LV Systolic Diameter PLAX 2.5 cm IVS Diastolic Thickness 0.8 cm 0.6 - 1.0 / 0.6 - 0.9 cm LVPW Diastolic Thickness 0.8 cm 0.6 - 1.0 / 0.6 - 0.9 cm LV Relative Wall Thickness 0.4 LVOT Diameter 1.9 cm Ascending Aorta Diameter 3.1 cm M-MODE Aortic Root Diameter MM 2.9 cm LA Systolic Diameter MM 3.7 cm LA Ao Ratio MM 1.3 AV Cusp Separation MM 1.7 cm DOPPLER AV Peak Velocity 179.4 cm/s AV Peak Gradient 12.9 mmHg AV Mean Velocity 120.0 cm/s AV Mean Gradient 6.3 mmHg AV Velocity Time Integral 36.5 cm AI Peak Velocity 449.0 cm/s AI Peak Gradient 80.6 mmHg AI Pressure Half Time 798.3 ms LVOT Peak Velocity 104.0 cm/s LVOT Peak Gradient 4.3 mmHg LVOT Velocity Time Integral 20.2 cm LVOT Stroke Volume 58.4 cm??? LVOT Stroke Volume Index 38.3 ml/m??? LVOT Cardiac Index 2467.9 cm???/min???m??? AV Area Cont Eq vti 1.6 cm??? AV Area Cont Eq pk 1.7 cm??? Mitral E Point Velocity 82.1 cm/s Mitral A Point Velocity 27.1 cm/s Mitral E to A Ratio 3.0 MV Deceleration Time 193.1 ms LV E' Lateral Velocity 8.7 cm/s Mitral E to LV E' Lateral Ratio 9.4 LV E' Septal Velocity 6.5 cm/s Mitral E to LV E' Septal Ratio 12.6 TR Peak Velocity 242.2 cm/s TR Peak Gradient 23.5 mmHg Right Atrial Pressure 3.0 mmHg Pulmonary Artery Systolic Pressu 26.5 mmHg Right Ventricular Systolic Press 28.5 mmHg FINDINGS Left Ventricle Left ventricular cavity size normal. Left ventricular wall thickness normal. No obvious regional wall motion abnormalities. Left ventricular ejection fraction is estimated at 55-60%. Right Ventricle Normal right ventricular size. Mild pulmonary hypertension. Right Atrium Severe right atrial dilatation. Left Atrium Severe left atrial dilatation. Mitral Valve Structurally normal mitral valve. Mild mitral regurgitation. Aortic Valve Trileaflet aortic valve. Moderate aortic regurgitation. Diffuse thickening of the aortic valve cusps with reduced excursion. Mild aortic stenosis with a peak gradient of 13 mmHg and a mean gradient of 6 mmHg. Tricuspid Valve Structurally normal tricuspid valve. Moderate tricuspid regurgitation. Pulmonic Valve Structurally normal pulmonic valve. Mild pulmonic regurgitation. Pericardium Small pericardial effusion. Aorta Normal size aortic root and proximal ascending aorta. CONCLUSIONS Biatrial enlargement Prominent posterior pericardial stripe Preserved LV systolic function Previewed by: Dr. Irineo Silva MD (Electronically Signed) Final Date: 03 September 2022 12:58
== END | disposition home or self-care (01) ==
LOC: RADECHMAIN 13:42
PROVIDERS: ATTEND Internal Medicine
DX: I65.02 Occlusion and stenosis of left vertebral artery (principal); I27.0 Primary pulmonary hypertension; R06.02 Shortness of breath
CPT/HCPCS: 93306; 93880

== ENCOUNTER 2022-10-26 08:47 | Inpatient (IN) | payer MEDICARE ==
[2022-10-26 08:50] LABS: Glucose,Whole Blood 378 mg/dL (70-110)
[2022-10-26 08:53] VITALS: TEMP 97
[2022-10-26] MEDS ORDERED: SODIUM CHLORIDE 0.9% 1,000 ML IV SCH (09:00)
[2022-10-26] MEDS ORDERED: SODIUM CHLORIDE 0.9% 1,000 ML IV ONE (09:03)
[2022-10-26] MEDS ORDERED: PANTOPRAZOLE 40 MG/10 ML VIAL IVP STA (09:04)
[2022-10-26 09:07] LABS: Basophils % (A) 0 %; Eosinophils # (A) 0.1 k/uL (0-0.7); Eosinophils % (A) 1 %; HCT 41.1 % (34.0-46.0); HGB 12.8 gm/dL (11.4-16.0); Hypochromasia Marked; Lymphocytes # (A) 3.9 k/uL (1.0-4.8); Lymphocytes % (A) 43 %; MCH 33.2 pg (25.0-35.0); MCHC 31.1 g/dL (31.0-37.0); MCV 106.9 fL (80.0-100.0); Macrocytosis Moderate; Mean Platelet Volume 8.4; Monocytes # (A) 0.4 k/uL (0-1.0); Monocytes % (A) 4 %; Neutrophils # (A) 4.6 k/uL (1.3-7.7); Neutrophils % (A) 51 %; Platelet Count 175 k/uL (150-450); RBC 3.84 m/uL (3.80-5.40); RDW 13.9 % (11.5-15.5); WBC 9.1 k/uL (3.8-10.6)
[2022-10-26] MEDS ORDERED: NOREPINEPHRINE 4 MG in SODIUM CHLORIDE 0.9% 250 ML IV ONE (09:15)
[2022-10-26 09:16] LABS: INR 1.4 (<1.2); Partial Thromboplastin Time 32.3 sec (22.0-30.0)
[2022-10-26 09:19] LABS: AST 354 U/L (14-36); African American GFR (CKD) 71 (>60 ml/min/1.73 sqM); Albumin 3.3 g/dL (3.5-5.0); Alkaline Phosphatase 62 U/L (38-126); Anion Gap 17 mmol/L; Blood Urea Nitrogen 7 mg/dL (7-17); Calcium 7.7 mg/dL (8.4-10.2); Carbon Dioxide 17 mmol/L (22-30); Chloride 86 mmol/L (98-107); Glucose 357 mg/dL (74-99); Magnesium 2.4 mg/dL (1.6-2.3); Non-African American GFR(CKD) 62 (>60 ml/min/1.73 sqM); Potassium 3.6 mmol/L (3.5-5.1); Sodium 120 mmol/L (137-145); Total Bilirubin 1.3 mg/dL (0.2-1.3); Total Protein 5.6 g/dL (6.3-8.2)
[2022-10-26 09:21] LABS: ABG Base Excess -17.3 mmol/L; ABG HCO3 14 mmol/L (21-25); ABG Oxygen Saturation 98.6 % (94-97); ABG PCO2 61 mmHg (35-45); ABG PO2 396 mmHg (83-108); ABG TCO2 16 mmol/L (19-24); Allen Test Performed? Yes
[2022-10-26 09:25] LABS: ABG PH 6.98 (7.35-7.45)
[2022-10-26 09:32] LABS: ALT 206 U/L (4-34)
--- NOTE | 2022-10-26 09:43 | ED ---
General Adult HPI - General Chief complaint: Cardiac Arrest/CPR Stated complaint: Cardiac Arrest Time Seen by Provider: 10/26/22 08:48 Source: patient, RN notes reviewed, old records reviewed Mode of arrival: EMS Limitations: no limitations - History of Present Illness Initial comments: 86-year-old female presents as an out of Hospital cardiac arrest with return of spontaneous circulation. Patient's family member reports that she had been on the toilet for some time which was not abnormal and when he checked on the patient she was unresponsive. Patient's did initiate CPR after paramedics were called. Paramedics performed CPR and administered 3 epinephrines and intubated the patient with return of spontaneous circulation. Her initial rhythm was asystole. Her down is not known. She had not been complaining of any specific issues in the past 24-48 hours. She does have history of atrial fibrillation and dementia, and hypercholesterolemia. Patient's did indicate that she had previously been a DO NOT RESUSCITATE - Related Data Home Medications Medication Instructions Recorded Confirmed Ezetimibe [Zetia] 10 mg PO DAILY 11/02/13 07/30/22 Atorvastatin [Lipitor] 80 mg PO DAILY 12/07/20 07/30/22 Cholecalciferol (Vitamin D3) 125 mcg PO DAILY 12/07/20 07/30/22 [Vitamin D3 (125 MCG = 5,000 IU)] Donepezil [Aricept] 5 mg PO DAILY 12/07/20 07/30/22 ALPRAZolam [Xanax] 0.25 mg PO TID PRN 06/29/22 07/30/22 Gabapentin [Neurontin] 400 mg PO TID 06/29/22 07/30/22 HYDROcodone/APAP 7.5-325MG [[place] 1 tab PO Q6H PRN 06/29/22 07/30/22 7.5-325] Levothyroxine Sodium [Synthroid] 50 mcg PO DAILY 06/29/22 07/30/22 Mirtazapine 7.5 mg PO HS 06/29/22 07/30/22 clonazePAM [Klonopin ODT] 0.5 mg PO HS 06/29/22 07/30/22 Previous Rx's Medication Instructions Recorded Metoprolol Tartrate [Lopressor] 25 mg PO BID #60 tab 06/09/18 QUEtiapine [SEROquel] 25 mg PO HS tab 10/14/21 Allergies Allergy/AdvReac Type Severity Reaction Status Date / Time No Known Allergies Allergy Verified 10/26/22 08:53 Review of Systems ROS Statement: Those systems with pertinent positive or pertinent negative responses have been documented in the HPI. ROS Other: All systems not noted in ROS Statement are negative. Past Medical History Past Medical History: Atrial Fibrillation, Asthma, Dementia, GERD/Reflux, Hype rlipidemia, Hypertension, Memory Impairment, Osteoarthritis (OA), Thyroid Disorder Additional Past Medical History / Comment(s): FALLS, vertigo, hyponatremia, anemia, chronic back pain, DDD, past small bowel ileus, hemorrhoids, seasonal allergies, hypothyroid History of Any Multi-Drug Resistant Organisms: None Reported Past Surgical History: Cholecystectomy, Ear Surgery, Hysterectomy Additional Past Surgical History / Comment(s): D&C, colonoscopy, EGD, pain clinic procedures, L ear myringotomy/tube, R nasolabial fold excision of lesion/reconstruction/flap. Past Anesthesia/Blood Transfusion Reactions: No Reported Reaction Past Psychological History: Anxiety Smoking Status: Current every day smoker Past Alcohol Use History: Unable to Obtain Past Drug Use History: Unable to Obtain - Past Family History Father Additional Family Medical History / Comment(s): pt. states her father was an alcoholic and at a young age Mother Family Medical History: CVA/TIA Additional Family Medical History / Comment(s): Mother of a CVA in her 80s General Exam Limitations: no limitations General appearance: in no apparent distress, obtunded Head exam: Present: atraumatic, normocephalic Eye exam: Absent: PERRL (7 mm bilaterally and nonreactive) ENT exam: Present: normal exam Neck exam: Present: normal inspection. Absent: tenderness, meningismus Respiratory exam: Present: other (Bilateral breath sounds with BVM) Cardiovascular Exam: Present: regular rate, irregular rhythm GI/Abdominal exam: Present: distended. Absent: tenderness, guarding Extremities exam: Present: normal capillary refill. Absent: pedal edema Skin exam: Present: warm. Absent: cyanosis Course Vital Signs 10/26/22 10/26/22 10/26/22 08:48 08:50 08:53 Temperature 97.0 F L Pulse Rate 88 Pulse Rate [ Chief Executive Or Managing Director ] Respiratory 20 Rate Blood Pressure 94/63 O2 Sat by Pulse 95 Oximetry Fraction of 100 100 Inspired Oxygen (FIO2) 10/26/22 10/26/22 10/26/22 09:00 09:02 09:05 Temperature Pulse Rate 79 81 74 Pulse Rate [ 81 Chief Executive Or Managing Director ] Respiratory 20 20 20 Rate Blood Pressure 66/46 67/41 67/40 O2 Sat by Pulse 100 100 99 Oximetry Fraction of Inspired Oxygen (FIO2) 10/26/22 10/26/22 10/26/22 09:10 09:15 09:24 Temperature Pulse Rate 70 68 61 Pulse Rate [ Chief Executive Or Managing Director ] Respiratory 18 18 18 Rate Blood Pressure 75/50 72/47 70/37 O2 Sat by Pulse 100 98 99 Oximetry Fraction of Inspired Oxygen (FIO2) 10/26/22 10/26/22 10/26/22 09:30 09:40 09:55 Temperature Pulse Rate 55 L 64 60 Pulse Rate [ Chief Executive Or Managing Director ] Respiratory 20 20 18 Rate Blood Pressure 80/48 92/48 86/55 O2 Sat by Pulse 98 98 Oximetry Fraction of Inspired Oxygen (FIO2) 10/26/22 10/26/22 10/26/22 10:05 10:15 10:30 Temperature Pulse Rate 52 L 53 L 54 L Pulse Rate [ Chief Executive Or Managing Director ] Respiratory 18 20 18 Rate Blood Pressure 97/51 116/80 152/67 O2 Sat by Pulse 98 98 98 Oximetry Fraction of Inspired Oxygen (FIO2) 10/26/22 10/26/22 10/26/22 10:45 11:00 11:15 Temperature Pulse Rate 52 L 48 L 43 L Pulse Rate [ Chief Executive Or Managing Director ] Respiratory 20 18 18 Rate Blood Pressure 175/74 176/89 172/102 O2 Sat by Pulse 99 99 98 Oximetry Fraction of Inspired Oxygen (FIO2) 10/26/22 10/26/22 10/26/22 11:32 12:00 12:14 Temperature Pulse Rate 44 L 44 L Pulse Rate [ Chief Executive Or Managing Director ] Respiratory 18 18 Rate Blood Pressure 156/98 169/68 O2 Sat by Pulse 99 99 Oximetry Fraction of 50 Inspired Oxygen (FIO2) 10/26/22 10/26/22 10/26/22 12:32 13:34 14:06 Temperature Pulse Rate 47 L 54 L 56 L Pulse Rate [ Chief Executive Or Managing Director ] Respiratory 18 18 18 Rate Blood Pressure 157/83 168/72 182/77 O2 Sat by Pulse 100 99 98 Oximetry Fraction of Inspired Oxygen (FIO2) 10/26/22 10/26/22 14:12 14:56 Temperature Pulse Rate 54 L 53 L Pulse Rate [ Chief Executive Or Managing Director ] Respiratory 14 10 L Rate Blood Pressure O2 Sat by Pulse 94 L Oximetry Fraction of Inspired Oxygen (FIO2) - Reevaluation(s) Reevaluation #1: 10/26/22 09:30 I did extended conversation with family regarding the goals of care and the prognosis. Patient's family members indicated that she was previously a DO NOT RESUSCITATE. Currently awaiting decision by family regarding if cardiopulmonary support should be discontinued. Reevaluation #2: 10/26/22 10:31 Patient family has decided on comfort care and would like to wait until family arrives to terminate life support. Reevaluation #3: 10/26/22 13:58 All family at bedside and agreeable with extubation and comfort measures. Reevaluation #4: 10/26/22 14:09 Patient extubated Reevaluation #5: 10/26/22 15:44 Patient became apneic and asystolic, time of 1540 Medical Decision Making - Medical Decision Making Was pt. sent in by a medical professional or institution (, PA, ENGINEERING LIBRARIAN, urgent care, hospital, or [place] [facility] [place] facility...) When possible be specific @ -No Did you speak to anyone other than the patient for history (EMS, parent, family, police, friend...)? What history was obtained from this source @ -No Did you review nursing and triage notes (agree or disagree)? Why? @ -I reviewed and agree with nursing and triage notes Were old charts reviewed (outside hosp., previous admission, EMS record, old EKG, old radiological studies, urgent care reports/EKG's, [place] health care facility records)? Report findings @ -No old charts were reviewed Differential Diagnosis (chest pain, altered mental status, abdominal pain women, abdominal pain men, vaginal bleeding, weakness, fever, dyspnea, syncope, headache, dizziness, GI bleed, back pain, seizure, CVA, palpatations, mental health, musculoskeletal)? @ -[cardio- pulmonary arrest, arrhythmia, hypoxia, acidosis EKG interpreted by me (3pts min.). @ A. fib, rate of 76, QRS duration 106, QTC [address] segment elevation. X-rays interpreted by me (1pt min.). @ Post resuscitation x-ray showing satisfactory gastric tube and ET tube, right upper lobe infiltrate. CT interpreted by me (1pt min.). @ -None done U/S interpreted by me (1pt. min.). @ -None done What testing was considered but not performed or refused? (CT, X-rays, U/S, labs)? Why? @ -None What meds were considered but not given or refused? Why? @ -None Did you discuss the management of the patient with other professionals (professionals i.e. , PA, ENGINEERING LIBRARIAN, lab, RT, psych nurse, social media senior associate, applied anthropologist, teacher, equal employment opportunity officer, special education case manager)? Give summary @ -Dr. Gallardo Was smoking cessation discussed for >3mins.? @ -No Was critical care preformed (if so, how long)? @ -No Were there social determinants of health that impacted care today? How? (Homelessness, low income, unemployed, alcoholism, drug addiction, transportation, low edu. Level, literacy, decrease access to med. care, correction, rehab)? @ -No Was there de-escalation of care discussed even if they declined (Discuss DNR or withdrawal of care, Hospice)? DNR status @ -[DO NOT RESUSCITATE What co-morbidities impacted this encounter? (DM, HTN, Smoking, COPD, CAD, Cancer, CVA, ARF, Chemo, Hep., AIDS, mental health diagnosis, sleep apnea, morbid obesity)? @ -[Atrial fibrillation Was patient admitted / discharged? Hospital course, mention meds given and rou te, prescriptions, significant lab abnormalities, going to OR and other pertinent info. @ -[86 yo female brought in after out of Hospital cardiac arrest, asystole which did respond to epinephrine and intubation. Patient initially requires pressors while in the emergency department. She is critically ill. She has no corneal reflex, no gag reflex, no pupillary reflex. No spontaneous movement. Family including multiple family members did indicate that the patient was a DO NOT RESUSCITATE and would not have wanted to be on life support. After the fall family had arrived in the emergency department it was decided the patient would be extubated and placed on comfort care measures. She does have spontaneous respiration and is in a narrow complex rhythm after extubation. She will be admitted for comfort measures. Undiagnosed new problem with uncertain prognosis? @ -No Drug Therapy requiring intensive monitoring for toxicity (Heparin, Nitro, Insulin, Cardizem)? @ -No Were any procedures done? @ -No Diagnosis/symptom? @ Return of spontaneous circulation after cardiac arrest, Comfort Care Acute, or Chronic, or Acute on Chronic? @ -[Acute Uncomplicated (without systemic symptoms) or Complicated (systemic symptoms)? @ -default Side effects of treatment? @ -No Exacerbation, Progression, or Severe Exacerbation? @ -No Poses a threat to life or bodily function? How? (Chest pain, [place], [place], pneumonia, PE, COPD, DKA, ARF, appy, cholecystitis, CVA, Diverticulitis, Homicidal, Suicidal, threat to staff... and all critical care pts) @ -[Yes, likely end-of-life - Lab Data Result diagrams: 10/26/22 08:56 10/26/22 08:56 Lab Results 10/26/22 10/26/22 10/26/22 Range/Units 08:49 08:56 08:56 WBC 9.1 (3.8-10.6) k/uL RBC 3.84 (3.80-5.40) m/uL Hgb 12.8 (11.4-16.0) gm/dL Hct 41.1 (34.0-46.0) % MCV 106.9 H (80.0-100.0) fL MCH 33.2 (25.0-35.0) pg MCHC 31.1 (31.0-37.0) g/dL RDW 13.9 (11.5-15.5) % Plt Count 175 (150-450) k/uL MPV 8.4 Neutrophils % 51 % Lymphocytes % 43 % Monocytes % 4 % Eosinophils % 1 % Basophils % 0 % Neutrophils # 4.6 (1.3-7.7) k/uL Lymphocytes # 3.9 (1.0-4.8) k/uL Monocytes # 0.4 (0-1.0) k/uL Eosinophils # 0.1 (0-0.7) k/uL Basophils # 0.0 (0-0.2) k/uL Hypochromasia Marked Macrocytosis Moderate PT 14.0 H (9.0-12.0) sec INR 1.4 H (<1.2) APTT 32.3 H (22.0-30.0) sec Sample Site ABG pH (7.35-7.45) ABG pCO2 (35-45) mmHg ABG pO2 (83-108) mmHg ABG HCO3 (21-25) mmol/L ABG Total CO2 (19-24) mmol/L ABG O2 Saturation (94-97) % ABG Base Excess mmol/L Robinson Test FiO2 % Sodium (137-145) mmol/L Potassium (3.5-5.1) mmol/L Chloride (98-107) mmol/L Carbon Dioxide (22-30) mmol/L Anion Gap mmol/L BUN (7-17) mg/dL Creatinine (0.52-1.04) mg/dL Est GFR (CKD-EPI)AfAm (>60 ml/min/1.73 sqM) Est GFR (CKD-EPI)NonAf (>60 ml/min/1.73 sqM) Glucose (74-99) mg/dL POC Glucose (mg/dL) 378 H (70-110) mg/dL POC Glu Retail Sales Associate Seasonal ID Sunni Jacob Lactic Ac Sepsis Rflx Plasma Lactic Acid Vladimir (0.7-2.0) mmol/L Calcium (8.4-10.2) mg/dL Magnesium (1.6-2.3) mg/dL Total Bilirubin (0.2-1.3) mg/dL AST (14-36) U/L ALT (4-34) U/L Alkaline Phosphatase (38-126) U/L Troponin I (0.000-0.034) ng/mL Total Protein (6.3-8.2) g/dL Albumin (3.5-5.0) g/dL 10/26/22 10/26/22 10/26/22 Range/Units 08:56 08:56 08:56 WBC (3.8-10.6) k/uL RBC (3.80-5.40) m/uL Hgb (11.4-16.0) gm/dL Hct (34.0-46.0) % MCV (80.0-100.0) fL MCH (25.0-35.0) pg MCHC (31.0-37.0) g/dL RDW (11.5-15.5) % Plt Count (150-450) k/uL MPV Neutrophils % % Lymphocytes % % Monocytes % % Eosinophils % % Basophils % % Neutrophils # (1.3-7.7) k/uL Lymphocytes # (1.0-4.8) k/uL Monocytes # (0-1.0) k/uL Eosinophils # (0-0.7) k/uL Basophils # (0-0.2) k/uL Hypochromasia Macrocytosis PT (9.0-12.0) sec INR (<1.2) APTT (22.0-30.0) sec Sample Site ABG pH (7.35-7.45) ABG pCO2 (35-45) mmHg ABG pO2 (83-108) mmHg ABG HCO3 (21-25) mmol/L ABG Total CO2 (19-24) mmol/L ABG O2 Saturation (94-97) % ABG Base Excess mmol/L Robinson Test FiO2 % Sodium 120 L (137-145) mmol/L Potassium 3.6 (3.5-5.1) mmol/L Chloride 86 L (98-107) mmol/L Carbon Dioxide 17 L (22-30) mmol/L Anion Gap 17 mmol/L BUN 7 (7-17) mg/dL Creatinine 0.86 (0.52-1.04) mg/dL Est GFR (CKD-EPI)AfAm 71 (>60 ml/min/1.73 sqM) Est GFR (CKD-EPI)NonAf 62 (>60 ml/min/1.73 sqM) Glucose 357 H (74-99) mg/dL POC Glucose (mg/dL) (70-110) mg/dL POC Glu Retail Sales Associate Seasonal ID Lactic Ac Sepsis Rflx Plasma Lactic Acid Vladimir 8.8 H* (0.7-2.0) mmol/L Calcium 7.7 L (8.4-10.2) mg/dL Magnesium 2.4 H (1.6-2.3) mg/dL Total Bilirubin 1.3 (0.2-1.3) mg/dL AST 354 H (14-36) U/L ALT 206 H (4-34) U/L Alkaline Phosphatase 62 (38-126) U/L Troponin I <0.012 (0.000-0.034) ng/mL Total Protein 5.6 L (6.3-8.2) g/dL Albumin 3.3 L (3.5-5.0) g/dL 10/26/22 10/26/22 Range/Units 09:18 09:34 WBC (3.8-10.6) k/uL RBC (3.80-5.40) m/uL Hgb (11.4-16.0) gm/dL Hct (34.0-46.0) % MCV (80.0-100.0) fL MCH (25.0-35.0) pg MCHC (31.0-37.0) g/dL RDW (11.5-15.5) % Plt Count (150-450) k/uL MPV Neutrophils % % Lymphocytes % % Monocytes % % Eosinophils % % Basophils % % Neutrophils # (1.3-7.7) k/uL Lymphocytes # (1.0-4.8) k/uL Monocytes # (0-1.0) k/uL Eosinophils # (0-0.7) k/uL Basophils # (0-0.2) k/uL Hypochromasia Macrocytosis PT (9.0-12.0) sec INR (<1.2) APTT (22.0-30.0) sec Sample Site lbrac ABG pH 6.98 L* (7.35-7.45) ABG pCO2 61 H (35-45) mmHg ABG pO2 396 H (83-108) mmHg ABG HCO3 14 L (21-25) mmol/L ABG Total CO2 16 L (19-24) mmol/L ABG O2 Saturation 98.6 H (94-97) % ABG Base Excess -17.3 mmol/L Robinson Test Yes FiO2 100 % Sodium (137-145) mmol/L Potassium (3.5-5.1) mmol/L Chloride (98-107) mmol/L Carbon Dioxide (22-30) mmol/L Anion Gap mmol/L BUN (7-17) mg/dL Creatinine (0.52-1.04) mg/dL Est GFR (CKD-EPI)AfAm (>60 ml/min/1.73 sqM) Est GFR (CKD-EPI)NonAf (>60 ml/min/1.73 sqM) Glucose (74-99) mg/dL POC Glucose (mg/dL) (70-110) mg/dL POC Glu Retail Sales Associate Seasonal ID Lactic Ac Sepsis Rflx Y Plasma Lactic Acid Vladimir (0.7-2.0) mmol/L Calcium (8.4-10.2) mg/dL Magnesium (1.6-2.3) mg/dL Total Bilirubin (0.2-1.3) mg/dL AST (14-36) U/L ALT (4-34) U/L Alkaline Phosphatase (38-126) U/L Troponin I (0.000-0.034) ng/mL Total Protein (6.3-8.2) g/dL Albumin (3.5-5.0) g/dL Critical Care Time Critical Care Time: Yes Total Critical Care Time: 35 Disposition Clinical Impression: Sudden cardiac , Signs of return of spontaneous circulation, Need for comfort care, Cardiac arrest Disposition: Condition: Undetermined Is patient prescribed a controlled substance at d/c from ED?: No Time of Disposition: 14:49 Preliminary Cause of : Cardiopulmonary arrest
--- NOTE | 2022-10-26 10:21 | XR ---
EXAMINATION TYPE: XR chest 1V portable DATE OF EXAM: 10/26/2022 9:53 AM COMPARISON: Chest radiographs from 06/29/2022. TECHNIQUE: XR chest 1V portable Frontal view of the chest. CLINICAL INDICATION:Female, 86 years old with history of post cardiac arrest; FINDINGS: Lungs/Pleura: Right upper lung airspace opacities. No evidence for pneumothorax or pleural effusion. Pulmonary vascularity: Unremarkable. Heart/mediastinum: Cardiomediastinal silhouette is unremarkable. Musculoskeletal: No acute osseous pathology. Other findings: None Lines/Tubes: Endotracheal tube with distal tip 2.4 cm above the maryan. Nasogastric tube with its distal tip and side-port projecting under the diaphragm. IMPRESSION: Right upper lung airspace opacities concerning for pneumonia versus pulmonary congestion.
--- NOTE | 2022-10-26 13:22 | P.CNPUL ---
History of Present Illness Consult date: 10/26/22 Requesting physician: Rachel Gallardo Reason for consult: other (Acute hypoxic respiratory failure/cardiac arrest) Chief complaint: Cardiac arrest History of present illness: This is a 86-year-old female with known history of multiple medical problems including dementia, dyslipidemia, hypothyroidism, bronchial asthma, hypertension, degenerative joint disease, hypothyroidism, and chronic hyponatre christos, patient was on the toilet for sometime today, and when a family member checked on her, she was found unresponsive. initiated CPR and diabetic were called. Upon arrival of paramedics, patient was in asystole, CPR was performed, and she received 3 epinephrine's. Patient was intubated in the field, and there was return of spontaneous circulation. Down time is unknown, patient had no previous complaints prior to this presentation. Apparently she was brought into the ER, and I saw her while I was seeing another patient in the ER. Family is considering comfort care measures at this point. Patient is presently on assist control rate of 20 to volume 300 FiO2 50% and PEEP of 5. S he is also on norepinephrine at 0.2 mcg/kg/m. Patient is unresponsive to any stimuli. Chest x-ray is suggestive of right upper lobe airspace disease, endotracheal tube seems to be about 2.5 cm above the maryan, I believe the findings in the right upper lobar most likely related to endotracheal tube could have been way low in the right mainstem bronchus prior to chest x-ray taken. Labs were reviewed WBC is 9.1 hemoglobin 12.8, sodium is very low at 120 bicarb is 17 blood sugars 357, liver enzymes are borderline elevated. EKG showed atrial fibrillation with controlled rate/75. Nonspecific ST and T-wave abnormalities noted in the anterolateral leads Review of Systems ROS unobtainable: due to endotracheal tube Past Medical History Past Medical History: Atrial Fibrillation, Asthma, Dementia, GERD/Reflux, Hype rlipidemia, Hypertension, Memory Impairment, Osteoarthritis (OA), Thyroid Disorder Additional Past Medical History / Comment(s): FALLS, vertigo, hyponatremia, anemia, chronic back pain, DDD, past small bowel ileus, hemorrhoids, seasonal allergies, hypothyroid History of Any Multi-Drug Resistant Organisms: None Reported Past Surgical History: Cholecystectomy, Ear Surgery, Hysterectomy Additional Past Surgical History / Comment(s): D&C, colonoscopy, EGD, pain clinic procedures, L ear myringotomy/tube, R nasolabial fold excision of lesion/reconstruction/flap. Past Anesthesia/Blood Transfusion Reactions: No Reported Reaction Past Psychological History: Anxiety Smoking Status: Current every day smoker Past Alcohol Use History: Unable to Obtain Past Drug Use History: Unable to Obtain - Past Family History Father Additional Family Medical History / Comment(s): pt. states her father was an alcoholic and at a young age Mother Family Medical History: CVA/TIA Additional Family Medical History / Comment(s): Mother of a CVA in her 80s Medications and Allergies Home Medications Medication Instructions Recorded Confirmed Type Ezetimibe [Zetia] 10 mg PO DAILY 11/02/13 07/30/22 History Metoprolol Tartrate [Lopressor] 25 mg PO BID #60 tab 06/09/18 07/30/22 Rx Atorvastatin [Lipitor] 80 mg PO DAILY 12/07/20 07/30/22 History Cholecalciferol (Vitamin D3) 125 mcg PO DAILY 12/07/20 07/30/22 History [Vitamin D3 (125 MCG = 5,000 IU)] Donepezil [Aricept] 5 mg PO DAILY 12/07/20 07/30/22 History QUEtiapine [SEROquel] 25 mg PO HS tab 10/14/21 07/30/22 Rx ALPRAZolam [Xanax] 0.25 mg PO TID PRN 06/29/22 07/30/22 History Gabapentin [Neurontin] 400 mg PO TID 06/29/22 07/30/22 History HYDROcodone/APAP 7.5-325MG [[place] 1 tab PO Q6H PRN 06/29/22 07/30/22 History 7.5-325] Levothyroxine Sodium [Synthroid] 50 mcg PO DAILY 06/29/22 07/30/22 History Mirtazapine 7.5 mg PO HS 06/29/22 07/30/22 History clonazePAM [Klonopin ODT] 0.5 mg PO HS 06/29/22 07/30/22 History Allergies Allergy/AdvReac Type Severity Reaction Status Date / Time No Known Allergies Allergy Verified 10/26/22 08:53 Physical Exam Vitals: Vital Signs Temp Pulse Pulse Resp BP Pulse Ox FiO2 10/26/22 12:32 47 L 18 157/83 100 10/26/22 12:14 50 10/26/22 12:00 44 L 18 169/68 99 10/26/22 11:32 44 L 18 156/98 99 10/26/22 11:15 43 L 18 172/102 98 10/26/22 11:00 48 L 18 176/89 99 10/26/22 10:45 52 L 20 175/74 99 10/26/22 10:30 54 L 18 152/67 98 10/26/22 10:15 53 L 20 116/80 98 10/26/22 10:05 52 L 18 97/51 98 10/26/22 09:55 60 18 86/55 98 10/26/22 09:40 64 20 92/48 10/26/22 09:30 55 L 20 80/48 98 10/26/22 09:24 61 18 70/37 99 10/26/22 09:15 68 18 72/47 98 10/26/22 09:10 70 18 75/50 100 10/26/22 09:05 74 20 67/40 99 10/26/22 09:02 81 20 67/41 100 10/26/22 09:00 79 81 20 66/46 100 10/26/22 08:53 100 10/26/22 08:50 100 10/26/22 08:48 97.0 F L 88 20 94/63 95 Intake and Output 10/25/22 10/26/22 10/26/22 22:59 06:59 14:59 Intake Total 63.924 Output Total 0 Balance 63.924 Intake: Intake, IV Titration 63.924 Amount Norepinephrine 4 mg In 63.924 Sodium Chloride 0.9% 250 ml @ 0.03 MCG/KG/MIN 5. 859 mls/hr IV .Q24H ONE Rx#:[id number] Output: Urine 0 Uretheral (Howell) 0 Other: Weight 51.256 kg Physical Exam: Revealed a 66-year-old female intubated, mechanically ventilated, unresponsive to any stimuli. Head: Atraumatic, normocephalic. Endotracheal tube is noted. HEENT: Pupils are nonreactive. [Neck is supple.] [No neck masses.] [No thyromegaly.] [No JVD.] Chest: Good breath sound bilaterally no rhonchi and no wheezes Cardiac Exam: Irregular irregular [Normal S1 and S2, no S3 gallop, no murmur.] Abdomen: [Soft, nontender, no megaly, no rebound, no guarding, normal bowel sounds.] Extremities: [No clubbing, no edema, no cyanosis.] Chronic venous stasis changes noted in lower extremities with skin abrasion noted in the left mid calf region Neurological Exam,: Patient is unresponsive to any stimuli. Pupils are nonreactive. Psychiatric: Could not assess Skin: Evidence of abrasion in the left lower extremity just above the ankle with erythema Results - Laboratory Findings CBC and BMP: 10/26/22 08:56 10/26/22 08:56 ABG ABG pH 6.98 (7.35-7.45) L* 10/26/22 09:18 ABG pCO2 61 mmHg (35-45) H 10/26/22 09:18 ABG pO2 396 mmHg (83-108) H 10/26/22 09:18 ABG O2 Saturation 98.6 % (94-97) H 10/26/22 09:18 PT/INR, D-dimer PT 14.0 sec (9.0-12.0) H 10/26/22 08:56 INR 1.4 (<1.2) H 10/26/22 08:56 Abnormal lab findings: Abnormal Labs 10/26/22 10/26/22 10/26/22 08:49 08:56 08:56 MCV 106.9 H PT 14.0 H INR 1.4 H APTT 32.3 H ABG pH ABG pCO2 ABG pO2 ABG HCO3 ABG Total CO2 ABG O2 Saturation Sodium Chloride Carbon Dioxide Glucose POC Glucose (mg/dL) 378 H Plasma Lactic Acid Vladimir Calcium Magnesium AST ALT Total Protein Albumin 10/26/22 10/26/22 10/26/22 08:56 08:56 09:18 MCV PT INR APTT ABG pH 6.98 L* ABG pCO2 61 H ABG pO2 396 H ABG HCO3 14 L ABG Total CO2 16 L ABG O2 Saturation 98.6 H Sodium 120 L Chloride 86 L Carbon Dioxide 17 L Glucose 357 H POC Glucose (mg/dL) Plasma Lactic Acid Vladimir 8.8 H* Calcium 7.7 L Magnesium 2.4 H AST 354 H ALT 206 H Total Protein 5.6 L Albumin 3.3 L - Diagnostic Findings Chest x-ray: image reviewed (As noted in HPI) Assessment and Plan Assessment: Impression: Acute hypoxic and hypercapnic respiratory failure, secondary to cardiac arrest Cardiac arrest Chronic atrial fibrillation Suspect severe anoxic brain injury History of underlying dementia Benign essential hypertension Chronic bronchial asthma Recommendation: Continue present supportive care measures Discussed her condition with the family presently the patient is DO NOT RESUSCITATE CODE STATUS Awaiting for the daughter to come in and family is considering comfort care measures. If the patient is not made comfort care measures, can transfer to ICU We will continue to follow Prognosis is extremely poor and guarded. Patient was seen and evaluated in the ER and condition discussed with family at bedside including her Time with Patient: Greater than 30
[2022-10-26] MEDS ORDERED: MORPHINE SULFATE 4 MG/ML SYRINGE IVP STA (13:48)
[2022-10-26 14:07] VITALS: BP 182/77
[2022-10-26] MEDS ORDERED: MORPHINE SULFATE 2 MG/ML SYRINGE IV PRN (14:13)
[2022-10-26] MEDS ORDERED: ONDANSETRON 4 MG/2 ML VIAL IVP PRN (14:13)
[2022-10-26] MEDS ORDERED: MORPHINE SULFATE 2 MG/ML SYRINGE IVP STA (15:01)
[2022-10-26 15:45] VITALS: PULSE 0; RESP 0
[2022-10-26 16:43] LABS: Appearance,Urine Cloudy (Clear); Bilirubin,Urine Negative (Negative); Blood,Urine Large (Negative); Color,Urine Light Orange; Glucose,Urine (UA) 3+ (Negative); Ketones,Urine Trace (Negative); Protein,Urine 3+ (Negative)
[2022-10-26 16:44] LABS: Leukocyte Esterase,Urine Negative (Negative); Nitrite,Urine Negative (Negative); Urobilinogen,Urine <2.0 mg/dL (<2.0)
[2022-10-26 16:45] LABS: Specific Gravity,Urine 1.018 (1.001-1.035)
[2022-10-26 16:53] LABS: Bacteria,Urine Many /hpf; Granular Casts,Urine 30 /lpf (0); Hyaline Casts,Urine 68 /lpf (0-2); Mucus,Urine Occasional /hpf; RBC,Urine 42 /hpf (0-5); Squamous Epithelial Cell,Urine 4 /hpf (0-4); WBC,Urine 78 /hpf (0-5)
--- NOTE | 2022-10-26 17:36 | P.HPIM ---
History of Present Illness H&P Date: 10/26/22 Jeannette Tran, is an 86-year-old female who presented to [facility] emergency room, per family patient was found on the toilet unresponsive, initiated CPR, paramedics were called and patient was brought into emergency room, she was intubated and started on mechanical ventil ation however, subsequently family stated that patient is DO NOT RESUSCITATE, patient was then extubated and started on comfort measures. Past Medical History Past Medical History: Atrial Fibrillation, Asthma, Dementia, GERD/Reflux, Hyperlipidemia, Hypertension, Memory Impairment, Osteoarthritis (OA), Thyroid Disorder Additional Past Medical History / Comment(s): FALLS, vertigo, hyponatremia, anemia, chronic back pain, DDD, past small bowel ileus, hemorrhoids, seasonal allergies, hypothyroid History of Any Multi-Drug Resistant Organisms: None Reported Past Surgical History: Cholecystectomy, Ear Surgery, Hysterectomy Additional Past Surgical History / Comment(s): D&C, colonoscopy, EGD, pain clinic procedures, L ear myringotomy/tube, R nasolabial fold excision of lesion/reconstruction/flap. Past Anesthesia/Blood Transfusion Reactions: No Reported Reaction Past Psychological History: Anxiety Smoking Status: Current every day smoker Past Alcohol Use History: Unable to Obtain Past Drug Use History: Unable to Obtain - Past Family History Father Additional Family Medical History / Comment(s): pt. states her father was an alcoholic and at a young age Mother Family Medical History: CVA/TIA Additional Family Medical History / Comment(s): Mother of a CVA in her 80s Medications and Allergies Home Medications Medication Instructions Recorded Confirmed Type Ezetimibe [Zetia] 10 mg PO DAILY 11/02/13 07/30/22 History Metoprolol Tartrate [Lopressor] 25 mg PO BID #60 tab 06/09/18 07/30/22 Rx Atorvastatin [Lipitor] 80 mg PO DAILY 12/07/20 07/30/22 History Cholecalciferol (Vitamin D3) 125 mcg PO DAILY 12/07/20 07/30/22 History [Vitamin D3 (125 MCG = 5,000 IU)] Donepezil [Aricept] 5 mg PO DAILY 12/07/20 07/30/22 History QUEtiapine [SEROquel] 25 mg PO HS tab 10/14/21 07/30/22 Rx ALPRAZolam [Xanax] 0.25 mg PO TID PRN 06/29/22 07/30/22 History Gabapentin [Neurontin] 400 mg PO TID 06/29/22 07/30/22 History HYDROcodone/APAP 7.5-325MG [[place] 1 tab PO Q6H PRN 06/29/22 07/30/22 History 7.5-325] Levothyroxine Sodium [Synthroid] 50 mcg PO DAILY 06/29/22 07/30/22 History Mirtazapine 7.5 mg PO HS 06/29/22 07/30/22 History clonazePAM [Klonopin ODT] 0.5 mg PO HS 06/29/22 07/30/22 History Allergies Allergy/AdvReac Type Severity Reaction Status Date / Time No Known Allergies Allergy Verified 10/26/22 08:53 Physical Exam Vitals: Vital Signs Temp Pulse Pulse Resp BP Pulse Ox FiO2 10/26/22 15:40 0 L 0 L 10/26/22 14:56 53 L 10 L 10/26/22 14:12 54 L 14 94 L 10/26/22 14:06 56 L 18 182/77 98 10/26/22 13:34 54 L 18 168/72 99 10/26/22 12:32 47 L 18 157/83 100 10/26/22 12:14 50 10/26/22 12:00 44 L 18 169/68 99 10/26/22 11:32 44 L 18 156/98 99 10/26/22 11:15 43 L 18 172/102 98 10/26/22 11:00 48 L 18 176/89 99 10/26/22 10:45 52 L 20 175/74 99 10/26/22 10:30 54 L 18 152/67 98 10/26/22 10:15 53 L 20 116/80 98 10/26/22 10:05 52 L 18 97/51 98 10/26/22 09:55 60 18 86/55 98 10/26/22 09:40 64 20 92/48 10/26/22 09:30 55 L 20 80/48 98 10/26/22 09:24 61 18 70/37 99 10/26/22 09:15 68 18 72/47 98 10/26/22 09:10 70 18 75/50 100 10/26/22 09:05 74 20 67/40 99 10/26/22 09:02 81 20 67/41 100 10/26/22 09:00 79 81 20 66/46 100 10/26/22 08:53 100 10/26/22 08:50 100 10/26/22 08:48 97.0 F L 88 20 94/63 95 Intake and Output 10/26/22 10/26/22 10/26/22 06:59 14:59 22:59 Intake Total 63.924 Output Total 0 Balance 63.924 Intake: Intake, IV Titration 63.924 Amount Norepinephrine 4 mg In 63.924 Sodium Chloride 0.9% 250 ml @ 0.03 MCG/KG/MIN 5. 859 mls/hr IV .Q24H ONE Rx#:[id number] Output: Urine 0 Uretheral (Howell) 0 Other: Weight 51.256 kg Patient is unresponsive, resting comfortably no evidence of pain discomfort difficulty breathing or seizure activity HEENT head normocephalic Neck is supple no JVD no goiter Chest exam reveals scattered crackles bilaterally no wheezing Cardiac exam reveals irregular heart beat S1 and S2 no gallops no Abdomen is soft nontender no organomegaly Extremity exam reveals no edema no cyanosis or clubbing Results CBC & Chem 7: 10/26/22 08:56 10/26/22 08:56 Labs: Abnormal Lab Results - Last 24 Hours (Table) 10/26/22 10/26/22 10/26/22 Range/Units 08:49 08:56 08:56 MCV 106.9 H (80.0-100.0) fL PT 14.0 H (9.0-12.0) sec INR 1.4 H (<1.2) APTT 32.3 H (22.0-30.0) sec ABG pH (7.35-7.45) ABG pCO2 (35-45) mmHg ABG pO2 (83-108) mmHg ABG HCO3 (21-25) mmol/L ABG Total CO2 (19-24) mmol/L ABG O2 Saturation (94-97) % Sodium (137-145) mmol/L Chloride (98-107) mmol/L Carbon Dioxide (22-30) mmol/L Glucose (74-99) mg/dL POC Glucose (mg/dL) 378 H (70-110) mg/dL Plasma Lactic Acid Vladimir (0.7-2.0) mmol/L Calcium (8.4-10.2) mg/dL Magnesium (1.6-2.3) mg/dL AST (14-36) U/L ALT (4-34) U/L Total Protein (6.3-8.2) g/dL Albumin (3.5-5.0) g/dL 10/26/22 10/26/22 10/26/22 Range/Units 08:56 08:56 09:18 MCV (80.0-100.0) fL PT (9.0-12.0) sec INR (<1.2) APTT (22.0-30.0) sec ABG pH 6.98 L* (7.35-7.45) ABG pCO2 61 H (35-45) mmHg ABG pO2 396 H (83-108) mmHg ABG HCO3 14 L (21-25) mmol/L ABG Total CO2 16 L (19-24) mmol/L ABG O2 Saturation 98.6 H (94-97) % Sodium 120 L (137-145) mmol/L Chloride 86 L (98-107) mmol/L Carbon Dioxide 17 L (22-30) mmol/L Glucose 357 H (74-99) mg/dL POC Glucose (mg/dL) (70-110) mg/dL Plasma Lactic Acid Vladimir 8.8 H* (0.7-2.0) mmol/L Calcium 7.7 L (8.4-10.2) mg/dL Magnesium 2.4 H (1.6-2.3) mg/dL AST 354 H (14-36) U/L ALT 206 H (4-34) U/L Total Protein 5.6 L (6.3-8.2) g/dL Albumin 3.3 L (3.5-5.0) g/dL Assessment and Plan Plan: Cardiac arrest Acute hypoxic and hypercapnic respiratory failure Mental status changes was an unresponsiveness At this time patient is admitted to medical floor for comfort measures and possible hospice consult Will follow closely
--- NOTE | 2022-10-27 16:43 | P.DS ---
Providers Date of admission: 10/26/22 14:15 Expected date of discharge: 10/27/22 Attending physician: Rachel Gallardo Primary care physician: Rachel Gallardo [facility] Course: Jeannette Tran, is an 86-year-old female who presented to [facility] emergency room, per family patient was found on the toilet unresponsive, initiated CPR, paramedics were called and patient was brought into emergency room, she was intubated and started on mechanical ventilation however, subsequently family stated that patient is DO NOT RESUSCITATE, patient was then extubated and started on comfort measures. Patient was maintained on comfort measures for several hours, there was no evidence of pain or discomfort, patient on 10/26 2022 Patient Condition at Discharge: Undetermined Plan - Discharge Summary New Discharge Prescriptions: No Action Ezetimibe [Zetia] 10 mg PO DAILY Metoprolol Tartrate [Lopressor] 25 mg PO BID #60 tab Cholecalciferol (Vitamin D3) [Vitamin D3 (125 MCG = 5,000 IU)] 125 mcg PO DAILY Donepezil [Aricept] 5 mg PO DAILY ALPRAZolam [Xanax] 0.25 mg PO TID PRN PRN Reason: Anxiety HYDROcodone/APAP 7.5-325MG [[place] 7.5-325] 1 tab PO Q6H PRN PRN Reason: Pain Levothyroxine Sodium [Synthroid] 50 mcg PO DAILY Atorvastatin [Lipitor] 80 mg PO DAILY QUEtiapine [SEROquel] 25 mg PO HS tab clonazePAM [Klonopin ODT] 0.5 mg PO HS Gabapentin [Neurontin] 400 mg PO TID Mirtazapine 7.5 mg PO HS Discharge Medication List Ezetimibe [Zetia] 10 mg PO DAILY 11/02/13 [History] Metoprolol Tartrate [Lopressor] 25 mg PO BID #60 tab 06/09/18 [Rx] Atorvastatin [Lipitor] 80 mg PO DAILY 12/07/20 [History] Cholecalciferol (Vitamin D3) [Vitamin D3 (125 MCG = 5,000 IU)] 125 mcg PO DAILY 12/07/20 [History] Donepezil [Aricept] 5 mg PO DAILY 12/07/20 [History] QUEtiapine [SEROquel] 25 mg PO HS tab 10/14/21 [Rx] ALPRAZolam [Xanax] 0.25 mg PO TID PRN 06/29/22 [History] Gabapentin [Neurontin] 400 mg PO TID 06/29/22 [History] HYDROcodone/APAP 7.5-325MG [[place] 7.5-325] 1 tab PO Q6H PRN 06/29/22 [History] Levothyroxine Sodium [Synthroid] 50 mcg PO DAILY 06/29/22 [History] Mirtazapine 7.5 mg PO HS 06/29/22 [History] clonazePAM [Klonopin ODT] 0.5 mg PO HS 06/29/22 [History] Follow up Appointment(s)/Referral(s): Rachel Gallardo MD [Primary Care Provider] - 1-2 days Discharge Disposition: - Preliminary Cause of Preliminary Cause of : coronary artery disease
== END 2022-10-26 15:45 | disposition expired | DRG 951 ==
LOC: EC 08:47 → 5NMEDONC 14:15
PROVIDERS: ADMIT Internal Medicine; ATTEND Internal Medicine
DX: Z51.5 Encounter for palliative care (principal); J96.02 Acute respiratory failure with hypercapnia; J96.01 Acute respiratory failure with hypoxia; I48.20 Chronic atrial fibrillation, unspecified; F03.94 Unspecified dementia, unspecified severity, with anxiety; G93.1 Anoxic brain damage, not elsewhere classified; I46.2 Cardiac arrest due to underlying cardiac condition; I25.10 Atherosclerotic heart disease of native coronary artery without angina pectoris; Z66 Do not resuscitate; E03.9 Hypothyroidism, unspecified; R29.6 Repeated falls; Z91.81 History of falling; Z87.19 Personal history of other diseases of the digestive system; J30.2 Other seasonal allergic rhinitis; G31.84 Mild cognitive impairment of uncertain or unknown etiology; M54.9 Dorsalgia, unspecified; E78.00 Pure hypercholesterolemia, unspecified; D64.9 Anemia, unspecified; M19.90 Unspecified osteoarthritis, unspecified site; K21.9 Gastro-esophageal reflux disease without esophagitis; J45.909 Unspecified asthma, uncomplicated; I10 Essential (primary) hypertension; F17.210 Nicotine dependence, cigarettes, uncomplicated; Z79.890 Hormone replacement therapy; Z79.899 Other long term (current) drug therapy; Z90.710 Acquired absence of both cervix and uterus; Z90.49 Acquired absence of other specified parts of digestive tract
CPT/HCPCS: 36415; 36600; 71045; 80053; 81001; 82805; 83605; 83735; 84484; 85025; 85610; 85730; 93005; 94002